=== PATIENT | female | born 1970 | race Caucasian/White ===

== ENCOUNTER 2016-12-26 02:31 | Emergency (ER) | payer BC ==
[2016-12-26] MEDS ORDERED: Ondansetron 4 MG/2 ML SDV IVPUSH ONE (02:41)
[2016-12-26] MEDS ORDERED: Sodium Chloride 0.9% 10 ML Syringe FLUSH PRN (02:42)
[2016-12-26 03:15] LABS: CHLORIDE,CL 106 mmol/L (98-107); SODIUM,NA 141 mmol/L (136-145)
[2016-12-26] MEDS ORDERED: Morphine 10 MG/ML Syringe IVPUSH ONE (03:23)
[2016-12-26] MEDS ORDERED: LORazepam 2 MG/ML MDV IVPUSH ONE (03:23)
--- NOTE | 2016-12-26 03:29 | EDM.PDOC ---
ED HPI GENERAL MEDICAL PROBLEM - General Chief Complaint: Headache Stated Complaint: Headache Time Seen by Provider: 12/26/16 02:56 Source of Information: Reports: Patient History Limitations: Reports: No Limitations - History of Present Illness INITIAL COMMENTS - FREE TEXT/NARRATIVE: Patient here by private vehicle for headache. She has a long history of headaches, including chronic daily headaches. History is complicated by aneurysms and previous subarachnoid bleed. In additional to the above she has anxiety. Tonight she reports that she has had a bilateral occipital headache that started on Monday. It has gotten worse and is now causing her dizziness as well as right arm weakness. She describes numbness/weakness in medial nerve distribution. No visual changes. No other neuro complaints. Was recently evaluated at [place] and was told aneurysm redeveloping at site of old bleed/coil location. Headache Pain Score (Numeric/FACES): 8 - Related Data Allergies Allergy/AdvReac Type Severity Reaction Status Date / Time iodine Allergy Anaphylactic Verified 12/26/16 03:05 Shock Sulfa (Sulfonamide Allergy Rash Verified 12/26/16 03:05 Antibiotics) Home Meds: Home Meds Aspirin 81 mg PO BRK 10/17/15 [History] Thyroid [[place]and Thyroid] 50 mg PO DAILY 10/17/15 [History] atorvaSTATin [Lipitor] 10 mg PO BEDTIME 11/10/15 [History] Baclofen [Baclofen] 10 mg PO TID 05/21/16 [History] Diazepam [Diazepam] 10 mg PO TID PRN 05/21/16 [History] Ibuprofen 200 mg PO Q6H PRN 05/21/16 [History] Amitriptyline Hcl 50 mg PO BEDTIME 12/26/16 [History] Past Medical History HEENT History: Reports: Allergic Rhinitis, Impaired Vision Cardiovascular History: Reports: High Cholesterol Respiratory History: Reports: COPD, Other (See Below), Pulmonary Fibrosis Other Respiratory History: lower lobe benign pulmonary nodules x2 Gastrointestinal History: Reports: Gastritis, Helicobacter Pylori Genitourinary History: Reports: UTI, Recurrent Musculoskeletal History: Reports: None Neurological History: Reports: Migraines Other Neuro History: BRAIN ANUERISM Endocrine/Metabolic History: Reports: Hypothyroidism Hematologic History: Reports: None Immunologic History: Reports: None Oncologic (Cancer) History: Reports: Cervix Dermatologic History: Reports: None - Infectious Disease History Infectious Disease History: Reports: Chicken Pox, Influenza - Past Surgical History Head Surgeries/Procedures: Reports: None HEENT Surgical History: Reports: Oral Surgery Female Surgical History: Reports: Breast Implant, Hysterectomy, Salpingo- Oophorectomy Neurological Surgical History: Reports: Other (See Below) Musculoskeletal Surgical History: Reports: Other (See Below) - Past Imaging History Past Imaging History: Reports: CAT Scan, Ultrasound Social & Family History - Tobacco Use Smoking Status *Q: Former Smoker Years of Tobacco use: 30 Packs/Tins Daily: 1 Used Tobacco, but Quit: Yes Month Tobacco Last Used: 5 Second Hand Smoke Exposure: No - Caffeine Use Caffeine Use: Reports: None - Alcohol Use Days Per Week of Alcohol Use: 0 Number of Drinks Per Day: 2 Total Drinks Per Week: 0 - Recreational Drug Use Recreational Drug Use: No Drug Use in Last 12 Months: No Recreational Drug Type: Reports: Marijuana/Hashish Recreational Drug Last Use: 3 months ago, experimentation - Living Situation & Occupation Living situation: Reports: with Family, Occupation: Retired ED ROS GENERAL - Review of Systems Review Of Systems: See Below Constitutional: Reports: No Symptoms HEENT: Denies: Vision Change Respiratory: Reports: No Symptoms Cardiovascular: Reports: No Symptoms GI/Abdominal: Reports: Nausea. Denies: Abdominal Pain, Constipation, Diarrhea, Vomiting : Reports: No Symptoms Musculoskeletal: Reports: No Symptoms Skin: Reports: No Symptoms Neurological: Reports: Dizziness, Headache, Numbness, Paresthesia (see hpi), Weakness. Denies: Seizure, Syncope, Trouble Speaking, Difficulty Walking, Change in Speech, Gait Disturbance Psychiatric: Reports: Anxiety. Denies: Confusion, Hallucinations - Physical Exam Exam: See Below Exam Limited By: No Limitations General Appearance: Alert, WD/WN, Anxious Eye Exam: Bilateral Eye: EOMI, PERRL Ears: Normal External Exam Nose: Normal Inspection Throat/Mouth: Normal Inspection, Normal Voice, No Airway Compromise Head Exam: Atraumatic, Normocephalic Neck: Supple, Non-Tender Respiratory/Chest: No Respiratory Distress, Lungs Clear, Normal Breath Sounds, No Accessory Muscle Use Cardiovascular: Regular Rate, Rhythm, No Murmur GI/Abdominal: Soft, Non-Tender Neuro Exam (Abbreviated): Alert, Oriented, Normal Cognition, Other (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 ) Back Exam: Normal Inspection Extremities: Non-Tender, Normal Capillary Refill Psychiatric: Anxious Skin Exam: Warm, Dry, Intact, Normal Color Course - Vital Signs Last Recorded V/S: Last Vital Signs Temp 36.9 C 12/26/16 02:51 Pulse 65 12/26/16 02:51 Resp 18 12/26/16 02:51 BP 109/58 L 12/26/16 02:51 Pulse Ox 98 12/26/16 02:51 - Orders/Labs/Meds Orders: Active Orders 24 hr Category Date Time Status Head wo Cont [CT] Stat Exams 12/26/16 02:42 Taken LORazepam [Ativan] Med 12/26/16 03:23 Once 1 mg IVPUSH ONETIME ONE Morphine Med 12/26/16 03:23 Once 5 mg IVPUSH ONETIME ONE Sodium Chloride 0.9% [Saline Flush] Med 12/26/16 02:42 Active 10 ml FLUSH ASDIRECTED PRN Saline Lock Insert [OM.PC] Routine Oth 12/26/16 02:42 Ordered Medication Orders Sodium Chloride (Saline Flush) 10 ml FLUSH ASDIRECTED PRN PRN Reason: Keep Vein Open Labs: Laboratory Tests 12/26/16 12/26/16 Range/Units 02:50 02:50 WBC 8.6 (4.0-10.2) K/uL RBC 4.81 (3.77-5.09) M/uL Hgb 14.7 (11.7-15.5) g/dL Hct 43.4 (34.0-46.0) % MCV 90.2 (84.0-98.0) fL MCH 30.6 (28.2-33.3) pg MCHC 33.9 (31.7-36.0) g/dL RDW 14.3 H (11.2-14.1) % Plt Count 234 (150-350) K/uL Neut % (Auto) 37.2 L (45.0-80.0) % Lymph % (Auto) 51.6 H (10.0-50.0) % Ector % (Auto) 8.1 (2.0-14.0) % Eos % (Auto) 2.6 (0.0-5.0) % Baso % (Auto) 0.5 (0.0-2.0) % Neut # (Auto) 3.20 (1.40-7.00) K/uL Lymph # (Auto) 4.42 H (0.50-3.50) K/uL Ector # (Auto) 0.69 (0.00-1.00) K/uL Eos # (Auto) 0.22 (0.00-0.50) K/uL Baso # (Auto) 0.04 (0.00-0.20) K/uL Sodium 141 (136-145) mmol/L Potassium 4.0 (3.5-5.1) mmol/L Chloride 106 (98-107) mmol/L Carbon Dioxide 26.9 (21.0-32.0) mmol/L BUN 18 (7-18) mg/dL Creatinine 0.61 (0.51-1.17) mg/dL Est Cr Clr Drug Dosing 93.59 mL/min Estimated GFR (MDRD) > 60 mL/min Glucose 106 (74-106) mg/dL Calcium 8.3 L (8.5-10.1) mg/dL Total Bilirubin 0.2 (0.2-1.0) mg/dL AST 16 (15-37) U/L ALT 21 (12-78) U/L Alkaline Phosphatase 61 (46-116) IU/L Total Protein 7.2 (6.4-8.2) g/dL Albumin 3.9 (3.4-5.0) g/dL Meds: Medications Generic Name Dose Route Start Last Admin Trade Name Freq PRN Reason Stop Dose Admin Sodium Chloride 10 ml 12/26/16 02:42 Saline Flush FLUSH ASDIRECTED PRN Keep Vein Open Discontinued Medications Generic Name Dose Route Start Last Admin Trade Name Freq PRN Reason Stop Dose Admin Ondansetron HCl 4 mg 12/26/16 02:41 12/26/16 02:46 Zofran IVPUSH 12/26/16 02:42 4 mg ONETIME ONE Administration - Radiology Interpretation Free Text/Narrative:: CT of head read as having no acute findings. - Re-Assessments/Exams Free Text/Narrative Re-Assessment/Exam: 12/26/16 03:[address] unremarkable as were labs. Given patient's long history of chronic headaches as well as anxiety, this episode may not be related to her aneurysms. However, given the unusual development of symptoms of numbness/weakness of arm as well as dizziness, she would benefit from CTA study that is not available here. Call placed to [place]. ER contacted. Spoke to concerning sending patient for CTA. accepted patient in transfer. Departure - Departure Time of Disposition: 03:39 Disposition: DC/Tfer to Acute Hospital 02 Condition: Good Clinical Impression: Headache Qualifiers: Headache type: unspecified Headache chronicity pattern: unspecified pattern Intractability: intractable Qualified Code(s): R51 - Headache - Discharge Information Forms: ED Department Discharge - My Orders Last 24 Hours: My Active Orders 12/26/16 02:42 Head wo Cont [CT] Stat Sodium Chloride 0.9% [Saline Flush] 10 ml FLUSH ASDIRECTED PRN Saline Lock Insert [OM.PC] Routine 12/26/16 03:23 LORazepam [Ativan] 1 mg IVPUSH ONETIME ONE Morphine 5 mg IVPUSH ONETIME ONE - Assessment/Plan Last 24 Hours: My Active Orders 12/26/16 02:42 Head wo Cont [CT] Stat Sodium Chloride 0.9% [Saline Flush] 10 ml FLUSH ASDIRECTED PRN Saline Lock Insert [OM.PC] Routine 12/26/16 03:23 LORazepam [Ativan] 1 mg IVPUSH ONETIME ONE Morphine 5 mg IVPUSH ONETIME ONE
[2016-12-26 05:06] VITALS: BP 106/62
== END 2016-12-26 04:25 ==
LOC: LL.ED 02:31
DX: R51 Headache (principal); E78.00 Pure hypercholesterolemia, unspecified; J44.9 Chronic obstructive pulmonary disease, unspecified; E03.9 Hypothyroidism, unspecified; Z87.440 Personal history of urinary (tract) infections; Z90.710 Acquired absence of both cervix and uterus; Z88.5 Allergy status to narcotic agent; Z88.2 Allergy status to sulfonamides; Z79.82 Long term (current) use of aspirin; Z79.899 Other long term (current) drug therapy; Z87.891 Personal history of nicotine dependence
CPT/HCPCS: 36415; 70450; 80053; 85025; 96374; 96375; 99285; J2060; J2270; J2405

== ENCOUNTER 2017-08-31 11:20 | Emergency (ER) | payer BC ==
--- NOTE | 2017-08-31 12:01 | EDM.PDOC ---
ED HPI GENERAL MEDICAL PROBLEM - General Chief Complaint: General Stated Complaint: weakness, shaky Time Seen by Provider: 08/31/17 11:52 Source of Information: Reports: Patient History Limitations: Reports: No Limitations - History of Present Illness INITIAL COMMENTS - FREE TEXT/NARRATIVE: Patient presented to ER after being referred from clinic for evaluation of not feeling well. Per Evangelina Sandra, patient came in complaining of feeling lightheaded/dizzy and appeared pale. She has a history of brain aneurysm and was therefore sent to the ER for a more emergent evaluation. Patient did drive herself to the hospital. She ultimately said that she has felt like this since before her May neck surgery (3+ months), but symptoms were worse last night. Complains of left posterior neck discomfort that has been present for awhile. Denies actual headache but describes her head as feeling "full" and thinking is somewhat muddy. Says she was unable to sleep well last night and described her head feeling as being like she was a bit drunk on alcohol. Denies hitting her head/trauma. No recent med changes but recalls being started on Neurontin before her neck surgery. No other reported changes. Since her neck surgery she has regained use/feeling of right arm. Patient has been googling her symptoms and had a web page pulled up on her phone that described how nerve impingement of proximal cervical nerves can cause similar symptoms. - Related Data Allergies Allergy/AdvReac Type Severity Reaction Status Date / Time iodine Allergy Anaphylactic Verified 12/26/16 03:05 Shock Sulfa (Sulfonamide Allergy Rash Verified 12/26/16 03:05 Antibiotics) cont Allergy Difficulty Uncoded 08/31/17 11:26 Breathing Home Meds: Home Meds Aspirin 81 mg PO BRK 10/17/15 [History] Thyroid [[place] Thyroid] 50 mg PO DAILY 10/17/15 [History] atorvaSTATin [Lipitor] 10 mg PO BEDTIME 11/10/15 [History] Baclofen 10 mg PO TID 05/21/16 [History] Celecoxib [CeleBREX] 100 mg PO TID 08/31/17 [History] Gabapentin [Neurontin] 300 mg PO TID 08/31/17 [History] Magnesium Glycinate [Mag Glycinate] 200 mg PO BID #120 tablet 08/31/17 [Rx] Meclizine Hcl [IJD: Meclizine] 25 mg PO .EVERY 6 HOURS PRN #30 tab.chew [Rx] Ubidecarenone [Coq-10] 100 mg PO DAILY #30 capsule 08/31/17 [Rx] Vitamin B Complex [B Complex] 1 each PO DAILY #30 tablet 08/31/17 [Rx] Vitamin D3/Vitamin K2 (Mk4) [K2 Plus D3 Tablet] 2 each PO DAILY #60 tablet 08/31 [Rx] Past Medical History HEENT History: Reports: Allergic Rhinitis, Impaired Vision Cardiovascular History: Reports: High Cholesterol Respiratory History: Reports: COPD, Other (See Below), Pulmonary Fibrosis Other Respiratory History: lower lobe benign pulmonary nodules x2 Gastrointestinal History: Reports: Gastritis, Helicobacter Pylori Genitourinary History: Reports: UTI, Recurrent Musculoskeletal History: Reports: Neck Pain, Chronic Neurological History: Reports: Migraines Other Neuro History: BRAIN ANUERISM Endocrine/Metabolic History: Reports: Hypothyroidism Hematologic History: Reports: None Immunologic History: Reports: None Oncologic (Cancer) History: Reports: Cervix Dermatologic History: Reports: None - Infectious Disease History Infectious Disease History: Reports: Chicken Pox, Influenza - Past Surgical History Head Surgeries/Procedures: Reports: None HEENT Surgical History: Reports: Oral Surgery Female Surgical History: Reports: Breast Implant, Hysterectomy, Salpingo- Oophorectomy Neurological Surgical History: Reports: C-Spine (cervical fusion), Other (See Below) Musculoskeletal Surgical History: Reports: Other (See Below) - Past Imaging History Past Imaging History: Reports: CAT Scan, Ultrasound Social & Family History - Tobacco Use Smoking Status *Q: Former Smoker Years of Tobacco use: 30 Packs/Tins Daily: 1 Used Tobacco, but Quit: Yes Month/Year Tobacco Last Used: 5 Second Hand Smoke Exposure: No - Caffeine Use Caffeine Use: Reports: None - Alcohol Use Days Per Week of Alcohol Use: 0 Number of Drinks Per Day: 2 Total Drinks Per Week: 0 - Recreational Drug Use Recreational Drug Use: No Drug Use in Last 12 Months: No Recreational Drug Type: Reports: Marijuana/Hashish Recreational Drug Last Use: 3 months ago, experimentation - Living Situation & Occupation Living situation: Reports: with Family, Occupation: Retired ED ROS GENERAL - Review of Systems Review Of Systems: See Below Constitutional: Reports: No Symptoms HEENT: Reports: Vision Change (says that vision bilaterally feels a bit blurry) Respiratory: Reports: No Symptoms Cardiovascular: Reports: Lightheadedness. Denies: Chest Pain, Blood Pressure Problem, Dyspnea on Exertion, Palpitations, Syncope GI/Abdominal: Reports: Nausea (mild). Denies: Abdominal Pain, Constipation, Diarrhea, Decreased Appetite : Reports: No Symptoms Musculoskeletal: Reports: Neck Pain (chronic) Skin: Reports: No Symptoms Neurological: Reports: Other (has full sensation in head, complains of brain-fog ). Denies: Headache, Seizure, Syncope, Trouble Speaking, Difficulty Walking, Change in Speech, Gait Disturbance Psychiatric: Reports: No Symptoms Hematologic/Lymphatic: Reports: No Symptoms ED EXAM, GENERAL - Physical Exam Exam: See Below Exam Limited By: No Limitations General Appearance: Alert, WD/WN, No Apparent Distress Eye Exam: Bilateral Eye: EOMI, PERRL, Other (Nystagmus absent with head rotation ) Ears: Normal External Exam, Normal Canal, Hearing Grossly Normal, Normal TMs Nose: Normal Inspection Throat/Mouth: Normal Inspection, Normal Lips, Normal Oropharynx, Normal Voice, No Airway Compromise Head: Atraumatic, Normocephalic Neck: Normal Inspection, Supple, Other (Patient has reduced ROM secondary to cervical fusion. ) Respiratory/Chest: No Respiratory Distress, Lungs Clear, Normal Breath Sounds, No Accessory Muscle Use, Chest Non-Tender Cardiovascular: Normal Peripheral Pulses, Regular Rate, Rhythm, No Edema, No Murmur Peripheral Pulses: 2+: Radial (L), Radial (R) GI/Abdominal: Normal Bowel Sounds, Soft, Non-Tender, No Distention (Female) Exam: Deferred Rectal (Female) Exam: Deferred Back Exam: Normal Inspection. No: CVA Tenderness (L), CVA Tenderness (R) Extremities: Normal Inspection, Normal Range of Motion, Non-Tender, No Pedal Edema, Normal Capillary Refill Neurological: Alert, Oriented, Normal Cognition, Normal Reflexes, No Motor/ Sensory Deficits Psychiatric: Anxious (mild) Skin Exam: Warm, Dry, Intact, Normal Color EKG INTERPRETATION EKG Date: 08/31/17 Time: 13:12 Rhythm: Other (Sinus Bradycardia) Rate (Beats/Min): 53 [place]: Normal P-Wave: Present QRS: Normal ST-T: Normal QT: Normal Comparison: No Change (Previous EKG on file similarly showed Sinus Bradycardia) Course - Vital Signs Last Recorded V/S: Last Vital Signs Temp 36.9 C 08/31/17 11:24 Pulse 72 08/31/17 12:15 Resp 16 08/31/17 12:15 BP 101/62 08/31/17 12:15 Pulse Ox 95 08/31/17 12:15 - Orders/Labs/Meds Orders: Active Orders 24 hr Category Date Time Status EKG Documentation Completion [RC] ASDIRECTED Care 08/31/17 13:03 Ordered Head wo Cont [CT] Stat Exams 08/31/17 11:22 Taken CULTURE URINE [RM] Stat Lab 08/31/17 11:38 Received UA W/MICROSCOPIC [URIN] Stat Lab 08/31/17 11:38 Ordered Sodium Chloride 0.9% [Saline Flush] Med 08/31/17 12:46 Active 10 ml FLUSH ASDIRECTED PRN Saline Lock Insert [OM.PC] Routine Oth 08/31/17 11:38 Ordered EKG 12 Lead [EK] Routine Ther 08/31/17 13:03 Ordered Medication Orders Sodium Chloride (Saline Flush) 10 ml FLUSH ASDIRECTED PRN PRN Reason: Keep Vein Open Labs: Laboratory Tests 08/31/17 08/31/17 08/31/17 Range/Units 11:38 12:01 12:01 WBC 5.8 (4.0-10.2) K/uL RBC 4.55 (3.77-5.09) M/uL Hgb 13.7 (11.7-15.5) g/dL Hct 41.7 (34.0-46.0) % MCV 91.6 (84.0-98.0) fL MCH 30.1 (28.2-33.3) pg MCHC 32.9 (31.7-36.0) g/dL RDW 14.3 H (11.2-14.1) % Plt Count 227 (150-350) K/uL Neut % (Auto) 50.5 (45.0-80.0) % Lymph % (Auto) 39.5 (10.0-50.0) % [place] % (Auto) 7.2 (2.0-14.0) % Eos % (Auto) 2.1 (0.0-5.0) % Baso % (Auto) 0.7 (0.0-2.0) % Neut # (Auto) 2.93 (1.40-7.00) K/uL Lymph # (Auto) 2.29 (0.50-3.50) K/uL [place] # (Auto) 0.42 (0.00-1.00) K/uL Eos # (Auto) 0.12 (0.00-0.50) K/uL Baso # (Auto) 0.04 (0.00-0.20) K/uL D-Dimer, Quantitative < 100 (0-400) ng/mL Sodium (136-145) mmol/L Potassium (3.5-5.1) mmol/L Chloride (98-107) mmol/L Carbon Dioxide (21.0-32.0) mmol/L BUN (7-18) mg/dL Creatinine (0.51-1.17) mg/dL Est Cr Clr Drug Dosing Estimated GFR (MDRD) mL/min Glucose (74-106) mg/dL Lactic Acid (0.4-2.0) mmol/L Calcium (8.5-10.1) mg/dL Total Bilirubin (0.2-1.0) mg/dL AST (15-37) U/L ALT (12-78) U/L Alkaline Phosphatase (46-116) IU/L Troponin I (0.000-0.056) ng/mL Total Protein (6.4-8.2) g/dL Albumin (3.4-5.0) g/dL Specimen Type Urincc Urine Color Yellow Urine Appearance Clear Urine pH 7.0 (5.0-9.0) Ur Specific [place] 1.010 (1.005-1.030) Urine Protein Negative (NEGATIVE) mg/dL Urine Glucose (UA) Negative (NEGATIVE) mg/dL Urine Ketones Negative (NEGATIVE) mg/dL Urine Occult Blood Negative (NEGATIVE) Urine Nitrite Negative (NEGATIVE) Urine Bilirubin Negative (NEGATIVE) Urine Urobilinogen 0.2 (0.2-1.0) E.U./dL Ur Leukocyte Esterase Negative (NEGATIVE) Urine RBC 0-5 /HPF Urine WBC 0-5 /HPF Ur Epithelial Cells Few /LPF Urine Bacteria Few (NONE TO FEW) /HPF 08/31/17 08/31/17 Range/Units 12:01 12:01 WBC (4.0-10.2) K/uL RBC (3.77-5.09) M/uL Hgb (11.7-15.5) g/dL Hct (34.0-46.0) % MCV (84.0-98.0) fL MCH (28.2-33.3) pg MCHC (31.7-36.0) g/dL RDW (11.2-14.1) % Plt Count (150-350) K/uL Neut % (Auto) (45.0-80.0) % Lymph % (Auto) (10.0-50.0) % [place] % (Auto) (2.0-14.0) % Eos % (Auto) (0.0-5.0) % Baso % (Auto) (0.0-2.0) % Neut # (Auto) (1.40-7.00) K/uL Lymph # (Auto) (0.50-3.50) K/uL [place] # (Auto) (0.00-1.00) K/uL Eos # (Auto) (0.00-0.50) K/uL Baso # (Auto) (0.00-0.20) K/uL D-Dimer, Quantitative (0-400) ng/mL Sodium 142 (136-145) mmol/L Potassium 4.1 (3.5-5.1) mmol/L Chloride 106 (98-107) mmol/L Carbon Dioxide 28.8 (21.0-32.0) mmol/L BUN 16 (7-18) mg/dL Creatinine 0.65 (0.51-1.17) mg/dL Est Cr Clr Drug Dosing TNP Estimated GFR (MDRD) > 60 mL/min Glucose 94 (74-106) mg/dL Lactic Acid 0.5 (0.4-2.0) mmol/L Calcium 9.1 (8.5-10.1) mg/dL Total Bilirubin 0.5 (0.2-1.0) mg/dL AST 22 (15-37) U/L ALT 26 (12-78) U/L Alkaline Phosphatase 74 (46-116) IU/L Troponin I 0.000 (0.000-0.056) ng/mL Total Protein 7.5 (6.4-8.2) g/dL Albumin 4.1 (3.4-5.0) g/dL Specimen Type Urine Color Urine Appearance Urine pH (5.0-9.0) Ur Specific [place] (1.005-1.030) Urine Protein (NEGATIVE) mg/dL Urine Glucose (UA) (NEGATIVE) mg/dL Urine Ketones (NEGATIVE) mg/dL Urine Occult Blood (NEGATIVE) Urine Nitrite (NEGATIVE) Urine Bilirubin (NEGATIVE) Urine Urobilinogen (0.2-1.0) E.U./dL Ur Leukocyte Esterase (NEGATIVE) Urine RBC /HPF Urine WBC /HPF Ur Epithelial Cells /LPF Urine Bacteria (NONE TO FEW) /HPF Meds: Medications Generic Name Dose Route Start Last Admin Trade Name Freq PRN Reason Stop Dose Admin Sodium Chloride 10 ml 08/31/17 12:46 Saline Flush FLUSH ASDIRECTED PRN Keep Vein Open Discontinued Medications Generic Name Dose Route Start Last Admin Trade Name Freq PRN Reason Stop Dose Admin Meclizine HCl 25 mg 08/31/17 12:22 08/31/17 12:26 Antivert PO 08/31/17 12:23 25 mg ONETIME ONE Administration - Radiology Interpretation Free Text/Narrative:: No acute changes noted on head CT per Radiology CT Results Date: 08/31/17 CT Results Time: 12:17 - Re-Assessments/Exams Free Text/Narrative Re-Assessment/Exam: Patient's exam overall unremarkable. Single dose Meclizine given. She looked very comfortable, was in a good mood, neurologically intact. Negative CT scan of the brain. CBC/Chem/UA/Trop/DDimer unremarkable. As time went on, it became apparent that patient's complaint was not new. Sensation has been present for 3+ months and worsened since yesterday morning. She is still able to function/drive. She has been web researching her complaint and is focusing on possible C2C3 impingement as cause of symptoms. There does appear to be an anxiety/behavior component involved. She insisted that she looked "terrible" and was "obviously ill" during H&P. She did in fact look quite good at that time and was told that to reassure her, and this surprised the patient. She mentioned that her vision was a bit blurry during the history, but was a bit annoyed when nurse got her up to test vision using vision chart. She then essentially recanted that complaint and said there was no change in vision. It was noted that patient was 20/20 with both eyes at 10 feet. She had told Mary Lou that she was uncertain if she should have driven herself in like she did to be seen at the clinic given her primary complaints. She turned us down when observation admission offered and told staff that she had complete confidence in being able to drive herself home. She refused to have her come and give her a ride. Patient was observed to move around easily on the ER bed. She easily got to her feet and ambulated around the ER while vision testing performed. While standing she was able to stand on one foot at a time without losing her balance, and could touch her nose easily with both hands while standing with eyes closed. Cannot rule out Neurontin side effects as part of patient complaint, as it can cause dizziness and altered mentation as part of listed common side effects. Also cannot rule out early developing viral infection/URI as reason for acute exacerbation of complaint. Plan formulated at time of discharge includes: -Patient to follow up tomorrow with Mary Lou at [facility]. Depending on clinical course, additional workup such as MRI may be needed. -Patient to taper and d/c Neurontin to see if that is playing a part in her above complaints, as timing of complaint lines up with start of Neurontin per patient. -Meclizine PRN to see if that helps with patient's complaints. -Consider B12/Vit D testing at clinic follow up. Recommended to patient to start Vit D/Mg/B vitamin/CoQ10 supplementation to see it that improves her overall sense of wellness. She is to follow up otherwise as needed. Departure - Departure Time of Disposition: 13:21 Disposition: Home, Self-Care 01 Condition: Good Clinical Impression: Lightheadedness, Chronic neck pain, Anxiety about health - Discharge Information Prescriptions: Magnesium Glycinate [Mag Glycinate] 200 mg PO BID #120 tablet Meclizine Hcl [IJD: Meclizine] 25 mg PO .EVERY 6 HOURS PRN #30 tab.chew PRN Reason: Dizziness Ubidecarenone [Coq-10] 100 mg PO DAILY #30 capsule Vitamin B Complex [B Complex] 1 each PO DAILY #30 tablet Vitamin D3/Vitamin K2 (Mk4) [K2 Plus D3 Tablet] 2 each PO DAILY #60 tablet Referrals: Evangelina Sandra PA [Primary Care Provider] - Forms: ED Department Discharge Additional Instructions: Follow up tomorrow with Mary Lou at [facility] Start tapering Neurontin. Take your 300mg tablet twice daily instead of 3 times daily. Discuss further taper plan with Evangelina tomorrow to see if this medication is contributing to your symptoms. Consider B12 and Vit D testing. Recommend starting several baseline supplements including Vit D/K, BVitamins, Magnesium, CoQ10. Follow up acutely otherwise if you have sudden worsening problems. - My Orders Last 24 Hours: My Active Orders 08/31/17 11:22 Head wo Cont [CT] Stat 08/31/17 11:38 CULTURE URINE [RM] Stat UA W/MICROSCOPIC [URIN] Stat Saline Lock Insert [OM.PC] Routine 08/31/17 12:46 Sodium Chloride 0.9% [Saline Flush] 10 ml FLUSH ASDIRECTED PRN 08/31/17 13:03 EKG Documentation Completion [RC] ASDIRECTED EKG 12 Lead [EK] Routine - Assessment/Plan Last 24 Hours: My Active Orders 08/31/17 11:22 Head wo Cont [CT] Stat 08/31/17 11:38 CULTURE URINE [RM] Stat UA W/MICROSCOPIC [URIN] Stat Saline Lock Insert [OM.PC] Routine 08/31/17 12:46 Sodium Chloride 0.9% [Saline Flush] 10 ml FLUSH ASDIRECTED PRN 08/31/17 13:03 EKG Documentation Completion [RC] ASDIRECTED EKG 12 Lead [EK] Routine
[2017-08-31 12:23] LABS: CHLORIDE,CL 106 mmol/L (98-107); SODIUM,NA 142 mmol/L (136-145)
[2017-08-31 12:25] VITALS: BP 101/62
[2017-08-31] MEDS: Meclizine 25 MG Tab PO ONE (12:26)
[2017-08-31] MEDS ORDERED: Sodium Chloride 0.9% 10 ML Syringe FLUSH PRN (12:46)
== END 2017-08-31 13:50 | disposition home or self-care (01) ==
LOC: LL.ED 11:20
DX: R42 Dizziness and giddiness (principal); M54.2 Cervicalgia; G89.29 Other chronic pain; F41.9 Anxiety disorder, unspecified; E03.9 Hypothyroidism, unspecified; J44.9 Chronic obstructive pulmonary disease, unspecified; Z88.8 Allergy status to other drugs, medicaments and biological substances; Z88.2 Allergy status to sulfonamides; Z79.899 Other long term (current) drug therapy; Z87.891 Personal history of nicotine dependence
CPT/HCPCS: 36000; 36415; 70450; 80053; 81001; 83605; 84484; 85025; 85379; 87086; 93005; 99285; A9270-GY

== ENCOUNTER 2017-09-29 08:53 | Emergency (ER) | payer BC ==
[2017-09-29 09:08] VITALS: BP 128/74
--- NOTE | 2017-09-29 09:26 | EDM.PDOC ---
ED HPI GENERAL MEDICAL PROBLEM - General Chief Complaint: General Stated Complaint: Leg Pain/Swelling Time Seen by Provider: 09/29/17 09:00 Source of Information: Reports: Patient History Limitations: Reports: No Limitations - History of Present Illness INITIAL COMMENTS - FREE TEXT/NARRATIVE: Patient concerned about small lump right groin that started to develop yesterday. Two days ago she underwent angiogram performed by at [facility]. Lump pea sized yesterday. Today it is larger. No redness/drainage. No fevers/ chills. Mild tenderness with palpation. No other complaints. Has not noted swelling in lower legs/neuro changes. Called 's nurse to ask about the lump and they referred her to our ER to make certain that it was not due to a blood clot. - Related Data Allergies Allergy/AdvReac Type Severity Reaction Status Date / Time iodine Allergy Anaphylactic Verified 09/29/17 08:55 Shock Sulfa (Sulfonamide Allergy Rash Verified 09/29/17 08:55 Antibiotics) cont Allergy Difficulty Uncoded 09/29/17 08:55 Breathing Home Meds: Home Meds Aspirin 81 mg PO BRK 10/17/15 [History] Thyroid [[place] Thyroid] 50 mg PO DAILY 10/17/15 [History] atorvaSTATin [Lipitor] 10 mg PO BEDTIME 11/10/15 [History] Baclofen 10 mg PO TID 05/21/16 [History] Celecoxib [CeleBREX] 100 mg PO TID 08/31/17 [History] Gabapentin [Neurontin] 300 mg PO TID 08/31/17 [History] Magnesium Glycinate [Mag Glycinate] 200 mg PO BID #120 tablet 08/31/17 [Rx] Meclizine Hcl [IJD: Meclizine] 25 mg PO .EVERY 6 HOURS PRN #30 tab.chew [Rx] Ubidecarenone [Coq-10] 100 mg PO DAILY #30 capsule 08/31/17 [Rx] Vitamin B Complex [B Complex] 1 each PO DAILY #30 tablet 08/31/17 [Rx] Vitamin D3/Vitamin K2 (Mk4) [K2 Plus D3 Tablet] 2 each PO DAILY #60 tablet 08/31 [Rx] Past Medical History HEENT History: Reports: Allergic Rhinitis, Impaired Vision Cardiovascular History: Reports: High Cholesterol Respiratory History: Reports: COPD, Other (See Below), Pulmonary Fibrosis Other Respiratory History: lower lobe benign pulmonary nodules x2 Gastrointestinal History: Reports: Gastritis, Helicobacter Pylori Genitourinary History: Reports: UTI, Recurrent Musculoskeletal History: Reports: Neck Pain, Chronic Neurological History: Reports: Migraines Other Neuro History: BRAIN ANUERISM Endocrine/Metabolic History: Reports: Hypothyroidism Hematologic History: Reports: None Immunologic History: Reports: None Oncologic (Cancer) History: Reports: Cervix Dermatologic History: Reports: None - Infectious Disease History Infectious Disease History: Reports: Chicken Pox, Influenza - Past Surgical History Head Surgeries/Procedures: Reports: None HEENT Surgical History: Reports: Oral Surgery Female Surgical History: Reports: Breast Implant, Hysterectomy, Salpingo- Oophorectomy Neurological Surgical History: Reports: C-Spine, Other (See Below) Musculoskeletal Surgical History: Reports: Other (See Below) - Past Imaging History Past Imaging History: Reports: CAT Scan, Ultrasound Social & Family History - Tobacco Use Smoking Status *Q: Former Smoker Years of Tobacco use: 30 Packs/Tins Daily: 1 Used Tobacco, but Quit: Yes Month/Year Tobacco Last Used: 5 Second Hand Smoke Exposure: No - Caffeine Use Caffeine Use: Reports: None - Alcohol Use Days Per Week of Alcohol Use: 0 Number of Drinks Per Day: 2 Total Drinks Per Week: 0 - Recreational Drug Use Recreational Drug Use: No Drug Use in Last 12 Months: No Recreational Drug Type: Reports: Marijuana/Hashish Recreational Drug Last Use: 3 months ago, experimentation - Living Situation & Occupation Living situation: Reports: with Family, Occupation: Retired ED ROS GENERAL - Review of Systems Review Of Systems: ROS reveals no pertinent complaints other than HPI. ED EXAM, GENERAL - Physical Exam Exam: See Below Exam Limited By: No Limitations General Appearance: Alert, WD/WN, No Apparent Distress Head: Atraumatic, Normocephalic Respiratory/Chest: No Respiratory Distress Cardiovascular: Normal Peripheral Pulses GI/Abdominal: Soft, Non-Tender Extremities: Normal Inspection, Normal Range of Motion, Non-Tender, No Pedal Edema, Normal Capillary Refill, Other (small 1inch bump noted right inguinal area, located just below healing incision from recent angiogram. No redness. Skin normal in appearance. No increased warmth. ) Neurological: Alert, Oriented, Normal Cognition, Normal Gait, No Motor/Sensory Deficits Psychiatric: Normal Affect, Normal Mood Skin Exam: Warm, Dry Course - Vital Signs Last Recorded V/S: Last Vital Signs Temp 36.8 C 09/29/17 08:55 Pulse 88 09/29/17 08:55 Resp 16 09/29/17 08:55 BP 128/74 09/29/17 08:55 Pulse Ox 98 09/29/17 08:55 - Orders/Labs/Meds Orders: Active Orders 24 hr Category Date Time Status Venous Doppler Lwr Ext Rt [US] Stat Exams 09/29/17 09:06 Ordered - Re-Assessments/Exams Free Text/Narrative Re-Assessment/Exam: US of right extremity/inguinal area performed. No noted changes suggestive of blood clot/embolism. Appearance of area in question consistent with enlarged lymph node per Radiology US tech. Suspect that incision irritated the lymph node as procedure traumatized overlying skin. Call placed to Neurosurgery at [facility]. Results discussed with . Patient left ER prior to official discharge as we were waiting for to return our call. At that time she was aware of the likely diagnosis being an enlarged lymph node. Was contacted on cell phone by her nurse and instructed to watch for any additional changes and follow up if needed/signs of infection develop. Departure - Departure Time of Disposition: 10:50 Disposition: Home, Self-Care 01 Condition: Good Clinical Impression: Reactive lymphadenopathy - Discharge Information Referrals: Evangelina Sandra PA [Primary Care Provider] - Forms: ED Department Discharge Additional Instructions: Follow up as needed if problems worsen/signs of infection develop. - My Orders Last 24 Hours: My Active Orders 09/29/17 09:06 Venous Doppler Lwr Ext Rt [US] Stat - Assessment/Plan Last 24 Hours: My Active Orders 09/29/17 09:06 Venous Doppler Lwr Ext Rt [US] Stat
== END 2017-09-29 10:25 | disposition home or self-care (01) ==
LOC: LL.ED 08:53
DX: R59.1 Generalized enlarged lymph nodes (principal); E78.00 Pure hypercholesterolemia, unspecified; E03.9 Hypothyroidism, unspecified; Z88.2 Allergy status to sulfonamides; Z79.82 Long term (current) use of aspirin; Z79.899 Other long term (current) drug therapy; Z87.891 Personal history of nicotine dependence
CPT/HCPCS: 93971; 99284

== ENCOUNTER 2017-11-04 09:55 | Emergency (ER) | payer BC ==
[2017-11-04 10:32] VITALS: BP 103/61
[2017-11-04] MEDS: Promethazine 25 MG/ML SDV IM ONE (10:41)
--- NOTE | 2017-11-04 11:04 | EDM.PDOC ---
ED HPI GENERAL MEDICAL PROBLEM - General Chief Complaint: General Stated Complaint: nausea/dizziness Time Seen by Provider: 11/04/17 10:00 Source of Information: Reports: Patient History Limitations: Reports: No Limitations - History of Present Illness INITIAL COMMENTS - FREE TEXT/NARRATIVE: patient is a 47-year-old who was seen in [place] with nausea vomiting some ear pain and discomfort today seen with increase vomiting anxiety ear discomfort Onset: Gradual Duration: Day(s):, Getting Worse Location: Reports: Head Quality: Reports: Ache, Pressure Severity: Moderate Improves with: Reports: None Context: Reports: Other (illness) Associated Symptoms: Reports: Headaches, Other (ear painnausea) Ear Pain Score (Numeric/FACES): 7 Headache Pain Score (Numeric/FACES): 7 - Related Data Allergies Allergy/AdvReac Type Severity Reaction Status Date / Time iodine Allergy Anaphylactic Verified 11/04/17 10:04 Shock Sulfa (Sulfonamide Allergy Rash Verified 11/04/17 10:04 Antibiotics) cont Allergy Difficulty Uncoded 11/04/17 10:04 Breathing Home Meds: Home Meds Aspirin 81 mg PO BRK 10/17/15 [History] atorvaSTATin [Lipitor] 10 mg PO BEDTIME 11/10/15 [History] Meclizine Hcl [IJD: Meclizine] 25 mg PO .EVERY 6 HOURS PRN #30 tab.chew [Rx] Vitamin B Complex [B Complex] 1 each PO DAILY #30 tablet 08/31/17 [Rx] Vitamin D3/Vitamin K2 (Mk4) [K2 Plus D3 Tablet] 2 each PO DAILY #60 tablet 08/31 [Rx] Cefprozil [Cefzil] 500 mg PO BID 10 Days #20 tablet 11/04/17 [Rx] Levothyroxine [Synthroid] 50 mcg PO ACBREAKFAST 11/04/17 [History] Ondansetron [Zofran Odt] 8 mg PO Q8H PRN 11/04/17 [History] Promethazine [Phenergan] 25 mg PO Q6H PRN 5 Days #20 tab 11/04/17 [Rx] Past Medical History HEENT History: Reports: Allergic Rhinitis, Impaired Vision Cardiovascular History: Reports: High Cholesterol Respiratory History: Reports: COPD, Other (See Below), Pulmonary Fibrosis Other Respiratory History: lower lobe benign pulmonary nodules x2 Gastrointestinal History: Reports: Gastritis, Helicobacter Pylori Genitourinary History: Reports: UTI, Recurrent Musculoskeletal History: Reports: Neck Pain, Chronic Neurological History: Reports: Migraines Other Neuro History: BRAIN ANUERISM Endocrine/Metabolic History: Reports: Hypothyroidism Hematologic History: Reports: None Immunologic History: Reports: None Oncologic (Cancer) History: Reports: Cervix Dermatologic History: Reports: None - Infectious Disease History Infectious Disease History: Reports: Chicken Pox, Influenza - Past Surgical History Head Surgeries/Procedures: Reports: None HEENT Surgical History: Reports: Oral Surgery Female Surgical History: Reports: Breast Implant, Hysterectomy, Salpingo- Oophorectomy Neurological Surgical History: Reports: C-Spine, Other (See Below) Musculoskeletal Surgical History: Reports: Other (See Below) - Past Imaging History Past Imaging History: Reports: CAT Scan, Ultrasound Social & Family History - Tobacco Use Smoking Status *Q: Current Every Day Smoker Years of Tobacco use: 20 Packs/Tins Daily: 0.2 - Caffeine Use Caffeine Use: Reports: None - Living Situation & Occupation Living situation: Reports: with Family, Occupation: Retired ED ROS GENERAL - Review of Systems Review Of Systems: ROS reveals no pertinent complaints other than HPI. ED EXAM, GENERAL - Physical Exam Exam: See Below Exam Limited By: No Limitations General Appearance: Alert, WD/WN, No Apparent Distress Ear Exam: Left Ear: TM Red, TM Bulging Nose: Normal Inspection, Normal Mucosa, No Blood Throat/Mouth: Normal Inspection, Normal Lips, Normal Teeth, Normal Gums, Normal Oropharynx, Normal Voice, No Airway Compromise Head: Atraumatic, Normocephalic Neck: Normal Inspection, Supple, Non-Tender, Full Range of Motion Respiratory/Chest: No Respiratory Distress, Lungs Clear, Normal Breath Sounds, No Accessory Muscle Use, Chest Non-Tender Cardiovascular: Normal Peripheral Pulses, Regular Rate, Rhythm, No Edema, No Gallop, No JVD, No Murmur, No Rub GI/Abdominal: Normal Bowel Sounds, Soft, Non-Tender, No Organomegaly, No Distention, No Abnormal Bruit, No Mass (Female) Exam: Deferred Rectal (Female) Exam: Deferred Back Exam: Normal Inspection, Full Range of Motion, NT Extremities: Normal Inspection, Normal Range of Motion, Non-Tender, Normal Capillary Refill, No Pedal Edema Neurological: Alert, Oriented, CN II-XII Intact, Normal Cognition, Normal Gait, Normal Reflexes, No Motor/Sensory Deficits Psychiatric: Normal Affect, Normal Mood Course - Vital Signs Last Recorded V/S: Last Vital Signs Temp 99.4 F 11/04/17 09:56 Pulse 79 11/04/17 10:32 Resp 16 11/04/17 10:32 BP 103/61 11/04/17 10:32 Pulse Ox 97 11/04/17 10:32 - Orders/Labs/Meds Meds: Medications Discontinued Medications Generic Name Dose Route Start Last Admin Trade Name Freq PRN Reason Stop Dose Admin Promethazine HCl 25 mg 11/04/17 10:20 11/04/17 10:41 Phenergan IM 11/04/17 10:21 25 mg ONETIME ONE Administration Departure - Departure Time of Disposition: 11:06 Disposition: Home, Self-Care 01 Condition: Fair Clinical Impression: Left otitis media Qualifiers: Otitis media type: unspecified nonsuppurative Qualified Code(s): H65.92 - Unspecified nonsuppurative otitis media, left ear - Discharge Information Prescriptions: Cefprozil [Cefzil] 500 mg PO BID 10 Days #20 tablet Promethazine [Phenergan] 25 mg PO Q6H PRN 5 Days #20 tab PRN Reason: nausea and vomiting Referrals: Evangelina Sandra PA [Primary Care Provider] - Care Plan Goals: patient started on Phenergan for nausea 25 mg every 6 hoursplus Cefzil 501 tablet twice a day for 10 days medications sent to the pharmacy
== END 2017-11-04 11:20 | disposition home or self-care (01) ==
LOC: LL.ED 09:55
DX: H65.92 Unspecified nonsuppurative otitis media, left ear (principal); E78.00 Pure hypercholesterolemia, unspecified; J44.9 Chronic obstructive pulmonary disease, unspecified; E03.9 Hypothyroidism, unspecified; F17.210 Nicotine dependence, cigarettes, uncomplicated; Z91.048 Other nonmedicinal substance allergy status; Z88.0 Allergy status to penicillin; Z79.899 Other long term (current) drug therapy; Z87.442 Personal history of urinary calculi; Z79.82 Long term (current) use of aspirin
CPT/HCPCS: 96372; 99284; J2550

== ENCOUNTER 2017-11-13 17:35 | Emergency (ER) | payer BC ==
[2017-11-13 17:42] VITALS: BP 107/66
[2017-11-13] MEDS ORDERED: Haloperidol Lactate 5 MG/ML SDV IVPUSH ONE (17:57)
[2017-11-13] MEDS ORDERED: Sodium Chloride 0.9% 1,000 ML IV ONE (18:01)
[2017-11-13] MEDS ORDERED: Ketorolac 30 MG/ML SDV IVPUSH ONE (18:01)
[2017-11-13] MEDS ORDERED: Sodium Chloride 0.9% 10 ML Syringe FLUSH PRN (18:01)
[2017-11-13] MEDS ORDERED: LORazepam 2 MG/ML SDV IVPUSH ONE (18:01)
[2017-11-13] MEDS ORDERED: Ondansetron 4 MG/2 ML SDV IVPUSH ONE (18:02)
[2017-11-13] MEDS ORDERED: Promethazine 25 MG/ML SDV IM ONE (18:04)
--- NOTE | 2017-11-13 18:09 | EDM.PDOC ---
ED HPI GENERAL MEDICAL PROBLEM - General Chief Complaint: Headache Stated Complaint: had occipital nerve block, may have hematoma Time Seen by Provider: 11/13/17 17:38 Source of Information: Reports: Patient History Limitations: Reports: No Limitations - History of Present Illness INITIAL COMMENTS - FREE TEXT/NARRATIVE: Patient complains of headache lasting the last several weeks which started when she had occipital nerve blocks placed for chronic pain issues. She felt that the injection site on the left felt swollen and irritated. Was told that she may have hematoma causing the swelling. Tender to touch. Continued to have occipital headache as well as bilateral temporal/frontal headache. Tried using ice/OTC methods to improve pain. Today went to see [facility] and was told to come to ER. Mild nausea. No emesis. No neuro changes. No vision changes/auras. No fevers/ chills. Denies drainage from injection sites. No other reported changes. Has usual baseline daily headache pain about a "3". Today she feels her headache is "500". Last time she was in the ER for a headache was last April. She received good relief from the combination of medications that she received at that time. - Related Data Allergies Allergy/AdvReac Type Severity Reaction Status Date / Time iodine Allergy Anaphylactic Verified 11/13/17 17:36 Shock Sulfa (Sulfonamide Allergy Rash Verified 11/13/17 17:36 Antibiotics) cont Allergy Difficulty Uncoded 11/13/17 17:36 Breathing Home Meds: Home Meds Aspirin 81 mg PO BRK 10/17/15 [History] atorvaSTATin [Lipitor] 10 mg PO BEDTIME 11/10/15 [History] Vitamin D3/Vitamin K2 (Mk4) [K2 Plus D3 Tablet] 2 each PO DAILY #60 tablet 08/31 [Rx] Levothyroxine [Synthroid] 50 mcg PO ACBREAKFAST 11/04/17 [History] Diazepam [Valium] 5 mg PO DAILY PRN 11/13/17 [History] Past Medical History HEENT History: Reports: Allergic Rhinitis, Impaired Vision Cardiovascular History: Reports: High Cholesterol Respiratory History: Reports: COPD, Other (See Below), Pulmonary Fibrosis Other Respiratory History: lower lobe benign pulmonary nodules x2 Gastrointestinal History: Reports: Gastritis, Helicobacter Pylori Genitourinary History: Reports: UTI, Recurrent Musculoskeletal History: Reports: Neck Pain, Chronic Neurological History: Reports: Migraines Other Neuro History: BRAIN ANUERISM Endocrine/Metabolic History: Reports: Hypothyroidism Hematologic History: Reports: None Immunologic History: Reports: None Oncologic (Cancer) History: Reports: Cervix Dermatologic History: Reports: None - Infectious Disease History Infectious Disease History: Reports: Chicken Pox, Influenza - Past Surgical History Head Surgeries/Procedures: Reports: None HEENT Surgical History: Reports: Oral Surgery Female Surgical History: Reports: Breast Implant, Hysterectomy, Salpingo- Oophorectomy Neurological Surgical History: Reports: C-Spine, Other (See Below) Musculoskeletal Surgical History: Reports: Other (See Below) - Past Imaging History Past Imaging History: Reports: CAT Scan, Ultrasound Social & Family History - Caffeine Use Caffeine Use: Reports: None - Living Situation & Occupation Living situation: Reports: with Family, Occupation: Retired ED ROS GENERAL - Review of Systems Review Of Systems: See Below Constitutional: Denies: Fever, Chills, Night Sweats, Diaphoresis, Weight Loss, Weight Gain HEENT: Reports: No Symptoms. Denies: Vertigo, Vision Change Respiratory: Reports: No Symptoms Cardiovascular: Reports: No Symptoms GI/Abdominal: Reports: Nausea. Denies: Abdominal Pain, Constipation, Diarrhea, Vomiting : Reports: No Symptoms Musculoskeletal: Reports: Neck Pain (chronic) Skin: Reports: Other (tender area behind left ear from previous occipital injection site) Neurological: Reports: Headache, Other (no acute neuro changes). Denies: Confusion, Dizziness, Trouble Speaking, Change in Speech, Gait Disturbance Psychiatric: Reports: No Symptoms - Physical Exam Exam: See Below Exam Limited By: No Limitations General Appearance: Alert, WD/WN, No Apparent Distress Eye Exam: Bilateral Eye: EOMI, PERRL Ears: Normal External Exam, Normal Canal Nose: Normal Inspection Throat/Mouth: Normal Inspection, Normal Lips, Normal Voice, No Airway Compromise Course - Vital Signs Last Recorded V/S: Last Vital Signs Temp 36.6 C 11/13/17 17:40 Pulse 90 11/13/17 17:40 Resp 14 11/13/17 17:40 BP 107/66 11/13/17 17:40 Pulse Ox 95 11/13/17 17:40 - Orders/Labs/Meds Orders: Active Orders 24 hr Category Date Time Status Sodium Chloride 0.9% [Saline Flush] Med 11/13/17 18:01 Active 10 ml FLUSH ASDIRECTED PRN Saline Lock Insert [OM.PC] Routine Oth 11/13/17 18:01 Ordered Medication Orders Sodium Chloride (Saline Flush) 10 ml FLUSH ASDIRECTED PRN PRN Reason: Keep Vein Open Meds: Medications Generic Name Dose Route Start Last Admin Trade Name Freq PRN Reason Stop Dose Admin Sodium Chloride 10 ml 11/13/17 18:01 Saline Flush FLUSH ASDIRECTED PRN Keep Vein Open Discontinued Medications Generic Name Dose Route Start Last Admin Trade Name Freq PRN Reason Stop Dose Admin Haloperidol Lactate 5 mg 11/13/17 17:57 11/13/17 18:40 Haldol IVPUSH 11/13/17 17:58 5 mg ONETIME ONE Administration Sodium Chloride 1,000 mls @ 999 mls/hr 11/13/17 18:01 11/13/17 18:40 Normal Saline IV 11/13/17 19:01 999 mls/hr .BOLUS ONE Administration Ketorolac Tromethamine 30 mg 11/13/17 18:01 11/13/17 18:40 Toradol IVPUSH 11/13/17 18:02 30 mg ONETIME ONE Administration Lorazepam 1 mg 11/13/17 18:01 11/13/17 18:40 Ativan IVPUSH 11/13/17 18:02 1 mg ONETIME ONE Administration Ondansetron HCl 4 mg 11/13/17 18:02 Zofran IVPUSH 11/13/17 18:03 ONETIME ONE Promethazine HCl 25 mg 11/13/17 18:04 11/13/17 18:43 Phenergan IM 11/13/17 18:05 25 mg ONETIME ONE Administration - Re-Assessments/Exams Free Text/Narrative Re-Assessment/Exam: Patient reported significant improvement in pain after receiving Phenergan IM, IV Toradol/Haldol/Ativan. Pain improved to "4-5" and patient wished to be discharged. It was noted last April that MS did not improve her headache complaint much at all, but Ativan was much more effective. Haldol, Benadryl, and Zofran were also used that time as part of the combination of pharmacologic therapy. She also received one liter of NS. She is to follow up as needed with her primary, and should also follow up with the provider who performed the recent occipital injections. Departure - Departure Time of Disposition: 20:20 Disposition: Home, Self-Care 01 Condition: Good Clinical Impression: Cervical paraspinous muscle spasm, Migraine - Discharge Information Referrals: Evangelina Sandra PA [Primary Care Provider] - Forms: ED Department Discharge Additional Instructions: Follow up with your regular providers in regards to ongoing headaches. Continue to watch the one area of concern. It does not look like a bacterial infection at this point in time, but it does look irritated. If you feel like that lump is worsening in size, or if it starts to become more painful/has drainage, get it rechecked. Rest tonight and stay well-hydrated. - My Orders Last 24 Hours: My Active Orders 11/13/17 18:01 Sodium Chloride 0.9% [Saline Flush] 10 ml FLUSH ASDIRECTED PRN Saline Lock Insert [OM.PC] Routine - Assessment/Plan Last 24 Hours: My Active Orders 11/13/17 18:01 Sodium Chloride 0.9% [Saline Flush] 10 ml FLUSH ASDIRECTED PRN Saline Lock Insert [OM.PC] Routine
== END 2017-11-13 20:37 | disposition home or self-care (01) ==
LOC: LL.ED 17:35
DX: G43.909 Migraine, unspecified, not intractable, without status migrainosus (principal); M62.830 Muscle spasm of back; E78.00 Pure hypercholesterolemia, unspecified; E03.9 Hypothyroidism, unspecified; Z88.2 Allergy status to sulfonamides; Z91.048 Other nonmedicinal substance allergy status; Z79.899 Other long term (current) drug therapy; Z79.82 Long term (current) use of aspirin
CPT/HCPCS: 96361; 96372; 96374; 96375; 99284; J1630; J1885; J2060; J2550; J7030

== ENCOUNTER 2018-01-23 10:45 | Emergency (ER) | payer BC ==
[2018-01-23 11:41] LABS: CHLORIDE,CL 105 mmol/L (98-107); SODIUM,NA 142 mmol/L (136-145)
[2018-01-23] MEDS ORDERED: Ketorolac 30 MG/ML SDV IVPUSH ONE (11:58)
[2018-01-23] MEDS ORDERED: Ketorolac 30 MG/ML SDV ONE (12:00)
[2018-01-23] MEDS ORDERED: SUMAtriptan 6 MG/0.5 ML SDV ONE (12:00)
[2018-01-23] MEDS ORDERED: Ondansetron 4 MG/2 ML SDV ONE (12:00)
[2018-01-23] MEDS ORDERED: Sodium Chloride 0.9% 10 ML Syringe ONE (12:00)
[2018-01-23] MEDS ORDERED: hydrOXYzine HCl 50 MG/ML SDV ONE (12:00)
[2018-01-23] MEDS ORDERED: fentaNYL 100 MCG/2 ML SDV ONE (12:00)
--- NOTE | 2018-01-23 12:12 | EDM.PDOC ---
ED HPI GENERAL MEDICAL PROBLEM - General Chief Complaint: General Stated Complaint: Head tingling Time Seen by Provider: 01/23/18 11:10 Source of Information: Reports: Patient History Limitations: Reports: No Limitations - History of Present Illness INITIAL COMMENTS - FREE TEXT/NARRATIVE: Patient arrives to ER complaining of worse headache than usual. Has history of chronic daily headache and neck pain. States her scalp is always tender with any touch. Today however her entire head/face tingles. This is new. She also complains that her right hand is more numb than usual. She has found that the numbness is positional in nature and can be relieved in intensity by moving her arm. Eyes/vision feels a bit blurry, right more so than left. Patient always feels lightheaded, but today that feels worse also. Patient does have history of aneurysm that had coils placed/did not rupture. History of neck surgery last winter. No recent obvious illnesses/colds/URI/new injuries. She states that her forehead temp was "103" last week when she went to an ENT appointment but she did not feel sick. Her BP was also noted to more elevated at that time. She denies having any other fevers. Has chronic rhinorrhea that she feels is allergic in nature. No one sided weakness or changes in speech. No other reported acute changes. Negative for Resp/CV/GI/ changes. - Related Data Allergies Allergy/AdvReac Type Severity Reaction Status Date / Time iodine Allergy Anaphylactic Verified 01/23/18 10:47 Shock Sulfa (Sulfonamide Allergy Rash Verified 01/23/18 10:47 Antibiotics) cont Allergy Difficulty Uncoded 01/23/18 10:47 Breathing Home Meds: Home Meds atorvaSTATin [Lipitor] 10 mg PO BEDTIME 11/10/15 [History] Vitamin D3/Vitamin K2 (Mk4) [K2 Plus D3 Tablet] 2 each PO DAILY #60 tablet 08/31 [Rx] Levothyroxine [Synthroid] 50 mcg PO ACBREAKFAST 11/04/17 [History] diazePAM [Valium] 5 mg PO DAILY PRN 11/13/17 [History] L.acidoph,Paracasei, B.lactis [Probiotic] 1 each PO DAILY 01/23/18 [History] Loratadine/Pseudoephedrine [Claritin-D 12 Hour] 1 tab PO DAILY 01/23/18 [History ] Past Medical History HEENT History: Reports: Allergic Rhinitis, Impaired Vision Cardiovascular History: Reports: High Cholesterol Respiratory History: Reports: COPD, Other (See Below), Pulmonary Fibrosis Other Respiratory History: lower lobe benign pulmonary nodules x2 Gastrointestinal History: Reports: Gastritis, Helicobacter Pylori Genitourinary History: Reports: UTI, Recurrent Musculoskeletal History: Reports: Neck Pain, Chronic Neurological History: Reports: Migraines Other Neuro History: BRAIN ANUERISM Psychiatric History: Reports: Anxiety Endocrine/Metabolic History: Reports: Hypothyroidism Hematologic History: Reports: None Immunologic History: Reports: None Oncologic (Cancer) History: Reports: Cervix Dermatologic History: Reports: None - Infectious Disease History Infectious Disease History: Reports: Chicken Pox, Influenza - Past Surgical History Head Surgeries/Procedures: Reports: None HEENT Surgical History: Reports: Oral Surgery Female Surgical History: Reports: Breast Implant, Hysterectomy, Salpingo- Oophorectomy Neurological Surgical History: Reports: C-Spine, Other (See Below) (Aneurysm/ coil procedure) Musculoskeletal Surgical History: Reports: Other (See Below) - Past Imaging History Past Imaging History: Reports: CAT Scan, Ultrasound Social & Family History - Tobacco Use Smoking Status *Q: Current Every Day Smoker (Is currently trying to quit/cut down) - Caffeine Use Caffeine Use: Reports: None - Alcohol Use Alcohol Use Frequency: Rarely - Recreational Drug Use Recreational Drug Use: No Drug Use in Last 12 Months: No - Living Situation & Occupation Living situation: Reports: with Family, Occupation: Retired ED ROS GENERAL - Review of Systems Review Of Systems: ROS reveals no pertinent complaints other than HPI. ED EXAM, GENERAL - Physical Exam Exam: See Below Exam Limited By: No Limitations General Appearance: Alert, WD/WN, No Apparent Distress, Anxious Eye Exam: Bilateral Eye: EOMI, PERRL, Other (Patient did not want to perform chart test to assess vision acuity) Ears: Normal External Exam, Normal Canal, Hearing Grossly Normal, Normal TMs Nose: No: Nasal Deformity, Nasal Swelling, Nasal Drainage Throat/Mouth: Normal Inspection, Normal Lips, Normal Voice, No Airway Compromise Head: Atraumatic, Normocephalic Neck: Normal Inspection, Supple, Non-Tender, Full Range of Motion. No: Lymphadenopathy (L), Lymphadenopathy (R) Respiratory/Chest: No Respiratory Distress, Lungs Clear, Normal Breath Sounds, No Accessory Muscle Use Cardiovascular: Normal Peripheral Pulses, Regular Rate, Rhythm, No Edema, No Murmur Peripheral Pulses: 2+: Radial (L), Radial (R), Dorsalis Pedis (L), Dorsalis Pedis (R) GI/Abdominal: Normal Bowel Sounds, Soft, Non-Tender, No Distention (Female) Exam: Deferred Rectal (Female) Exam: Deferred Back Exam: Normal Inspection Extremities: Normal Inspection, Normal Range of Motion, Non-Tender, No Pedal Edema, Normal Capillary Refill Neurological: Alert, Oriented, CN II-XII Intact, Normal Cognition, Normal Gait, Normal Reflexes, No Motor/Sensory Deficits Psychiatric: Anxious Skin Exam: Warm, Dry, Intact, Normal Color Course - Orders/Labs/Meds Orders: Active Orders 24 hr Category Date Time Status Head wo Cont [CT] Stat Exams 01/23/18 10:53 Taken LYME, TOTAL AB TEST/REFLEX [REF] Routine Lab 01/23/18 10:45 Received PROLACTIN [REF] Stat Lab 01/23/18 11:14 Received Labs: Laboratory Tests 01/23/18 01/23/18 01/23/18 Range/Units 11:14 11:14 11:14 WBC 7.5 (4.0-10.2) K/uL RBC 4.81 (3.77-5.09) M/uL Hgb 14.8 (11.7-15.5) g/dL Hct 44.2 (34.0-46.0) % MCV 91.9 (84.0-98.0) fL MCH 30.8 (28.2-33.3) pg MCHC 33.5 (31.7-36.0) g/dL RDW 13.9 (11.2-14.1) % Plt Count 237 (150-350) K/uL Neut % (Auto) 63.0 (45.0-80.0) % Lymph % (Auto) 28.6 (10.0-50.0) % [place] % (Auto) 6.5 (2.0-14.0) % Eos % (Auto) 1.5 (0.0-5.0) % Baso % (Auto) 0.4 (0.0-2.0) % Neut # (Auto) 4.75 (1.40-7.00) K/uL Lymph # (Auto) 2.15 (0.50-3.50) K/uL [place] # (Auto) 0.49 (0.00-1.00) K/uL Eos # (Auto) 0.11 (0.00-0.50) K/uL Baso # (Auto) 0.03 (0.00-0.20) K/uL PT 10.6 (9.8-11.7) SEC INR 1.0 APTT 24.0 (22.1-29.8) SEC D-Dimer, Quantitative 105 (0-400) ng/mL Sodium (136-145) mmol/L Potassium (3.5-5.1) mmol/L Chloride (98-107) mmol/L Carbon Dioxide (21.0-32.0) mmol/L BUN (7-18) mg/dL Creatinine (0.51-1.17) mg/dL Est Cr Clr Drug Dosing mL/min Estimated GFR (MDRD) mL/min Glucose (74-106) mg/dL Calcium (8.5-10.1) mg/dL Magnesium (1.8-2.4) mg/dL Total Bilirubin (0.2-1.0) mg/dL AST (15-37) U/L ALT (12-78) U/L Alkaline Phosphatase (46-116) IU/L Creatine Kinase (26-308) U/L Creatine Kinase Index (0.0-2.5) % CK-MB (CK-2) (0.00-3.60) ng/mL Troponin I (0.000-0.056) ng/mL NT-Pro-B Natriuret Pep (0-125) pg/mL Total Protein (6.4-8.2) g/dL Albumin (3.4-5.0) g/dL Vitamin D 25-Hydroxy (30-100) ng/mL TSH, Ultra Sensitive (0.358-3.740) mIU/mL 01/23/18 01/23/18 01/23/18 Range/Units 11:14 11:14 11:14 WBC (4.0-10.2) K/uL RBC (3.77-5.09) M/uL Hgb (11.7-15.5) g/dL Hct (34.0-46.0) % MCV (84.0-98.0) fL MCH (28.2-33.3) pg MCHC (31.7-36.0) g/dL RDW (11.2-14.1) % Plt Count (150-350) K/uL Neut % (Auto) (45.0-80.0) % Lymph % (Auto) (10.0-50.0) % [place] % (Auto) (2.0-14.0) % Eos % (Auto) (0.0-5.0) % Baso % (Auto) (0.0-2.0) % Neut # (Auto) (1.40-7.00) K/uL Lymph # (Auto) (0.50-3.50) K/uL [place] # (Auto) (0.00-1.00) K/uL Eos # (Auto) (0.00-0.50) K/uL Baso # (Auto) (0.00-0.20) K/uL PT (9.8-11.7) SEC INR APTT (22.1-29.8) SEC D-Dimer, Quantitative (0-400) ng/mL Sodium 142 (136-145) mmol/L Potassium 4.4 (3.5-5.1) mmol/L Chloride 105 (98-107) mmol/L Carbon Dioxide 25.8 (21.0-32.0) mmol/L BUN 11 (7-18) mg/dL Creatinine 0.68 (0.51-1.17) mg/dL Est Cr Clr Drug Dosing 83.32 mL/min Estimated GFR (MDRD) > 60 mL/min Glucose 111 H (74-106) mg/dL Calcium 9.2 (8.5-10.1) mg/dL Magnesium 1.9 (1.8-2.4) mg/dL Total Bilirubin 0.2 (0.2-1.0) mg/dL AST 18 (15-37) U/L ALT 25 (12-78) U/L Alkaline Phosphatase 64 (46-116) IU/L Creatine Kinase 73 (26-308) U/L Creatine Kinase Index 1.2 (0.0-2.5) % CK-MB (CK-2) 0.90 (0.00-3.60) ng/mL Troponin I 0.000 (0.000-0.056) ng/mL NT-Pro-B Natriuret Pep 106 (0-125) pg/mL Total Protein 7.5 (6.4-8.2) g/dL Albumin 4.1 (3.4-5.0) g/dL Vitamin D 25-Hydroxy 38.7 (30-100) ng/mL TSH, Ultra Sensitive 2.689 (0.358-3.740) mIU/mL Meds: Medications Discontinued Medications Generic Name Dose Route Start Last Admin Trade Name Roxana PRN Reason Stop Dose Admin Fentanyl 100 mcg 01/23/18 12:37 Sublimaze IVPUSH 01/23/18 12:38 ONETIME ONE Hydroxyzine HCl 50 mg 01/23/18 12:36 Vistaril IM 01/23/18 12:37 ONETIME ONE Sodium Chloride 500 mls @ 999 mls/hr 01/23/18 12:45 Normal Saline IV .[place] Ketorolac Tromethamine 30 mg 01/23/18 11:58 Toradol IVPUSH 01/23/18 11:59 ONETIME ONE Lorazepam 0.5 mg 01/23/18 13:14 Ativan IVPUSH 01/23/18 13:15 ONETIME ONE Magnesium Sulfate/Dextrose 1 gm 01/23/18 12:36 Magnesium 1 Gm In D5w 100 Ml IV 01/23/18 12:37 NOW ONE Ondansetron HCl 4 mg 01/23/18 13:08 Zofran IVPUSH 01/23/18 13:09 ONETIME ONE Sumatriptan Succinate 6 mg 01/23/18 12:37 Imitrex SUBCUT 01/23/18 12:38 ONETIME ONE - Radiology Interpretation CT Results Date: 01/23/18 (No acute changes noted on scan per Radiology) - Re-Assessments/Exams Free Text/Narrative Re-Assessment/Exam: Head CT read as unremarkable for acute change per [place] [facility]. Stroke code labs were within normal limits. Patient was given Toradol once head CT cleared. She reported no change in pain. She rated pain at a 10. Observed to be conversational, anxious about her health/symptoms, but did not appear uncomfortable. Patient did tell us that she recently visited a holistic practitioner and the possibility of chronic Lyme disease was mentioned as cause of patient's headaches/fatigue/paresthesia that have been bothering her for years. She has not been tested for Lyme. Call placed to on-call Neurologist at [place], , to discuss patient's presenting complaints, exam/labs/CT. He felt that this was not indicative of an acute bleed or other neurologic emergency that would warrant a trip to [place] today for further evaluation. This included not needing an emergent MRI today. He did say that an outpatient MRI for patient reassurance would be appropriate. He added that he feels that chronic Lyme disease does not exist. Conversation was relayed to patient, who appeared to be a bit relieved. Patient was offered option of transfer to [place] ER today in order to obtain acute MRI. She declined and said she wished to go home but requested additional pain medications to help make her headache go away. Expectations as to pain relief were then discussed with her, and she did admit that she has chronic daily pain in both headache and neck form. She is never pain free after receiving interventions for headaches in clinic or in ER. We tried to set a reasonable expectation of improvement of pain but agreed that complete pain relief would be unlikely. Lyme screening was requested from Lab. Patient received combination of Fentanyl, NS bolus, Vistaril, Imitrex, and Mg. Zofran added when she complained of some nausea after the Fentanyl. Headache improved but still present when she was re-evaluated. At this time patient wished to go home and said pain was "tolerable" and she did not wish for any additional medication. Precautions reviewed with patient during stay and at time of discharge. She is to follow up in ER or with primary providers or Neuro if any worsening is noted , or if no change in symptoms noted over the next 24 hours. Patient says she plans on visiting with her own Neurologist at [place] tomorrow if possible. Departure - Departure Time of Disposition: 14:00 Disposition: Home, Self-Care 01 Clinical Impression: Chronic daily headache, Chronic neck pain, Numbness and tingling, Anxiety - Discharge Information Instructions: Recurrent Migraine Headache Referrals: Evangelina Sandra PA [Primary Care Provider] - Forms: ED Department Discharge Additional Instructions: Follow up at [facility] for continuing care. Return to ER either here or at [place] if symptoms return/worsen. Home/rest, drink plenty of fluids today. - My Orders Last 24 Hours: My Active Orders 01/23/18 10:45 LYME, TOTAL AB TEST/REFLEX [REF] Routine 01/23/18 10:53 Head wo Cont [CT] Stat 01/23/18 11:14 PROLACTIN [REF] Stat - Assessment/Plan Last 24 Hours: My Active Orders 01/23/18 10:45 LYME, TOTAL AB TEST/REFLEX [REF] Routine 01/23/18 10:53 Head wo Cont [CT] Stat 01/23/18 11:14 PROLACTIN [REF] Stat
[2018-01-23] MEDS ORDERED: hydrOXYzine HCl 50 MG/ML SDV IM ONE (12:36)
[2018-01-23] MEDS ORDERED: SUMAtriptan 6 MG/0.5 ML SDV SUBCUT ONE (12:37)
[2018-01-23] MEDS ORDERED: fentaNYL 100 MCG/2 ML SDV IVPUSH ONE (12:37)
[2018-01-23] MEDS ORDERED: Sodium Chloride 0.9% 500 ML IV SCH (12:45)
[2018-01-23] MEDS ORDERED: Ondansetron 4 MG/2 ML SDV IVPUSH ONE (13:08)
[2018-01-23] MEDS ORDERED: LORazepam 2 MG/ML SDV IVPUSH ONE (13:14)
== END 2018-01-23 14:15 | disposition home or self-care (01) ==
LOC: LL.ED 10:45
DX: R51 Headache (principal); M54.2 Cervicalgia; R20.0 Anesthesia of skin; R20.2 Paresthesia of skin; F41.9 Anxiety disorder, unspecified; Z88.2 Allergy status to sulfonamides; Z88.8 Allergy status to other drugs, medicaments and biological substances; Z79.899 Other long term (current) drug therapy; F17.200 Nicotine dependence, unspecified, uncomplicated
CPT/HCPCS: 36415; 70450; 80053; 82306; 82550; 82553; 83735; 83880; 84146; 84443; 84484; 85025; 85379; 85610; 85730; 86618; 96365; 96372; 96375; 99285; J1885; J2405; J3010; J3030; J3410; J3475; J7050

== ENCOUNTER 2018-03-04 10:48 | Emergency (ER) | payer BC ==
[2018-03-04] MEDS: Aspirin 81 MG Tab.Chew PO ONE (11:13)
--- NOTE | 2018-03-04 11:17 | EDM.PDOC ---
ED HPI GENERAL MEDICAL PROBLEM - General Chief Complaint: Chest Pain Stated Complaint: chest pain; headache Time Seen by Provider: 03/04/18 11:00 Source of Information: Reports: Patient History Limitations: Reports: No Limitations - History of Present Illness INITIAL COMMENTS - FREE TEXT/NARRATIVE: Patient is a 47-year-old who is seen with chief complaint of chest pain and headaches patient states that she's been ill for 3 or 4 days starting on was seen in the clinic given a steroid was given antibiotics amoxicillin 500 mg twice a day with no improvement last night she started complaining of chest pain worsens with activity came in for evaluation. Patient quit smoking a month ago. Still smokes once in a while. 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 Therapy, Other Medication(s) Frontal Head Pain Score (Numeric/FACES): 6 - Related Data Allergies Allergy/AdvReac Type Severity Reaction Status Date / Time iodine Allergy Anaphylactic Verified 01/23/18 10:47 Shock Sulfa (Sulfonamide Allergy Rash Verified 01/23/18 10:47 Antibiotics) cont Allergy Difficulty Uncoded 01/23/18 10:47 Breathing Home Meds: Home Meds Levothyroxine [Synthroid] 50 mcg PO ACBREAKFAST 11/04/17 [History] diazePAM [Valium] 5 mg PO DAILY PRN 11/13/17 [History] L.acidoph,Paracasei, B.lactis [Probiotic] 1 each PO DAILY 01/23/18 [History] Amoxicillin 500 mg PO BID 03/04/18 [History] Vitamin D3/Vitamin K2 (Mk4) [K2 Plus D3 Tablet] 1 each PO DAILY 03/04/18 [ History] Past Medical History HEENT History: Reports: Allergic Rhinitis, Impaired Vision Cardiovascular History: Reports: High Cholesterol Respiratory History: Reports: COPD, Other (See Below), Pulmonary Fibrosis Other Respiratory History: lower lobe benign pulmonary nodules x2 Gastrointestinal History: Reports: Gastritis, Helicobacter Pylori Genitourinary History: Reports: UTI, Recurrent Musculoskeletal History: Reports: Neck Pain, Chronic Neurological History: Reports: Migraines Other Neuro History: BRAIN ANUERISM Psychiatric History: Reports: Anxiety Endocrine/Metabolic History: Reports: Hypothyroidism Hematologic History: Reports: None Immunologic History: Reports: None Oncologic (Cancer) History: Reports: Cervix Dermatologic History: Reports: None - Infectious Disease History Infectious Disease History: Reports: Chicken Pox, Influenza - Past Surgical History Head Surgeries/Procedures: Reports: None HEENT Surgical History: Reports: Oral Surgery Female Surgical History: Reports: Breast Implant, Hysterectomy, Salpingo- Oophorectomy Neurological Surgical History: Reports: C-Spine, Other (See Below) Musculoskeletal Surgical History: Reports: Other (See Below) - Past Imaging History Past Imaging History: Reports: CAT Scan, Ultrasound Social & Family History - Caffeine Use Caffeine Use: Reports: None - Living Situation & Occupation Living situation: Reports: with Family, Occupation: Retired ED ROS GENERAL - Review of Systems Review Of Systems: See Below Constitutional: Reports: No Symptoms, Fever HEENT: Reports: No Symptoms, Sinus Problem Respiratory: Reports: No Symptoms Cardiovascular: Reports: No Symptoms Endocrine: Reports: No Symptoms GI/Abdominal: Reports: No Symptoms : Reports: No Symptoms Musculoskeletal: Reports: No Symptoms Skin: Reports: No Symptoms Neurological: Reports: Headache Psychiatric: Reports: No Symptoms Hematologic/Lymphatic: Reports: No Symptoms Immunologic: Reports: No Symptoms ED EXAM, GENERAL - Physical Exam Exam: See Below Exam Limited By: No Limitations General Appearance: Alert, WD/WN, No Apparent Distress, Anxious, Mild Distress Eye Exam: Bilateral Eye: EOMI, PERRL Ears: Normal External Exam, Normal Canal, Hearing Grossly Normal, Normal TMs Ear Exam: Bilateral Ear: Auricle Normal, Canal Normal, TM normal Nose: Normal Inspection, Normal Mucosa, No Blood, Nasal Deformity, Nasal Swelling Throat/Mouth: Normal Inspection, Normal Lips, Normal Teeth, Normal Gums, Normal Oropharynx, Normal Voice, No Airway Compromise Head: Atraumatic, Normocephalic Neck: Normal Inspection, Supple, Non-Tender, Full Range of Motion Respiratory/Chest: No Respiratory Distress, Lungs Clear, Normal Breath Sounds, No Accessory Muscle Use, Chest Non-Tender Cardiovascular: Normal Peripheral Pulses, Regular Rate, Rhythm, No Edema, No Gallop, No JVD, No Murmur, No Rub GI/Abdominal: Normal Bowel Sounds, Soft, Non-Tender, No Organomegaly, No Distention, No Abnormal Bruit, No Mass (Female) Exam: Normal External Exam, Normal Speculum Exam, Normal Bimanual Exam Rectal (Female) Exam: Deferred Back Exam: Normal Inspection, Full Range of Motion, NT Extremities: Normal Inspection, Normal Range of Motion, Non-Tender, Normal Capillary Refill, No Pedal Edema Neurological: Alert, Oriented, CN II-XII Intact, Normal Cognition, Normal Gait, Normal Reflexes, No Motor/Sensory Deficits Psychiatric: Anxious Skin Exam: Warm, Dry, Intact, Normal Color, No Rash Lymphatic: No Adenopathy Course - Vital Signs Last Recorded V/S: Last Vital Signs Temp 98.3 F 03/04/18 11:01 Pulse 91 03/04/18 11:01 Resp 16 03/04/18 11:01 BP 117/71 03/04/18 11:01 Pulse Ox 98 03/04/18 11:01 - Orders/Labs/Meds Orders: Active Orders 24 hr Category Date Time Status EKG Documentation Completion [RC] ASDIRECTED Care 03/04/18 11:09 Active Chest 2V [CR] Stat Exams 03/04/18 11:08 Taken Labs: Laboratory Tests 03/04/18 03/04/18 03/04/18 Range/Units 11:08 11:08 11:08 WBC 7.6 (4.0-10.2) K/uL RBC 4.54 (3.77-5.09) M/uL Hgb 13.8 (11.7-15.5) g/dL Hct 41.7 (34.0-46.0) % MCV 91.9 (84.0-98.0) fL MCH 30.4 (28.2-33.3) pg MCHC 33.1 (31.7-36.0) g/dL RDW 13.6 (11.2-14.1) % Plt Count 249 (150-350) K/uL Neut % (Auto) 72.9 (45.0-80.0) % Lymph % (Auto) 20.2 (10.0-50.0) % [place] % (Auto) 6.1 (2.0-14.0) % Eos % (Auto) 0.4 (0.0-5.0) % Baso % (Auto) 0.4 (0.0-2.0) % Neut # (Auto) 5.53 (1.40-7.00) K/uL Lymph # (Auto) 1.53 (0.50-3.50) K/uL [place] # (Auto) 0.46 (0.00-1.00) K/uL Eos # (Auto) 0.03 (0.00-0.50) K/uL Baso # (Auto) 0.03 (0.00-0.20) K/uL D-Dimer, Quantitative < 100 (0-400) ng/mL Sodium 141 (136-145) mmol/L Potassium 3.5 (3.5-5.1) mmol/L Chloride 104 (98-107) mmol/L Carbon Dioxide 24.4 (21.0-32.0) mmol/L BUN 15 (7-18) mg/dL Creatinine 0.66 (0.51-1.17) mg/dL Est Cr Clr Drug Dosing 86.59 mL/min Estimated GFR (MDRD) > 60 mL/min Glucose 121 H (74-106) mg/dL Calcium 8.9 (8.5-10.1) mg/dL Total Bilirubin 0.3 (0.2-1.0) mg/dL AST 15 (15-37) U/L ALT 26 (12-78) U/L Alkaline Phosphatase 59 (46-116) IU/L Troponin I 0.000 (0.000-0.056) ng/mL Total Protein 7.4 (6.4-8.2) g/dL Albumin 3.9 (3.4-5.0) g/dL Meds: Medications Discontinued Medications Generic Name Dose Route Start Last Admin Trade Name Freq PRN Reason Stop Dose Admin Aspirin 324 mg 03/04/18 11:08 03/04/18 11:13 Aspirin PO 03/04/18 11:09 324 mg ONETIME ONE Administration Departure - Departure Time of Disposition: 11:55 Disposition: Home, Self-Care 01 Condition: Good Clinical Impression: Sinusitis, acute - Discharge Information *PRESCRIPTION DRUG MONITORING PROGRAM REVIEWED*: No *COPY OF PRESCRIPTION DRUG MONITORING REPORT IN PATIENT TIEN: No Instructions: Sinusitis, Adult, [id number] Referrals: Bree Smith PA-C [Primary Care Provider] - Forms: ED Department Discharge Care Plan Goals: Patient was placed on Cefzil 500 twice a day for 10 days she was instructed to take Claritin-D 1 tablet daily plus to restart the Flonase at one puff twice a day - My Orders Last 24 Hours: My Active Orders 03/04/18 11:08 Chest 2V [CR] Stat 03/04/18 11:09 EKG Documentation Completion [RC] ASDIRECTED - Assessment/Plan Last 24 Hours: My Active Orders 03/04/18 11:08 Chest 2V [CR] Stat 03/04/18 11:09 EKG Documentation Completion [RC] ASDIRECTED
[2018-03-04 11:37] LABS: CHLORIDE,CL 104 mmol/L (98-107); SODIUM,NA 141 mmol/L (136-145)
[2018-03-04 13:51] VITALS: BP 107/73
== END 2018-03-04 12:10 | disposition home or self-care (01) ==
LOC: LL.ED 10:48
DX: J01.90 Acute sinusitis, unspecified (principal); R07.9 Chest pain, unspecified; E03.9 Hypothyroidism, unspecified; F17.210 Nicotine dependence, cigarettes, uncomplicated; Z88.2 Allergy status to sulfonamides; Z88.8 Allergy status to other drugs, medicaments and biological substances; Z79.899 Other long term (current) drug therapy
CPT/HCPCS: 36415; 71046; 80053; 84484; 85025; 85379; 93005; 99285; A9270-GY

== ENCOUNTER 2018-06-04 10:00 | Emergency (ER) | payer BC ==
[2018-06-04] MEDS ORDERED: LORazepam 2 MG/ML SDV IVPUSH ONE (10:15)
[2018-06-04] MEDS ORDERED: Sodium Chloride 0.9% 10 ML Syringe FLUSH PRN (10:15)
[2018-06-04] MEDS ORDERED: Sodium Chloride 0.9% 1,000 ML IV ONE (11:00)
--- NOTE | 2018-06-04 12:31 | EDM.PDOC ---
ED HPI GENERAL MEDICAL PROBLEM - General Chief Complaint: Cardiovascular Problem Stated Complaint: chest tightness, tachycardia, AVALOS Time Seen by Provider: 06/04/18 10:39 Source of Information: Reports: Patient History Limitations: Reports: No Limitations - History of Present Illness INITIAL COMMENTS - FREE TEXT/NARRATIVE: Patient concerned that her pulse is elevated. Has been checking it every 10 minutes or so since waking. Admits to anxiety. Has some chest tightness and tachypnea. Emesis x1 this morning. Has felt like this all weekend. Worse after she heard that her 21 year old son was simultaneously heading to an ER to get his heart checked. Patient's did say that all 3 of patient's children have similar anxiety issues as patient. She was admitted last week on observation for similar symptoms. Started on Cardizem after consultation with Cardiology after she was noted to have brief episodes of dropped beats reflecting a Type 2 block. Was on telemetry during stay. Serial enzymes performed. Says that she never really felt any better after discharge. feels that a lot of this is anxiety. Patient agrees. Has usual headache today which is it's normal level of 4-5/10. Discharged from Observation admission 3 days ago on 06/01/18 Frontal Headache Pain Score (Numeric/FACES): 7 - Related Data Allergies Allergy/AdvReac Type Severity Reaction Status Date / Time iodine Allergy Anaphylactic Verified 06/04/18 10:46 Shock Sulfa (Sulfonamide Allergy Rash Verified 06/04/18 10:46 Antibiotics) contrast dye Allergy Difficulty Uncoded 06/04/18 10:46 Breathing Home Meds: Home Meds L.acidoph,Paracasei, B.lactis [Probiotic] 1 each PO DAILY 01/23/18 [History] Ca Carb & Gluc/Mag Ox & Gluc [Calcium Magnesium Caplet] 1,200 mg PO BEDTIME # 100 05/19/18 [Rx] Desloratadine/Pseudoephedrine [Clarinex-D 12 Hour] 1 tab PO Q12HR PRN 05/28/18 [ History] FLUoxetine HCl [Prozac] 20 mg PO DAILY 05/28/18 [History] Acetaminophen [Tylenol] 650 mg PO Q4H PRN tablet 06/01/18 [Rx] Diltiazem [Cardizem CD] 120 mg PO DAILY #30 cap.cd 06/01/18 [Rx] LORazepam [Ativan] 0.5 mg PO Q6H #40 tablet 06/01/18 [Rx] Levothyroxine 75 mcg PO ACBREAKFAST #60 tablet 06/01/18 [Rx] Magnesium Oxide 400 mg PO BID #60 tablet 06/01/18 [Rx] Mirtazapine [Remeron] 15 mg PO BEDTIME #30 tablet 06/01/18 [Rx] Nystatin 5 ml PO QID #140 ml 06/04/18 [Rx] Past Medical History HEENT History: Reports: Allergic Rhinitis, Impaired Vision, Sinusitis, Other ( See Below) Other HEENT History: Patient wears reading glasses. Allergic rhinitis/sinusitis with recurrent sinusitis. Cardiovascular History: Reports: Aneurysm, Arrhythmia, High Cholesterol, Other ( See Below) Other Cardiovascular History: Previous hyperlipidemia with no current medical therapy required. Note cerebral aneurysm as below. Bradycardia, repolarization changes versus incomplete right bundle branch block, and multiform PVCs at time of basilar artery leakage on 09/29/15. Respiratory History: Reports: Bronchitis, Recurrent, COPD, Intubation, Previous , Pneumonia, Recurrent, Pulmonary Fibrosis, Other (See Below) Other Respiratory History: Benign lower lobe benign pulmonary nodules x2. Gastrointestinal History: Reports: Gastritis, GERD, Helicobacter Pylori, Other ( See Below) Other Gastrointestinal History: H. pylori treated in about 2016. Nonspecific dysphagia in 2018. Genitourinary History: Reports: UTI, Recurrent FIRER KILN History: Reports: Other FIRER KILN History: Surgical Menopause secondary to cervical cancer at age 29 as below. Full term without complications during pregnancies or deliveries. Musculoskeletal History: Reports: Arthritis, Back Pain, Chronic, Fracture, Neck Pain, Chronic, Osteoarthritis, Osteoporosis, Other (See Below) Other Musculoskeletal History: Nondisplaced left talar fracture on 08/24/16 with no surgery required. Note patient is currently being followed by pain clinic with history of spinal injections. 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 Psychiatric History: Reports: Addiction, Anxiety, Depression, Other (See Below) Other Psychiatric History: Chronic narcotic and anxiolytic use. 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 Hypokalemia. Hypoalbuminemia. Hematologic History: Reports: Other (See Below) Other Hematologic History: Hypomagnesemia. Immunologic History: Reports: None Oncologic (Cancer) History: Reports: Basal Cell Carcinoma, Cervix, Other (See Below) Other Oncologic History: Cervical cancer at age 29 with hysterectomy as below with no chemotherapy, etc. Basal cell carcinoma excised from the back region in about 2012. Dermatologic History: Reports: None - Infectious Disease History Infectious Disease History: Reports: Chicken Pox, Helicobacter Pylori, Influenza - Past Surgical History Head Surgeries/Procedures: Reports: Other (See Below) HEENT Surgical History: Reports: Oral Surgery, Other (See Below) Other HEENT Surgeries/Procedures: Teeth extractions including possible wisdom teeth in the 1980s. Cardiovascular Surgical History: Reports: Aneurysm, Vascular Surgery, Other ( See Below) Other Cardiovascular Surgeries/Procedures: Cerebral aneurysm therapy as above Respiratory Surgical History: Reports: None GI Surgical History: Reports: None Female Surgical History: Reports: Breast Biopsy, Breast Implant, Hysterectomy , Salpingo-Oophorectomy, Other (See Below) Other Female Surgeries/Procedures: Bilateral breast implants at age 32. Complete hysterectomy with bilateral salpingo-oophorectomy secondary to cervical cancer at age 29. Right breast biopsy for benign disease in about 2002. Endocrine Surgical History: Reports: None Neurological Surgical History: Reports: C-Spine, Discectomy, Intracranial, Spinal Fusion, Other (See Below) Other Neurological Surgeries/Procedures: Discectomies and cervical spine fusion from C5 through C7 on 06/07/17. Intracranial surgery as above. Musculoskeletal Surgical History: Reports: Other (See Below) Other Musculoskeletal Surgeries/Procedures:: Right-sided bunionectomy with additional surgery in the first and fifth metatarsals in 2013 Oncologic Surgical History: Reports: Biopsy of Breast, Other (See Below) Other Oncologic Surgeries/Procedures: Breast biopsy for benign disease as above. Excision of basal cell carcinoma from the back region in 2013. Dermatological Surgical History: Reports: Other (See Below) - Past Imaging History Past Imaging History: Reports: Angiography (Cerebral angiography on 09/25/17, 04/04/16, 10/22/15, 10/06/15, and 09/29/15.), Cardiac Echo (06/02/17 with ejection fraction of 60% with otherwise normal findings.), CAT Scan (CT of the cervical region/soft tissue on 05/19/18. CT of the head on 01/23/18, 08/31/17, 05/08/17, , and 10/17/15. CT of the chest on 02/20/13, 03/28/12, and 06/23/10. CT of the abdomen and pelvis on 06/23/10.), DEXA Scan (08/22/17.), Mammogram (Last mammogram on 11/20/17.), MRI (MRI of the lumbar spine on 12/26/16. MRA of the head on 05/03/18, 03/31/18, 09/25/17, and 12/26/16 Probable MRI of the brain at the [facility] in 2017 with no records available. MRI of the C-spine on 02/02/18. MRI of the lumbar spine on 07/20/17 and 02/23/17.), Ultrasound (Thyroid ultrasound on 01/25/18 and 01/26/16. Gallbladder ultrasound on 05/27/18.), Venous Doppler (Right leg on 09/29/17.). Denies: Carotid US Social & Family History - Family History HEENT: Reports: None Cardiac: Reports: Aneurysm, Arrhythmia, Other (See Below) Other Cardiac Family History: Sister with history of tachycardia of unknown type , hypotension, and cerebral aneurysm. Respiratory: Reports: COPD, Other (See Below) Other Respiratory Family Hisory: Mother with history of COPD with history of tobacco use. GI: Reports: Celiac Disease, Cholelithiasis, Inflammatory Bowel Disease, Other ( See Below) Other GI Family History: Sister with history of Crohn's disease. Mother with cholelithiasis and celiac disease : Reports: None OBGYN: Reports: None Musculoskeletal: Reports: Arthritis, Osteoarthritis, Other (See Below) Other Musculoskeletal Family History: Mother with osteoarthritis. Neurological: Reports: Cerebral Aneurysms, CVA, Other (See Below) Other Neurological Family History: Maternal grandfather with embolic CVA in his 80s. Sister with cerebral aneurysm as above Endocrine/Metabolic: Reports: Hypothyroidism, Other (See Below) Other Endocrine/Metabolic Family History: Hypothyroidism in mother and sisters 2 Hematologic: Reports: Anemia, Other (See Below) Other Hematologic Family History: Sister with iron deficiency anemia. Immunologic: Reports: None Dermatologic: Reports: None Oncologic: Reports: Metastatic, Other (See Below) Other Oncologic Family History: Paternal grandfather with fatal metastatic esophageal cancer in his 80s - Tobacco Use Smoking Status *Q: Former Smoker Used Tobacco, but Quit: Yes Month/Year Tobacco Last Used: May 2018 - Caffeine Use Caffeine Use: Reports: Coffee (2 cups per day), Soda (1 soda per day), Tea (1 cup per week). Denies: Energy Drinks - Sexual History Sexual History: Reports: Single Partner. Denies: Abuse - Living Situation & Occupation Living situation: Reports: (Second and 2007.), (First 2002 with 2 children from that relationship. 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 Patient has been unable to work since she had cervical radiculopathy.) ED ROS GENERAL - Review of Systems Review Of Systems: See Below Constitutional: Reports: Weight Loss (has lost weight gradually since last fall) . Denies: Fever, Chills, Night Sweats, Diaphoresis HEENT: Reports: No Symptoms Respiratory: Reports: No Symptoms Cardiovascular: Reports: Other (pulse feels elevated but no palpitations). Denies: Chest Pain, Dyspnea on Exertion, Edema, Syncope GI/Abdominal: Reports: Nausea, Vomiting (resolved). Denies: Abdominal Pain, Black Stool, Bloody Stool : Reports: No Symptoms Musculoskeletal: Reports: No Symptoms (no acute changes) Skin: Reports: No Symptoms Neurological: Reports: Headache. Denies: Confusion, Syncope, Trouble Speaking, Difficulty Walking Psychiatric: Reports: Agitation, Anxiety. Denies: Confusion, Cravings, Depression, Hallucinations, Homicidal Ideation, Mood Lability, Suicidal Ideation ED EXAM, GENERAL - Physical Exam Exam: See Below Exam Limited By: No Limitations General Appearance: Alert, WD/WN, No Apparent Distress, Other (patient appears to be like usual self) Eye Exam: Bilateral Eye: EOMI, PERRL Ears: Normal External Exam, Normal Canal Nose: Normal Inspection Throat/Mouth: Normal Inspection, Normal Voice, No Airway Compromise Head: Atraumatic, Normocephalic Neck: Normal Inspection, Supple, Non-Tender, Full Range of Motion Respiratory/Chest: No Respiratory Distress, Lungs Clear, Normal Breath Sounds, No Accessory Muscle Use, Chest Non-Tender Cardiovascular: Normal Peripheral Pulses, Regular Rate, Rhythm, No Edema, No Murmur Peripheral Pulses: 2+: Radial (L), Radial (R) GI/Abdominal: Soft, Non-Tender (Female) Exam: Deferred Rectal (Female) Exam: Deferred Back Exam: Normal Inspection Extremities: Normal Inspection, Normal Capillary Refill Neurological: Alert, Oriented, Normal Cognition, Normal Gait, No Motor/Sensory Deficits Psychiatric: Anxious Skin Exam: Warm, Dry, Intact, Normal Color EKG INTERPRETATION EKG Date: 06/04/18 Time: 10:08 Rhythm: NSR Rate (Beats/Min): 86 [place]: Normal P-Wave: Present QRS: Normal ST-T: Normal QT: Normal (enlarged p-wave suggests right atrial enlargement) Comparison: NA - No Prior EKG (last EKG from 06/01/18) Course - Vital Signs Last Recorded V/S: Last Vital Signs Temp 36.4 C 06/04/18 10:05 Pulse 70 06/04/18 11:02 Resp 12 06/04/18 11:02 BP 101/62 06/04/18 11:02 Pulse Ox 98 06/04/18 11:02 - Orders/Labs/Meds Orders: Active Orders 24 hr Category Date Time Status EKG Documentation Completion [RC] ASDIRECTED Care 06/04/18 10:07 Active Sodium Chloride 0.9% [Saline Flush] Med 06/04/18 10:15 Active 10 ml FLUSH ASDIRECTED PRN Saline Lock Insert [OM.PC] Routine Oth 06/04/18 10:15 Ordered Medication Orders Sodium Chloride (Saline Flush) 10 ml FLUSH ASDIRECTED PRN PRN Reason: Keep Vein Open Last Admin: 06/04/18 10:34 Dose: 10 ml Meds: Medications Generic Name Dose Route Start Last Admin Trade Name Freq PRN Reason Stop Dose Admin Sodium Chloride 10 ml 06/04/18 10:15 06/04/18 10:34 Saline Flush FLUSH 10 ml ASDIRECTED PRN Administration Keep Vein Open Discontinued Medications Generic Name Dose Route Start Last Admin Trade Name Freq PRN Reason Stop Dose Admin Sodium Chloride 1,000 mls @ 999 mls/hr 06/04/18 11:00 06/04/18 11:01 Normal Saline IV 06/04/18 12:00 999 mls/hr ONETIME ONE Administration Lorazepam 1 mg 06/04/18 10:15 06/04/18 10:31 Ativan IVPUSH 06/04/18 10:16 1 mg ONETIME ONE Administration - Re-Assessments/Exams Free Text/Narrative Re-Assessment/Exam: 06/04/18 15:00 Strong suspicion of anxiety based on patient's history, past visits to ER, and physical exam. It was agreed to try IV Ativan plus 1liter bolus of NS and patient observed. Significant improvement of patient complaints noted. She felt much improved. Significant time spent discussing coping mechanisms for stress and anxiety, including yoga, mediation, and neurofeedback. She is considering Ketamine therapy at [facility]. Is also following up regarding her ongoing thyroid issues/concerns. To follow up as needed otherwise. Discharged in much improved condition. Departure - Departure Time of Disposition: 12:25 Disposition: Home, Self-Care Condition: Good Clinical Impression: Anxiety, Thrush, oral Prescriptions: Nystatin 5 ml PO QID #140 ml Instructions: Oral Thrush, Adult, [id number] Referrals: Bree Smith PA-C [Primary Care Provider] - Forms: ED Department Discharge Additional Instructions: Follow up with Primary provider as scheduled Monday. Recommend yoga and relaxation methods discussed in ER. Explore Ketamine therapy option at [facility]. Follow up otherwise as needed. - My Orders Last 24 Hours: My Active Orders 06/04/18 10:07 EKG Documentation Completion [RC] ASDIRECTED 06/04/18 10:15 Sodium Chloride 0.9% [Saline Flush] 10 ml FLUSH ASDIRECTED PRN Saline Lock Insert [OM.PC] Routine - Assessment/Plan Last 24 Hours: My Active Orders 06/04/18 10:07 EKG Documentation Completion [RC] ASDIRECTED 06/04/18 10:15 Sodium Chloride 0.9% [Saline Flush] 10 ml FLUSH ASDIRECTED PRN Saline Lock Insert [OM.PC] Routine
[2018-06-04 17:54] VITALS: BP 100/59
== END 2018-06-04 12:55 | disposition home or self-care (01) ==
LOC: LL.ED 10:00
DX: F41.9 Anxiety disorder, unspecified (principal); B37.0 Candidal stomatitis; J44.9 Chronic obstructive pulmonary disease, unspecified; F32.9 Major depressive disorder, single episode, unspecified; E03.9 Hypothyroidism, unspecified; Z79.899 Other long term (current) drug therapy; Z87.440 Personal history of urinary (tract) infections; Z87.891 Personal history of nicotine dependence; Z88.2 Allergy status to sulfonamides; Z90.710 Acquired absence of both cervix and uterus; Z90.722 Acquired absence of ovaries, bilateral; Z91.041 Radiographic dye allergy status
CPT/HCPCS: 93005; 96361; 96374; 99285; J2060; J7030

== ENCOUNTER 2018-06-13 10:57 | Emergency (ER) | payer BC ==
[2018-06-13 11:01] VITALS: BP 117/59
--- NOTE | 2018-06-13 11:46 | EDM.PDOC ---
ED HPI GENERAL MEDICAL PROBLEM - General Chief Complaint: General Stated Complaint: oral yeast infection Time Seen by Provider: 06/13/18 11:05 Source of Information: Reports: Patient History Limitations: Reports: No Limitations - History of Present Illness INITIAL COMMENTS - FREE TEXT/NARRATIVE: Patient is a 47-year-old female who is seen with history of multiple Cierra infections of the throat most recent was last Monday what mount was positive at this time it was noticed that she's had 3 infections in a row we went ahead and decided to do a blood culture to see if there is systemic inject a infection we do know that she's had esophageal D6 infection Onset: Gradual Duration: Week(s):, Getting Worse (Patient feels tired) Location: Reports: Generalized Quality: Reports: Ache Severity: Mild Improves with: Reports: None Worsens with: Reports: None Context: Reports: Other (Systemic disease infection) Associated Symptoms: Reports: Fever/Chills, Weakness - Related Data Allergies Allergy/AdvReac Type Severity Reaction Status Date / Time iodine Allergy Anaphylactic Verified 06/13/18 11:03 Shock Sulfa (Sulfonamide Allergy Rash Verified 06/13/18 11:03 Antibiotics) contrast dye Allergy Difficulty Uncoded 06/13/18 11:03 Breathing Home Meds: Home Meds L.acidoph,Paracasei, B.lactis [Probiotic] 1 each PO DAILY 01/23/18 [History] Ca Carb & Gluc/Mag Ox & Gluc [Calcium Magnesium Caplet] 1,200 mg PO BEDTIME # 100 05/19/18 [Rx] Desloratadine/Pseudoephedrine [Clarinex-D 12 Hour] 1 tab PO Q12HR PRN 05/28/18 [ History] FLUoxetine HCl [Prozac] 20 mg PO DAILY 05/28/18 [History] Acetaminophen [Tylenol] 650 mg PO Q4H PRN tablet 06/01/18 [Rx] Diltiazem [Cardizem CD] 120 mg PO DAILY #30 cap.cd 06/01/18 [Rx] LORazepam [Ativan] 0.5 mg PO Q6H #40 tablet 06/01/18 [Rx] Magnesium Oxide 400 mg PO BID #60 tablet 06/01/18 [Rx] Mirtazapine [Remeron] 15 mg PO BEDTIME #30 tablet 06/01/18 [Rx] Fluconazole [Diflucan] 200 mg PO DAILY #28 tab 06/13/18 [Rx] Fluconazole [Diflucan] 200 mg PO ONETIME #4 tab 06/13/18 [Rx] Ibuprofen [Advil] 400 mg PO ONETIME PRN 06/13/18 [History] Thyroid [[place]odan Thyroid] 30 mcg PO DAILY 06/13/18 [History] Past Medical History HEENT History: Reports: Allergic Rhinitis, Impaired Vision, Sinusitis, Other ( See Below) Other HEENT History: Patient wears reading glasses. Allergic rhinitis/sinusitis with recurrent sinusitis. Cardiovascular History: Reports: Aneurysm, Arrhythmia, High Cholesterol, Other ( See Below) Other Cardiovascular History: Previous hyperlipidemia with no current medical therapy required. Note cerebral aneurysm as below. Bradycardia, repolarization changes versus incomplete right bundle branch block, and multiform PVCs at time of basilar artery leakage on 09/29/15. Respiratory History: Reports: Bronchitis, Recurrent, COPD, Intubation, Previous , Pneumonia, Recurrent, Pulmonary Fibrosis, Other (See Below) Other Respiratory History: Benign lower lobe benign pulmonary nodules x2. Gastrointestinal History: Reports: Gastritis, GERD, Helicobacter Pylori, Other ( See Below) Other Gastrointestinal History: H. pylori treated in about 2016. Nonspecific dysphagia in 2018. Genitourinary History: Reports: UTI, Recurrent EMR ANALYST History: Reports: Other EMR ANALYST History: Surgical Menopause secondary to cervical cancer at age 29 as below. Full term without complications during pregnancies or deliveries. Musculoskeletal History: Reports: Arthritis, Back Pain, Chronic, Fracture, Neck Pain, Chronic, Osteoarthritis, Osteoporosis, Other (See Below) Other Musculoskeletal History: Nondisplaced left talar fracture on 08/24/16 with no surgery required. Note patient is currently being followed by pain clinic with history of spinal injections. 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 Psychiatric History: Reports: Addiction, Anxiety, Depression, Other (See Below) Other Psychiatric History: Chronic narcotic and anxiolytic use. 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 Hypokalemia. Hypoalbuminemia. Hematologic History: Reports: Other (See Below) Other Hematologic History: Hypomagnesemia. Immunologic History: Reports: None Oncologic (Cancer) History: Reports: Basal Cell Carcinoma, Cervix, Other (See Below) Other Oncologic History: Cervical cancer at age 29 with hysterectomy as below with no chemotherapy, etc. Basal cell carcinoma excised from the back region in about 2012. Dermatologic History: Reports: None - Infectious Disease History Infectious Disease History: Reports: Chicken Pox, Helicobacter Pylori, Influenza - Past Surgical History Head Surgeries/Procedures: Reports: Other (See Below) HEENT Surgical History: Reports: Oral Surgery, Other (See Below) Other HEENT Surgeries/Procedures: Teeth extractions including possible wisdom teeth in the 1980s. Cardiovascular Surgical History: Reports: Aneurysm, Vascular Surgery, Other ( See Below) Other Cardiovascular Surgeries/Procedures: Cerebral aneurysm therapy as above Respiratory Surgical History: Reports: None GI Surgical History: Reports: None Female Surgical History: Reports: Breast Biopsy, Breast Implant, Hysterectomy , Salpingo-Oophorectomy, Other (See Below) Other Female Surgeries/Procedures: Bilateral breast implants at age 32. Complete hysterectomy with bilateral salpingo-oophorectomy secondary to cervical cancer at age 29. Right breast biopsy for benign disease in about 2002. Endocrine Surgical History: Reports: None Neurological Surgical History: Reports: C-Spine, Discectomy, Intracranial, Spinal Fusion, Other (See Below) Other Neurological Surgeries/Procedures: Discectomies and cervical spine fusion from C5 through C7 on 06/07/17. Intracranial surgery as above. Musculoskeletal Surgical History: Reports: Other (See Below) Other Musculoskeletal Surgeries/Procedures:: Right-sided bunionectomy with additional surgery in the first and fifth metatarsals in 2012 Oncologic Surgical History: Reports: Biopsy of Breast, Other (See Below) Other Oncologic Surgeries/Procedures: Breast biopsy for benign disease as above. Excision of basal cell carcinoma from the back region in 2012. Dermatological Surgical History: Reports: Other (See Below) - Past Imaging History Past Imaging History: Reports: Angiography (Cerebral angiography on 09/25/17, 04/04/16, 10/22/15, 10/06/15, and 09/29/15.), Cardiac Echo (06/02/17 with ejection fraction of 60% with otherwise normal findings.), CAT Scan (CT of the cervical region/soft tissue on 05/19/18. CT of the head on 01/23/18, 08/31/17, 05/08/17, , and 10/17/15. CT of the chest on 02/20/13, 03/28/12, and 06/23/10. CT of the abdomen and pelvis on 06/23/10.), DEXA Scan (08/22/17.), Mammogram (Last mammogram on 11/20/17.), MRI (MRI of the lumbar spine on 12/26/16. MRA of the head on 05/03/18, 03/31/18, 09/25/17, and 12/26/16 Probable MRI of the brain at the [facility] in 2017 with no records available. MRI of the C-spine on 02/02/18. MRI of the lumbar spine on 07/20/17 and 02/23/17.), Ultrasound (Thyroid ultrasound on 01/25/18 and 01/26/16. Gallbladder ultrasound on 05/27/18.), Venous Doppler (Right leg on 09/29/17.). Denies: Carotid US Social & Family History - Family History HEENT: Reports: None Cardiac: Reports: Aneurysm, Arrhythmia, Other (See Below) Other Cardiac Family History: Sister with history of tachycardia of unknown type , hypotension, and cerebral aneurysm. Respiratory: Reports: COPD, Other (See Below) Other Respiratory Family Hisory: Mother with history of COPD with history of tobacco use. GI: Reports: Celiac Disease, Cholelithiasis, Inflammatory Bowel Disease, Other ( See Below) Other GI Family History: Sister with history of Crohn's disease. Mother with cholelithiasis and celiac disease : Reports: None OBGYN: Reports: None Musculoskeletal: Reports: Arthritis, Osteoarthritis, Other (See Below) Other Musculoskeletal Family History: Mother with osteoarthritis. Neurological: Reports: Cerebral Aneurysms, CVA, Other (See Below) Other Neurological Family History: Maternal grandfather with embolic CVA in his 80s. Sister with cerebral aneurysm as above Endocrine/Metabolic: Reports: Hypothyroidism, Other (See Below) Other Endocrine/Metabolic Family History: Hypothyroidism in mother and sisters 2 Hematologic: Reports: Anemia, Other (See Below) Other Hematologic Family History: Sister with iron deficiency anemia. Immunologic: Reports: None Dermatologic: Reports: None Oncologic: Reports: Metastatic, Other (See Below) Other Oncologic Family History: Paternal grandfather with fatal metastatic esophageal cancer in his 80s - Tobacco Use Smoking Status *Q: Former Smoker Used Tobacco, but Quit: Yes Month/Year Tobacco Last Used: june 16 - Caffeine Use Caffeine Use: Reports: Coffee (2 cups per day), Soda (1 soda per day), Tea (1 cup per week). Denies: Energy Drinks - Sexual History Sexual History: Reports: Single Partner. Denies: Abuse - Living Situation & Occupation Living situation: Reports: (Second and 2007.), (First 2002 with 2 children from that relationship. 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 Patient has been unable to work since she had cervical radiculopathy.) ED ROS GENERAL - Review of Systems Review Of Systems: See Below Constitutional: Reports: Weakness HEENT: Reports: No Symptoms Respiratory: Reports: No Symptoms Cardiovascular: Reports: No Symptoms Endocrine: Reports: No Symptoms GI/Abdominal: Reports: No Symptoms : Reports: No Symptoms Musculoskeletal: Reports: No Symptoms Skin: Reports: No Symptoms Neurological: Reports: No Symptoms Psychiatric: Reports: No Symptoms Hematologic/Lymphatic: Reports: No Symptoms Immunologic: Reports: No Symptoms ED EXAM, GENERAL - Physical Exam Exam: See Below Exam Limited By: No Limitations General Appearance: Alert, WD/WN, No Apparent Distress Ears: Normal External Exam, Normal Canal, Hearing Grossly Normal, Normal TMs Nose: Normal Inspection, Normal Mucosa, No Blood Throat/Mouth: Normal Inspection, Normal Lips, Normal Teeth, Normal Gums, Normal Oropharynx, Normal Voice, No Airway Compromise Head: Atraumatic, Normocephalic Neck: Normal Inspection, Supple, Non-Tender, Full Range of Motion Respiratory/Chest: No Respiratory Distress, Lungs Clear, Normal Breath Sounds, No Accessory Muscle Use, Chest Non-Tender Cardiovascular: Normal Peripheral Pulses, Regular Rate, Rhythm, No Edema, No Gallop, No JVD, No Murmur, No Rub GI/Abdominal: Normal Bowel Sounds, Soft, Non-Tender, No Organomegaly, No Distention, No Abnormal Bruit, No Mass Back Exam: Normal Inspection, Full Range of Motion, NT Extremities: Normal Inspection, Normal Range of Motion, Non-Tender, Normal Capillary Refill, No Pedal Edema Neurological: Alert, Oriented, CN II-XII Intact, Normal Cognition, Normal Gait, Normal Reflexes, No Motor/Sensory Deficits Psychiatric: Normal Affect, Normal Mood Skin Exam: Warm, Dry, Intact, Normal Color, No Rash Course - Vital Signs Last Recorded V/S: Last Vital Signs Temp 97.5 F 06/13/18 11:00 Pulse 89 06/13/18 11:00 Resp BP 117/59 L 06/13/18 11:00 Pulse Ox 96 06/13/18 11:00 - Orders/Labs/Meds Orders: Active Orders 24 hr Category Date Time Status CBC WITH AUTO DIFF [HEME] AM Lab 06/13/18 11:30 Ordered CULTURE BLOOD [BC] Stat Lab 06/13/18 11:23 Ordered CULTURE BLOOD [BC] Stat Lab 06/13/18 11:23 Ordered Blood Culture x2 Reflex Set [OM.PC] Stat Oth 06/13/18 11:23 Ordered Departure - Departure Time of Disposition: 11:47 Disposition: Home, Self-Care 01 Condition: Fair (Candidiasis systemic) Clinical Impression: Systemic candidiasis - Discharge Information *PRESCRIPTION DRUG MONITORING PROGRAM REVIEWED*: No *COPY OF PRESCRIPTION DRUG MONITORING REPORT IN PATIENT TIEN: No Prescriptions: Fluconazole [Diflucan] 200 mg PO ONETIME #4 tab Fluconazole [Diflucan] 200 mg PO DAILY #28 tab Referrals: Bree Smith PA-C [Primary Care Provider] - Care Plan Goals: Patient will be treated with Diflucan for systemic candidiasis at this time there is no signs of SUPERVISOR GRAPHITE infection - My Orders Last 24 Hours: My Active Orders 06/13/18 11:23 CULTURE BLOOD [BC] Stat CULTURE BLOOD [BC] Stat Blood Culture x2 Reflex Set [OM.PC] Stat 06/13/18 11:30 CBC WITH AUTO DIFF [HEME] AM - Assessment/Plan Last 24 Hours: My Active Orders 06/13/18 11:23 CULTURE BLOOD [BC] Stat CULTURE BLOOD [BC] Stat Blood Culture x2 Reflex Set [OM.PC] Stat 06/13/18 11:30 CBC WITH AUTO DIFF [HEME] AM
== END 2018-06-13 12:00 | disposition home or self-care (01) ==
LOC: LL.ED 10:57
DX: B37.7 Candidal sepsis (principal); B37.0 Candidal stomatitis; J44.9 Chronic obstructive pulmonary disease, unspecified; Z88.8 Allergy status to other drugs, medicaments and biological substances; Z88.2 Allergy status to sulfonamides; Z91.041 Radiographic dye allergy status; Z79.899 Other long term (current) drug therapy; Z87.891 Personal history of nicotine dependence
CPT/HCPCS: 36415; 85025; 87040; 99283

== ENCOUNTER 2018-08-22 10:26 | Emergency (ER) | payer BC ==
[2018-08-22 10:45] VITALS: BP 115/72
--- NOTE | 2018-08-22 10:53 | EDM.PDOC ---
ED HPI GENERAL MEDICAL PROBLEM - General Chief Complaint: General Stated Complaint: AVALOS, dizziness, Neck ache, rib pain Time Seen by Provider: 08/22/18 10:45 Source of Information: Reports: Patient, Family (), Old Records ([facility] chart/EMR), Other ([facility] EMR) History Limitations: Reports: No Limitations - History of Present Illness INITIAL COMMENTS - FREE TEXT/NARRATIVE: The patient was brought to the emergency room via private automobile by her for evaluation of refractory and persistent left anterior chest wall pain, which she rates at 9/10 with additional 9/10 diffuse throbbing headache and posterior neck discomfort similar to her previous episodes. Note the patient also has had problems with chronic dizziness and did take 2 tablets of meclizine and 600 mg of ibuprofen at 8 AM this morning. Symptoms seem to have been aggravated by massage treatment 5 days ago with no other known acute injury. Patient did try to get into her regular provider, Bree Simon PA-C, at [facility] in [place], and get an appointment with her pain clinic in [place], however openings were not available. The patient denies any chest pain/pressure, heart flutter, orthostasis, orthopnea, diaphoresis, paresthesias, recent decreased exercise tolerance, or any other anginal-type symptoms. No recent history of abdominal pain, heartburn, nausea, diarrhea, melena, gross hematochezia, or any food intolerance, including fatty foods, etc.. The patient also denies any recent fever, cough, wheezing, dyspnea, etc.. Onset: Gradual Onset Date: 08/17/18 Onset Time: 17:00 Location: Reports: Head, Neck, Chest. Denies: Face, Abdomen, Back, Pelvis, Upper Extremity, Left, Upper Extremity, Right, Radiates to Quality: Reports: Ache, Same as Previous Episode, Sharp Severity: Severe Improves with: Reports: None Worsens with: Reports: None Context: Reports: Other (As above). Denies: Sick Contact, Trauma Associated Symptoms: Reports: Chest Pain (Chest wall pain), Headaches. Denies: Confusion, Cough, Diaphoresis, Fever/Chills, Loss of Appetite, Nausea/Vomiting, Rash, Seizure, Shortness of Breath, Weakness Treatments RELOCATION COMMISSIONER: Reports: NSAIDS, Other Medication(s) (As above) AVALOS, neck, bilat rib Pain Score (Numeric/FACES): 9 - Related Data Allergies Allergy/AdvReac Type Severity Reaction Status Date / Time iodine Allergy Anaphylactic Verified 08/22/18 10:28 Shock Sulfa (Sulfonamide Allergy Rash Verified 08/22/18 10:28 Antibiotics) contrast dye Allergy Difficulty Uncoded 08/22/18 10:28 Breathing Home Meds: Home Meds L.acidoph,Paracasei, B.lactis [Probiotic] 1 each PO DAILY 01/23/18 [History] Ca Carb & Gluc/Mag Ox & Gluc [Calcium Magnesium Caplet] 1,200 mg PO BEDTIME # 100 05/19/18 [Rx] Acetaminophen [Tylenol] 650 mg PO Q4H PRN tablet 06/01/18 [Rx] Magnesium Oxide 400 mg PO BID #60 tablet 06/01/18 [Rx] Ibuprofen [Advil] 400 - 600 mg PO Q6H PRN 06/13/18 [History] Levothyroxine 75 mcg PO VALLADARES@08 08/22/18 [History] Levothyroxine [Synthroid] 50 mcg PO ACBREAKFAST 08/22/18 [History] Meclizine [Antivert] 25 mg PO Q6H PRN 08/22/18 [History] Montelukast [Singulair] 10 mg PO BEDTIME 08/22/18 [History] Ranitidine [Zantac] 150 mg PO DAILY 08/22/18 [History] Past Medical History HEENT History: Reports: Allergic Rhinitis, Impaired Vision, Sinusitis, Other ( See Below). Denies: Cataract, Glaucoma, Hard of Hearing, Macular Degeneration, Otitis Media, Retinal Detachment Other HEENT History: Patient wears reading glasses. Allergic rhinitis/sinusitis with recurrent sinusitis. Cardiovascular History: Reports: Aneurysm, Arrhythmia, High Cholesterol, Hypertension, Other (See Below). Denies: Blood Clots/VTE/DVT, CAD, Heart Failure, Heart Murmur, MO, PVD, Syncope Other Cardiovascular History: Previous hyperlipidemia with no current medical therapy required. Note cerebral aneurysm as below. Bradycardia, repolarization changes versus incomplete right bundle branch block, and multiform PVCs at time of basilar artery leakage on 09/29/15. Symptomatic bradycardia with hypotension and Mobitz type I second-degree A-V block with low-dose beta elissa therapy in April 2018. Intermittent PSVT with previous diltiazem therapy. Respiratory History: Reports: Bronchitis, Recurrent, COPD, Intubation, Previous , Pneumonia, Recurrent, Pulmonary Fibrosis, Other (See Below). Denies: Intubation, Difficult, PE, Pneumothorax, Sleep Apnea, TB Other Respiratory History: Benign right lower lobe pulmonary nodules x2 by serial CT scans as below. Gastrointestinal History: Reports: Chronic Diarrhea, Gastritis, GERD, Helicobacter Pylori, Other (See Below). Denies: Celiac Disease, Cholelithiasis , Chronic Constipation, Colon Polyp, GI Bleed, Hepatitis, Hiatal Hernia, Irritable Bowel Syndrome, Jaundice, Pancreatitis, PUD Other Gastrointestinal History: H. pylori treated in about 2016. Nonspecific dysphagia in 2018. Genitourinary History: Reports: UTI, Recurrent. Denies: Acute Renal Failure, Chronic Renal Insuffiency, Renal Calculus, Retention, Urinary, STD, Urinary Incontinence TEXTILE TECHNICAL OFFICER History: Reports: . Denies: Dysfunctional Uterine Bleeding, Endometriosis, Fibroids, Spontaneous , Therapeutic : 3 Para: 3 LMP (Approximate): Other (See Below) Other TEXTILE TECHNICAL OFFICER History: Surgical Menopause secondary to cervical cancer at age 29 as below. Full term without complications during pregnancies or deliveries. Musculoskeletal History: Reports: Arthritis, Back Pain, Chronic, Fracture, Neck Pain, Chronic, Osteoarthritis, Osteoporosis, Other (See Below). Denies: Fibromyalgia, Gout, RA, SLE Other Musculoskeletal History: Nondisplaced left talar fracture on 08/24/16 with no surgery required. Note patient is currently being followed by pain clinic for chronic pain syndrome with history of spinal injections, etc. Neurological History: Reports: Cerebral Aneurysms, Headaches, Chronic, Migraines , Vertigo. 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 Psychiatric History: Reports: Addiction, Anxiety, Depression, Other (See Below) . Denies: Abuse, Victim of, ADD, ADHD, Psych Hospitalization(s), Psychosis, PTSD, Suicide Attempt, Suicidal Ideation Other Psychiatric History: Chronic narcotic and anxiolytic use in the past secondary to chronic pain syndrome, etc. Endocrine/Metabolic History: Reports: Hypothyroidism, Other (See Below). 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 Hypokalemia. Hypoalbuminemia. Hematologic History: Reports: Other (See Below). Denies: Anemia, Blood Transfusion(s), Iron Deficiency Other Hematologic History: Hypomagnesemia. Immunologic History: Reports: None. Denies: AIDS, HIV, SLE Oncologic (Cancer) History: Reports: Basal Cell Carcinoma, Cervix, Other (See Below). Denies: Breast, Colon, Hodgkin's Lymphoma, Leukemia, Lymphoma, Malignant Melanoma, Non-Hodgkin's Lymphoma, Ovarian, Squamous Cell Carcinoma, Uterine Other Oncologic History: Cervical cancer at age 29 with hysterectomy as below with no chemotherapy, etc. Basal cell carcinoma excised from the back region in about 2012. Dermatologic History: Reports: None. Denies: Eczema, Psoriasis - Infectious Disease History Infectious Disease History: Reports: Chicken Pox, Helicobacter Pylori, Influenza. Denies: C-Difficile, Measles, Meningitis, MRSA, Mumps, Pertussis ( Whooping Cough), Rheumatic Fever, RSV, Rubella, Scarlet Fever, Shingles, TB, VRE - Past Surgical History Head Surgeries/Procedures: Reports: Other (See Below) Other Head Surgeries/Procedures: Basilar artery coil placement secondary to leaking easel artery aneurysm on 10/26/15. HEENT Surgical History: Reports: Oral Surgery, Other (See Below). Denies: Adenoidectomy, Cataract Surgery, Eye Surgery, Laser Surgery, Myringotomy w Tube( s), Naso-Sinus Surgery, Tonsillectomy Other HEENT Surgeries/Procedures: Teeth extractions including possible wisdom teeth in the . Cardiovascular Surgical History: Reports: Aneurysm, Vascular Surgery, Other ( See Below). Denies: AAA Repair, Pacer, Varicose Other Cardiovascular Surgeries/Procedures: Cerebral aneurysm therapy as above Respiratory Surgical History: Reports: None. Denies: Thoracentesis GI Surgical History: Reports: EGD, Other (See Below). Denies: Appendectomy, Colonoscopy, Hernia, Abdominal, Hernia, Inguinal, Hernia Repair/Other, Polypectomy Other GI Surgeries/Procedures: EGD with biopsies on 08/13/18. Female Surgical History: Reports: Breast Biopsy, Breast Implant, Hysterectomy , Salpingo-Oophorectomy, Other (See Below). Denies: Section, Cervical Cryotherapy, D&C, Tubal Ligation Other Female Surgeries/Procedures: Bilateral breast implants at age 32. Complete hysterectomy with bilateral salpingo-oophorectomy secondary to cervical cancer at age 29. Right breast biopsy for benign disease in about 2002. Endocrine Surgical History: Reports: None. Denies: Thyroid Biopsy Neurological Surgical History: Reports: C-Spine, Discectomy, Intracranial, Spinal Fusion, Other (See Below). Denies: Laminectomy, Lumbar Spine, Sacral Spine, Thoracic Spine, Vertebroplasty Other Neurological Surgeries/Procedures: Discectomies and cervical spine fusion from C5 through C7 on 06/07/17. Intracranial surgery as above. Musculoskeletal Surgical History: Reports: Other (See Below). Denies: Arthroscopic Procedure, Carpal Tunnel, Ganglion Cyst, Joint Replacement, ORIF, Shoulder Surgery Other Musculoskeletal Surgeries/Procedures:: Right-sided bunionectomy with additional surgery in the first and fifth metatarsals in 2012 Oncologic Surgical History: Reports: Biopsy of Breast, Other (See Below) Other Oncologic Surgeries/Procedures: Breast biopsy for benign disease as above. Excision of basal cell carcinoma from the back region in 2012. Dermatological Surgical History: Reports: Other (See Below) Other Dermatological Surgeries/Procedures: Excision of basal cell carcinomas above with multiple previous skin excisions for benign disease. - Past Imaging History Past Imaging History: Reports: Angiography (Negative heart catheterization on . Cerebral angiography on 09/25/17, 04/04/16, 10/22/15, 10/06/15, and 09/29/15.) , Cardiac Echo (06/02/17 with ejection fraction of 60% with otherwise normal findings.), CAT Scan (CT of the chest on 08/08/18. CT of the head on 06/25/18 and 05/31/18. CT of the cervical region/soft tissue on 05/19/18. CT of the head on , 08/31/17, 05/08/17, 12/26/16, and 10/17/15. CT of the chest on 02/20/13, 03/28, and 06/23/10. CT of the abdomen and pelvis on 06/23/10.), DEXA Scan (08/22/17. ), Holter Monitor (May 2018 at [facility], however records not available?), Mammogram (Last mammogram on 11/20/17.), MRA (MRA of the head on , 03/31/18, 09/25/17, and 12/26/16.), MRI (MRI of the lumbar spine on . Probable MRI of the brain at the [facility] in 2017 with no records available. MRI of the C-spine on 02/02/18. MRI of the lumbar spine on 07/20/17 and 02/23/17.), Stress Testing (Positive Lexiscan Cardiolite stress test on 06/15/18 for mid to distal anterior wall cardiac ischemia with ejection fraction of 72% however negative heart catheterization in May 2018 as above.), Ultrasound ( Thyroid ultrasound on 01/25/18 and 01/26/16. Gallbladder ultrasound on 05/27/18.) , Venous Doppler (Right leg on 09/29/17.). Denies: Carotid US Social & Family History - Family History HEENT: Reports: None Cardiac: Reports: Aneurysm, Arrhythmia, Other (See Below) Other Cardiac Family History: Sister with history of tachycardia of unknown type , hypotension, and cerebral aneurysm. Respiratory: Reports: COPD, Other (See Below) Other Respiratory Family Hisory: Mother with history of COPD with history of tobacco use. GI: Reports: Celiac Disease, Cholelithiasis, Inflammatory Bowel Disease, Other ( See Below) Other GI Family History: Sister with history of Crohn's disease. Mother with cholelithiasis and celiac disease : Reports: None OBGYN: Reports: None Musculoskeletal: Reports: Arthritis, Osteoarthritis, Other (See Below) Other Musculoskeletal Family History: Mother with osteoarthritis. Neurological: Reports: Cerebral Aneurysms, CVA, Other (See Below) Other Neurological Family History: Maternal grandfather with embolic CVA in his 80s. Sister with cerebral aneurysm as above Endocrine/Metabolic: Reports: Hypothyroidism, Other (See Below) Other Endocrine/Metabolic Family History: Hypothyroidism in mother and sisters 2 Hematologic: Reports: Anemia, Other (See Below) Other Hematologic Family History: Sister with iron deficiency anemia. Immunologic: Reports: None Dermatologic: Reports: None Oncologic: Reports: Metastatic, Other (See Below) Other Oncologic Family History: Paternal grandfather with fatal metastatic esophageal cancer in his 80s - Tobacco Use Smoking Status *Q: Former Smoker Tobacco Use Within Last Twelve Months: Cigarettes Years of Tobacco use: 30 Packs/Tins Daily: 0.5 Packs/Tins Daily Comment: Started smoking at age 17 with maximum use of one pack per day with patient discontinuing tobacco use in general 2018. Used Tobacco, but Quit: Yes Month/Year Tobacco Last Used: 05/2018 Smoking Cessation Information Provided To Patient: No Second Hand Smoke Exposure: No Second Hand Smoke Education Provided: No - Caffeine Use Caffeine Use: Reports: None, Other (Stopped all CAFFEINE use in May 2018.). Denies: Coffee, Soda, Tea - Alcohol Use Alcohol Use History: Yes Days Per Week of Alcohol Use: 0 Number of Drinks Per Day: 1 Number of Drinks Per Day Comment: Usually beer for holidays etc. No previous DWIs, problems with alcohol abuse, etc. Total Drinks Per Week: 0 - Recreational Drug Use Recreational Drug Use: Yes Recreational Drug Type: Reports: Marijuana/Hashish (Experimental at age 45.). Denies: Amphetamines (Speed), Cocaine, Inhalants (Glues, Solvents, Aerosols), LSD (Acid), Methamphetamine, Methaqualone, Morphine, Oxycodone - Sexual History Sexual History: Reports: Single Partner. Denies: Abuse - Living Situation & Occupation Living situation: Reports: (Second in 2007.), (First 2002 with 2 children from that relationship. 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 Patient has been unable to work since she had cervical radiculopathy.) ED ROS GENERAL - Review of Systems Review Of Systems: ROS reveals no pertinent complaints other than HPI. ED EXAM, GENERAL - Physical Exam Exam: See Below Exam Limited By: No Limitations General Appearance: Alert, WD/WN, No Apparent Distress, Anxious (Mild) Eye Exam: Bilateral Eye: Normal Fundi, Normal Inspection (No nystagmus), PERRL Ears: Normal External Exam, Normal Canal, Hearing Grossly Normal, Normal TMs, Other (Tattoo in her inner left auricle) Nose: Normal Inspection, Normal Mucosa, No Blood Throat/Mouth: Normal Inspection, Normal Lips, Normal Teeth, Normal Gums, Normal Oropharynx, Normal Voice, No Airway Compromise. No: Dysphagia, Perioral Cyanosis Head: Atraumatic, Normocephalic, Other (No spasms. Negative meningeal signs.). No: Facial Swelling, Facial Tenderness, Sinus Tenderness Neck: Normal Inspection, Supple, Non-Tender, Full Range of Motion. No: Carotid Bruit, Lymphadenopathy (L), Lymphadenopathy (R), Thyromegaly Respiratory/Chest: No Respiratory Distress, Lungs Clear, Normal Breath Sounds, No Accessory Muscle Use. No: Chest Non-Tender (Left upper moderate anterior chest wall palpation pain at the MCP with no crepitation, ecchymosis, swelling, etc.), Pleural Rub, Retractions Cardiovascular: Normal Peripheral Pulses, Regular Rate, Rhythm, No Edema, No Gallop, No JVD, No Murmur, No Rub. No: Gallop/S3, Gallop/S4, Friction Rub Peripheral Pulses: 2+: Radial (L), Radial (R), Dorsalis Pedis (L), Dorsalis Pedis (R) GI/Abdominal: Normal Bowel Sounds, Soft, Non-Tender, No Organomegaly, No Distention, No Abnormal Bruit, No Mass. No: Guarding (Female) Exam: Deferred Rectal (Female) Exam: Deferred Back Exam: Normal Inspection, Full Range of Motion. No: CVA Tenderness (L), CVA Tenderness (R), Muscle Spasm Extremities: Normal Inspection, Normal Range of Motion, Non-Tender, No Pedal Edema, Normal Capillary Refill. No: Bay's Sign Neurological: Alert, Oriented, CN II-XII Intact, Normal Cognition, Normal Gait, Normal Reflexes (Negative Babinski's), No Motor/Sensory Deficits Psychiatric: Anxious (Mild), Depressed Mood (Mild with adequate eye contact). No: Flat Affect, Tearful Skin Exam: Warm, Dry, Intact, Normal Color, No Rash, Tattoo(s). No: Wound/ Incision Lymphatic: No Adenopathy Course - Vital Signs Last Recorded V/S: Last Vital Signs Temp 36.2 C 08/22/18 10:28 Pulse 79 08/22/18 10:28 Resp 16 08/22/18 10:28 BP 115/72 08/22/18 10:28 Pulse Ox 97 08/22/18 10:28 Vital Signs - 24 hr 08/22/18 10:28 Temperature [ 36.2 C Temporal] Pulse, 79 Peripheral [ Brachial] Respiratory 16 Rate Blood Pressure 115/72 [Right Upper Arm] O2 Sat by Pulse 97 Oximetry - Orders/Labs/Meds Orders: Active Orders 24 hr Category Date Time Status Peripheral IV Care [RC] . DIRECTED Care 08/22/18 10:54 Active Sodium Chloride 0.9% [Saline Flush] Med 08/22/18 10:54 Active 10 ml FLUSH ASDIRECTED PRN Obtain Past Medical Record [OM.PC] Routine Oth 08/22/18 10:53 Active Peripheral IV Insertion Adult [OM.PC] Routine Oth 08/22/18 10:53 Ordered Medication Orders Sodium Chloride (Saline Flush) 10 ml FLUSH ASDIRECTED PRN PRN Reason: Keep Vein Open Last Admin: 08/22/18 11:16 Dose: 10 ml Admin: 08/22/18 11:10 Dose: 10 ml Labs: None Meds: Medications Generic Name Dose Route Start Last Admin Trade Name Freq PRN Reason Stop Dose Admin Sodium Chloride 10 ml 08/22/18 10:54 08/22/18 11:16 Saline Flush FLUSH 10 ml ASDIRECTED PRN Administration Keep Vein Open Discontinued Medications Generic Name Dose Route Start Last Admin Trade Name Freq PRN Reason Stop Dose Admin Diphenhydramine HCl 50 mg 08/22/18 10:54 08/22/18 11:11 Benadryl IVPUSH 08/22/18 10:55 50 mg ONETIME ONE Administration Lorazepam 2 mg 08/22/18 10:54 08/22/18 11:11 Ativan IVPUSH 08/22/18 10:55 2 mg ONETIME ONE Administration Methylprednisolone Acetate 80 mg 08/22/18 10:55 08/22/18 11:04 Depo-Medrol IM 08/22/18 10:56 80 mg ONETIME ONE Administration Metoclopramide HCl 10 mg 08/22/18 10:54 08/22/18 11:09 Reglan IVPUSH 08/22/18 10:55 10 mg ONETIME ONE Administration - Radiology Interpretation Free Text/Narrative:: None Departure - Departure Time of Disposition: 12:10 Disposition: Home, Self-Care 01 Condition: Good Clinical Impression: Mixed anxiety depressive disorder, Migraine, Peptic reflux disease, Vertigo Osteoarthritis Qualifiers: Osteoarthritis location: multiple joints Osteoarthritis type: primary Qualified Code(s): M15.0 - Primary generalized (osteo)arthritis Hypertension Qualifiers: Hypertension type: essential hypertension Qualified Code(s): I10 - Essential ( primary) hypertension COPD (chronic obstructive pulmonary disease) Qualifiers: COPD type: emphysema Emphysema type: panlobular Qualified Code(s): J43.1 - Panlobular emphysema - Discharge Information *PRESCRIPTION DRUG MONITORING PROGRAM REVIEWED*: Not Applicable *COPY OF PRESCRIPTION DRUG MONITORING REPORT IN PATIENT TIEN: Not Applicable Instructions: Vertigo, [id number], Migraine Headache, [id number] Referrals: Bree Smith PA-C [Primary Care Provider] - Forms: ED Department Discharge Additional Instructions: 1. Follow up with your regular provider in 10-14 days as needed, if symptoms persist. Bring these discharge instructions with you to that visit.. 2. Otherwise follow-up with your pain clinic as scheduled later this week and notify them of today's ER visit. 3. Sedation precautions with no driving, etc. for 18 hours because of emergency room medications. 4. Ice packs to head and neck, dark and quiet room, etc. as directed until headache resolves. 5. Immediately after this visit verify that your cellular telephone's voicemail has been activated and is empty. Also verify that your home telephone 's answering machine is operating properly and has space to receive messages. Note that it is sometimes necessary for us to be able to contact you at a later date to discuss your medical care. 6. Please remember that we are ALWAYS here for you and want to answer any questions you may have. Feel free to call the hospital any time and we call you back ASHLEY. 7. NEVER EXCEED THE RECOMMENDED DOSE OF MEDICINES, INCLUDING OTC MEDICINES, ETC. - Problem List & Annotations (1) Vertigo SNOMED Code(s): 133863690 Code(s): R42 - DIZZINESS AND GIDDINESS Status: Acute Current Visit: Yes Onset Date: ~08/17/18 Annotation/Comment:: Chronic vertigo likely secondary to her previous leaking basilar artery aneurysm and subsequent coil treatment. No evidence of recurrence by recent exams as above. Patient is closely being followed by E[facility] at [facility]. Sedation precautions as above. (2) Osteoarthritis SNOMED Code(s): 493748505 Code(s): M19.90 - UNSPECIFIED OSTEOARTHRITIS, UNSPECIFIED SITE Status: Chronic Priority: Medium Current Visit: Yes Annotation/Comment:: Recent chest wall pain after massage treatment with no known acute injury with previous history of recurrence of this, neck pain, chronic pain syndrome in the past. Continue massage therapy, patient care technician, and pain clinic treatments as before. She is trying to get an appointment for the pain clinic on 08/24. Qualifiers: Osteoarthritis location: multiple joints Osteoarthritis type: primary Qualified Code(s): M15.0 - Primary generalized (osteo)arthritis (3) Migraine SNOMED Code(s): 27722134 Status: Chronic Priority: High Current Visit: Yes Onset Date: ~ Annotation/Comment:: Last treatment in this emergency room on 07/13/18. Overall good results with treatment today as above. Continue to observe closely by her regular provider. Likely tension headache component. Sedation precautions given. She was congratulated about discontinuing all CAFFEINE in May 2018. (4) Peptic reflux disease SNOMED Code(s): 692651059 Code(s): K21.9 - GASTRO-ESOPHAGEAL REFLUX DISEASE WITHOUT ESOPHAGITIS Status: Acute Priority: High Current Visit: Yes Onset Date: 03/05/18 Annotation/Comment:: Stable by history with current medical therapy and recent EGD as above. (5) COPD (chronic obstructive pulmonary disease) SNOMED Code(s): 12678469 Status: Chronic Priority: Medium Current Visit: Yes Annotation/Comment: : Stable by history with no recent bronchitic-type symptoms. The patient was congratulated about stopping smoking in May 2018. PFTs on an outpatient basis may still be of some benefit, however, no current medical therapy. Note previous history of cardiac arrhythmia as above with no evidence of recurrence despite discontinuation of her medical therapy, including diltiazem, etc.. Qualifiers: COPD type: emphysema Emphysema type: panlobular Qualified Code(s): J43.1 - Panlobular emphysema (6) Hypertension SNOMED Code(s): 63006226 Status: Chronic Priority: Medium Current Visit: Yes Annotation/Comment: : Blood pressure stable in the emergency room with previous history of hypotension. Qualifiers: Hypertension type: essential hypertension Qualified Code(s): I10 - Essential (primary) hypertension (7) Mixed anxiety depressive disorder SNOMED Code(s): 577303898 Code(s): F41.8 - OTHER SPECIFIED ANXIETY DISORDERS Status: Chronic Priority: High Current Visit: Yes Annotation/Comment:: Stable by history. Continue to observe closely by regular provider. - Problem List Review Problem List Initiated/Reviewed/Updated: Yes - My Orders Last 24 Hours: My Active Orders 08/22/18 10:53 Obtain Past Medical Record [OM.PC] Routine Peripheral IV Insertion Adult [OM.PC] Routine 08/22/18 10:54 Peripheral IV Care [RC] . DIRECTED Sodium Chloride 0.9% [Saline Flush] 10 ml FLUSH ASDIRECTED PRN - Assessment/Plan Last 24 Hours: My Active Orders 08/22/18 10:53 Obtain Past Medical Record [OM.PC] Routine Peripheral IV Insertion Adult [OM.PC] Routine 08/22/18 10:54 Peripheral IV Care [RC] . DIRECTED Sodium Chloride 0.9% [Saline Flush] 10 ml FLUSH ASDIRECTED PRN Assessment:: As above Plan: As above. Extensive precautions were given to the patient and her , who are in agreement with the treatment plan. See Patient Instructions for further treatment and plan.
[2018-08-22] MEDS ORDERED: LORazepam 2 MG/ML SDV IVPUSH ONE (10:54)
[2018-08-22] MEDS ORDERED: Metoclopramide 10 MG/2 ML SDV IVPUSH ONE (10:54)
[2018-08-22] MEDS ORDERED: diphenhydrAMINE 50 MG/ML SDV IVPUSH ONE (10:54)
[2018-08-22] MEDS ORDERED: methylPREDNISolone Acetate 80 MG/ML SDV IM ONE (10:55)
[2018-08-22] MEDS: Sodium Chloride 0.9% 10 ML Syringe FLUSH PRN ×2 (11:10→11:16)
== END 2018-08-22 12:10 | disposition home or self-care (01) ==
LOC: LL.ED 10:26
DX: R42 Dizziness and giddiness (principal); G43.909 Migraine, unspecified, not intractable, without status migrainosus; J43.1 Panlobular emphysema; K21.9 Gastro-esophageal reflux disease without esophagitis; M15.0 Primary generalized (osteo)arthritis; F41.8 Other specified anxiety disorders; E78.00 Pure hypercholesterolemia, unspecified; I10 Essential (primary) hypertension; E03.9 Hypothyroidism, unspecified; Z88.2 Allergy status to sulfonamides; Z91.048 Other nonmedicinal substance allergy status; Z79.899 Other long term (current) drug therapy; Z87.891 Personal history of nicotine dependence
CPT/HCPCS: 96372; 96374; 96375; 99283-25; J1040; J1200; J2060; J2765

== ENCOUNTER 2018-08-28 11:18 | Emergency (ER) | payer BC ==
[2018-08-28 11:22] VITALS: BP 109/73
--- NOTE | 2018-08-28 11:58 | EDM.PDOC ---
ED HPI GENERAL MEDICAL PROBLEM - General Chief Complaint: General Stated Complaint: rib pain Time Seen by Provider: 08/28/18 11:30 Source of Information: Reports: Patient History Limitations: Reports: No Limitations - History of Present Illness INITIAL COMMENTS - FREE TEXT/NARRATIVE: Patient seen with chief complaint of generalized chest pain since May today the pain is about 10 out of 10 and this is not associated with a fall or injury patient admits to pain on palpation both AP and laterally does not change with deep breath. 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, NSAIDS Bilateral Lower Posterior Thoracic Pain Score (Numeric/FACES): 10 - Related Data Allergies Allergy/AdvReac Type Severity Reaction Status Date / Time iodine Allergy Anaphylactic Verified 08/22/18 10:28 Shock Sulfa (Sulfonamide Allergy Rash Verified 08/22/18 10:28 Antibiotics) contrast dye Allergy Difficulty Uncoded 08/22/18 10:28 Breathing Home Meds: Home Meds L.acidoph,Paracasei, B.lactis [Probiotic] 1 each PO DAILY 01/23/18 [History] Ca Carb & Gluc/Mag Ox & Gluc [Calcium Magnesium Caplet] 1,200 mg PO BEDTIME # 100 05/19/18 [Rx] Acetaminophen [Tylenol] 650 mg PO Q4H PRN tablet 06/01/18 [Rx] Magnesium Oxide 400 mg PO BID #60 tablet 06/01/18 [Rx] Ibuprofen [Advil] 400 - 600 mg PO Q6H PRN 06/13/18 [History] Levothyroxine 75 mcg PO VALLADARES@08 08/22/18 [History] Levothyroxine [Synthroid] 50 mcg PO ACBREAKFAST 08/22/18 [History] Meclizine [Antivert] 25 mg PO Q6H PRN 08/22/18 [History] Montelukast [Singulair] 10 mg PO BEDTIME 08/22/18 [History] Ranitidine [Zantac] 150 mg PO DAILY 08/22/18 [History] Gabapentin [Neurontin] 2 tab PO DAILY 08/28/18 [History] LORazepam 0.5 mg PO DAILY PRN 08/28/18 [History] Past Medical History HEENT History: Reports: Allergic Rhinitis, Impaired Vision, Sinusitis, Other ( See Below) Other HEENT History: Patient wears reading glasses. Allergic rhinitis/sinusitis with recurrent sinusitis. Cardiovascular History: Reports: Aneurysm, Arrhythmia, High Cholesterol, Hypertension, Other (See Below) Other Cardiovascular History: Previous hyperlipidemia with no current medical therapy required. Note cerebral aneurysm as below. Bradycardia, repolarization changes versus incomplete right bundle branch block, and multiform PVCs at time of basilar artery leakage on 09/29/15. Symptomatic bradycardia with hypotension and Mobitz type I second-degree A-V block with low-dose beta elissa therapy in April 2018. Intermittent PSVT with previous diltiazem therapy. Respiratory History: Reports: Bronchitis, Recurrent, COPD, Intubation, Previous , Pneumonia, Recurrent, Pulmonary Fibrosis, Other (See Below) Other Respiratory History: Benign right lower lobe pulmonary nodules x2 by serial CT scans as below. Gastrointestinal History: Reports: Chronic Diarrhea, Gastritis, GERD, Helicobacter Pylori, Other (See Below) Other Gastrointestinal History: H. pylori treated in about 2015. Nonspecific dysphagia in 2018. 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 Full term without complications during pregnancies or deliveries. Musculoskeletal History: Reports: Arthritis, Back Pain, Chronic, Fracture, Neck Pain, Chronic, Osteoarthritis, Osteoporosis, Other (See Below) Other Musculoskeletal History: Nondisplaced left talar fracture on 08/24/16 with no surgery required. Note patient is currently being followed by pain clinic for chronic pain syndrome with history of spinal injections, etc. 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 Psychiatric History: Reports: Addiction, Anxiety, Depression, Other (See Below) Other Psychiatric History: Chronic narcotic and anxiolytic use in the past secondary to chronic pain syndrome, etc. 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 Hypokalemia. Hypoalbuminemia. Hematologic History: Reports: Other (See Below) Other Hematologic History: Hypomagnesemia. Immunologic History: Reports: None Oncologic (Cancer) History: Reports: Basal Cell Carcinoma, Cervix, Other (See Below) Other Oncologic History: Cervical cancer at age 29 with hysterectomy as below with no chemotherapy, etc. Basal cell carcinoma excised from the back region in about 2012. Dermatologic History: Reports: None - Infectious Disease History Infectious Disease History: Reports: Chicken Pox, Helicobacter Pylori, Influenza - Past Surgical History HEENT Surgical History: Reports: Oral Surgery, Other (See Below) Other HEENT Surgeries/Procedures: Teeth extractions including possible wisdom teeth in the 1980s. Cardiovascular Surgical History: Reports: Aneurysm, Vascular Surgery, Other ( See Below) Other Cardiovascular Surgeries/Procedures: Cerebral aneurysm therapy as above Respiratory Surgical History: Reports: None GI Surgical History: Reports: EGD, Other (See Below) Female Surgical History: Reports: Breast Biopsy, Breast Implant, Hysterectomy , Salpingo-Oophorectomy, Other (See Below) Other Female Surgeries/Procedures: Bilateral breast implants at age 32. Complete hysterectomy with bilateral salpingo-oophorectomy secondary to cervical cancer at age 29. Right breast biopsy for benign disease in about 2002. Endocrine Surgical History: Reports: None Neurological Surgical History: Reports: C-Spine, Discectomy, Intracranial, Spinal Fusion, Other (See Below) Other Neurological Surgeries/Procedures: Discectomies and cervical spine fusion from C5 through C7 on 06/07/17. Intracranial surgery as above. Musculoskeletal Surgical History: Reports: Other (See Below) Other Musculoskeletal Surgeries/Procedures:: Right-sided bunionectomy with additional surgery in the first and fifth metatarsals in 2013 Oncologic Surgical History: Reports: Biopsy of Breast, Other (See Below) Other Oncologic Surgeries/Procedures: Breast biopsy for benign disease as above. Excision of basal cell carcinoma from the back region in 2012. Dermatological Surgical History: Reports: Other (See Below) - Past Imaging History Past Imaging History: Reports: Angiography (Negative heart catheterization on . Cerebral angiography on 09/25/17, 04/04/16, 10/22/15, 10/06/15, and 09/29/15.) , Cardiac Echo (06/02/17 with ejection fraction of 60% with otherwise normal findings.), CAT Scan (CT of the chest on 08/08/18. CT of the head on 06/25/18 and 05/31/18. CT of the cervical region/soft tissue on 05/19/18. CT of the head on , 08/31/17, 05/08/17, 12/26/16, and 10/17/15. CT of the chest on 02/20/13, 03/28, and 06/23/10. CT of the abdomen and pelvis on 06/23/10.), DEXA Scan (08/22/17. ), Holter Monitor (May 2018 at [facility], however records not available?), Mammogram (Last mammogram on 11/20/17.), MRA (MRA of the head on , 03/31/18, 09/25/17, and 12/26/16.), MRI (MRI of the lumbar spine on . Probable MRI of the brain at the [facility] in 2017 with no records available. MRI of the C-spine on 02/02/18. MRI of the lumbar spine on 07/20/17 and 02/23/17.), Stress Testing (Positive Lexiscan Cardiolite stress test on 06/15/18 for mid to distal anterior wall cardiac ischemia with ejection fraction of 72% however negative heart catheterization in May 2018 as above.), Ultrasound ( Thyroid ultrasound on 01/25/18 and 01/26/16. Gallbladder ultrasound on 05/27/18.) , Venous Doppler (Right leg on 09/29/17.). Denies: Carotid US Social & Family History - Family History HEENT: Reports: None Cardiac: Reports: Aneurysm, Arrhythmia, Other (See Below) Other Cardiac Family History: Sister with history of tachycardia of unknown type , hypotension, and cerebral aneurysm. Respiratory: Reports: COPD, Other (See Below) Other Respiratory Family Hisory: Mother with history of COPD with history of tobacco use. GI: Reports: Celiac Disease, Cholelithiasis, Inflammatory Bowel Disease, Other ( See Below) Other GI Family History: Sister with history of Crohn's disease. Mother with cholelithiasis and celiac disease : Reports: None OBGYN: Reports: None Musculoskeletal: Reports: Arthritis, Osteoarthritis, Other (See Below) Other Musculoskeletal Family History: Mother with osteoarthritis. Neurological: Reports: Cerebral Aneurysms, CVA, Other (See Below) Other Neurological Family History: Maternal grandfather with embolic CVA in his 80s. Sister with cerebral aneurysm as above Endocrine/Metabolic: Reports: Hypothyroidism, Other (See Below) Other Endocrine/Metabolic Family History: Hypothyroidism in mother and sisters 2 Hematologic: Reports: Anemia, Other (See Below) Other Hematologic Family History: Sister with iron deficiency anemia. Immunologic: Reports: None Dermatologic: Reports: None Oncologic: Reports: Metastatic, Other (See Below) Other Oncologic Family History: Paternal grandfather with fatal metastatic esophageal cancer in his 80s - Tobacco Use Smoking Status *Q: Former Smoker Used Tobacco, but Quit: Yes Month/Year Tobacco Last Used: 05/2018 - Caffeine Use Caffeine Use: Reports: None, Other - Recreational Drug Use Recreational Drug Use: No - Sexual History Sexual History: Reports: Single Partner. Denies: Abuse - Living Situation & Occupation Living situation: Reports: (Second in 2007.), (First 2002 with 2 children from that relationship. 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 Patient has been unable to work since she had cervical radiculopathy.) ED ROS GENERAL - Review of Systems Review Of Systems: See Below Constitutional: Reports: Other (Chest pain) HEENT: Reports: No Symptoms Respiratory: Reports: Pleuritic Chest Pain (Patient with breathing and palpation ) Cardiovascular: Reports: No Symptoms Endocrine: Reports: No Symptoms GI/Abdominal: Reports: No Symptoms : Reports: No Symptoms Musculoskeletal: Reports: No Symptoms Skin: Reports: No Symptoms Neurological: Reports: No Symptoms Psychiatric: Reports: Anxiety Hematologic/Lymphatic: Reports: No Symptoms Immunologic: Reports: No Symptoms ED EXAM, GENERAL - Physical Exam Exam: See Below Exam Limited By: No Limitations General Appearance: Lethargic Ears: Normal External Exam, Normal Canal, Hearing Grossly Normal, Normal TMs Ear Exam: Bilateral Ear: Auricle Normal, Canal Normal, TM normal Nose: Normal Inspection, Normal Mucosa, No Blood Throat/Mouth: Normal Inspection, Normal Lips, Normal Teeth, Normal Gums, Normal Oropharynx, Normal Voice, No Airway Compromise Head: Atraumatic, Normocephalic Neck: Normal Inspection, Supple, Non-Tender, Full Range of Motion Respiratory/Chest: Normal Breath Sounds, Other (Pain on AP and lateral palpation ) Cardiovascular: Normal Peripheral Pulses, Regular Rate, Rhythm, No Edema, No Gallop, No JVD, No Murmur, No Rub GI/Abdominal: Normal Bowel Sounds, Soft, Non-Tender, No Organomegaly, No Distention, No Abnormal Bruit, No Mass (Female) Exam: Deferred Rectal (Female) Exam: Deferred Course - Vital Signs Last Recorded V/S: Last Vital Signs Temp 97.9 F 08/28/18 11:21 Pulse 90 08/28/18 11:21 Resp 16 08/28/18 11:21 BP 109/73 08/28/18 11:21 Pulse Ox 99 08/28/18 11:21 - Orders/Labs/Meds Orders: Active Orders 24 hr Category Date Time Status Chest 2V [CR] Stat Exams 08/28/18 11:47 Taken ESR [SEDIMENTATION RATE AUTO] [HEME] Stat Lab 08/28/18 12:01 Ordered Labs: Laboratory Tests 08/28/18 08/28/18 Range/Units 12:10 12:10 WBC 5.6 (4.0-10.2) K/uL RBC 4.66 (3.77-5.09) M/uL Hgb 14.1 (11.7-15.5) g/dL Hct 42.4 (34.0-46.0) % MCV 91.0 (84.0-98.0) fL MCH 30.3 (28.2-33.3) pg MCHC 33.3 (31.7-36.0) g/dL RDW 13.5 (11.2-14.1) % Plt Count 259 (150-350) K/uL MPV 8.90 (7.00-11.50) fL C-Reactive Protein < 0.1 (<=0.9) mg/dL Departure - Departure Time of Disposition: 12:37 Disposition: Home, Self-Care 01 Condition: Fair Clinical Impression: Osteoporosis, Pleuritic pain - Discharge Information *PRESCRIPTION DRUG MONITORING PROGRAM REVIEWED*: No *COPY OF PRESCRIPTION DRUG MONITORING REPORT IN PATIENT TIEN: No Instructions: Osteoporosis, Bone Health, Chest Wall Pain, [id number] Referrals: Bree Smith PA-C [Primary Care Provider] - Forms: ED Department Discharge Care Plan Goals: At this time I reviewed patient's chart including old CTs and DEXA scans patient has significant osteoporosis for a 48-year-old at this time I discussed with patient that she should be seen her 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 - My Orders Last 24 Hours: My Active Orders 08/28/18 11:47 Chest 2V [CR] Stat 08/28/18 12:01 ESR [SEDIMENTATION RATE AUTO] [HEME] Stat - Assessment/Plan Last 24 Hours: My Active Orders 08/28/18 11:47 Chest 2V [CR] Stat 08/28/18 12:01 ESR [SEDIMENTATION RATE AUTO] [HEME] Stat
== END 2018-08-28 12:55 | disposition home or self-care (01) ==
LOC: LL.ED 11:18
DX: R07.81 Pleurodynia (principal); M81.8 Other osteoporosis without current pathological fracture; E78.00 Pure hypercholesterolemia, unspecified; I10 Essential (primary) hypertension; J44.9 Chronic obstructive pulmonary disease, unspecified; E78.5 Hyperlipidemia, unspecified; Z88.2 Allergy status to sulfonamides; Z91.048 Other nonmedicinal substance allergy status; Z79.899 Other long term (current) drug therapy; Z87.891 Personal history of nicotine dependence
CPT/HCPCS: 36415; 71046; 85027; 85652; 86140; 99283-25

== ENCOUNTER 2018-09-06 09:40 | Emergency (ER) | payer BC ==
[2018-09-06 09:44] VITALS: BP 147/98
[2018-09-06] MEDS ORDERED: LORazepam 2 MG/ML SDV IVPUSH ONE (09:50)
[2018-09-06] MEDS ORDERED: HYDROmorphone 1 MG/ML Syringe ONE (09:55)
[2018-09-06] MEDS ORDERED: LORazepam 2 MG/ML SDV ONE (09:55)
[2018-09-06] MEDS ORDERED: Ondansetron 4 MG/2 ML SDV ONE (09:55)
[2018-09-06 10:28] LABS: CHLORIDE,CL 103 mmol/L (98-107); SODIUM,NA 139 mmol/L (136-145)
[2018-09-06] MEDS ORDERED: Ondansetron 4 MG/2 ML SDV IVPUSH ONE (10:46)
[2018-09-06] MEDS ORDERED: HYDROmorphone 1 MG/ML Syringe IVPUSH ONE (11:27)
--- NOTE | 2018-09-06 11:33 | EDM.PDOC ---
ED HPI GENERAL MEDICAL PROBLEM - General Chief Complaint: Neuro Symptoms/Deficits Stated Complaint: headache, c/o body numbness Time Seen by Provider: 09/06/18 10:06 Source of Information: Reports: Patient, Family History Limitations: Reports: No Limitations - History of Present Illness INITIAL COMMENTS - FREE TEXT/NARRATIVE: Pt states has been having diffuse body pain and numbness in legs and entire body for a long period of time but much worse since last PM at 2200 hrs Has been seen this week by neurology and seen previously by neurosurgery as well and is scheduled for MRI under anesthesia this coming week. Has been seen by headache specialist as well Does not complain of any focal neuro defects at this time Has hx/o anxiety and is quite anxious upon arrival in ER No recent trauma No recent medications Has had previous CVA in distant past Was seen recently in ER for rib pain States rib pain is also getting worse Onset: Gradual Duration: Chronic, Getting Worse Location: Reports: Generalized Quality: Reports: Ache Severity: Severe Worsens with: Reports: Movement Associated Symptoms: Reports: Headaches (Numbness, tingling, chronic pain) - Related Data Allergies Allergy/AdvReac Type Severity Reaction Status Date / Time iodine Allergy Anaphylactic Verified 09/06/18 09:49 Shock Sulfa (Sulfonamide Allergy Rash Verified 09/06/18 09:49 Antibiotics) contrast dye Allergy Difficulty Uncoded 09/06/18 09:49 Breathing Home Meds: Home Meds L.acidoph,Paracasei, B.lactis [Probiotic] 1 each PO DAILY 01/23/18 [History] Ca Carb & Gluc/Mag Ox & Gluc [Calcium Magnesium Caplet] 1,200 mg PO BEDTIME # 100 05/19/18 [Rx] Acetaminophen [Tylenol] 650 mg PO Q4H PRN tablet 06/01/18 [Rx] Magnesium Oxide 400 mg PO BID #60 tablet 06/01/18 [Rx] Ibuprofen [Advil] 400 - 600 mg PO Q6H PRN 06/13/18 [History] Levothyroxine 75 mcg PO VALLADARES@08 08/22/18 [History] Levothyroxine [Synthroid] 50 mcg PO ACBREAKFAST 08/22/18 [History] Meclizine [Antivert] 25 mg PO Q6H PRN 08/22/18 [History] Montelukast [Singulair] 10 mg PO BEDTIME 08/22/18 [History] Ranitidine [Zantac] 150 mg PO DAILY 08/22/18 [History] Gabapentin [Neurontin] 2 tab PO DAILY 08/28/18 [History] LORazepam 0.5 mg PO DAILY PRN 08/28/18 [History] predniSONE [Prednisone] 20 mg PO DAILY 5 Days #10 tablet 08/28/18 [Rx] Past Medical History HEENT History: Reports: Allergic Rhinitis, Impaired Vision, Sinusitis, Other ( See Below) Other HEENT History: Patient wears reading glasses. Allergic rhinitis/sinusitis with recurrent sinusitis. Cardiovascular History: Reports: Aneurysm, Arrhythmia, High Cholesterol, Hypertension, Other (See Below) Other Cardiovascular History: Previous hyperlipidemia with no current medical therapy required. Note cerebral aneurysm as below. Bradycardia, repolarization changes versus incomplete right bundle branch block, and multiform PVCs at time of basilar artery leakage on 09/29/15. Symptomatic bradycardia with hypotension and Mobitz type I second-degree A-V block with low-dose beta elissa therapy in April 2018. Intermittent PSVT with previous diltiazem therapy. Respiratory History: Reports: Bronchitis, Recurrent, COPD, Intubation, Previous , Pneumonia, Recurrent, Pulmonary Fibrosis, Other (See Below) Other Respiratory History: Benign right lower lobe pulmonary nodules x2 by serial CT scans as below. Gastrointestinal History: Reports: Chronic Diarrhea, Gastritis, GERD, Helicobacter Pylori, Other (See Below) Other Gastrointestinal History: H. pylori treated in about 2015. Nonspecific dysphagia in 2018. Genitourinary History: Reports: UTI, Recurrent HYDRO STATION SUPERVISOR History: Reports: Other HYDRO STATION SUPERVISOR History: Surgical Menopause secondary to cervical cancer at age 29 as below. Full term without complications during pregnancies or deliveries. Musculoskeletal History: Reports: Arthritis, Back Pain, Chronic, Fracture, Neck Pain, Chronic, Osteoarthritis, Osteoporosis, Other (See Below) Other Musculoskeletal History: Nondisplaced left talar fracture on 08/24/16 with no surgery required. Note patient is currently being followed by pain clinic for chronic pain syndrome with history of spinal injections, etc. 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 Psychiatric History: Reports: Addiction, Anxiety, Depression, Other (See Below) Other Psychiatric History: Chronic narcotic and anxiolytic use in the past secondary to chronic pain syndrome, etc. 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 Hypokalemia. Hypoalbuminemia. Hematologic History: Reports: Other (See Below) Other Hematologic History: Hypomagnesemia. Immunologic History: Reports: None Oncologic (Cancer) History: Reports: Basal Cell Carcinoma, Cervix, Other (See Below) Other Oncologic History: Cervical cancer at age 29 with hysterectomy as below with no chemotherapy, etc. Basal cell carcinoma excised from the back region in about 2012. Dermatologic History: Reports: None - Infectious Disease History Infectious Disease History: Reports: Chicken Pox, Helicobacter Pylori, Influenza - Past Surgical History HEENT Surgical History: Reports: Oral Surgery, Other (See Below) Other HEENT Surgeries/Procedures: Teeth extractions including possible wisdom teeth in the . Cardiovascular Surgical History: Reports: Aneurysm, Vascular Surgery, Other ( See Below) Other Cardiovascular Surgeries/Procedures: Cerebral aneurysm therapy as above Respiratory Surgical History: Reports: None GI Surgical History: Reports: EGD, Other (See Below) Female Surgical History: Reports: Breast Biopsy, Breast Implant, Hysterectomy , Salpingo-Oophorectomy, Other (See Below) Other Female Surgeries/Procedures: Bilateral breast implants at age 32. Complete hysterectomy with bilateral salpingo-oophorectomy secondary to cervical cancer at age 29. Right breast biopsy for benign disease in about 2002. Endocrine Surgical History: Reports: None Neurological Surgical History: Reports: C-Spine, Discectomy, Intracranial, Spinal Fusion, Other (See Below) Other Neurological Surgeries/Procedures: Discectomies and cervical spine fusion from C5 through C7 on 06/07/17. Intracranial surgery as above. Musculoskeletal Surgical History: Reports: Other (See Below) Other Musculoskeletal Surgeries/Procedures:: Right-sided bunionectomy with additional surgery in the first and fifth metatarsals in 2013 Oncologic Surgical History: Reports: Biopsy of Breast, Other (See Below) Other Oncologic Surgeries/Procedures: Breast biopsy for benign disease as above. Excision of basal cell carcinoma from the back region in 2012. Dermatological Surgical History: Reports: Other (See Below) - Past Imaging History Past Imaging History: Reports: Angiography (Negative heart catheterization on . Cerebral angiography on 09/25/17, 04/04/16, 10/22/15, 10/06/15, and 09/29/15.) , Cardiac Echo (06/02/17 with ejection fraction of 60% with otherwise normal findings.), CAT Scan (CT of the chest on 08/08/18. CT of the head on 06/25/18 and 05/31/18. CT of the cervical region/soft tissue on 05/19/18. CT of the head on , 08/31/17, 05/08/17, 12/26/16, and 10/17/15. CT of the chest on 02/20/13, 03/28, and 06/23/10. CT of the abdomen and pelvis on 06/23/10.), DEXA Scan (08/22/17. ), Holter Monitor (May [address] [facility], however records not available?), Mammogram (Last mammogram on 11/20/17.), MRA (MRA of the head on , 03/31/18, 09/25/17, and 12/26/16.), MRI (MRI of the lumbar spine on . Probable MRI of the brain at the [facility] in 2017 with no records available. MRI of the C-spine on 02/02/18. MRI of the lumbar spine on 07/20/17 and 02/23/17.), Stress Testing (Positive Lexiscan Cardiolite stress test on 06/15/18 for mid to distal anterior wall cardiac ischemia with ejection fraction of 72% however negative heart catheterization in May 2018 as above.), Ultrasound ( Thyroid ultrasound on 01/25/18 and 01/26/16. Gallbladder ultrasound on 05/27/18.) , Venous Doppler (Right leg on 09/29/17.). Denies: Carotid US Social & Family History - Family History HEENT: Reports: None Cardiac: Reports: Aneurysm, Arrhythmia, Other (See Below) Other Cardiac Family History: Sister with history of tachycardia of unknown type , hypotension, and cerebral aneurysm. Respiratory: Reports: COPD, Other (See Below) Other Respiratory Family Hisory: Mother with history of COPD with history of tobacco use. GI: Reports: Celiac Disease, Cholelithiasis, Inflammatory Bowel Disease, Other ( See Below) Other GI Family History: Sister with history of Crohn's disease. Mother with cholelithiasis and celiac disease : Reports: None OBGYN: Reports: None Musculoskeletal: Reports: Arthritis, Osteoarthritis, Other (See Below) Other Musculoskeletal Family History: Mother with osteoarthritis. Neurological: Reports: Cerebral Aneurysms, CVA, Other (See Below) Other Neurological Family History: Maternal grandfather with embolic CVA in his 80s. Sister with cerebral aneurysm as above Endocrine/Metabolic: Reports: Hypothyroidism, Other (See Below) Other Endocrine/Metabolic Family History: Hypothyroidism in mother and sisters 2 Hematologic: Reports: Anemia, Other (See Below) Other Hematologic Family History: Sister with iron deficiency anemia. Immunologic: Reports: None Dermatologic: Reports: None Oncologic: Reports: Metastatic, Other (See Below) Other Oncologic Family History: Paternal grandfather with fatal metastatic esophageal cancer in his 80s - Caffeine Use Caffeine Use: Reports: None, Other - Sexual History Sexual History: Reports: Single Partner. Denies: Abuse - Living Situation & Occupation Living situation: Reports: (Second in 2007.), (First 2002 with 2 children from that relationship. 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 Patient has been unable to work since she had cervical radiculopathy.) ED ROS GENERAL - Review of Systems Review Of Systems: See Below Respiratory: Reports: No Symptoms Cardiovascular: Reports: Other (Rib pain) GI/Abdominal: Reports: Nausea Musculoskeletal: Reports: Neck Pain, Back Pain, Leg Pain, Joint Pain, Muscle Pain Neurological: Reports: Headache, Numbness, Paresthesia, Tingling Psychiatric: Reports: Anxiety ED EXAM, NEURO - Physical Exam Exam: See Below Exam Limited By: No Limitations General Appearance: Alert, Moderate Distress Eye Exam: Bilateral Eye: EOMI, PERRL Throat/Mouth: Normal Oropharynx Head Exam: Atraumatic Neck: Limited Range of Motion, Tender Lateral, Tender Midline Respiratory/Chest: Lungs Clear Cardiovascular: Regular Rate, Rhythm GI/Abdominal: Soft, Non-Tender Neurological: Normal Mood/Affect, No Motor/Sensory Deficits, Other (See stroke scale Neuro exam is somewhat variable) Extremities: No Pedal Edema Psychiatric: Anxious Skin Exam: Warm, Dry, No Rash Course - Vital Signs Last Recorded V/S: Last Vital Signs Temp 36.3 C 09/06/18 09:41 Pulse 96 09/06/18 09:41 Resp 20 09/06/18 09:41 BP 147/98 H 09/06/18 09:41 Pulse Ox 100 09/06/18 09:41 - Orders/Labs/Meds Orders: Active Orders 24 hr Category Date Time Status EKG Documentation Completion [RC] ASDIRECTED Care 09/06/18 10:17 Active Head wo Cont [CT] Stat Exams 09/06/18 10:02 Taken PROLACTIN [REF] Stat Lab 09/06/18 10:00 Received HYDROmorphone [Dilaudid] Med 09/06/18 11:27 Once 1 mg IVPUSH ONETIME ONE EKG 12 Lead [EK] Routine Ther 09/06/18 10:17 Ordered Medication Orders Hydromorphone HCl (Dilaudid) 1 mg IVPUSH ONETIME ONE Stop: 09/06/18 11:28 Labs: Laboratory Tests 09/06/18 09/06/18 09/06/18 Range/Units 10:00 10:00 10:00 WBC 6.5 (4.0-10.2) K/uL RBC 4.74 (3.77-5.09) M/uL Hgb 14.3 (11.7-15.5) g/dL Hct 42.3 (34.0-46.0) % MCV 89.2 (84.0-98.0) fL MCH 30.2 (28.2-33.3) pg MCHC 33.8 (31.7-36.0) g/dL RDW 13.9 (11.2-14.1) % Plt Count 291 (150-350) K/uL Neut % (Auto) 50.4 (45.0-80.0) % Lymph % (Auto) 39.4 (10.0-50.0) % Schleicher % (Auto) 8.3 (2.0-14.0) % Eos % (Auto) 1.1 (0.0-5.0) % Baso % (Auto) 0.8 (0.0-2.0) % Neut # (Auto) 3.28 (1.40-7.00) K/uL Lymph # (Auto) 2.56 (0.50-3.50) K/uL Schleicher # (Auto) 0.54 (0.00-1.00) K/uL Eos # (Auto) 0.07 (0.00-0.50) K/uL Baso # (Auto) 0.05 (0.00-0.20) K/uL PT 10.6 (9.5-12.0) SEC INR 1.0 APTT 24.2 (21.0-31.3) SEC D-Dimer, Quantitative < 100 (0-400) ng/mL Sodium (136-145) mmol/L Potassium (3.5-5.1) mmol/L Chloride (98-107) mmol/L Carbon Dioxide (21.0-32.0) mmol/L BUN (7-18) mg/dL Creatinine (0.51-1.17) mg/dL Est Cr Clr Drug Dosing Estimated GFR (MDRD) mL/min Glucose (74-106) mg/dL Calcium (8.5-10.1) mg/dL Magnesium (1.8-2.4) mg/dL Total Bilirubin (0.2-1.0) mg/dL AST (15-37) U/L ALT (12-78) U/L Alkaline Phosphatase (46-116) IU/L Creatine Kinase (26-308) U/L Creatine Kinase Index (0.0-2.5) % CK-MB (CK-2) (0.00-3.60) ng/mL Troponin I (0.000-0.056) ng/mL NT-Pro-B Natriuret Pep (0-125) pg/mL Total Protein (6.4-8.2) g/dL Albumin (3.4-5.0) g/dL 09/06/18 Range/Units 10:00 WBC (4.0-10.2) K/uL RBC (3.77-5.09) M/uL Hgb (11.7-15.5) g/dL Hct (34.0-46.0) % MCV (84.0-98.0) fL MCH (28.2-33.3) pg MCHC (31.7-36.0) g/dL RDW (11.2-14.1) % Plt Count (150-350) K/uL Neut % (Auto) (45.0-80.0) % Lymph % (Auto) (10.0-50.0) % Schleicher % (Auto) (2.0-14.0) % Eos % (Auto) (0.0-5.0) % Baso % (Auto) (0.0-2.0) % Neut # (Auto) (1.40-7.00) K/uL Lymph # (Auto) (0.50-3.50) K/uL Schleicher # (Auto) (0.00-1.00) K/uL Eos # (Auto) (0.00-0.50) K/uL Baso # (Auto) (0.00-0.20) K/uL PT (9.5-12.0) SEC INR APTT (21.0-31.3) SEC D-Dimer, Quantitative (0-400) ng/mL Sodium 139 (136-145) mmol/L Potassium 3.9 (3.5-5.1) mmol/L Chloride 103 (98-107) mmol/L Carbon Dioxide 22.0 (21.0-32.0) mmol/L BUN 14 (7-18) mg/dL Creatinine 0.72 (0.51-1.17) mg/dL Est Cr Clr Drug Dosing TNP Estimated GFR (MDRD) > 60 mL/min Glucose 113 H (74-106) mg/dL Calcium 9.4 (8.5-10.1) mg/dL Magnesium 1.6 L (1.8-2.4) mg/dL Total Bilirubin 0.3 (0.2-1.0) mg/dL AST 17 (15-37) U/L ALT 23 (12-78) U/L Alkaline Phosphatase 71 (46-116) IU/L Creatine Kinase 73 (26-308) U/L Creatine Kinase Index 1.4 (0.0-2.5) % CK-MB (CK-2) 1.00 (0.00-3.60) ng/mL Troponin I 0.000 (0.000-0.056) ng/mL NT-Pro-B Natriuret Pep 135 H (0-125) pg/mL Total Protein 7.7 (6.4-8.2) g/dL Albumin 4.4 (3.4-5.0) g/dL Meds: Medications Generic Name Dose Route Start Last Admin Trade Name Freq PRN Reason Stop Dose Admin Hydromorphone HCl 1 mg 09/06/18 11:27 Dilaudid IVPUSH 09/06/18 11:28 ONETIME ONE Discontinued Medications Generic Name Dose Route Start Last Admin Trade Name Roxana PRN Reason Stop Dose Admin Lorazepam 1 mg 09/06/18 09:50 Ativan IVPUSH 09/06/18 09:51 ONETIME ONE Ondansetron HCl 4 mg 09/06/18 10:46 Zofran IVPUSH 09/06/18 10:47 ONETIME ONE - Radiology Interpretation Free Text/Narrative:: CT: Per radiologist No acute findings - Re-Assessments/Exams Free Text/Narrative Re-Assessment/Exam: 09/06/18 11:36 D/W Dr Dumont On-call neurology [facility] Pt initial stroke score of 4 but was almost immediately able to move lower extremity and exam continues to be variable in findings of lower extremities No persistent lower extremity defects Neurology did not have any further recommendations Pt able to stand and transfer to use the bathroom Pt scheduled to have MRI under anesthesia this week Departure - Departure Time of Disposition: 12:30 Disposition: Home, Self-Care 01 Clinical Impression: Numbness and tingling - Discharge Information *PRESCRIPTION DRUG MONITORING PROGRAM REVIEWED*: Not Applicable *COPY OF PRESCRIPTION DRUG MONITORING REPORT IN PATIENT TIEN: Not Applicable Referrals: Bree Smith PA-C [Primary Care Provider] - - My Orders Last 24 Hours: My Active Orders 09/06/18 10:00 PROLACTIN [REF] Stat 09/06/18 10:02 Head wo Cont [CT] Stat 09/06/18 10:17 EKG Documentation Completion [RC] ASDIRECTED EKG 12 Lead [EK] Routine 09/06/18 11:27 HYDROmorphone [Dilaudid] 1 mg IVPUSH ONETIME ONE - Assessment/Plan Last 24 Hours: My Active Orders 09/06/18 10:00 PROLACTIN [REF] Stat 09/06/18 10:02 Head wo Cont [CT] Stat 09/06/18 10:17 EKG Documentation Completion [RC] ASDIRECTED EKG 12 Lead [EK] Routine 09/06/18 11:27 HYDROmorphone [Dilaudid] 1 mg IVPUSH ONETIME ONE
== END 2018-09-06 12:20 | disposition home or self-care (01) ==
LOC: LL.ED 09:40
DX: R20.2 Paresthesia of skin (principal); R20.0 Anesthesia of skin; E03.9 Hypothyroidism, unspecified; I10 Essential (primary) hypertension; E78.00 Pure hypercholesterolemia, unspecified; Z79.899 Other long term (current) drug therapy; Z88.2 Allergy status to sulfonamides; Z91.041 Radiographic dye allergy status; Z91.09 Other allergy status, other than to drugs and biological substances
CPT/HCPCS: 36415; 70450; 80053; 82550; 82553; 83735; 83880; 84146; 84484; 85025; 85379; 85610; 85730; 93005; 96374; 96375; 99285-25; J1170; J2060; J2405

== ENCOUNTER 2018-09-27 09:42 | Emergency (ER) | payer BC ==
[2018-09-27 09:46] VITALS: BP 120/76
[2018-09-27] MEDS ORDERED: Sodium Chloride 0.9% 10 ML Syringe FLUSH PRN (09:47)
[2018-09-27] MEDS ORDERED: Ketorolac 30 MG/ML SDV IVPUSH ONE (09:47)
--- NOTE | 2018-09-27 09:47 | EDM.PDOC ---
ED HPI GENERAL MEDICAL PROBLEM - General Chief Complaint: Headache Stated Complaint: headache Time Seen by Provider: 09/27/18 09:45 Source of Information: Reports: Patient, Old Records ([facility] chart/EMR), Other ([place] [facility]) History Limitations: Reports: No Limitations - History of Present Illness INITIAL COMMENTS - FREE TEXT/NARRATIVE: Patient drove herself to the emergency room via private automobile for evaluation of a bilateral diffuse 10/10 headache especially in the occipital regions during the last couple of weeks with her headache currently typical of her previous episodes. Note that the patient is currently being followed by a pain clinic with Neurontin and Xanax taken at 7 AM this morning, however no other NSAIDs, etc. to this point. Patient has had several nerve blocks and Ketamine infusions conducted through her pain clinic during the last month, including 6 episodes in August with last treatment on 09/21/18. She is having some mild nausea with the current headache with 3 episodes of emesis yesterday. Her seasonal allergies have also been under somewhat moderate control recently with the patient completing amoxicillin therapy for sinusitis 2 weeks ago with apparent previous IM Depo-Medrol therapy and current Flonase therapy. No history of recent visual changes, diplopia, change in mental status, or other change in neurological status. The patient also denies any recent cough, wheezing, dyspnea, etc. with fever of 99.5 yesterday. No recent history of abdominal pain, heartburn, nausea, diarrhea, melena, gross hematochezia, or any food intolerance, including fatty foods, etc.. No recent history of UTI symptoms , hematuria, colic, etc. Her headache symptoms have progressed since 5 AM this morning. Onset: Gradual Duration: Week(s):, Getting Worse, Other (As above) Location: Reports: Head. Denies: Face, Neck, Chest, Abdomen, Back, Pelvis, Upper Extremity, Left, Upper Extremity, Right, Radiates to Quality: Reports: Pressure, Same as Previous Episode, Throbbing Severity: Severe Improves with: Reports: None Worsens with: Reports: None Context: Reports: Other (As above). Denies: Sick Contact, Trauma Associated Symptoms: Reports: Fever/Chills, Headaches, Nausea/Vomiting. 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) (As above) Bilateral Headache Pain Score (Numeric/FACES): 10 - Related Data Allergies Allergy/AdvReac Type Severity Reaction Status Date / Time iodine Allergy Anaphylactic Verified 09/27/18 09:47 Shock Sulfa (Sulfonamide Allergy Rash Verified 09/27/18 09:47 Antibiotics) contrast dye Allergy Difficulty Uncoded 09/27/18 09:47 Breathing Home Meds: Home Meds L.acidoph,Paracasei, B.lactis [Probiotic] 1 each PO DAILY 01/23/18 [History] Ca Carb & Gluc/Mag Ox & Gluc [Calcium Magnesium Caplet] 1,200 mg PO BEDTIME # 100 05/19/18 [Rx] Acetaminophen [Tylenol] 650 mg PO Q4H PRN tablet 06/01/18 [Rx] Magnesium Oxide 400 mg PO BID #60 tablet 06/01/18 [Rx] Ibuprofen [Advil] 400 - 600 mg PO Q6H PRN 06/13/18 [History] Levothyroxine 75 mcg PO VALLADARES@08 08/22/18 [History] Levothyroxine [Synthroid] 50 mcg PO ACBREAKFAST 08/22/18 [History] Meclizine [Antivert] 25 mg PO Q6H PRN 08/22/18 [History] Montelukast [Singulair] 10 mg PO BEDTIME 08/22/18 [History] Ranitidine [Zantac] 150 mg PO DAILY 08/22/18 [History] Gabapentin [Neurontin] 2 tab PO DAILY 08/28/18 [History] LORazepam 0.5 mg PO DAILY PRN 08/28/18 [History] Fluticasone Propionate [Flonase] 1 squirt NASBOTH DAILY 09/27/18 [History] Past Medical History HEENT History: Reports: Allergic Rhinitis, Impaired Vision, Sinusitis, Other ( See Below). Denies: Cataract, Glaucoma, Hard of Hearing, Macular Degeneration, Retinal Detachment Other HEENT History: Patient wears reading glasses. Allergic rhinitis/sinusitis with recurrent sinusitis and eustachian tube dysfunction. Nasal septum deviation. Chronic laryngitis. Cardiovascular History: Reports: Aneurysm, Arrhythmia, High Cholesterol, Hypertension, Other (See Below). Denies: Blood Clots/VTE/DVT, Bypass, Cardiomyopathy, Heart Failure, Heart Murmur, OH, PVD, Syncope Other Cardiovascular History: Previous hyperlipidemia with no current medical therapy required. Note cerebral aneurysm as below. Bradycardia, repolarization changes versus incomplete right bundle branch block, and multiform PVCs at time of basilar artery leakage on 09/29/15. Symptomatic bradycardia with hypotension and Mobitz type I second-degree A-V block with low-dose beta elissa therapy in April 2018. Intermittent PSVT with previous diltiazem therapy. Respiratory History: Reports: Bronchitis, Recurrent, COPD, Intubation, Previous , Pneumonia, Recurrent, Pulmonary Fibrosis, Other (See Below). Denies: Asthma, Intubation, Difficult, PE, Pneumothorax, Sleep Apnea, TB Other Respiratory History: Benign right lower lobe pulmonary nodules x2 by serial CT scans as below. Gastrointestinal History: Reports: Chronic Diarrhea, Gastritis, GERD, Helicobacter Pylori, Irritable Bowel Syndrome, Other (See Below). Denies: Celiac Disease, Cholelithiasis, Chronic Constipation, Colon Polyp, Fecal Incontinence, GI Bleed, Hepatitis, Hiatal Hernia, Inflammatory Bowel Disease, Jaundice, Pancreatitis, PUD Other Gastrointestinal History: H. pylori treated in about 2015. Nonspecific dysphagia in 2018. Genitourinary History: Reports: UTI, Recurrent. 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 Denies: Dysfunctional Uterine Bleeding, Endometriosis, Spontaneous : 3 Para: 3 LMP (Approximate): Other (See Below) Other DOWEL SANDER OPERATOR History: Surgical Menopause secondary to cervical cancer at age 29 as below. Full term without complications during pregnancies or deliveries. Musculoskeletal History: Reports: Arthritis, Back Pain, Chronic, Fracture, Neck Pain, Chronic, Osteoarthritis, Osteoporosis, Other (See Below). Denies: Gout, RA, SLE Other Musculoskeletal History: Nondisplaced left talar fracture on 08/24/16 with no surgery required. Note patient is currently being followed by pain clinic for chronic pain syndrome and headaches with history of spinal injections, etc. Neurological History: Reports: Cerebral Aneurysms, Headaches, Chronic, Migraines , Neuropathy, Peripheral, Vertigo. 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 Chronic vertigo and headaches. Psychiatric History: Reports: Addiction, Anxiety, Depression, Other (See Below) . Denies: Abuse, Victim of, ADD, ADHD, Psych Hospitalization(s), PTSD, Suicide Attempt, Suicidal Ideation Other Psychiatric History: Chronic narcotic and anxiolytic use in the past secondary to chronic pain syndrome, etc. Endocrine/Metabolic History: Reports: Hypothyroidism, Other (See Below). Denies : Diabetes, Gestational, Diabetes, Type I, Diabetes, Type II, Diabetes Mellitus , Type 3c, IDDM Other Endocrine/Metabolic History: Possible Wihtney's disease. Hypokalemia. Hypoalbuminemia. Hematologic History: Reports: Other (See Below). Denies: Anemia, Blood Transfusion(s), Iron Deficiency Other Hematologic History: Hypomagnesemia. Immunologic History: Reports: None. Denies: AIDS, HIV, SLE Oncologic (Cancer) History: Reports: Basal Cell Carcinoma, Cervix, Other (See Below). Denies: Breast, Lung, Lymphoma, Malignant Melanoma, Metastatic, Non- Hodgkin's Lymphoma, Squamous Cell Carcinoma Other Oncologic History: Cervical cancer at age 29 with hysterectomy as below with no chemotherapy, etc. Basal cell carcinoma excised from the back region in about 2012. Dermatologic History: Reports: None. Denies: Eczema, Psoriasis - Infectious Disease History Infectious Disease History: Reports: Chicken Pox, Helicobacter Pylori, Influenza. Denies: C-Difficile, Measles, Meningitis, Mononucleosis, MRSA, Mumps , Pertussis (Whooping Cough), Rheumatic Fever, Rubella, Scarlet Fever, TB, VRE - Past Surgical History Head Surgeries/Procedures: Reports: Other (See Below) Other Head Surgeries/Procedures: Basilar artery coil placement with balloon embolization secondary to leaking basilar artery aneurysm on 10/26/15. HEENT Surgical History: Reports: Oral Surgery, Other (See Below). Denies: Adenoidectomy, Cataract Surgery, Eye Surgery, Laser Surgery, LASIK, Myringotomy w Tube(s), Naso-Sinus Surgery, Tonsillectomy Other HEENT Surgeries/Procedures: Teeth extractions including possible wisdom teeth in the 1980s. Cardiovascular Surgical History: Reports: Aneurysm, Vascular Surgery, Other ( See Below). Denies: AAA Repair, Varicose Other Cardiovascular Surgeries/Procedures: Cerebral aneurysm therapy as above Respiratory Surgical History: Reports: None. Denies: Thoracentesis GI Surgical History: Reports: EGD, Other (See Below). Denies: Appendectomy, Cholecystectomy, Colonoscopy, Hernia, Abdominal, Hernia, Inguinal, Hernia Repair /Other Other GI Surgeries/Procedures: EGD with biopsies on 08/03/18. Female Surgical History: Reports: Breast Biopsy, Breast Implant, Hysterectomy , Salpingo-Oophorectomy, Other (See Below). Denies: Cystoscopy, D&C, Tubal Ligation Other Female Surgeries/Procedures: Bilateral breast implants at age 32. Complete hysterectomy with bilateral salpingo-oophorectomy secondary to cervical cancer at age 29. Right breast biopsy for benign disease in about 2002. Endocrine Surgical History: Reports: None. Denies: Thyroid Biopsy Neurological Surgical History: Reports: C-Spine, Discectomy, Intracranial, Spinal Fusion, Other (See Below). Denies: Lumbar Spine, Sacral Spine, Thoracic Spine, Vertebroplasty Other Neurological Surgeries/Procedures: Discectomies and cervical spine fusion from C5 through C7 on 06/07/17. Intracranial surgery as above. Cervical steroid injection on 02/23/17. Musculoskeletal Surgical History: Reports: Other (See Below). Denies: Arthroscopic Procedure, Carpal Tunnel, Ganglion Cyst, Hip Replacement, Joint Replacement, ORIF, Shoulder Surgery Other Musculoskeletal Surgeries/Procedures:: Right-sided bunionectomy with additional surgery in the first and fifth metatarsals on 02/28/13 Oncologic Surgical History: Reports: Biopsy of Breast, Other (See Below) Other Oncologic Surgeries/Procedures: Breast biopsy for benign disease as above. Excision of basal cell carcinoma from the back region in 2012. Dermatological Surgical History: Reports: Other (See Below) Other Dermatological Surgeries/Procedures: As above - Past Imaging History Past Imaging History: Reports: Angiography (Negative heart catheterization on . Cerebral angiography on 09/25/17, 04/04/16, 10/22/15, 10/06/15, and 09/29/15.) , Cardiac Echo (06/02/17 with ejection fraction of 60% with otherwise normal findings.), CAT Scan (CT of the chest on 08/08/18. CT of the head on 06/25/18 and 05/31/18. CT of the cervical region/soft tissue on 05/19/18. CT of the head on 04/1601/23/18, 08/31/17, 05/08/17, 12/26/16, and 10/17/15. CT of the chest on , 03/28/12, and 06/23/10. CT of the abdomen and pelvis on 06/23/10.), DEXA Scan (08/22/17.), Holter Monitor (May 2018 at [facility], however records not available?), Mammogram (Last mammogram on 11/20/17.), MRA (MRA of the head on 05/12/19, 03/31/18, 09/25/17, and 12/26/16.), MRI (MRI of the lumbar spine on . Probable MRI of the brain at the [facility] in 2017 with no records available. MRI of the C-spine on 09/10/18 and 02/02/18. MRI of the lumbar spine on 07/20/17 and 02/23/17.), Stress Testing (Positive Lexiscan Cardiolite stress test on 06/15/18 for mid to distal anterior wall cardiac ischemia with ejection fraction of 72% however negative heart catheterization in May 2018 as above. ), Ultrasound (Thyroid ultrasound on 01/25/18 and 01/26/16. Gallbladder ultrasound on 05/27/18.), Venous Doppler (Right leg on 09/29/17.). Denies: Carotid US Social & Family History - Family History HEENT: Reports: None. Denies: Glaucoma, Macular Degeneration, Retinal Detachment Cardiac: Reports: Aneurysm, Arrhythmia, Other (See Below). Denies: Afib, AICD, Blood Clots/VTE/DVT, Bypass, CAD, Heart Failure, Heart Murmur, High Cholesterol , Hypertension, OH, Pacemaker, PVD/COD, Stent Other Cardiac Family History: Sister with history of tachycardia of unknown type , hypotension, and cerebral aneurysm. Respiratory: Reports: COPD, Other (See Below). Denies: Asthma, BPD, PE, Sleep Apnea Other Respiratory Family Hisory: Mother with history of COPD with history of tobacco use. GI: Reports: Celiac Disease, Cholelithiasis, Inflammatory Bowel Disease, Other ( See Below). Denies: Colon Polyps, GERD, GI bleed, Hepatitis, Irritable Bowel Syndrome, Pancreatitis Other GI Family History: Sister with history of Crohn's disease. Mother with cholelithiasis and celiac disease : Reports: None. Denies: Renal Calculus, Renal Disease/Insufficiency OBGYN: Reports: None. Denies: Dysfunctional uterine bleeding, Endometriosis, Recurrent Spontaneous Musculoskeletal: Reports: Arthritis, Osteoarthritis, Other (See Below). Denies : Gout, RA, SLE Other Musculoskeletal Family History: Mother with osteoarthritis. Neurological: Reports: Cerebral Aneurysms, CVA, Other (See Below). Denies: Alzheimers Disease, Dementia, Migraines, MS, Neuropathy, Diabetic, Neuropathy, Peripheral, Parkinson's, Seizure, TIA Other Neurological Family History: Maternal grandfather with embolic CVA in his 80s. Sister with cerebral aneurysm as above Psychiatric: Reports: None. Denies: Abuse, Victim of, ADD, ADHD, Anxiety, Depression, Psych Hospitalization(s), Psychosis, PTSD, Suicide Attempt Endocrine/Metabolic: Reports: Hypothyroidism, Other (See Below). Denies: Diabetes, Gestational, Diabetes, Type I, Diabetes, type II, Diabetes Mellitus, Type 3c, IDDM Other Endocrine/Metabolic Family History: Hypothyroidism in mother and sisters 2 Hematologic: Reports: Anemia, Other (See Below). Denies: SLE Other Hematologic Family History: Sister with iron deficiency anemia. Immunologic: Reports: None. Denies: AIDS, HIV Dermatologic: Reports: None. Denies: Eczema, Psoriasis Oncologic: Reports: Metastatic, Other (See Below). Denies: Breast, Cervix, Colon, Hodgkin's Lymphoma, Leukemia, Lymphoma, Non-Hodgkin's Lymphoma, Ovarian, Skin, Uterine Other Oncologic Family History: Paternal grandfather with fatal metastatic esophageal cancer in his 80s - Tobacco Use Smoking Status *Q: Former Smoker Tobacco Use Within Last Twelve Months: Cigarettes Years of Tobacco use: 30 Packs/Tins Daily: 0.5 Packs/Tins Daily Comment: Started smoking at age 17 with maximum use of one pack per day and patient stopping smoking in May 2018. Used Tobacco, but Quit: Yes Smoking Cessation Information Provided To Patient: No Second Hand Smoke Exposure: No Second Hand Smoke Education Provided: No - Caffeine Use Caffeine Use: Reports: None, Other Other Caffeine Use: Stopped all caffeine use in May 2018 - Alcohol Use Alcohol Use History: Yes Days Per Week of Alcohol Use: 0 Number of Drinks Per Day: 1 Number of Drinks Per Day Comment: Usually beer for holidays, etc. No previous DWIs, problems with alcohol abuse, etc. Total Drinks Per Week: 0 Alcohol Use in Last Twelve Months: Yes Alcohol Use Frequency: Rarely - Recreational Drug Use Recreational Drug Use: Yes Drug Use in Last 12 Months: No Recreational Drug Type: Reports: Marijuana/Hashish (Experimental at age 45.). Denies: Amphetamines (Speed), Cocaine, Heroin, Inhalants (Glues, Solvents, Aerosols), LSD (Acid), Methamphetamine, Morphine, Oxycodone - Sexual History Sexual History: Reports: Single Partner. Denies: Abuse - Living Situation & Occupation Living situation: Reports: (Second in 2007.), (First 2002 with 2 children from that relationship. 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 Patient has been unable to work since she had cervical radiculopathy.) ED ROS GENERAL - Review of Systems Review Of Systems: ROS reveals no pertinent complaints other than HPI. - Physical Exam Exam: See Below Exam Limited By: No Limitations General Appearance: Alert, WD/WN, No Apparent Distress, Anxious (Mild to moderate) Eye Exam: Bilateral Eye: EOMI, Normal Fundi, Normal Inspection (No nystagmus), PERRL Ears: Normal External Exam, Normal Canal, Hearing Grossly Normal, Normal TMs Nose: No Blood, Clear Rhinorrhea, Other (Mild bogginess of turbinates bilaterally and nasal septal deviation.) Throat/Mouth: Normal Inspection, Normal Lips, Normal Teeth, Normal Gums, Normal Oropharynx, Normal Voice, No Airway Compromise. No: Dysphagia, Evidence of Tongue Biting, Perioral Cyanosis Head Exam: Atraumatic, Normocephalic. No: Facial Swelling, Facial Tenderness, Sinus Tenderness Neck: Normal Inspection, Supple, Non-Tender, Full Range of Motion. No: Lymphadenopathy (L), Lymphadenopathy (R), Thyromegaly Respiratory/Chest: No Respiratory Distress, Lungs Clear, Normal Breath Sounds, No Accessory Muscle Use, Chest Non-Tender. No: Pleural Rub, Retractions Cardiovascular: Normal Peripheral Pulses, Regular Rate, Rhythm, No Edema, No Gallop, No JVD, No Murmur, No Rub. No: Gallop/S3, Gallop/S4, Friction Rub GI/Abdominal: Normal Bowel Sounds, Soft, Non-Tender, No Organomegaly, No Distention, No Abnormal Bruit, No Mass. No: Guarding (Female) Exam: Deferred Rectal (Female) Exam: Deferred Neuro Exam (Abbreviated): Alert, Oriented, CN II-XII Intact, Normal Cognition, Normal Gait, Normal Reflexes (Negative Babinski's), No Motor/Sensory Deficits Back Exam: Normal Inspection, Full Range of Motion. No: CVA Tenderness (L), CVA Tenderness (R), Muscle Spasm Extremities: Normal Inspection, Normal Range of Motion, Non-Tender, No Pedal Edema, Normal Capillary Refill. No: Bay's Sign Psychiatric: Anxious (Mild to moderate), Depressed Mood (Mild with adequate eye contact) Skin Exam: Warm, Dry, Intact, Normal Color, No Rash. No: Diaphoretic, Ecchymosis, Wound/Incision Course - Vital Signs Last Recorded V/S: Last Vital Signs Temp 36.5 C 09/27/18 09:44 Pulse 78 09/27/18 09:44 Resp 16 09/27/18 09:44 BP 120/76 09/27/18 09:44 Pulse Ox 96 09/27/18 09:44 Vital Signs - 24 hr 09/27/18 09:44 Temperature [ 36.5 C Temporal] Pulse, 78 Peripheral [ Pulse Oximetry] Respiratory 16 Rate Blood Pressure 120/76 [Left Arm] O2 Sat by Pulse 96 Oximetry - Orders/Labs/Meds Orders: Active Orders 24 hr Category Date Time Status Peripheral IV Care [RC] . DIRECTED Care 09/27/18 09:47 Active Sodium Chloride 0.9% [Saline Flush] Med 09/27/18 09:47 Active 10 ml FLUSH ASDIRECTED PRN Obtain Past Medical Record [OM.PC] Routine Oth 09/27/18 09:47 Active Peripheral IV Insertion Adult [OM.PC] Routine Oth 09/27/18 09:47 Ordered Medication Orders Sodium Chloride (Saline Flush) 10 ml FLUSH ASDIRECTED PRN PRN Reason: Keep Vein Open Last Admin: 09/27/18 10:17 Dose: 10 ml Labs: None Meds: Medications Generic Name Dose Route Start Last Admin Trade Name Freq PRN Reason Stop Dose Admin Sodium Chloride 10 ml 09/27/18 09:47 09/27/18 10:17 Saline Flush FLUSH 10 ml ASDIRECTED PRN Administration Keep Vein Open Discontinued Medications Generic Name Dose Route Start Last Admin Trade Name Roxana PRN Reason Stop Dose Admin Diphenhydramine HCl 50 mg 09/27/18 09:48 09/27/18 10:13 Benadryl IVPUSH 09/27/18 09:49 50 mg ONETIME ONE Administration Ketorolac Tromethamine 30 mg 09/27/18 09:47 09/27/18 10:10 Toradol IVPUSH 09/27/18 09:48 30 mg ONETIME ONE Administration Lorazepam 1 mg 09/27/18 09:48 09/27/18 10:08 Ativan IVPUSH 09/27/18 09:49 1 mg ONETIME ONE Administration Methylprednisolone Sodium Succinate 125 mg 09/27/18 10:35 09/27/18 10:38 Solu-Medrol IVPUSH 09/27/18 10:36 125 mg ONETIME ONE Administration Metoclopramide HCl 10 mg 09/27/18 09:48 09/27/18 10:07 Reglan IVPUSH 09/27/18 09:49 10 mg ONETIME ONE Administration - Radiology Interpretation Free Text/Narrative:: None Departure - Departure Time of Disposition: 11:20 Disposition: Home, Self-Care 01 Condition: Good Clinical Impression: Mixed anxiety depressive disorder, Peptic reflux disease, Migraine Hypertension Qualifiers: Hypertension type: essential hypertension Qualified Code(s): I10 - Essential ( primary) hypertension COPD (chronic obstructive pulmonary disease) Qualifiers: COPD type: emphysema Emphysema type: panlobular Qualified Code(s): J43.1 - Panlobular emphysema Allergic rhinitis Qualifiers: Allergic rhinitis trigger: unspecified Allergic rhinitis seasonality: unspecified Qualified Code(s): J30.9 - Allergic rhinitis, unspecified - Discharge Information *PRESCRIPTION DRUG MONITORING PROGRAM REVIEWED*: Not Applicable *COPY OF PRESCRIPTION DRUG MONITORING REPORT IN PATIENT TIEN: Not Applicable Instructions: Recurrent Migraine Headache, [id number] Referrals: Bree Smith PA-C [Primary Care Provider] - Forms: ED Department Discharge Additional Instructions: 1. Follow up with your regular provider in 10-14 days as needed, if symptoms persist. Bring these discharge instructions with you to that visit.. 2. Tylenol 650 mg by mouth every 4 hours and/or OTC ibuprofen 2-3 tabs by mouth every 6 hours with food as directed./needed. You may stagger these medications for 48-72 hours only, which essentially means that you are receiving a pain medication about every 2 hours. Next dose of ibuprofen in 6 hours as needed secondary to medications given in the emergency room. 3. Ice packs to head and neck, dark and quiet room, etc. as directed until headache resolves. 4. Sedation precautions with no driving, etc. for 18 hours because of emergency room medications. 5. Congratulations about stopping smoking. 6. Immediately after this visit verify that your cellular telephone's voicemail has been activated and is empty. Also verify that your home telephone 's answering machine is operating properly and has space to receive messages. Note that it is sometimes necessary for us to be able to contact you at a later date to discuss your medical care. 7. Please remember that we are ALWAYS here for you and want to answer any questions you may have. Feel free to call the hospital any time and we call you back ASHLEY. - Problem List & Annotations (1) Migraine SNOMED Code(s): 32878858 Status: Chronic Priority: Medium Current Visit: Yes Onset Date: ~ Annotation/Comment:: Overall good results with treatment as above. Continue close follow-up by her pain clinic, etc. Note recent MRI of the cervical region with patient having a follow-up appointment scheduled with her neurologist at [facility] on 10/16/18. Sedation precautions given. (2) Allergic rhinitis SNOMED Code(s): 24910299 Code(s): J30.9 - ALLERGIC RHINITIS, UNSPECIFIED Status: Chronic Priority : Medium Current Visit: Yes Annotation/Comment:: Note recently under somewhat poor control with low-grade fever yesterday, however no evidence of infection today. Note previous amoxicillin therapy and IM Depo-Medrol therapy with evaluation by regular provider as above. Various therapeutic options were discussed with additional IV Solu-Medrol given today. Continue Flonase, etc. therapy as before. Qualifiers: Allergic rhinitis trigger: unspecified Allergic rhinitis seasonality: unspecified Qualified Code(s): J30.9 - Allergic rhinitis, unspecified (3) Peptic reflux disease SNOMED Code(s): 988991424 Code(s): K21.9 - GASTRO-ESOPHAGEAL REFLUX DISEASE WITHOUT ESOPHAGITIS Status: Acute Priority: High Current Visit: Yes Onset Date: 03/05/18 Annotation/Comment:: Stable by history with current medical therapy. IV Reglan given for migraine treatment. Patient currently on Pepcid. (4) COPD (chronic obstructive pulmonary disease) SNOMED Code(s): 74572870 Status: Chronic Priority: Medium Current Visit: Yes Annotation/Comment: : Stable by history with no recent bronchitic-type symptoms. The patient was congratulated about stopping smoking in May 2018. PFTs on an outpatient basis may still be of some benefit, however, no current medical therapy. Note previous history of cardiac arrhythmia as above with no evidence of recurrence despite discontinuation of her medical therapy, including diltiazem, etc.. Qualifiers: COPD type: emphysema Emphysema type: panlobular Qualified Code(s): J43.1 - Panlobular emphysema (5) Hypertension SNOMED Code(s): 89101914 Status: Chronic Priority: Medium Current Visit: Yes Annotation/Comment: : Blood pressure stable in the emergency room with previous history of hypotension. Qualifiers: Hypertension type: essential hypertension Qualified Code(s): I10 - Essential (primary) hypertension (6) Mixed anxiety depressive disorder SNOMED Code(s): 061223353 Code(s): F41.8 - OTHER SPECIFIED ANXIETY DISORDERS Status: Chronic Priority: High Current Visit: Yes Annotation/Comment:: Stable by history. Continue to observe closely by regular provider. - Problem List Review Problem List Initiated/Reviewed/Updated: Yes - My Orders Last 24 Hours: My Active Orders 09/27/18 09:47 Peripheral IV Care [RC] . DIRECTED Sodium Chloride 0.9% [Saline Flush] 10 ml FLUSH ASDIRECTED PRN Obtain Past Medical Record [OM.PC] Routine Peripheral IV Insertion Adult [OM.PC] Routine - Assessment/Plan Last 24 Hours: My Active Orders 09/27/18 09:47 Peripheral IV Care [RC] . DIRECTED Sodium Chloride 0.9% [Saline Flush] 10 ml FLUSH ASDIRECTED PRN Obtain Past Medical Record [OM.PC] Routine Peripheral IV Insertion Adult [OM.PC] Routine Assessment:: As above Plan: As above. Extensive precautions were given to the patient and her , who are in agreement with the treatment plan. See Patient Instructions for further treatment and plan. Her will drive her home.
[2018-09-27] MEDS ORDERED: diphenhydrAMINE 50 MG/ML SDV IVPUSH ONE (09:48)
[2018-09-27] MEDS ORDERED: Metoclopramide 10 MG/2 ML SDV IVPUSH ONE (09:48)
[2018-09-27] MEDS ORDERED: LORazepam 2 MG/ML SDV IVPUSH ONE (09:48)
[2018-09-27] MEDS ORDERED: methylPREDNISolone Sodium Succinate 125 MG/2 ML SDV IVPUSH ONE (10:35)
== END 2018-09-27 11:20 | disposition home or self-care (01) ==
LOC: LL.ED 09:42
DX: G43.909 Migraine, unspecified, not intractable, without status migrainosus (principal); J30.9 Allergic rhinitis, unspecified; I10 Essential (primary) hypertension; J43.1 Panlobular emphysema; K21.9 Gastro-esophageal reflux disease without esophagitis; F41.8 Other specified anxiety disorders; Z87.891 Personal history of nicotine dependence; Z85.41 Personal history of malignant neoplasm of cervix uteri; Z85.828 Personal history of other malignant neoplasm of skin; E03.9 Hypothyroidism, unspecified; E78.00 Pure hypercholesterolemia, unspecified; Z79.899 Other long term (current) drug therapy; Z88.2 Allergy status to sulfonamides; Z91.041 Radiographic dye allergy status; Z91.09 Other allergy status, other than to drugs and biological substances
CPT/HCPCS: 96374; 96375; 99283-25; J1200; J1885; J2060; J2765; J2930

== ENCOUNTER 2018-10-21 14:00 | Emergency (ER) | payer BC ==
[2018-10-21 14:06] VITALS: BP 127/69
[2018-10-21] MEDS ORDERED: Ketorolac 30 MG/ML SDV IVPUSH ONE (14:40)
[2018-10-21] MEDS ORDERED: SUMAtriptan 6 MG/0.5 ML SDV SUBCUT ONE (14:40)
[2018-10-21] MEDS ORDERED: diphenhydrAMINE 50 MG/ML SDV IVPUSH ONE (14:40)
[2018-10-21] MEDS ORDERED: LORazepam 2 MG/ML SDV IVPUSH ONE (14:40)
[2018-10-21] MEDS: Sodium Chloride 0.9% 10 ML Syringe FLUSH PRN ×2 (14:54→16:27)
[2018-10-21] MEDS ORDERED: methylPREDNISolone Sodium Succinate 125 MG/2 ML SDV IVPUSH ONE (15:50)
[2018-10-21] MEDS ORDERED: Metoclopramide 10 MG/2 ML SDV IVPUSH ONE (15:50)
[2018-10-21] MEDS ORDERED: traMADol 50 MG Tab PO ONE (15:51)
--- NOTE | 2018-10-21 16:26 | EDM.PDOC ---
ED HPI GENERAL MEDICAL PROBLEM - General Chief Complaint: Headache Stated Complaint: chronic migraine Time Seen by Provider: 10/21/18 14:32 Source of Information: Reports: Patient History Limitations: Reports: No Limitations - History of Present Illness INITIAL COMMENTS - FREE TEXT/NARRATIVE: Patient here in ER with usual migraine. 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 Usual daily headache is around 5/5. Current headache 10/ 10. Not worst headache in life. Bilateral, frontal and occipital, extends down into neck muscles. Worse with any pressure over the muscles. Has seen multiple specialists for this and undergone multiple scans. Started to receive cranio-facial therapy about one week ago and feels that may have triggered headache. Currently this headache exacerbation has lasted 4 days. Has tried Ibuprofen, Gabapentin, and Flexeril without any improvement. No emesis/bowel changes. No visual changes/focal weakness or other acute neuro changes. No fevers. No change in pattern of pain. No respiratory or complaints. No other reported changes. Occipital Headache Pain Score (Numeric/FACES): 10 - Related Data Allergies Allergy/AdvReac Type Severity Reaction Status Date / Time iodine Allergy Severe Anaphylactic Verified 10/21/18 14:33 Shock Sulfa (Sulfonamide Allergy Rash Verified 10/21/18 14:33 Antibiotics) sumatriptan [From Imitrex] Allergy Other Verified 10/21/18 14:45 metoclopramide [From Reglan] AdvReac Hyperactivi Verified 10/21/18 16:23 ty contrast dye Allergy Difficulty Uncoded 10/21/18 14:33 Breathing Home Meds: Home Meds L.acidoph,Paracasei, B.lactis [Probiotic] 1 each PO DAILY 01/23/18 [History] Ca Carb & Gluc/Mag Ox & Gluc [Calcium Magnesium Caplet] 1,200 mg PO BEDTIME # 100 05/19/18 [Rx] Acetaminophen [Tylenol] 650 mg PO Q4H PRN tablet 06/01/18 [Rx] Magnesium Oxide 400 mg PO BID #60 tablet 06/01/18 [Rx] Ibuprofen [Advil] 400 - 600 mg PO Q6H PRN 06/13/18 [History] Levothyroxine 75 mcg PO VALLADARES@08 08/22/18 [History] Levothyroxine [Synthroid] 50 mcg PO MOTUWETHFRSA@0800 08/22/18 [History] Meclizine [Antivert] 25 mg PO Q6H PRN 08/22/18 [History] Montelukast [Singulair] 10 mg PO BEDTIME 08/22/18 [History] Ranitidine [Zantac] 150 mg PO BEDTIME 08/22/18 [History] Gabapentin [Neurontin] 2 tab PO BEDTIME 08/28/18 [History] LORazepam 0.5 mg PO DAILY PRN 08/28/18 [History] Fluticasone Propionate [Flonase] 1 squirt NASBOTH DAILY 09/27/18 [History] Cyclobenzaprine [Flexeril] 5 mg PO TID PRN 30 Days #90 tab 10/01/18 [Rx] Gabapentin [Neurontin] 100 mg PO ASDIRECTED PRN 10/21/18 [History] Past Medical History HEENT History: Reports: Allergic Rhinitis, Impaired Vision, Sinusitis, Other ( See Below) Other HEENT History: Patient wears reading glasses. Allergic rhinitis/sinusitis with recurrent sinusitis and eustachian tube dysfunction. Nasal septum deviation. Chronic laryngitis. Cardiovascular History: Reports: Aneurysm, Arrhythmia, High Cholesterol, Hypertension, Other (See Below) Other Cardiovascular History: Previous hyperlipidemia with no current medical therapy required. Note cerebral aneurysm as below. Bradycardia, repolarization changes versus incomplete right bundle branch block, and multiform PVCs at time of basilar artery leakage on 09/29/15. Symptomatic bradycardia with hypotension and Mobitz type I second-degree A-V block with low-dose beta elissa therapy in April 2018. Intermittent PSVT with previous diltiazem therapy. Respiratory History: Reports: Bronchitis, Recurrent, COPD, Intubation, Previous , Pneumonia, Recurrent, Pulmonary Fibrosis, Other (See Below) Other Respiratory History: Benign right lower lobe pulmonary nodules x2 by serial CT scans as below. Gastrointestinal History: Reports: Chronic Diarrhea, Gastritis, GERD, Helicobacter Pylori, Irritable Bowel Syndrome, Other (See Below) Other Gastrointestinal History: H. pylori treated in about 2016. Nonspecific dysphagia in 2018. Genitourinary History: Reports: UTI, Recurrent ONION TIER History: Reports: Other ONION TIER History: Surgical Menopause secondary to cervical cancer at age 29 as below. Full term without complications during pregnancies or deliveries. Musculoskeletal History: Reports: Arthritis, Back Pain, Chronic, Fracture, Neck Pain, Chronic, Osteoarthritis, Osteoporosis, Other (See Below) Other Musculoskeletal History: Nondisplaced left talar fracture on 08/24/16 with no surgery required. Note patient is currently being followed by pain clinic for chronic pain syndrome and headaches with history of spinal injections, etc. 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 Chronic vertigo and headaches. Psychiatric History: Reports: Addiction, Anxiety, Depression, Other (See Below) Other Psychiatric History: Chronic narcotic and anxiolytic use in the past secondary to chronic pain syndrome, etc. 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 Hypokalemia. Hypoalbuminemia. Hematologic History: Reports: Other (See Below) Other Hematologic History: Hypomagnesemia. Immunologic History: Reports: None Oncologic (Cancer) History: Reports: Basal Cell Carcinoma, Cervix, Other (See Below) Other Oncologic History: Cervical cancer at age 29 with hysterectomy as below with no chemotherapy, etc. Basal cell carcinoma excised from the back region in about 2012. Dermatologic History: Reports: None - Infectious Disease History Infectious Disease History: Reports: Chicken Pox, Helicobacter Pylori, Influenza - Past Surgical History Head Surgeries/Procedures: Reports: Other (See Below) HEENT Surgical History: Reports: Oral Surgery, Other (See Below) Other HEENT Surgeries/Procedures: Teeth extractions including possible wisdom teeth in the . Cardiovascular Surgical History: Reports: Aneurysm, Vascular Surgery, Other ( See Below) Other Cardiovascular Surgeries/Procedures: Cerebral aneurysm therapy as above Respiratory Surgical History: Reports: None GI Surgical History: Reports: EGD, Other (See Below) Other GI Surgeries/Procedures: EGD with biopsies on 08/03/18. Female Surgical History: Reports: Breast Biopsy, Breast Implant, Hysterectomy , Salpingo-Oophorectomy, Other (See Below) Other Female Surgeries/Procedures: Bilateral breast implants at age 32. Complete hysterectomy with bilateral salpingo-oophorectomy secondary to cervical cancer at age 29. Right breast biopsy for benign disease in about 2002. Endocrine Surgical History: Reports: None Neurological Surgical History: Reports: C-Spine, Discectomy, Intracranial, Spinal Fusion, Other (See Below) Other Neurological Surgeries/Procedures: Discectomies and cervical spine fusion from C5 through C7 on 06/07/17. Intracranial surgery as above. Cervical steroid injection on 02/23/17. Musculoskeletal Surgical History: Reports: Other (See Below) Other Musculoskeletal Surgeries/Procedures:: Right-sided bunionectomy with additional surgery in the first and fifth metatarsals on 02/28/13 Oncologic Surgical History: Reports: Biopsy of Breast, Other (See Below) Other Oncologic Surgeries/Procedures: Breast biopsy for benign disease as above. Excision of basal cell carcinoma from the back region in 2012. Dermatological Surgical History: Reports: Other (See Below) - Past Imaging History Past Imaging History: Reports: Angiography (Negative heart catheterization on . Cerebral angiography on 09/25/17, 04/04/16, 10/22/15, 10/06/15, and 09/29/15.) , Cardiac Echo (06/02/17 with ejection fraction of 60% with otherwise normal findings.), CAT Scan (CT of the chest on 08/08/18. CT of the head on 06/25/18 and 05/31/18. CT of the cervical region/soft tissue on 05/19/18. CT of the head on 04/1601/23/18, 08/31/17, 05/08/17, 12/26/16, and 10/17/15. CT of the chest on , 03/28/12, and 06/23/10. CT of the abdomen and pelvis on 06/23/10.), DEXA Scan (08/22/17.), Holter Monitor (May 2018 at [facility], however records not available?), Mammogram (Last mammogram on 11/20/17.), MRA (MRA of the head on 05/12/19, 03/31/18, 09/25/17, and 12/26/16.), MRI (MRI of the lumbar spine on . Probable MRI of the brain at the [facility] in 2016 with no records available. MRI of the C-spine on 09/10/18 and 02/02/18. MRI of the lumbar spine on 07/20/17 and 02/23/17.), Stress Testing (Positive Lexiscan Cardiolite stress test on 06/15/18 for mid to distal anterior wall cardiac ischemia with ejection fraction of 72% however negative heart catheterization in May 2018 as above. ), Ultrasound (Thyroid ultrasound on 01/25/18 and 01/26/16. Gallbladder ultrasound on 05/27/18.), Venous Doppler (Right leg on 09/29/17.). Denies: Carotid US Social & Family History - Family History HEENT: Reports: None Cardiac: Reports: Aneurysm, Arrhythmia, Other (See Below) Other Cardiac Family History: Sister with history of tachycardia of unknown type , hypotension, and cerebral aneurysm. Respiratory: Reports: COPD, Other (See Below) Other Respiratory Family Hisory: Mother with history of COPD with history of tobacco use. GI: Reports: Celiac Disease, Cholelithiasis, Inflammatory Bowel Disease, Other ( See Below) Other GI Family History: Sister with history of Crohn's disease. Mother with cholelithiasis and celiac disease : Reports: None OBGYN: Reports: None Musculoskeletal: Reports: Arthritis, Osteoarthritis, Other (See Below) Other Musculoskeletal Family History: Mother with osteoarthritis. Neurological: Reports: Cerebral Aneurysms, CVA, Other (See Below) Other Neurological Family History: Maternal grandfather with embolic CVA in his 80s. Sister with cerebral aneurysm as above Psychiatric: Reports: None Endocrine/Metabolic: Reports: Hypothyroidism, Other (See Below) Other Endocrine/Metabolic Family History: Hypothyroidism in mother and sisters 2 Hematologic: Reports: Anemia, Other (See Below) Other Hematologic Family History: Sister with iron deficiency anemia. Immunologic: Reports: None Dermatologic: Reports: None Oncologic: Reports: Metastatic, Other (See Below) Other Oncologic Family History: Paternal grandfather with fatal metastatic esophageal cancer in his 80s - Tobacco Use Smoking Status *Q: Current Every Day Smoker Years of Tobacco use: 30 Packs/Tins Daily: 0.5 - Caffeine Use Caffeine Use: Reports: Coffee Other Caffeine Use: Stopped all caffeine use in May 2018 - Recreational Drug Use Recreational Drug Use: No - Sexual History Sexual History: Reports: Single Partner. Denies: Abuse - Living Situation & Occupation Living situation: Reports: (Second in 2007.), (First 2002 with 2 children from that relationship. 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 Patient has been unable to work since she had cervical radiculopathy.) ED ROS GENERAL - Review of Systems Review Of Systems: ROS reveals no pertinent complaints other than HPI. - Physical Exam Exam: See Below Exam Limited By: No Limitations General Appearance: Alert, WD/WN, No Apparent Distress (no acute distress but appears fatigued. ) Eye Exam: Bilateral Eye: EOMI, PERRL Throat/Mouth: Normal Lips, Normal Voice, No Airway Compromise Head Exam: Atraumatic, Normocephalic Neck: Supple, Full Range of Motion, Tender Lateral (all muscles) Respiratory/Chest: No Respiratory Distress Cardiovascular: Regular Rate, Rhythm GI/Abdominal: Soft (Female) Exam: Deferred Rectal (Female) Exam: Deferred Neuro Exam (Abbreviated): Alert, Oriented, CN II-XII Intact, Normal Cognition, Normal Gait, No Motor/Sensory Deficits Extremities: Normal Inspection, Normal Capillary Refill Psychiatric: Normal Affect, Normal Mood Skin Exam: Warm, Intact, Normal Color Course - Vital Signs Last Recorded V/S: Last Vital Signs Temp 36.8 C 10/21/18 14:04 Pulse 80 10/21/18 14:04 Resp 16 10/21/18 14:04 BP 127/69 10/21/18 14:04 Pulse Ox 96 10/21/18 14:04 - Orders/Labs/Meds Orders: Active Orders 24 hr Category Date Time Status Sodium Chloride 0.9% [Saline Flush] Med 10/21/18 14:53 Active 10 ml FLUSH ASDIRECTED PRN Medication Orders Sodium Chloride (Saline Flush) 10 ml FLUSH ASDIRECTED PRN PRN Reason: Keep Antionette Open Last Admin: 10/21/18 16:27 Dose: 10 ml Admin: 10/21/18 14:54 Dose: 10 ml Meds: Medications Generic Name Dose Route Start Last Admin Trade Name Freq PRN Reason Stop Dose Admin Sodium Chloride 10 ml 10/21/18 14:53 10/21/18 16:27 Saline Flush FLUSH 10 ml ASDIRECTED PRN Administration Keep Antionette Open Discontinued Medications Generic Name Dose Route Start Last Admin Trade Name Freq PRN Reason Stop Dose Admin Diphenhydramine HCl 50 mg 10/21/18 14:40 10/21/18 14:52 Benadryl IVPUSH 10/21/18 14:41 50 mg ONETIME ONE Administration Magnesium Sulfate/Dextrose 100 mls @ 100 mls/hr 10/21/18 14:39 10/21/18 14:52 Magnesium Sulfate In D5w 100 Premix IV 10/21/18 15:38 100 mls/hr ONETIME ONE Administration Ketorolac Tromethamine 30 mg 10/21/18 14:40 10/21/18 14:52 Toradol IVPUSH 10/21/18 14:41 30 mg ONETIME ONE Administration Lorazepam 1 mg 10/21/18 14:40 10/21/18 14:52 Ativan IVPUSH 10/21/18 14:41 1 mg ONETIME ONE Administration Methylprednisolone Sodium Succinate 125 mg 10/21/18 15:50 10/21/18 16:26 Solu-Medrol IVPUSH 10/21/18 15:51 125 mg ONETIME ONE Administration Metoclopramide HCl 5 mg 10/21/18 15:50 10/21/18 16:27 Reglan IVPUSH 10/21/18 15:51 5 mg ONETIME ONE Administration Sumatriptan Succinate 6 mg 10/21/18 14:40 10/21/18 14:53 Imitrex SUBCUT 10/21/18 14:41 Not Given ONETIME ONE Tramadol HCl 50 mg 10/21/18 15:51 10/21/18 16:26 Ultram PO 10/21/18 15:52 50 mg ONETIME ONE Administration - Re-Assessments/Exams Free Text/Narrative Re-Assessment/Exam: Multiple combinations of therapy have been tried over the years to help patient' s chronic headaches. Narcotics are avoided. Patient has been drinking water well and declined IV fluids. Given combo of Toradol, Benadryl, Ativan, and Magnesium initially. Patient's Mag level low last month despite twice daily supplementation. Has not increased her Magnesium dosage however. Patient also given Solu-medrol as she feels it has helped in the past. She requested Reglan, even though she admits to getting 'jumpy' on it in the past. Her reasoning is that she was told that if she was premedicated with Benadryl that the Reglan may not similarly bother her. A smaller dose of Reglan was cautiously added given her request. Observed. Plan is to send patient home after medications are given so that she can rest. She is to resume her regular medication regimen. Precautions reviewed. To follow up as needed if worsening symptoms/acute changes are noted. Free Text/Narrative Re-Assessment/Exam: 10/21/18 17:14 Pain improved to 4/10 at time of discharge. Patient feeling much improved. Departure - Departure Time of Disposition: 16:30 Disposition: Home, Self-Care 01 Condition: Good Clinical Impression: Chronic daily headache, Chronic neck pain, Migraine - Discharge Information *PRESCRIPTION DRUG MONITORING PROGRAM REVIEWED*: No *COPY OF PRESCRIPTION DRUG MONITORING REPORT IN PATIENT TIEN: No Referrals: PCP,Unknown [Primary Care Provider] - Forms: ED Department Discharge Additional Instructions: Home, rest, stay hydrated. Continue regular medications. Follow up as needed for worsening symptoms. - My Orders Last 24 Hours: My Active Orders 10/21/18 14:53 Sodium Chloride 0.9% [Saline Flush] 10 ml FLUSH ASDIRECTED PRN - Assessment/Plan Last 24 Hours: My Active Orders 10/21/18 14:53 Sodium Chloride 0.9% [Saline Flush] 10 ml FLUSH ASDIRECTED PRN
== END 2018-10-21 17:00 | disposition home or self-care (01) ==
LOC: LL.ED 14:00
DX: G43.909 Migraine, unspecified, not intractable, without status migrainosus (principal); M54.2 Cervicalgia; G89.29 Other chronic pain; I10 Essential (primary) hypertension; F41.9 Anxiety disorder, unspecified; F17.210 Nicotine dependence, cigarettes, uncomplicated; Z98.890 Other specified postprocedural states; Z88.2 Allergy status to sulfonamides; Z91.041 Radiographic dye allergy status; Z88.8 Allergy status to other drugs, medicaments and biological substances; Z79.899 Other long term (current) drug therapy
CPT/HCPCS: 96365; 96374; 99283; A9270; J1200; J1885; J2060; J2765; J2930; J3475

== ENCOUNTER 2018-10-23 09:15 | Emergency (ER) | payer BC ==
--- NOTE | 2018-10-23 09:18 | EDM.PDOC ---
ED HPI GENERAL MEDICAL PROBLEM - General Chief Complaint: General Stated Complaint: headache Time Seen by Provider: 10/23/18 09:17 Source of Information: Reports: Patient, Family (), Old Records ([facility] chart/EMR) History Limitations: Reports: No Limitations - History of Present Illness INITIAL COMMENTS - FREE TEXT/NARRATIVE: Patient was brought to the emergency room via private automobile by her for evaluation of sudden onset loud "pop" in her left ear while she was talking to her sister on the telephone at about 07:45 hours. She had sudden onset dizziness, left-sided thigh weakness, and some nausea at that time with no specific otalgia, however persistent but stable 4/10 left sided occipital headache. Note patient was evaluated in the emergency room for a six-day history of refractory headaches on 10/21. Her headache has actually improved since that time with patient currently managed by the pain clinic. Also note that I did evaluate the patient in this emergency room for her headaches on 09/27. Per history from her she did have a similar episode a few months ago. No history of recent visual changes, diplopia, change in mental status, or other change in neurological status. The patient also denies any recent fever, cough, wheezing, dyspnea, etc.. The patient denies any chest pain/pressure, heart flutter, orthostasis, orthopnea, diaphoresis, paresthesias, recent decreased exercise tolerance, or any other anginal-type symptoms. No recent history of abdominal pain, heartburn, emesis, diarrhea, melena, gross hematochezia, or any food intolerance, including fatty foods, etc.. She has not taken any medications for her above symptoms to this point. Onset: Today, Sudden Onset Date: 10/23/18 Onset Time: 07:45 Duration: Constant Location: Reports: Head. Denies: Face, Neck, Chest, Abdomen, Back, Upper Extremity, Left, Upper Extremity, Right, Radiates to Quality: Reports: Same as Previous Episode, Stabbing Severity: Mild Improves with: Reports: None Worsens with: Reports: None Context: Reports: Other (As above). Denies: Sick Contact, Trauma Associated Symptoms: Reports: Nausea/Vomiting (No emesis), Weakness (As above). 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: Reports: Other (see below) (None) Left Posterior Headache Pain Score (Numeric/FACES): 4 - Related Data Allergies Allergy/AdvReac Type Severity Reaction Status Date / Time iodine Allergy Severe Anaphylactic Verified 10/23/18 09:56 Shock Sulfa (Sulfonamide Allergy Rash Verified 10/23/18 09:56 Antibiotics) sumatriptan [From Imitrex] Allergy Other Verified 10/23/18 09:56 contrast dye Allergy Difficulty Uncoded 10/23/18 09:56 Breathing Home Meds: Home Meds L.acidoph,Paracasei, B.lactis [Probiotic] 1 each PO DAILY 01/23/18 [History] Ca Carb & Gluc/Mag Ox & Gluc [Calcium Magnesium Caplet] 1,200 mg PO BEDTIME # 100 05/19/18 [Rx] Acetaminophen [Tylenol] 650 mg PO Q4H PRN tablet 06/01/18 [Rx] Magnesium Oxide 400 mg PO BID #60 tablet 06/01/18 [Rx] Ibuprofen [Advil] 400 - 600 mg PO Q6H PRN 06/13/18 [History] Levothyroxine 75 mcg PO VALLADARES@08 08/22/18 [History] Levothyroxine [Synthroid] 50 mcg PO MOTUWETHFRSA@0800 08/22/18 [History] Meclizine [Antivert] 25 mg PO Q6H PRN 08/22/18 [History] Montelukast [Singulair] 10 mg PO BEDTIME 08/22/18 [History] Ranitidine [Zantac] 150 mg PO BEDTIME 08/22/18 [History] Gabapentin [Neurontin] 2 tab PO BEDTIME 08/28/18 [History] LORazepam 0.5 mg PO DAILY PRN 08/28/18 [History] Fluticasone Propionate [Flonase] 1 squirt NASBOTH DAILY 09/27/18 [History] Cyclobenzaprine [Flexeril] 5 mg PO TID PRN 30 Days #90 tab 10/01/18 [Rx] Gabapentin [Neurontin] 100 mg PO ASDIRECTED PRN 10/21/18 [History] Past Medical History HEENT History: Reports: Allergic Rhinitis, Impaired Vision, Sinusitis, Other ( See Below). Denies: Cataract, Glaucoma, Hard of Hearing, Macular Degeneration, Retinal Detachment Other HEENT History: Patient wears reading glasses. Allergic rhinitis/sinusitis with recurrent sinusitis and eustachian tube dysfunction. Nasal septum deviation. Chronic laryngitis. Cardiovascular History: Reports: Aneurysm, Arrhythmia, High Cholesterol, Hypertension, Other (See Below). Denies: Afib, Blood Clots/VTE/DVT, CAD, Cardiomyopathy, Heart Failure, Heart Murmur, NC, PVD, Syncope Other Cardiovascular History: Previous hyperlipidemia with no current medical therapy required. Note cerebral aneurysm as below. Bradycardia, repolarization changes versus incomplete right bundle branch block, and multiform PVCs at time of basilar artery leakage on 09/29/15. Symptomatic bradycardia with hypotension and Mobitz type I second-degree A-V block with low-dose beta elissa therapy in April 2018. Intermittent PSVT with previous diltiazem therapy. Respiratory History: Reports: Bronchitis, Recurrent, COPD, Intubation, Previous , Pneumonia, Recurrent, Pulmonary Fibrosis, Other (See Below). Denies: Asthma, Intubation, Difficult, PE, Pneumothorax, Sleep Apnea, TB Other Respiratory History: Benign right lower lobe pulmonary nodules x2 by serial CT scans as below. Gastrointestinal History: Reports: Chronic Diarrhea, Gastritis, GERD, Helicobacter Pylori, Irritable Bowel Syndrome, Other (See Below). Denies: Celiac Disease, Cholelithiasis, Chronic Constipation, Colon Polyp, Fecal Incontinence, GI Bleed, Hiatal Hernia, Inflammatory Bowel Disease, PUD Other Gastrointestinal History: H. pylori treated in about 2016. Nonspecific dysphagia in 2018. Genitourinary History: Reports: UTI, Recurrent. Denies: Acute Renal Failure, Chronic Renal Insuffiency, Renal Calculus, Retention, Urinary, STD, Urinary Incontinence PROGRAM PRODUCTION SPECIALIST History: Reports: . Denies: Dysfunctional Uterine Bleeding, Endometriosis, Fibroids, Spontaneous : 3 Para: 3 LMP (Approximate): Other (See Below) Other PROGRAM PRODUCTION SPECIALIST History: Surgical Menopause secondary to cervical cancer at age 29 as below. Full term without complications during pregnancies or deliveries. Musculoskeletal History: Reports: Arthritis, Back Pain, Chronic, Fracture, Neck Pain, Chronic, Osteoarthritis, Osteoporosis, Other (See Below). Denies: Gout, RA, SLE Other Musculoskeletal History: Nondisplaced left talar fracture on 08/24/16 with no surgery required. Note patient is currently being followed by pain clinic for chronic pain syndrome and headaches with history of spinal injections, etc. Neurological History: Reports: Cerebral Aneurysms, Headaches, Chronic, Migraines , Neuropathy, Peripheral, Vertigo. 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 Chronic vertigo and headaches. Psychiatric History: Reports: Addiction, Anxiety, Depression, Other (See Below) . Denies: Abuse, Victim of, ADD, ADHD, Alzheimers Disease, Dementia, Psych Hospitalization(s), PTSD, Suicide Attempt, Suicidal Ideation Other Psychiatric History: Chronic narcotic and anxiolytic use in the past secondary to chronic pain syndrome, etc. Endocrine/Metabolic History: Reports: Hypothyroidism, Other (See Below). 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 Hypokalemia. Hypoalbuminemia. Hematologic History: Reports: Other (See Below). Denies: Anemia, Blood Transfusion(s), Iron Deficiency Other Hematologic History: Hypomagnesemia. Immunologic History: Reports: None. Denies: AIDS, HIV, SLE Oncologic (Cancer) History: Reports: Basal Cell Carcinoma, Cervix, Other (See Below). Denies: Breast, Colon, Hodgkin's Lymphoma, Leukemia, Malignant Melanoma , Metastatic, Non-Hodgkin's Lymphoma, Ovarian, Squamous Cell Carcinoma, Uterine Other Oncologic History: Cervical cancer at age 29 with hysterectomy as below with no chemotherapy, etc. Basal cell carcinoma excised from the back region in about 2012. Dermatologic History: Reports: None. Denies: Eczema, Psoriasis - Infectious Disease History Infectious Disease History: Reports: Chicken Pox, Helicobacter Pylori, Influenza. Denies: C-Difficile, Measles, Meningitis, Mononucleosis, MRSA, Mumps , Pertussis (Whooping Cough), Rubella, Scarlet Fever, Shingles, TB, VRE - Past Surgical History Head Surgeries/Procedures: Reports: Other (See Below) Other Head Surgeries/Procedures: Basilar artery coil placement with balloon embolization secondary to leaking basilar artery aneurysm on 10/26/15. HEENT Surgical History: Reports: Oral Surgery, Other (See Below). Denies: Adenoidectomy, Cataract Surgery, Eye Surgery, Laser Surgery, LASIK, Myringotomy w Tube(s), Naso-Sinus Surgery, Tonsillectomy Other HEENT Surgeries/Procedures: Teeth extractions including possible wisdom teeth in the 1980s. Cardiovascular Surgical History: Reports: Aneurysm, Vascular Surgery, Other ( See Below). Denies: Varicose Other Cardiovascular Surgeries/Procedures: Cerebral aneurysm therapy as above Respiratory Surgical History: Reports: None. Denies: Thoracentesis GI Surgical History: Reports: EGD, Other (See Below). Denies: Appendectomy, Cholecystectomy, Colon, Colonoscopy, Hernia, Abdominal, Hernia, Inguinal, Hernia Repair/Other Other GI Surgeries/Procedures: EGD with biopsies on 08/03/18. Female Surgical History: Reports: Breast Biopsy, Breast Implant, Hysterectomy , Salpingo-Oophorectomy, Other (See Below). Denies: Cystoscopy, D&C, Tubal Ligation Other Female Surgeries/Procedures: Bilateral breast implants at age 32. Complete hysterectomy with bilateral salpingo-oophorectomy secondary to cervical cancer at age 29. Right breast biopsy for benign disease in about 2002. Endocrine Surgical History: Reports: None. Denies: Thyroid Biopsy Neurological Surgical History: Reports: C-Spine, Discectomy, Intracranial, Spinal Fusion, Other (See Below). Denies: Lumbar Spine, Sacral Spine, Thoracic Spine, Vertebroplasty Other Neurological Surgeries/Procedures: Discectomies and cervical spine fusion from C5 through C7 on 06/07/17. Intracranial surgery as above. Cervical steroid injection on 02/23/17. Musculoskeletal Surgical History: Reports: Other (See Below). Denies: Arthroscopic Procedure, Carpal Tunnel, Ganglion Cyst, Joint Replacement, ORIF, Shoulder Surgery Other Musculoskeletal Surgeries/Procedures:: Right-sided bunionectomy with additional surgery in the first and fifth metatarsals on 02/28/13 Oncologic Surgical History: Reports: Biopsy of Breast, Other (See Below) Other Oncologic Surgeries/Procedures: Breast biopsy for benign disease as above. Excision of basal cell carcinoma from the back region in 2012. Dermatological Surgical History: Reports: Other (See Below) Other Dermatological Surgeries/Procedures: As above - Past Imaging History Past Imaging History: Reports: Angiography (Negative heart catheterization on . Cerebral angiography on 09/25/17, 04/04/16, 10/22/15, 10/06/15, and 09/29/15.) , Cardiac Echo (06/02/17 with ejection fraction of 60% with otherwise normal findings.), CAT Scan (CT of the chest on 08/08/18. CT of the head on 06/25/18 and 05/31/18. CT of the cervical region/soft tissue on 05/19/18. CT of the head on 04/16, 01/23/18, 08/31/17, 05/08/17, 12/26/16, and 10/17/15. CT of the chest on , 03/28/12, and 06/23/10. CT of the abdomen and pelvis on 06/23/10.), DEXA Scan (08/22/17.), Holter Monitor (May 2018 at [facility], however records not available?), Mammogram (Last mammogram on 11/20/17.), MRA (MRA of the head on 05/12/19, 03/31/18, 09/25/17, and 12/26/16.), MRI (MRI of the lumbar spine on . Probable MRI of the brain at the [facility] in 2017 with no records available. MRI of the C-spine on 09/10/18 and 02/02/18. MRI of the lumbar spine on 07/20/17 and 02/23/17.), Stress Testing (Positive Lexiscan Cardiolite stress test on 06/15/18 for mid to distal anterior wall cardiac ischemia with ejection fraction of 72% however negative heart catheterization in May 2018 as above. ), Ultrasound (Thyroid ultrasound on 01/25/18 and 01/26/16. Gallbladder ultrasound on 05/27/18.), Venous Doppler (Right leg on 09/29/17.). Denies: Carotid US Social & Family History - Family History HEENT: Reports: None. Denies: Glaucoma, Macular Degeneration, Retinal Detachment Cardiac: Reports: Aneurysm, Arrhythmia, Other (See Below). Denies: Afib, AICD, Blood Clots/VTE/DVT, CAD, Cardiomyopathy, Heart Failure, Heart Murmur, High Cholesterol, Hypertension, NC, PVD/COD, Syncope Other Cardiac Family History: Sister with history of tachycardia of unknown type , hypotension, and cerebral aneurysm. Respiratory: Reports: COPD, Other (See Below). Denies: Asthma, PE, Pneumothorax , Sleep Apnea Other Respiratory Family Hisory: Mother with history of COPD with history of tobacco use. GI: Reports: Celiac Disease, Cholelithiasis, Inflammatory Bowel Disease, Other ( See Below). Denies: Colon Polyps, GERD, GI bleed, Hepatitis, Irritable Bowel Syndrome, Pancreatitis Other GI Family History: Sister with history of Crohn's disease. Mother with cholelithiasis and celiac disease : Reports: None. Denies: Renal Disease/Insufficiency OBGYN: Reports: None. Denies: Endometriosis, Recurrent Spontaneous Musculoskeletal: Reports: Arthritis, Osteoarthritis, Other (See Below). Denies : Gout, RA, SLE Other Musculoskeletal Family History: Mother with osteoarthritis. Neurological: Reports: Cerebral Aneurysms, CVA, Other (See Below). Denies: Alzheimers Disease, Dementia, Migraines, MS, Parkinson's, Seizure, TIA Other Neurological Family History: Maternal grandfather with embolic CVA in his 80s. Sister with cerebral aneurysm as above Psychiatric: Reports: None. Denies: Abuse, Victim of, ADD, ADHD, Anxiety, Depression, Psych Hospitalization(s), PTSD, Suicide Attempt Endocrine/Metabolic: Reports: Hypothyroidism, Other (See Below). Denies: Diabetes, Gestational, Diabetes, Type I, Diabetes, type II, Diabetes Mellitus, Type 3c, IDDM Other Endocrine/Metabolic Family History: Hypothyroidism in mother and sisters 2 Hematologic: Reports: Anemia, Other (See Below). Denies: SLE Other Hematologic Family History: Sister with iron deficiency anemia. Immunologic: Reports: None. Denies: AIDS, HIV, SLE Dermatologic: Reports: None. Denies: Eczema, Psoriasis Oncologic: Reports: Metastatic, Other (See Below). Denies: Brain, Breast, Cervix, Colon, Hodgkin's Lymphoma, Leukemia, Lymphoma, Non-Hodgkin's Lymphoma, Ovarian Other Oncologic Family History: Paternal grandfather with fatal metastatic esophageal cancer in his 80s - Tobacco Use Smoking Status *Q: Current Every Day Smoker Tobacco Use Within Last Twelve Months: Cigarettes Years of Tobacco use: 31 Packs/Tins Daily: 0.5 Packs/Tins Daily Comment: Started smoking at age 17 with maximum use of one pack per day. Used Tobacco, but Quit: No Smoking Cessation Information Provided To Patient: Yes Second Hand Smoke Exposure: No Second Hand Smoke Education Provided: No - Caffeine Use Caffeine Use: Reports: Coffee (1 cup per day), Soda (1 soda per day). Denies: Energy Drinks, Tea Other Caffeine Use: Patient has restarted caffeine use as above. - Alcohol Use Alcohol Use History: Yes Days Per Week of Alcohol Use: 0 Number of Drinks Per Day: 1 Number of Drinks Per Day Comment: Usually one beer for holidays, etc. No previous DWIs, problems with alcohol abuse, etc. Total Drinks Per Week: 0 Alcohol Use in Last Twelve Months: Yes Alcohol Use Frequency: Rarely - Recreational Drug Use Recreational Drug Use: Yes Drug Use in Last 12 Months: No Recreational Drug Type: Reports: Marijuana/Hashish (Experimental at age 45.). Denies: Amphetamines (Speed), Benzodiazepines, Cocaine, Heroin, Inhalants (Glues , Solvents, Aerosols), LSD (Acid), Methamphetamine, Morphine, Oxycodone - Sexual History Sexual History: Reports: Single Partner. Denies: Abuse - Living Situation & Occupation Living situation: Reports: (Second in 2007.), (First 2002 with 2 children from that relationship. 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 Patient has been unable to work since she had cervical radiculopathy.) ED ROS GENERAL - Review of Systems Review Of Systems: ROS reveals no pertinent complaints other than HPI. - Physical Exam Exam: See Below Exam Limited By: No Limitations General Appearance: Alert, WD/WN, No Apparent Distress, Anxious (Moderate to severe) Eye Exam: Bilateral Eye: EOMI, Normal Fundi, Normal Inspection (No nystagmus), PERRL Ears: Normal External Exam, Normal Canal, Hearing Grossly Normal, Normal TMs Nose: Normal Inspection, Normal Mucosa, No Blood Throat/Mouth: Normal Inspection, Normal Lips, Normal Teeth, Normal Gums, Normal Oropharynx, Normal Voice, No Airway Compromise. No: Dysphagia, Evidence of Tongue Biting, Inflammation Head Exam: Atraumatic, Normocephalic. No: Facial Swelling, Facial Tenderness, Sinus Tenderness Neck: Normal Inspection, Supple, Non-Tender, Full Range of Motion. No: Carotid Bruit, Lymphadenopathy (L), Lymphadenopathy (R), Thyromegaly Respiratory/Chest: No Respiratory Distress, Lungs Clear, Normal Breath Sounds, No Accessory Muscle Use, Chest Non-Tender. No: Pleural Rub, Retractions Cardiovascular: Normal Peripheral Pulses, Regular Rate, Rhythm, No Edema, No Gallop, No JVD, No Murmur, No Rub. No: Gallop/S3, Gallop/S4, Friction Rub GI/Abdominal: Normal Bowel Sounds, Soft, Non-Tender, No Organomegaly, No Distention, No Abnormal Bruit, No Mass. No: Guarding (Female) Exam: Deferred Rectal (Female) Exam: Deferred Neuro Exam (Abbreviated): Alert, Oriented, CN II-XII Intact, Normal Cognition, Normal Gait, Normal Reflexes, No Motor/Sensory Deficits, Other (Negative Babinski's, finger to nose, and pronator rotation tests. No evidence of facial paresis, tongue deviation, orthostasis, etc.. Excellent reverse thought processes.) Back Exam: Normal Inspection, Full Range of Motion. No: CVA Tenderness (L), CVA Tenderness (R), Muscle Spasm Extremities: Normal Inspection, Normal Range of Motion, Non-Tender, No Pedal Edema, Normal Capillary Refill. No: Bay's Sign Psychiatric: Anxious (Moderate to severe), Depressed Mood (Moderate with adequate eye contact), Other (No suicidal, etc. ideation). No: Flat Affect, Tearful Skin Exam: Warm, Dry, Intact, Normal Color, No Rash. No: Diaphoretic, Wound/ Incision Course - Vital Signs Last Recorded V/S: Last Vital Signs Temp 36.0 C 10/23/18 09:25 Pulse 61 10/23/18 10:04 Resp 17 10/23/18 10:04 BP 100/52 L 10/23/18 10:04 Pulse Ox 100 10/23/18 10:04 Vital Signs - 24 hr 10/23/18 10/23/18 10/23/18 09:25 09:35 10:04 Temperature [ 36.0 C Oral] Pulse, 67 67 61 Peripheral [ Pulse Oximetry] Respiratory 16 18 17 Rate Blood Pressure 115/71 122/82 100/52 L [Left Arm] O2 Sat by Pulse 100 100 100 Oximetry - Orders/Labs/Meds Orders: Active Orders 24 hr Category Date Time Status Cardiac Monitoring [RC] . DIRECTED Care 10/23/18 09:19 Active Peripheral IV Care [RC] . DIRECTED Care 10/23/18 09:18 Active Head wo Cont [CT] Stat Exams 10/23/18 09:18 Taken Sodium Chloride 0.9% [Saline Flush] Med 10/23/18 09:18 Active 10 ml FLUSH ASDIRECTED PRN Obtain Past Medical Record [OM.PC] Routine Oth 10/23/18 09:18 Active Peripheral IV Insertion Adult [OM.PC] Stat Oth 10/23/18 09:18 Ordered Medication Orders Sodium Chloride (Saline Flush) 10 ml FLUSH ASDIRECTED PRN PRN Reason: Keep Vein Open Last Admin: 10/23/18 09:48 Dose: 10 ml Labs: None Meds: Medications Generic Name Dose Route Start Last Admin Trade Name Freq PRN Reason Stop Dose Admin Sodium Chloride 10 ml 10/23/18 09:18 10/23/18 09:48 Saline Flush FLUSH 10 ml ASDIRECTED PRN Administration Keep Vein Open Discontinued Medications Generic Name Dose Route Start Last Admin Trade Name Freq PRN Reason Stop Dose Admin Diphenhydramine HCl 50 mg 10/23/18 09:29 10/23/18 09:38 Benadryl IVPUSH 10/23/18 09:30 50 mg ONETIME ONE Administration Lorazepam 1 mg 10/23/18 09:28 10/23/18 09:39 Ativan IVPUSH 10/23/18 09:29 1 mg ONETIME ONE Administration Ondansetron HCl 4 mg 10/23/18 09:19 10/23/18 09:38 Zofran IVPUSH 10/23/18 09:20 4 mg ONETIME ONE Administration - Radiology Interpretation Free Text/Narrative:: CT of the head without contrast report negative for acute changes with stable previous aneurysm coiling with no change since last CT scan on 09/06/18. Note that a preliminary verbal report is not received from the radiology department at [facility] despite her previous request. Departure - Departure Time of Disposition: 11:55 Disposition: Home, Self-Care 01 Condition: Fair Clinical Impression: Peptic reflux disease, Mixed anxiety depressive disorder, Tobacco abuse counseling, History of subarachnoid hemorrhage, Tension-type headache Osteoarthritis Qualifiers: Osteoarthritis location: multiple joints Osteoarthritis type: primary Qualified Code(s): M15.0 - Primary generalized (osteo)arthritis Allergic rhinitis Qualifiers: Allergic rhinitis trigger: unspecified Allergic rhinitis seasonality: unspecified Qualified Code(s): J30.9 - Allergic rhinitis, unspecified COPD (chronic obstructive pulmonary disease) Qualifiers: COPD type: emphysema Emphysema type: panlobular Qualified Code(s): J43.1 - Panlobular emphysema - Discharge Information *PRESCRIPTION DRUG MONITORING PROGRAM REVIEWED*: Not Applicable *COPY OF PRESCRIPTION DRUG MONITORING REPORT IN PATIENT TIEN: Not Applicable Instructions: Health Risks of Smoking, Tension Headache, Adult, [id number] Referrals: Bree Smith PA-C [Primary Care Provider] - Forms: ED Department Discharge Additional Instructions: 1. Followup with your regular provider in 5-7 days as directed. Bring these discharge instructions with you to that visit. 2. Discuss recommended initiation of antidepressant therapy, referral to a psychiatrist, etc. as discussed with her regular provider at that time. 3. Contact your pain clinic to reschedule missed appointment for today. 4. Ice packs to head and neck, dark and quiet room, etc. as directed until headache resolves. 5. Sedation precautions with no driving, etc. for 18 hours because of emergency room medications. 6. Stop all tobacco use ASHLEY as directed/per provided information and consider contacting Quit LIne, etc.. 7. Immediately after this visit verify that your cellular telephone's voicemail has been activated and is empty. Also verify that your home telephone 's answering machine is operating properly and has space to receive messages. Note that it is sometimes necessary for us to be able to contact you at a later date to discuss your medical care. 8. Please remember that we are ALWAYS here for you and want to answer any questions you may have. Feel free to call the hospital any time and we call you back ASHLEY. 9. Reglan/metoclopramide has been removed from your allergy list as discussed with initial low dose of this medication in the future, if needed. Please notify your regular providers concerning this change. - Problem List & Annotations (1) Tension-type headache SNOMED Code(s): 013979983 Status: Acute Current Visit: Yes Annotation/Comment:: Note CT scan of the head results as above. Stroke code was not called secondary to patient history, neurological findings, etc. with no evidence of acute CVA, etc.. Continue to observe closely through her regular provider, pain clinic, etc. with adjustment of medications recommended as below. (2) History of subarachnoid hemorrhage SNOMED Code(s): 535793597 Status: Chronic Priority: High Current Visit: Yes Onset Date: 09/29/15 Annotation/Comment:: Note recent multiple neurological evaluations, including CT scans, MRI scans, etc.. Headaches do appear typical to her previous attacks and is nonspecific with strong anxiety component to her symptoms. (3) Mixed anxiety depressive disorder SNOMED Code(s): 264303407 Code(s): F41.8 - OTHER SPECIFIED ANXIETY DISORDERS Status: Chronic Priority: High Current Visit: Yes Annotation/Comment:: Poor control based on today's evaluation. The patient and her do agree to discuss possible psychiatric referral, counseling, etc. with her regular provider, pain clinic, etc. The patient may benefit from initiation of Celexa therapy. Emotional support provided. (4) Peptic reflux disease SNOMED Code(s): 640833050 Code(s): K21.9 - GASTRO-ESOPHAGEAL REFLUX DISEASE WITHOUT ESOPHAGITIS Status: Acute Priority: High Current Visit: Yes Onset Date: 03/05/18 Annotation/Comment:: Stable by history with current medical therapy. IV Reglan given for migraine treatment on 08/21/18 in this facility. This will be taken off of her allergy/intolerance list, although initial low-dose therapy recommended in the future if needed. (5) Osteoarthritis SNOMED Code(s): 163549693 Code(s): M19.90 - UNSPECIFIED OSTEOARTHRITIS, UNSPECIFIED SITE Status: Chronic Priority: Medium Current Visit: Yes Annotation/Comment:: Recent nonspecific chest wall pain stable by history. Otherwise no significant arthritic complaints, etc. 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 She did miss an appointment with the pain clinic today. Qualifiers: Osteoarthritis location: multiple joints Osteoarthritis type: primary Qualified Code(s): M15.0 - Primary generalized (osteo)arthritis (6) Allergic rhinitis SNOMED Code(s): 91532040 Code(s): J30.9 - ALLERGIC RHINITIS, UNSPECIFIED Status: Chronic Priority : Medium Current Visit: Yes Annotation/Comment:: Probable eustachian tube dysfunction explaining part of her symptoms today. including ear popping, etc. as above. Continue current medical therapy for now Qualifiers: Allergic rhinitis trigger: unspecified Allergic rhinitis seasonality: unspecified Qualified Code(s): J30.9 - Allergic rhinitis, unspecified (7) Tobacco abuse counseling SNOMED Code(s): 288872043, 113159618, 371367583 Code(s): Z71.6 - TOBACCO ABUSE COUNSELING Status: Chronic Priority: Medium Current Visit: Yes Annotation/Comment:: Secondary to current stressors the patient has restarted smoking despite trying to quit in May 2018. Smoking cessation once again encouraged once her emotional status has stabilized. (8) COPD (chronic obstructive pulmonary disease) SNOMED Code(s): 60743068 Status: Chronic Priority: Medium Current Visit: Yes Annotation/Comment: : Stable by history with no recent bronchitic-type symptoms. PFTs on an outpatient basis may still be of some benefit, however no current medical therapy. Note previous history of cardiac arrhythmia as above with no evidence of recurrence despite discontinuation of her medical therapy, including diltiazem, etc.. Qualifiers: COPD type: emphysema Emphysema type: panlobular Qualified Code(s): J43.1 - Panlobular emphysema (9) Hypertension SNOMED Code(s): 48450732 Status: Chronic Priority: Medium Current Visit: No Annotation/Comment: : Blood pressures stable in the emergency room with previous history of hypotension. Qualifiers: Hypertension type: essential hypertension Qualified Code(s): I10 - Essential (primary) hypertension - Problem List Review Problem List Initiated/Reviewed/Updated: Yes - My Orders Last 24 Hours: My Active Orders 10/23/18 09:18 Peripheral IV Care [RC] . DIRECTED Head wo Cont [CT] Stat Sodium Chloride 0.9% [Saline Flush] 10 ml FLUSH ASDIRECTED PRN Obtain Past Medical Record [OM.PC] Routine Peripheral IV Insertion Adult [OM.PC] Stat 10/23/18 09:19 Cardiac Monitoring [RC] . DIRECTED - Assessment/Plan Last 24 Hours: My Active Orders 10/23/18 09:18 Peripheral IV Care [RC] . DIRECTED Head wo Cont [CT] Stat Sodium Chloride 0.9% [Saline Flush] 10 ml FLUSH ASDIRECTED PRN Obtain Past Medical Record [OM.PC] Routine Peripheral IV Insertion Adult [OM.PC] Stat 10/23/18 09:19 Cardiac Monitoring [RC] . DIRECTED Assessment:: As above Plan: As above. Extensive precautions were given to the patient and her , who are in agreement with the treatment plan. See Patient Instructions for further treatment and plan.
[2018-10-23] MEDS: Ondansetron 4 MG/2 ML SDV IVPUSH ONE (09:38)
[2018-10-23] MEDS: diphenhydrAMINE 50 MG/ML SDV IVPUSH ONE (09:38)
[2018-10-23] MEDS: LORazepam 2 MG/ML SDV IVPUSH ONE (09:39)
[2018-10-23] MEDS: Sodium Chloride 0.9% 10 ML Syringe FLUSH PRN (09:48)
[2018-10-23 10:05] VITALS: BP 100/52
== END 2018-10-23 11:45 | disposition home or self-care (01) ==
LOC: LL.ED 09:15
DX: G44.209 Tension-type headache, unspecified, not intractable (principal); M15.0 Primary generalized (osteo)arthritis; J30.9 Allergic rhinitis, unspecified; J43.1 Panlobular emphysema; K21.9 Gastro-esophageal reflux disease without esophagitis; F41.8 Other specified anxiety disorders; Z71.6 Tobacco abuse counseling; F17.210 Nicotine dependence, cigarettes, uncomplicated; E03.9 Hypothyroidism, unspecified; I10 Essential (primary) hypertension; Z79.899 Other long term (current) drug therapy; Z91.09 Other allergy status, other than to drugs and biological substances; Z91.041 Radiographic dye allergy status; Z88.2 Allergy status to sulfonamides; Z88.8 Allergy status to other drugs, medicaments and biological substances
CPT/HCPCS: 70450; 96374; 96375; 99284; J1200; J2060; J2405

== ENCOUNTER 2018-11-12 10:36 | Emergency (ER) | payer BC ==
[2018-11-12 10:43] VITALS: BP 121/83
--- NOTE | 2018-11-12 10:49 | EDM.PDOC ---
ED HPI GENERAL MEDICAL PROBLEM - General Chief Complaint: Headache Stated Complaint: headahce Time Seen by Provider: 11/12/18 10:40 Source of Information: Reports: Patient, Old Records ([facility] chart/EMR), Other ([facility]. Friend, Saul) History Limitations: Reports: No Limitations - History of Present Illness INITIAL COMMENTS - FREE TEXT/NARRATIVE: The patient was brought to the emergency room via private automobile by her friend for evaluation of a 9/10 diffuse headache typical of her previous chronic headaches. Note that patient apparently is still having daily headaches with severe headache starting at about 7 PM on 11/10/18. She has had some mild nausea with this headache but no emesis, etc.. The patient was unable to see her regular provider, Bree Simon PA-C, at [facility] in [place] , [facility] [facility] [employer] for pain control. She has not taken any medications for her headache to this point. No history of recent visual changes, diplopia, change in mental status, or other change in neurological status. No recent history of abdominal pain, heartburn, diarrhea, melena, gross hematochezia, or any food intolerance, including fatty foods, etc.. The patient also denies any recent fever, cough, wheezing, dyspnea, etc.. Onset: Gradual Onset Date: 11/10/18 Onset Time: 19:00 Duration: Constant, Getting Worse Location: Reports: Head. Denies: Face, Neck, Chest, Abdomen, Back, Upper Extremity, Left, Upper Extremity, Right, Radiates to Quality: Reports: Pressure, Same as Previous Episode, Stabbing Severity: Severe Improves with: Reports: None Worsens with: Reports: None Context: Reports: Other (As above). Denies: Sick Contact, Trauma Associated Symptoms: Reports: Headaches, Nausea/Vomiting (As above). 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 SU[employer]: Reports: Other (see below) (None) Head Pain Score (Numeric/FACES): 9 - Related Data Allergies Allergy/AdvReac Type Severity Reaction Status Date / Time iodine Allergy Severe Anaphylactic Verified 11/12/18 10:45 Shock Sulfa (Sulfonamide Allergy Rash Verified 11/12/18 10:45 Antibiotics) sumatriptan [From Imitrex] Allergy Other Verified 11/12/18 10:45 contrast dye Allergy Difficulty Uncoded 11/12/18 10:45 Breathing Home Meds: Home Meds L.acidoph,Paracasei, B.lactis [Probiotic] 1 each PO DAILY 01/23/18 [History] Ca Carb & Gluc/Mag Ox & Gluc [Calcium Magnesium Caplet] 1,200 mg PO BEDTIME # 100 05/19/18 [Rx] Acetaminophen [Tylenol] 650 mg PO Q4H PRN tablet 06/01/18 [Rx] Magnesium Oxide 400 mg PO BID #60 tablet 06/01/18 [Rx] Ibuprofen [Advil] 400 - 600 mg PO Q6H PRN 06/13/18 [History] Levothyroxine 75 mcg PO VALLADARES@08 08/22/18 [History] Levothyroxine [Synthroid] 50 mcg PO MOTUWETHFRSA@0800 08/22/18 [History] Meclizine [Antivert] 25 mg PO Q6H PRN 08/22/18 [History] Montelukast [Singulair] 10 mg PO BEDTIME PRN 08/22/18 [History] Ranitidine [Zantac] 150 mg PO BEDTIME 08/22/18 [History] Gabapentin [Neurontin] 2 tab PO BEDTIME 08/28/18 [History] LORazepam 0.5 mg PO DAILY PRN 08/28/18 [History] Fluticasone Propionate [Flonase] 1 squirt NASBOTH DAILY 09/27/18 [History] Cyclobenzaprine [Flexeril] 5 mg PO TID PRN 30 Days #90 tab 10/01/18 [Rx] Gabapentin [Neurontin] 100 mg PO ASDIRECTED PRN 10/21/18 [History] Cbd Liquid 50 ml PO BID 11/12/18 [History] Past Medical History HEENT History: Reports: Allergic Rhinitis, Impaired Vision, Sinusitis, Other ( See Below). Denies: Cataract, Glaucoma, Hard of Hearing, Macular Degeneration, Retinal Detachment Other HEENT History: Patient wears reading glasses. Allergic rhinitis/sinusitis with recurrent sinusitis and eustachian tube dysfunction. Nasal septum deviation. Chronic laryngitis. Cardiovascular History: Reports: Aneurysm, Arrhythmia, High Cholesterol, Hypertension, Other (See Below). Denies: Afib, Blood Clots/VTE/DVT, CAD, Cardiomyopathy, Heart Failure, Heart Murmur, WI, PVD, Syncope Other Cardiovascular History: Previous hyperlipidemia with no current medical therapy required. Note cerebral aneurysm as below. Bradycardia, repolarization changes versus incomplete right bundle branch block, and multiform PVCs at time of basilar artery leakage on 09/29/15. Symptomatic bradycardia with hypotension and Mobitz type I second-degree A-V block with low-dose beta elissa therapy in April 2018. Intermittent PSVT with previous diltiazem therapy. Respiratory History: Reports: Bronchitis, Recurrent, COPD, Intubation, Previous , Pneumonia, Recurrent, Pulmonary Fibrosis, Other (See Below). Denies: Asthma, Intubation, Difficult, PE, Pneumothorax, Sleep Apnea, TB Other Respiratory History: Benign right lower lobe pulmonary nodules x2 by serial CT scans as below. Gastrointestinal History: Reports: Chronic Diarrhea, Gastritis, GERD, Helicobacter Pylori, Irritable Bowel Syndrome, Other (See Below). Denies: Celiac Disease, Cholelithiasis, Chronic Constipation, Colon Polyp, Fecal Incontinence, GI Bleed, Hiatal Hernia, Inflammatory Bowel Disease, PUD Other Gastrointestinal History: H. pylori treated in about 2016. Nonspecific dysphagia in 2018. Genitourinary History: Reports: UTI, Recurrent. Denies: Acute Renal Failure, Chronic Renal Insuffiency, Renal Calculus, Retention, Urinary, STD, Urinary Incontinence HOMICIDE SQUAD SERGEANT History: Reports: . Denies: Dysfunctional Uterine Bleeding, Endometriosis, Fibroids, Spontaneous : 3 Para: 3 Other HOMICIDE SQUAD SERGEANT History: Surgical Menopause secondary to cervical cancer at age 29 as below. Full term without complications during pregnancies or deliveries. Musculoskeletal History: Reports: Arthritis, Back Pain, Chronic, Fracture, Neck Pain, Chronic, Osteoarthritis, Osteoporosis, Other (See Below). Denies: Gout, RA, SLE Other Musculoskeletal History: Nondisplaced left talar fracture on 08/24/16 with no surgery required. Note patient is currently being followed by pain clinic for chronic pain syndrome and headaches with history of spinal injections, etc. Neurological History: Reports: Cerebral Aneurysms, Headaches, Chronic, Migraines , Neuropathy, Peripheral, Vertigo. 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 Chronic vertigo and headaches. Psychiatric History: Reports: Addiction, Anxiety, Depression, Other (See Below) . Denies: Abuse, Victim of, ADD, ADHD, Alzheimers Disease, Dementia, Psych Hospitalization(s), PTSD, Suicide Attempt, Suicidal Ideation Other Psychiatric History: Chronic narcotic and anxiolytic use in the past secondary to chronic pain syndrome, etc. Endocrine/Metabolic History: Reports: Hypothyroidism, Other (See Below). 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 Hypokalemia. Hypoalbuminemia. Hematologic History: Reports: Other (See Below). Denies: Anemia, Blood Transfusion(s), Iron Deficiency Other Hematologic History: Hypomagnesemia. Immunologic History: Reports: None. Denies: AIDS, HIV, SLE Oncologic (Cancer) History: Reports: Basal Cell Carcinoma, Cervix, Other (See Below). Denies: Breast, Colon, Hodgkin's Lymphoma, Leukemia, Malignant Melanoma , Metastatic, Non-Hodgkin's Lymphoma, Ovarian, Squamous Cell Carcinoma, Uterine Other Oncologic History: Cervical cancer at age 29 with hysterectomy as below with no chemotherapy, etc. Basal cell carcinoma excised from the back region in about 2012. Dermatologic History: Reports: None. Denies: Eczema, Psoriasis - Infectious Disease History Infectious Disease History: Reports: Chicken Pox, Helicobacter Pylori, Influenza. Denies: C-Difficile, Measles, Meningitis, Mononucleosis, MRSA, Mumps , Pertussis (Whooping Cough), Rubella, Scarlet Fever, Shingles, TB, VRE - Past Surgical History Head Surgeries/Procedures: Reports: Other (See Below) Other Head Surgeries/Procedures: Basilar artery coil placement with balloon embolization secondary to leaking basilar artery aneurysm on 10/26/15. HEENT Surgical History: Reports: Oral Surgery, Other (See Below). Denies: Adenoidectomy, Cataract Surgery, Eye Surgery, Laser Surgery, LASIK, Myringotomy w Tube(s), Naso-Sinus Surgery, Tonsillectomy Other HEENT Surgeries/Procedures: Teeth extractions including possible wisdom teeth in the 1980s. Cardiovascular Surgical History: Reports: Aneurysm, Vascular Surgery, Other ( See Below). Denies: Varicose Other Cardiovascular Surgeries/Procedures: Cerebral aneurysm therapy as above Respiratory Surgical History: Reports: None. Denies: Thoracentesis GI Surgical History: Reports: EGD, Other (See Below). Denies: Appendectomy, Cholecystectomy, Colon, Colonoscopy, Hernia, Abdominal, Hernia, Inguinal, Hernia Repair/Other Other GI Surgeries/Procedures: EGD with biopsies on 08/03/18. Female Surgical History: Reports: Breast Biopsy, Breast Implant, Hysterectomy , Salpingo-Oophorectomy, Other (See Below). Denies: Cystoscopy, D&C, Tubal Ligation Other Female Surgeries/Procedures: Bilateral breast implants at age 32. Complete hysterectomy with bilateral salpingo-oophorectomy secondary to cervical cancer at age 29. Right breast biopsy for benign disease in about 2002. Endocrine Surgical History: Reports: None. Denies: Thyroid Biopsy Neurological Surgical History: Reports: C-Spine, Discectomy, Intracranial, Spinal Fusion, Other (See Below). Denies: Lumbar Spine, Sacral Spine, Thoracic Spine, Vertebroplasty Other Neurological Surgeries/Procedures: Discectomies and cervical spine fusion from C5 through C7 on 06/07/17. Intracranial surgery as above. Cervical steroid injection on 02/23/17. Musculoskeletal Surgical History: Reports: Other (See Below). Denies: Arthroscopic Procedure, Carpal Tunnel, Ganglion Cyst, Joint Replacement, ORIF, Shoulder Surgery Other Musculoskeletal Surgeries/Procedures:: Right-sided bunionectomy with additional surgery in the first and fifth metatarsals on 02/28/13 Oncologic Surgical History: Reports: Biopsy of Breast, Other (See Below) Other Oncologic Surgeries/Procedures: Breast biopsy for benign disease as above. Excision of basal cell carcinoma from the back region in 2012. Dermatological Surgical History: Reports: Other (See Below) Other Dermatological Surgeries/Procedures: As above - Past Imaging History Past Imaging History: Reports: Angiography (Negative heart catheterization on . Cerebral angiography on 09/25/17, 04/04/16, 10/22/15, 10/06/15, and 09/29/15.) , Cardiac Echo (06/02/17 with ejection fraction of 60% with otherwise normal findings.), CAT Scan (CT of the chest on 08/08/18. CT of the head on 10/23/18, and 05/31/18. CT of the cervical region/soft tissue on 05/19/18. CT of the head on 09/06/18, 01/23/18, 08/31/17, 05/08/17, 12/26/16, and 10/17/15. CT of the chest on 02/20/13, 03/28/12, and 06/23/10. CT of the abdomen and pelvis on .), DEXA Scan (08/22/17.), Holter Monitor (May 2018 at [facility], however records not available?), Mammogram (Last mammogram on 11/20/17.), MRA ( MRA of the head on 05/12/19, 03/31/18, 09/25/17, and 12/26/16.), MRI (MRI of the lumbar spine on 12/26/16. Probable MRI of the brain at the [facility] in 2017 with no records available. MRI of the C-spine on 09/10/18 and 02/02/18. MRI of the lumbar spine on 07/20/17 and 02/23/17.), Stress Testing (Positive Lexiscan Cardiolite stress test on 06/15/18 for mid to distal anterior wall cardiac ischemia with ejection fraction of 72% however negative heart catheterization in May 2018 as above.), Ultrasound (Thyroid ultrasound on 01/25/18 and . Gallbladder ultrasound on 05/27/18.), Venous Doppler (Right leg on 09/29/17.) . Denies: Carotid US Social & Family History - Family History HEENT: Reports: None. Denies: Glaucoma, Macular Degeneration, Retinal Detachment Cardiac: Reports: Aneurysm, Arrhythmia, Other (See Below). Denies: Afib, AICD, Blood Clots/VTE/DVT, CAD, Cardiomyopathy, Heart Failure, Heart Murmur, High Cholesterol, Hypertension, WI, PVD/COD, Syncope Other Cardiac Family History: Sister with history of tachycardia of unknown type , hypotension, and cerebral aneurysm. Respiratory: Reports: COPD, Other (See Below). Denies: Asthma, PE, Pneumothorax , Sleep Apnea Other Respiratory Family Hisory: Mother with history of COPD with history of tobacco use. GI: Reports: Celiac Disease, Cholelithiasis, Inflammatory Bowel Disease, Other ( See Below). Denies: Colon Polyps, GERD, GI bleed, Hepatitis, Irritable Bowel Syndrome, Pancreatitis Other GI Family History: Sister with history of Crohn's disease. Mother with cholelithiasis and celiac disease : Reports: None. Denies: Renal Disease/Insufficiency OBGYN: Reports: None. Denies: Endometriosis, Recurrent Spontaneous Musculoskeletal: Reports: Arthritis, Osteoarthritis, Other (See Below). Denies : Gout, RA, SLE Other Musculoskeletal Family History: Mother with osteoarthritis. Neurological: Reports: Cerebral Aneurysms, CVA, Other (See Below). Denies: Alzheimers Disease, Dementia, Migraines, MS, Parkinson's, Seizure, TIA Other Neurological Family History: Maternal grandfather with embolic CVA in his 80s. Sister with cerebral aneurysm as above Psychiatric: Reports: None. Denies: Abuse, Victim of, ADD, ADHD, Anxiety, Depression, Psych Hospitalization(s), PTSD, Suicide Attempt Endocrine/Metabolic: Reports: Hypothyroidism, Other (See Below). Denies: Diabetes, Gestational, Diabetes, Type I, Diabetes, type II, Diabetes Mellitus, Type 3c, IDDM Other Endocrine/Metabolic Family History: Hypothyroidism in mother and sisters 2 Hematologic: Reports: Anemia, Other (See Below). Denies: SLE Other Hematologic Family History: Sister with iron deficiency anemia. Immunologic: Reports: None. Denies: AIDS, HIV, SLE Dermatologic: Reports: None. Denies: Eczema, Psoriasis Oncologic: Reports: Metastatic, Other (See Below). Denies: Brain, Breast, Cervix, Colon, Hodgkin's Lymphoma, Leukemia, Lymphoma, Non-Hodgkin's Lymphoma, Ovarian Other Oncologic Family History: Paternal grandfather with fatal metastatic esophageal cancer in his 80s - Tobacco Use Smoking Status *Q: Current Every Day Smoker Tobacco Use Within Last Twelve Months: Cigarettes Years of Tobacco use: 31 Packs/Tins Daily: 0.3 Packs/Tins Daily Comment: Started smoking at age 17 with maximum use of one pack per day. She is trying to quit. Used Tobacco, but Quit: No Smoking Cessation Information Provided To Patient: Yes Second Hand Smoke Exposure: No Second Hand Smoke Education Provided: No - Caffeine Use Caffeine Use: Reports: Coffee (One cup per day), Soda (1 Soda per day). Denies : Energy Drinks, Tea Other Caffeine Use: Patient has restarted caffeine use as above. - Alcohol Use Alcohol Use History: Yes Days Per Week of Alcohol Use: 0 Number of Drinks Per Day: 1 Number of Drinks Per Day Comment: Usually one beer for holidays. No previous DWIs, problems with alcohol abuse, etc. Total Drinks Per Week: 0 Date of Last Drink: 11/10/18 Alcohol Use in Last Twelve Months: Yes Alcohol Use Frequency: Rarely - Recreational Drug Use Recreational Drug Use: Yes Drug Use in Last 12 Months: No Recreational Drug Type: Reports: Marijuana/Hashish (Experimental at age 45.). Denies: Amphetamines (Speed), Cocaine, Heroin, Inhalants (Glues, Solvents, Aerosols), LSD (Acid), Methamphetamine, Morphine, Oxycodone - Sexual History Sexual History: Reports: Single Partner. Denies: Abuse - Living Situation & Occupation Living situation: Reports: (Second in 2007.), (First 2002 with 2 children from that relationship. 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 Patient has been unable to work since she had cervical radiculopathy.) ED ROS GENERAL - Review of Systems Review Of Systems: ROS reveals no pertinent complaints other than HPI. - Physical Exam Exam: See Below Exam Limited By: Altered Mental Status General Appearance: Alert, WD/WN, No Apparent Distress, Anxious (Mild) Eye Exam: Bilateral Eye: EOMI, Normal Fundi, Normal Inspection (No nystagmus, patient not wearing her glasses.), PERRL Ears: Normal External Exam, Normal Canal, Hearing Grossly Normal, Normal TMs Nose: Normal Inspection, Normal Mucosa, No Blood Throat/Mouth: Normal Inspection, Normal Lips, Normal Teeth, Normal Gums, Normal Oropharynx, Normal Voice, No Airway Compromise. No: Dysphagia, Perioral Cyanosis Head Exam: Atraumatic, Normocephalic. No: Facial Swelling, Facial Tenderness, Sinus Tenderness Neck: Normal Inspection, Supple, Non-Tender, Full Range of Motion. No: Lymphadenopathy (L), Lymphadenopathy (R), Thyromegaly Respiratory/Chest: No Respiratory Distress, Lungs Clear, Normal Breath Sounds, No Accessory Muscle Use, Chest Non-Tender. No: Pleural Rub, Retractions Cardiovascular: Normal Peripheral Pulses, Regular Rate, Rhythm, No Edema, No Gallop, No JVD, No Murmur, No Rub. No: Gallop/S4, Friction Rub GI/Abdominal: Normal Bowel Sounds, Soft, Non-Tender, No Organomegaly, No Distention, No Abnormal Bruit, No Mass. No: Guarding (Female) Exam: Deferred Rectal (Female) Exam: Deferred Neuro Exam (Abbreviated): Alert, Oriented, CN II-XII Intact, Normal Cognition, Normal Gait, Normal Reflexes (Negative Babinski's), No Motor/Sensory Deficits Back Exam: Normal Inspection, Full Range of Motion. No: CVA Tenderness (L), CVA Tenderness (R), Muscle Spasm Extremities: Normal Inspection, Normal Range of Motion, Non-Tender, No Pedal Edema, Normal Capillary Refill. No: Bay's Sign Psychiatric: Anxious (Mild), Depressed Mood (Mild) Skin Exam: Warm, Dry, Intact, Normal Color, No Rash. No: Diaphoretic, Wound/ Incision Course - Vital Signs Last Recorded V/S: Last Vital Signs Temp 36.9 C 11/12/18 10:42 Pulse 83 11/12/18 10:42 Resp 18 11/12/18 10:42 BP 121/83 11/12/18 10:42 Pulse Ox 100 11/12/18 10:42 Vital Signs - 24 hr 11/12/18 10:42 Temperature [ 36.9 C Oral] Pulse, 83 Peripheral [ Right Pulse Oximetry] Respiratory 18 Rate Blood Pressure 121/83 [Left Upper Arm ] O2 Sat by Pulse 100 Oximetry - Orders/Labs/Meds Orders: Active Orders 24 hr Category Date Time Status Peripheral IV Care [RC] . DIRECTED Care 11/12/18 10:50 Active Sodium Chloride 0.9% [Saline Flush] Med 11/12/18 10:50 Active 10 ml FLUSH ASDIRECTED PRN Obtain Past Medical Record [OM.PC] Routine Oth 11/12/18 10:50 Active Peripheral IV Insertion Adult [OM.PC] Routine Oth 11/12/18 10:49 Ordered Medication Orders Sodium Chloride (Saline Flush) 10 ml FLUSH ASDIRECTED PRN PRN Reason: Keep Vein Open Last Admin: 11/12/18 11:23 Dose: 10 ml Labs: None Meds: Medications Generic Name Dose Route Start Last Admin Trade Name Freq PRN Reason Stop Dose Admin Sodium Chloride 10 ml 11/12/18 10:50 11/12/18 11:23 Saline Flush FLUSH 10 ml ASDIRECTED PRN Administration Keep Vein Open Discontinued Medications Generic Name Dose Route Start Last Admin Trade Name Roxana PRN Reason Stop Dose Admin Diphenhydramine HCl 50 mg 11/12/18 10:50 11/12/18 11:11 Benadryl IVPUSH 11/12/18 10:51 50 mg ONETIME ONE Administration Ketorolac Tromethamine 30 mg 11/12/18 10:51 11/12/18 11:15 Toradol IVPUSH 11/12/18 10:52 30 mg ONETIME ONE Administration Lorazepam 1 mg 11/12/18 10:50 11/12/18 11:19 Ativan IVPUSH 11/12/18 10:51 1 mg ONETIME ONE Administration Metoclopramide HCl 10 mg 11/12/18 10:51 11/12/18 11:08 Reglan IVPUSH 11/12/18 10:52 10 mg ONETIME ONE Administration - Radiology Interpretation Free Text/Narrative:: None Departure - Departure Time of Disposition: 12:15 Disposition: Home, Self-Care 01 Condition: Good Clinical Impression: Mixed anxiety depressive disorder, Tobacco abuse counseling, History of subarachnoid hemorrhage, Chronic daily headache Hypertension Qualifiers: Hypertension type: essential hypertension Qualified Code(s): I10 - Essential ( primary) hypertension COPD (chronic obstructive pulmonary disease) Qualifiers: COPD type: emphysema Emphysema type: panlobular Qualified Code(s): J43.1 - Panlobular emphysema Allergic rhinitis Qualifiers: Allergic rhinitis trigger: unspecified Allergic rhinitis seasonality: unspecified Qualified Code(s): J30.9 - Allergic rhinitis, unspecified - Discharge Information *PRESCRIPTION DRUG MONITORING PROGRAM REVIEWED*: No *COPY OF PRESCRIPTION DRUG MONITORING REPORT IN PATIENT TIEN: No Instructions: Health Risks of Smoking, Tension Headache, Adult, [id number] Referrals: Bree Smith PA-C [Primary Care Provider] - Forms: ED Department Discharge Additional Instructions: 1. Follow up with your regular provider in 10-14 days as needed, if symptoms persist. Bring these discharge instructions with you to that visit.. 2. Tylenol 650 mg by mouth every 4 hours and/or OTC ibuprofen 2-3 tabs by mouth every 6 hours with food as directed./needed. You may stagger these medications for 48-72 hours only, which essentially means that you are receiving a pain medication about every 2 hours. Next dose of ibuprofen in 6 hours as needed secondary to medications given in the emergency room. 3. Ice packs to head and neck, dark and quiet room, etc. as directed until headache resolves. 4. Sedation precautions with no driving, etc. for 18 hours because of emergency room medications. 5. Continue to maintain a strict headache diary/calendar and food diary as discussed with these records to be brought to every visit with your regular provider, neurologist, and pain clinic provider. 6. Discuss with your providers establishment of a green, yellow, and red headache treatment plan as discussed in order to avoid recurrent emergency room visits, etc. 7. Follow-up with your neurosurgeon at [facility] as already scheduled on 11/22. 8. Strict preparation of all foods, including washing, etc. as discussed with additional avoidance of all alcohol products secondary to possible exacerbation of her headaches with alcohol exposure, etc. 9. Stop all tobacco use ASHLEY as directed/per provided information and consider contacting Quit LIne, etc.. 10. Immediately after this visit verify that your cellular telephone's voicemail has been activated and is empty. Also verify that your home telephone 's answering machine is operating properly and has space to receive messages. Note that it is sometimes necessary for us to be able to contact you at a later date to discuss your medical care. 11. Please remember that we are ALWAYS here for you and want to answer any questions you may have. Feel free to call the hospital any time and we call you back ASHLEY. - Problem List & Annotations (1) Chronic daily headache SNOMED Code(s): 597992430972 Code(s): R51 - HEADACHE Status: Chronic Priority: High Current Visit: No Annotation/Comment:: Despite current pain clinic, etc. patient's headaches are under poor control at this time. Last emergency room evaluation in this facility for her headaches on 10/23/[address] scan of the head at that time. Note previous history of basilar artery coil placement as above. The patient is currently being seen by a nurse internal revenue service agent at the pain clinic, however the patient is considering possibly changing her pain clinic providers. She does have a follow-up appointment scheduled with her neurologist at [facility] on 11/22 by her history. The patient was extensively counseled on maintaining a proper comprehensive daily headache, symptom, and food diary, which she is already doing to some degree. Note that patient did start an unknown type of CBD oil while a couple of weeks ago with no significant change of her symptoms to this point. She is apparently purchasing this through her regular provider, Bree Simon PA-C, at [facility] in [place]. The patient is also considering contacting her neurosurgeon at the [facility] in [facility] for further evaluation of her chronic headaches. Aggressive treatment of her headaches today as above. Sedation precautions given. Patient was also counseled on initiating a green, yellow, and red treatment plan for her chronic headaches to help her better manage her chronic headaches and treatment. She is not currently on any prophylactic headache medications at this time. Her allergic rhinitis has apparently been stable with no use of these medications, Flexeril, or Ativan recently. The patient did have a beer with exacerbation of her chronic headache as above with food, alcohol, etc. planning extensively discussed with the patient. (2) History of subarachnoid hemorrhage SNOMED Code(s): 326524950 Status: Chronic Priority: High Current Visit: No Onset Date: 09/29/15 Annotation/Comment:: As above. Note recent multiple neurological evaluations, including CT scans, MRI scans, etc.. Headaches do appear typical to her previous attacks and is nonspecific with strong anxiety component to her symptoms. (3) COPD (chronic obstructive pulmonary disease) SNOMED Code(s): 12696545 Status: Chronic Priority: Medium Current Visit: No Annotation/Comment: : No recent fever or bronchitic type symptoms. PFTs on an outpatient basis may still be of some benefit, however no current medical therapy. Qualifiers: COPD type: emphysema Emphysema type: panlobular Qualified Code(s): J43.1 - Panlobular emphysema (4) Hypertension SNOMED Code(s): 35207794 Status: Chronic Priority: Medium Current Visit: No Annotation/Comment: : Blood pressures stable in the emergency room with previous history of hypotension. Qualifiers: Hypertension type: essential hypertension Qualified Code(s): I10 - Essential (primary) hypertension (5) Mixed anxiety depressive disorder SNOMED Code(s): 455764917 Code(s): F41.8 - OTHER SPECIFIED ANXIETY DISORDERS Status: Chronic Priority: High Current Visit: No Annotation/Comment:: The patient is still awaiting psychiatric referral with no appointment at this time. During the last ER evaluation with me on 10/23/18 the patient and her did agree to discuss possible psychiatric referral, counseling etc. with her regular provider , pain clinic, etc. The patient may benefit from initiation of Celexa therapy. Emotional support provided. (6) Osteoarthritis SNOMED Code(s): 799616567 Code(s): M19.90 - UNSPECIFIED OSTEOARTHRITIS, UNSPECIFIED SITE Status: Chronic Priority: Medium Current Visit: No Annotation/Comment:: Stable by history Qualifiers: Osteoarthritis location: multiple joints Osteoarthritis type: primary Qualified Code(s): M15.0 - Primary generalized (osteo)arthritis (7) Allergic rhinitis SNOMED Code(s): 04613551 Code(s): J30.9 - ALLERGIC RHINITIS, UNSPECIFIED Status: Chronic Priority : Medium Current Visit: No Annotation/Comment:: As above. Qualifiers: Allergic rhinitis trigger: unspecified Allergic rhinitis seasonality: unspecified Qualified Code(s): J30.9 - Allergic rhinitis, unspecified (8) Tobacco abuse counseling SNOMED Code(s): 170015093, 845471472, [id number] Code(s): Z71.6 - TOBACCO ABUSE COUNSELING Status: Chronic Priority: Medium Current Visit: No Annotation/Comment:: Smoking cessation once again encouraged with information provided at discharge. - Problem List Review Problem List Initiated/Reviewed/Updated: Yes - My Orders Last 24 Hours: My Active Orders 11/12/18 10:49 Peripheral IV Insertion Adult [OM.PC] Routine 11/12/18 10:50 Peripheral IV Care [RC] . DIRECTED Sodium Chloride 0.9% [Saline Flush] 10 ml FLUSH ASDIRECTED PRN Obtain Past Medical Record [OM.] Routine - Assessment/Plan Last 24 Hours: My Active Orders 11/12/18 10:49 Peripheral IV Insertion Adult [OM.PC] Routine 11/12/18 10:50 Peripheral IV Care [RC] . DIRECTED Sodium Chloride 0.9% [Saline Flush] 10 ml FLUSH ASDIRECTED PRN Obtain Past Medical Record [OM.] Routine Assessment:: As above Plan: As above. Extensive precautions were given to the patient and her friend, who are in agreement with the treatment plan. See Patient Instructions for further treatment and plan.
[2018-11-12] MEDS ORDERED: LORazepam 2 MG/ML SDV IVPUSH ONE (10:50)
[2018-11-12] MEDS ORDERED: diphenhydrAMINE 50 MG/ML SDV IVPUSH ONE (10:50)
[2018-11-12] MEDS ORDERED: Sodium Chloride 0.9% 10 ML Syringe FLUSH PRN (10:50)
[2018-11-12] MEDS ORDERED: Ketorolac 30 MG/ML SDV IVPUSH ONE (10:51)
[2018-11-12] MEDS ORDERED: Metoclopramide 10 MG/2 ML SDV IVPUSH ONE (10:51)
== END 2018-11-12 12:15 | disposition home or self-care (01) ==
LOC: LL.ED 10:36
DX: J30.9 Allergic rhinitis, unspecified (principal); J43.1 Panlobular emphysema; F17.210 Nicotine dependence, cigarettes, uncomplicated; F41.8 Other specified anxiety disorders; I10 Essential (primary) hypertension; R51 Headache; Z71.6 Tobacco abuse counseling; Z88.2 Allergy status to sulfonamides; Z79.899 Other long term (current) drug therapy
CPT/HCPCS: 96374; 96375; 99283-25; J1200; J1885; J2060; J2765

== ENCOUNTER 2018-12-28 11:57 | Emergency (ER) | payer BC ==
[2018-12-28 12:08] VITALS: BP 91/54; PULSE 88
--- NOTE | 2018-12-28 12:26 | EDM.PDOC ---
ED HPI GENERAL MEDICAL PROBLEM - General Chief Complaint: Headache Stated Complaint: migraine for two days with emesis Time Seen by Provider: 12/28/18 12:20 Source of Information: Reports: Patient, Old Records ([facility] chart/EMR), Other (Note [facility] EMR reviewed on 11/12/18.) History Limitations: Reports: No Limitations - History of Present Illness INITIAL COMMENTS - FREE TEXT/NARRATIVE: The patient drove herself to the emergency room via private automobile for evaluation of return of throbbing 8/10 diffuse bilateral headache similar to her previous episodes with last ER evaluation this facility on 11/12/18. Her headache is similar to her previous episodes with known history of recurrent refractory bilateral migraine headaches, although these have improved somewhat since last emergency room evaluation with about 5-7 episodes per month at this time. She did see a neurologist/headache specialist in [place] last week and was referred to that facility by her neurosurgeon in [place]. No change in medical therapy at that time with patient receiving an unknown dose of IV magnesium sulfate during that evaluation, however no significant improvement. She continues to remain on her oral high-dose magnesium oxide at this time, which she has been tolerating well. She denies any aura, etc.. No recent history of abdominal pain, heartburn, diarrhea, melena, gross hematochezia, or any food intolerance, including fatty foods, etc. although she does have some nausea consistent with her previous headaches with 6 episodes of emesis since earlier this morning. The patient did take 400 mg of ibuprofen at 7 AM this morning with one dose of 0.25 mg of Xanax also at 8 AM this morning with no improvement of her headache.. The patient also denies any recent fever, cough, wheezing, dyspnea, etc.. No history of recent visual changes, diplopia, change in mental status, or other change in neurological status. Onset: Gradual Onset Date: 12/27/18 Duration: Constant, Getting Worse Location: Reports: Head. Denies: Face, Neck, Chest, Abdomen, Back, Upper Extremity, Left, Upper Extremity, Right, Radiates to Quality: Reports: Same as Previous Episode, Throbbing Severity: Severe Improves with: Reports: None Worsens with: Reports: None Context: Reports: Other (As above). Denies: Sick Contact, Trauma Associated Symptoms: Reports: Headaches, Nausea/Vomiting. Denies: Confusion, Chest Pain, Cough, Diaphoresis, Fever/Chills, Loss of Appetite, Malaise, Seizure , Shortness of Breath, Syncope, Weakness Treatments WEAVER HAND LOOM: Reports: NSAIDS, Other Medication(s) (As above) Headache Pain Score (Numeric/FACES): 8 - Related Data Allergies Allergy/AdvReac Type Severity Reaction Status Date / Time iodine Allergy Severe Anaphylactic Verified 12/28/18 12:27 Shock Sulfa (Sulfonamide Allergy Rash Verified 12/28/18 12:27 Antibiotics) sumatriptan [From Imitrex] Allergy Other Verified 12/28/18 12:27 contrast dye Allergy Difficulty Uncoded 12/28/18 12:27 Breathing Home Meds: Home Meds L.acidoph,Paracasei, B.lactis [Probiotic] 1 each PO DAILY 01/23/18 [History] Ca Carb & Gluc/Mag Ox & Gluc [Calcium Magnesium Caplet] 1,200 mg PO BEDTIME # 100 05/19/18 [Rx] Acetaminophen [Tylenol] 650 mg PO Q4H PRN tablet 06/01/18 [Rx] Magnesium Oxide 400 mg PO BID #60 tablet 06/01/18 [Rx] Ibuprofen [Advil] 400 - 600 mg PO Q6H PRN 06/13/18 [History] Levothyroxine 75 mcg PO VALLADARES@08 08/22/18 [History] Levothyroxine [Synthroid] 50 mcg PO MOTUWETHFRSA@0800 08/22/18 [History] Meclizine [Antivert] 25 mg PO Q6H PRN 08/22/18 [History] Montelukast [Singulair] 10 mg PO BEDTIME PRN 08/22/18 [History] Ranitidine [Zantac] 150 mg PO BEDTIME 08/22/18 [History] Gabapentin [Neurontin] 2 tab PO BEDTIME 08/28/18 [History] Fluticasone Propionate [Flonase] 1 squirt NASBOTH DAILY PRN 09/27/18 [History] Cyclobenzaprine [Flexeril] 5 mg PO TID PRN 30 Days #90 tab 10/01/18 [Rx] Gabapentin [Neurontin] 100 mg PO ASDIRECTED PRN 10/21/18 [History] Cbd Liquid 50 ml PO BID 11/12/18 [History] ALPRAZolam [Alprazolam] 0.25 mg PO Q12H PRN 12/28/18 [History] Past Medical History HEENT History: Reports: Allergic Rhinitis, Impaired Vision, Sinusitis, Other ( See Below). Denies: Cataract, Glaucoma, Hard of Hearing, Macular Degeneration, Otitis Media, Retinal Detachment Other HEENT History: Patient wears reading glasses. Allergic rhinitis/sinusitis with recurrent sinusitis and eustachian tube dysfunction. Nasal septum deviation. Chronic laryngitis. Cardiovascular History: Reports: Aneurysm, Arrhythmia, High Cholesterol, Hypertension, Other (See Below). Denies: Afib, Blood Clots/VTE/DVT, CAD, Heart Failure, Heart Murmur, NV, PVD, Syncope Other Cardiovascular History: Previous hyperlipidemia with no current medical therapy required. Note cerebral aneurysm as below. Bradycardia, repolarization changes versus incomplete right bundle branch block, and multiform PVCs at time of basilar artery leakage on 09/29/15. Symptomatic bradycardia with hypotension and Mobitz type I second-degree A-V block with low-dose beta elissa therapy in April 2018. Intermittent PSVT with previous diltiazem therapy. Respiratory History: Reports: Bronchitis, Recurrent, COPD, Intubation, Previous , Pneumonia, Recurrent, Pulmonary Fibrosis, Other (See Below). Denies: Asthma, Intubation, Difficult, PE, Pneumothorax, Sleep Apnea, TB Other Respiratory History: Benign right lower lobe pulmonary nodules x2 by serial CT scans as below. Gastrointestinal History: Reports: Chronic Diarrhea, Gastritis, GERD, Helicobacter Pylori, Irritable Bowel Syndrome, Other (See Below). Denies: Bowel Obstruction, Celiac Disease, Cholelithiasis, Chronic Constipation, Colon Polyp, Fecal Incontinence, GI Bleed, Hepatitis, Jaundice, Pancreatitis, PUD Other Gastrointestinal History: H. pylori treated in about 2016. Nonspecific dysphagia in 2018. Genitourinary History: Reports: UTI, Recurrent. Denies: Acute Renal Failure, Chronic Renal Insuffiency, Renal Calculus, STD, Urinary Incontinence PRESCHOOL DISABILITY TEACHER History: Reports: . Denies: Dysfunctional Uterine Bleeding, Endometriosis, Fibroids, Spontaneous : 3 Para: 3 LMP (Approximate): Other (See Below) Other PRESCHOOL DISABILITY TEACHER History: Surgical Menopause secondary to cervical cancer at age 29 as below. Full term without complications during pregnancies or deliveries. Musculoskeletal History: Reports: Arthritis, Back Pain, Chronic, Fracture, Neck Pain, Chronic, Osteoarthritis, Osteoporosis, Other (See Below). Denies: Amputation, Gout, RA, SLE Other Musculoskeletal History: Nondisplaced left talar fracture on 08/24/16 with no surgery required. Note patient is currently being followed by pain clinic for chronic pain syndrome and headaches with history of spinal injections, etc. Neurological History: Reports: Cerebral Aneurysms, Headaches, Chronic, Migraines , Neuropathy, Peripheral, Vertigo. 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 Chronic vertigo and headaches. Psychiatric History: Reports: Addiction, Anxiety, Depression, Other (See Below) . Denies: Abuse, Victim of, ADD, ADHD, Hallucinations, Psych Hospitalization(s) , PTSD, Suicide Attempt, Suicidal Ideation Other Psychiatric History: Chronic narcotic and anxiolytic use in the past secondary to chronic pain syndrome, etc. Endocrine/Metabolic History: Reports: Hypothyroidism, Other (See Below). 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 Hypokalemia. Hypoalbuminemia. Hematologic History: Reports: Other (See Below). Denies: Anemia, Blood Transfusion(s), Iron Deficiency Other Hematologic History: Hypomagnesemia. Immunologic History: Reports: None. Denies: AIDS, HIV, SLE Oncologic (Cancer) History: Reports: Basal Cell Carcinoma, Cervix, Other (See Below). Denies: Bladder, Brain, Breast, Colon, Hodgkin's Lymphoma, Leukemia, Lymphoma, Malignant Melanoma, Non-Hodgkin's Lymphoma, Ovarian, Squamous Cell Carcinoma, Thyroid, Uterine Other Oncologic History: Cervical cancer at age 29 with hysterectomy as below with no chemotherapy, etc. Basal cell carcinoma excised from the back region in about 2012. Dermatologic History: Reports: None. Denies: Eczema, Psoriasis - Infectious Disease History Infectious Disease History: Reports: Chicken Pox, Helicobacter Pylori, Influenza. Denies: C-Difficile, Measles, Meningitis, Mononucleosis, MRSA, Mumps , Pertussis (Whooping Cough), Rubella, Scarlet Fever, Shingles, TB, VRE - Past Surgical History Head Surgeries/Procedures: Reports: Other (See Below) Other Head Surgeries/Procedures: Basilar artery coil placement with balloon embolization secondary to leaking basilar artery aneurysm on 10/26/15. HEENT Surgical History: Reports: Oral Surgery, Other (See Below). Denies: Adenoidectomy, Cataract Surgery, Eye Surgery, Laser Surgery, LASIK, Myringotomy w Tube(s), Naso-Sinus Surgery, Tonsillectomy Other HEENT Surgeries/Procedures: Teeth extractions including possible wisdom teeth in the 1980s. Cardiovascular Surgical History: Reports: Aneurysm, Vascular Surgery, Other ( See Below). Denies: Varicose Other Cardiovascular Surgeries/Procedures: Cerebral aneurysm therapy as above Respiratory Surgical History: Reports: None. Denies: Thoracentesis GI Surgical History: Reports: EGD, Other (See Below). Denies: Appendectomy, Cholecystectomy, Colonoscopy, Hernia, Abdominal, Hernia, Inguinal, Hernia Repair /Other, Polypectomy Other GI Surgeries/Procedures: EGD with biopsies on 08/03/18. Female Surgical History: Reports: Breast Biopsy, Breast Implant, Hysterectomy , Salpingo-Oophorectomy, Other (See Below). Denies: D&C Other Female Surgeries/Procedures: Bilateral breast implants at age 32. Complete hysterectomy with bilateral salpingo-oophorectomy secondary to cervical cancer at age 29. Right breast biopsy for benign disease in about 2002. Endocrine Surgical History: Reports: None. Denies: Thyroid Biopsy Neurological Surgical History: Reports: C-Spine, Discectomy, Intracranial, Spinal Fusion, Other (See Below). Denies: Laminectomy, Lumbar Spine, Sacral Spine, Thoracic Spine, Vertebroplasty Other Neurological Surgeries/Procedures: Discectomies and cervical spine fusion from C5 through C7 on 06/07/17. Intracranial surgery as above. Cervical steroid injection on 02/23/17. Musculoskeletal Surgical History: Reports: Other (See Below). Denies: Arthroscopic Knee, Arthroscopic Procedure, Carpal Tunnel, Joint Replacement, ORIF Other Musculoskeletal Surgeries/Procedures:: Right-sided bunionectomy with additional surgery in the first and fifth metatarsals on 02/28/13 Oncologic Surgical History: Reports: Biopsy of Breast, Other (See Below) Other Oncologic Surgeries/Procedures: Breast biopsy for benign disease as above. Excision of basal cell carcinoma from the back region in 2012. Dermatological Surgical History: Reports: Other (See Below) Other Dermatological Surgeries/Procedures: As above - Past Imaging History Past Imaging History: Reports: Angiography (Negative heart catheterization on . Cerebral angiography on 09/25/17, 04/04/16, 10/22/15, 10/06/15, and 09/29/15.) , Cardiac Echo (06/02/17 with ejection fraction of 60% with otherwise normal findings.), CAT Scan (CT of the chest on 08/08/18. CT of the head on 10/23/18, and 05/31/18. CT of the cervical region/soft tissue on 05/19/18. CT of the head on 09/06/18, 01/23/18, 08/31/17, 05/08/17, 12/26/16, and 10/17/15. CT of the chest on 02/20/13, 03/28/12, and 06/23/10. CT of the abdomen and pelvis on .), DEXA Scan (08/22/17.), Holter Monitor (May 2018 at [facility], however records not available?), Mammogram (Last mammogram on 11/20/17.), MRA ( MRA of the head on 05/12/19, 03/31/18, 09/25/17, and 12/26/16.), MRI (MRI of the lumbar spine on 12/26/16. Probable MRI of the brain at the [facility] in 2017 with no records available. MRI of the C-spine on 09/10/18 and 02/02/18. MRI of the lumbar spine on 07/20/17 and 02/23/17.), Stress Testing (Positive Lexiscan Cardiolite stress test on 06/15/18 for mid to distal anterior wall cardiac ischemia with ejection fraction of 72% however negative heart catheterization in May 2018 as above.), Ultrasound (Thyroid ultrasound on 01/25/18 and . Gallbladder ultrasound on 05/27/18.), Venous Doppler (Right leg on 09/29/17.) . Denies: Carotid US Social & Family History - Family History HEENT: Reports: None. Denies: Glaucoma, Macular Degeneration, Retinal Detachment Cardiac: Reports: Aneurysm, Arrhythmia, Other (See Below). Denies: Afib, Blood Clots/VTE/DVT, Cardiomyopathy, Heart Failure, High Cholesterol, Hypertension, NV , PVD/COD, Syncope Other Cardiac Family History: Sister with history of tachycardia of unknown type , hypotension, and cerebral aneurysm. Respiratory: Reports: COPD, Other (See Below). Denies: Asthma, PE, Pneumothorax , Sleep Apnea Other Respiratory Family Hisory: Mother with history of COPD with history of tobacco use. GI: Reports: Celiac Disease, Cholelithiasis, Inflammatory Bowel Disease, Other ( See Below). Denies: Colon Polyps, GERD, GI bleed, Hepatitis, Irritable Bowel Syndrome, Pancreatitis, PUD Other GI Family History: Sister with history of Crohn's disease. Mother with cholelithiasis and celiac disease : Reports: None, UTI, Recurrent. Denies: Renal Calculus, Renal Disease/ Insufficiency OBGYN: Reports: None. Denies: Endometriosis, Recurrent Spontaneous Musculoskeletal: Reports: Arthritis, Osteoarthritis, Other (See Below). Denies : Gout, RA, SLE Other Musculoskeletal Family History: Mother with osteoarthritis. Neurological: Reports: Cerebral Aneurysms, CVA, Other (See Below). Denies: Alzheimers Disease, Dementia, Migraines, MS, Neuropathy, Peripheral, Parkinson's , Seizure, TIA, Vertigo Other Neurological Family History: Maternal grandfather with embolic CVA in his 80s. Sister with cerebral aneurysm as above Psychiatric: Reports: None. Denies: Abuse, Victim of, ADD, ADHD, Anxiety, Depression, Psych Hospitalization(s), PTSD, Suicide Attempt Endocrine/Metabolic: Reports: Hypothyroidism, Other (See Below). Denies: Diabetes, Gestational, Diabetes, Type I, Diabetes, type II, Diabetes Mellitus, Type 3c, IDDM Other Endocrine/Metabolic Family History: Hypothyroidism in mother and sisters 2 Hematologic: Reports: Anemia, Other (See Below). Denies: SLE Other Hematologic Family History: Sister with iron deficiency anemia. Immunologic: Reports: None. Denies: AIDS, HIV, SLE Dermatologic: Reports: None. Denies: Eczema, Psoriasis Oncologic: Reports: Metastatic, Other (See Below). Denies: Brain, Breast, Cervix, Colon, Hodgkin's Lymphoma, Leukemia, Lymphoma, Non-Hodgkin's Lymphoma, Ovarian, Skin, Uterine Other Oncologic Family History: Paternal grandfather with fatal metastatic esophageal cancer in his 80s - Tobacco Use Smoking Status *Q: Current Every Day Smoker Years of Tobacco use: 31 Packs/Tins Daily: 0.5 Packs/Tins Daily Comment: Started smoking at age 17 with maximum use of one pack per day. Used Tobacco, but Quit: No Smoking Cessation Information Provided To Patient: No (Patient already has information at home) Second Hand Smoke Exposure: No Second Hand Smoke Education Provided: No - Caffeine Use Caffeine Use: Reports: Coffee (One cup per day), Soda (1 soda per day). Denies : Energy Drinks, Tea Other Caffeine Use: Patient has restarted caffeine use as above. - Alcohol Use Alcohol Use History: No Days Per Week of Alcohol Use: 0 Number of Drinks Per Day: 0 Number of Drinks Per Day Comment: No previous DWIs, problems with alcohol abuse , etc. Total Drinks Per Week: 0 Alcohol Use in Last Twelve Months: No - Recreational Drug Use Recreational Drug Use: Yes Drug Use in Last 12 Months: No Recreational Drug Type: Reports: Marijuana/Hashish (Experimental at age 45). Denies: Amphetamines (Speed), Cocaine, Heroin, Inhalants (Glues, Solvents, Aerosols), LSD (Acid), Methamphetamine, Morphine, Oxycodone - Sexual History Sexual History: Reports: Single Partner. Denies: Abuse - Living Situation & Occupation Living situation: Reports: (Second in 2007.), (First 2002 with 2 children from that relationship. 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 Patient has been unable to work since she had cervical radiculopathy.) ED ROS GENERAL - Review of Systems Review Of Systems: ROS reveals no pertinent complaints other than HPI. - Physical Exam Exam: See Below Exam Limited By: No Limitations General Appearance: Alert, WD/WN, No Apparent Distress, Anxious (Mild to moderate) Eye Exam: Bilateral Eye: EOMI, Normal Fundi (No nystagmus), Normal Inspection, PERRL Ears: Normal External Exam, Normal Canal, Hearing Grossly Normal, Normal TMs, Other (Stable vascularity of the left superior auricle) Nose: Normal Inspection, Normal Mucosa, No Blood Throat/Mouth: Normal Lips, Normal Teeth, Normal Gums, Normal Voice, No Airway Compromise. No: Normal Oropharynx (Borderline dry oral mucosa), Dysphagia, Perioral Cyanosis Head Exam: Atraumatic, Normocephalic. No: Facial Tenderness, Sinus Tenderness Neck: Normal Inspection, Supple, Non-Tender, Full Range of Motion. No: Lymphadenopathy (L), Lymphadenopathy (R), Thyromegaly Respiratory/Chest: No Respiratory Distress, Lungs Clear, Normal Breath Sounds, No Accessory Muscle Use, Chest Non-Tender. No: Pleural Rub, Retractions Cardiovascular: Normal Peripheral Pulses, Regular Rate, Rhythm, No Edema, No Gallop, No JVD, No Murmur, No Rub. No: Gallop/S3, Gallop/S4 GI/Abdominal: Normal Bowel Sounds, Soft, Non-Tender, No Organomegaly, No Distention, No Abnormal Bruit, No Mass. No: Guarding (Female) Exam: Deferred Rectal (Female) Exam: Deferred Neuro Exam (Abbreviated): Alert, Oriented, CN II-XII Intact, Normal Cognition, Normal Gait, Normal Reflexes (Negative Babinski's), No Motor/Sensory Deficits Back Exam: Normal Inspection, Full Range of Motion. No: CVA Tenderness (L), CVA Tenderness (R), Muscle Spasm Extremities: Normal Inspection, Normal Range of Motion, Non-Tender, No Pedal Edema, Normal Capillary Refill. No: Bay's Sign Psychiatric: Anxious (Mild to moderate), Depressed Mood (Mild to moderate). No : Flat Affect, Tearful Skin Exam: Warm, Dry, Intact, Normal Color, No Rash, Other (Turgor good). No: Diaphoretic, Wound/Incision Course - Vital Signs Last Recorded V/S: Last Vital Signs Temp 36.4 C 12/28/18 11:58 Pulse 88 12/28/18 11:58 Resp 18 12/28/18 11:58 BP 91/54 L 12/28/18 11:58 Pulse Ox 97 12/28/18 11:58 Vital Signs - 24 hr 12/28/18 11:58 Temperature [ 36.4 C Oral] Pulse, 88 Peripheral [ Apical] Respiratory 18 Rate Blood Pressure 91/54 L [Right Upper Arm] O2 Sat by Pulse 97 Oximetry - Orders/Labs/Meds Orders: Active Orders 24 hr Category Date Time Status Peripheral IV Care [RC] . DIRECTED Care 12/28/18 12:29 Active Sodium Chloride 0.9% [Saline Flush] Med 12/28/18 12:28 Active 10 ml FLUSH ASDIRECTED PRN Obtain Past Medical Record [OM.PC] Routine Oth 12/28/18 12:28 Active Peripheral IV Insertion Adult [OM.PC] Routine Oth 12/28/18 12:28 Ordered Medication Orders Sodium Chloride (Saline Flush) 10 ml FLUSH ASDIRECTED PRN PRN Reason: Keep Vein Open Last Admin: 12/28/18 12:41 Dose: 10 ml Labs: None Meds: Medications Generic Name Dose Route Start Last Admin Trade Name Freq PRN Reason Stop Dose Admin Sodium Chloride 10 ml 12/28/18 12:28 12/28/18 12:41 Saline Flush FLUSH 10 ml ASDIRECTED PRN Administration Keep Vein Open Discontinued Medications Generic Name Dose Route Start Last Admin Trade Name Freq PRN Reason Stop Dose Admin Diphenhydramine HCl 50 mg 12/28/18 12:29 12/28/18 12:41 Benadryl IVPUSH 12/28/18 12:30 50 mg ONETIME ONE Administration Lactated Ringer's 1,000 mls @ 999 mls/hr 12/28/18 12:42 12/28/18 12:48 Ringers, Lactated IV 12/28/18 13:42 999 mls/hr .BOLUS ONE Administration Ketorolac Tromethamine 30 mg 12/28/18 12:28 12/28/18 12:40 Toradol IVPUSH 12/28/18 12:29 30 mg ONETIME ONE Administration Lorazepam 1 mg 12/28/18 12:30 12/28/18 12:41 Ativan IVPUSH 12/28/18 12:31 1 mg ONETIME ONE Administration Metoclopramide HCl 10 mg 12/28/18 12:30 12/28/18 12:40 Reglan IVPUSH 12/28/18 12:31 10 mg ONETIME ONE Administration - Radiology Interpretation Free Text/Narrative:: None Departure - Departure Time of Disposition: 14:30 Disposition: Home, Self-Care 01 Condition: Good Clinical Impression: Mixed anxiety depressive disorder, Tobacco abuse counseling, Peptic reflux disease, Migraine, Dehydration COPD (chronic obstructive pulmonary disease) Qualifiers: COPD type: emphysema Emphysema type: panlobular Qualified Code(s): J43.1 - Panlobular emphysema Hypertension Qualifiers: Hypertension type: essential hypertension Qualified Code(s): I10 - Essential ( primary) hypertension Osteoarthritis Qualifiers: Osteoarthritis location: multiple joints Osteoarthritis type: primary Qualified Code(s): M15.0 - Primary generalized (osteo)arthritis - Discharge Information *PRESCRIPTION DRUG MONITORING PROGRAM REVIEWED*: Not Applicable *COPY OF PRESCRIPTION DRUG MONITORING REPORT IN PATIENT TIEN: Not Applicable Instructions: Diphenhydramine injection, Metoclopramide injection, Ketorolac injection, Lorazepam injection Referrals: PCP,Unknown [Ordering Only Provider] - Forms: ED Department Discharge Additional Instructions: 1. Followup with your regular provider in 7-10 days as directed. Bring these discharge instructions with you to that visit. 2. Tylenol 650 mg by mouth every 4 hours and/or OTC ibuprofen 2-3 tabs by mouth every 6 hours with food as directed./needed. You may stagger these medications for 48-72 hours only, which essentially means that you are receiving a pain medication about every 2 hours. Next dose of ibuprofen in 6 hours as needed secondary to medications given in the emergency room 3. Sedation precautions with no driving, etc. for 18 hours because of emergency room medications. 4. Discuss recent neurology consultation and recommendations from your neurologist in [place] with your primary provider at the above follow-up visit 5. In addition, discuss possibility of additional antidepressant/antianxiety medications as treatment for your chronic headaches and current stressors with your regular provider at the above follow-up as discussed today and during previous emergency room evaluations. 6. Immediately after this visit verify that your cellular telephone's voicemail has been activated and is empty. Also verify that your home telephone 's answering machine is operating properly and has space to receive messages. Note that it is sometimes necessary for us to be able to contact you at a later date to discuss your medical care. 7. Please remember that we are ALWAYS here for you and want to answer any questions you may have. Feel free to call the hospital any time and we call you back [facility]. - Problem List & Annotations (1) Migraine SNOMED Code(s): 72415700 Status: Chronic Priority: Medium Current Visit: Yes Onset Date: ~ Annotation/Comment:: Overall good results with aggressive treatment as above. Continue close follow-up by her pain clinic, neurologist/neurosurgeon in [place], neurologist in [place], primary provider, etc. Note previous history of leaking basal cerebral aneurysm with coil placement as above with no neurological deficits noted today. Additional multi-factorial etiology of patient's chronic headaches, including previous aneurysm, anxiety depression disorder, chronic neck pain with previous cervical fusion, etc. The patient also has a history of bilateral silicone breast implants. Consideration of removing the silicone implants were discussed with the patient today, although likely low probability of helping her chronic headaches at this time. Sedation precautions given. (2) Dehydration SNOMED Code(s): 60201669 Code(s): E86.0 - DEHYDRATION Status: Acute Priority: High Current Visit : Yes Onset Date: 12/28/18 Annotation/Comment:: Borderline dehydration today secondary to recurrent nausea and emesis. IV fluids given as above. (3) Peptic reflux disease SNOMED Code(s): 264403038 Code(s): K21.9 - GASTRO-ESOPHAGEAL REFLUX DISEASE WITHOUT ESOPHAGITIS Status: Chronic Priority: Medium Current Visit: Yes Onset Date: 03/05/18 Annotation/Comment:: Stable by history with current medical therapy. IV Reglan given for migraine treatment and her nausea/emesis with good results. (4) COPD (chronic obstructive pulmonary disease) SNOMED Code(s): 39701291 Status: Chronic Priority: Medium Current Visit: Yes Annotation/Comment: : No recent fever or bronchitic type symptoms. PFTs on an outpatient basis may still be of some benefit, however no current medical therapy. Tobacco cessation once again strongly encouraged. Qualifiers: COPD type: emphysema Emphysema type: panlobular Qualified Code(s): J43.1 - Panlobular emphysema (5) Hypertension SNOMED Code(s): 87003811 Status: Chronic Priority: Medium Current Visit: Yes Annotation/Comment: : Blood pressures stable in the emergency room with previous history of hypotension and stable somewhat low blood pressures today. Note IV fluids given as above. Qualifiers: Hypertension type: essential hypertension Qualified Code(s): I10 - Essential (primary) hypertension (6) Mixed anxiety depressive disorder SNOMED Code(s): 301258018 Code(s): F41.8 - OTHER SPECIFIED ANXIETY DISORDERS Status: Chronic Priority: High Current Visit: Yes Annotation/Comment:: The patient is still awaiting psychiatric referral with no appointment at this time. During the last ER evaluations with sd on 11/12/18 and 10/23/18 the patient and her did agree to discuss possible psychiatric referral, counseling etc. with her regular provider, pain clinic, etc. The patient may benefit from initiation of Celexa therapy. Emotional support provided. (7) Osteoarthritis SNOMED Code(s): 982830984 Code(s): M19.90 - UNSPECIFIED OSTEOARTHRITIS, UNSPECIFIED SITE Status: Chronic Priority: Medium Current Visit: Yes Annotation/Comment:: Stable by history Qualifiers: Osteoarthritis location: multiple joints Osteoarthritis type: primary Qualified Code(s): M15.0 - Primary generalized (osteo)arthritis (8) Tobacco abuse counseling SNOMED Code(s): 279430552, 222509701, 941440050 Code(s): Z71.6 - TOBACCO ABUSE COUNSELING Status: Chronic Priority: Medium Current Visit: Yes Annotation/Comment:: Smoking cessation once again encouraged with the patient already having information at home. (9) Hypothyroidism SNOMED Code(s): 10219742 Status: Chronic Priority: High Current Visit: No Annotation/Comment:: She was previously evaluated for possible Whitney's disease by her early childhood aide classroom at [facility] in [place], however no definite conclusion. Continue close follow-up by her regular provider with current thyroid supplementation. - Problem List Review Problem List Initiated/Reviewed/Updated: Yes - My Orders Last 24 Hours: My Active Orders 12/28/18 12:28 Sodium Chloride 0.9% [Saline Flush] 10 ml FLUSH ASDIRECTED PRN Obtain Past Medical Record [OM.PC] Routine Peripheral IV Insertion Adult [OM.PC] Routine 12/28/18 12:29 Peripheral IV Care [RC] . DIRECTED - Assessment/Plan Last 24 Hours: My Active Orders 12/28/18 12:28 Sodium Chloride 0.9% [Saline Flush] 10 ml FLUSH ASDIRECTED PRN Obtain Past Medical Record [OM.PC] Routine Peripheral IV Insertion Adult [OM.PC] Routine 12/28/18 12:29 Peripheral IV Care [RC] . DIRECTED Assessment:: As above Plan: As above. Extensive precautions were given to the patient, who is in agreement with the treatment plan. See Patient Instructions for further treatment and plan. A family friend or her plan to drive the patient home after completion of today's visit.
[2018-12-28] MEDS ORDERED: Sodium Chloride 0.9% 10 ML Syringe FLUSH PRN (12:28)
[2018-12-28] MEDS ORDERED: Ketorolac 30 MG/ML SDV IVPUSH ONE (12:28)
[2018-12-28] MEDS ORDERED: diphenhydrAMINE 50 MG/ML SDV IVPUSH ONE (12:29)
[2018-12-28] MEDS ORDERED: LORazepam 2 MG/ML SDV IVPUSH ONE (12:30)
[2018-12-28] MEDS ORDERED: Metoclopramide 10 MG/2 ML SDV IVPUSH ONE (12:30)
[2018-12-28] MEDS ORDERED: Lactated Ringers 1,000 ML IV ONE (12:42)
== END 2018-12-28 14:30 | disposition home or self-care (01) ==
LOC: LL.ED 11:57
DX: G43.909 Migraine, unspecified, not intractable, without status migrainosus (principal); F41.8 Other specified anxiety disorders; J43.1 Panlobular emphysema; I10 Essential (primary) hypertension; M15.0 Primary generalized (osteo)arthritis; K21.9 Gastro-esophageal reflux disease without esophagitis; E86.0 Dehydration; Z71.6 Tobacco abuse counseling; F17.210 Nicotine dependence, cigarettes, uncomplicated; E03.9 Hypothyroidism, unspecified; Z91.09 Other allergy status, other than to drugs and biological substances; Z88.2 Allergy status to sulfonamides; Z91.041 Radiographic dye allergy status; Z88.8 Allergy status to other drugs, medicaments and biological substances; Z79.899 Other long term (current) drug therapy
CPT/HCPCS: 96360; 96374; 99283; J1200; J1885; J2060; J2765; J7120

== ENCOUNTER 2019-01-17 16:16 | Emergency (ER) | payer BC ==
[2019-01-17 16:26] VITALS: BP 119/77
--- NOTE | 2019-01-17 16:52 | EDM.PDOC ---
ED HPI GENERAL MEDICAL PROBLEM - General Chief Complaint: General Stated Complaint: Rib Pain Time Seen by Provider: 01/17/19 16:30 Source of Information: Reports: Patient History Limitations: Reports: No Limitations - History of Present Illness INITIAL COMMENTS - FREE TEXT/NARRATIVE: She is seen in the emergency department for evaluation of pain in left rib cage. She saw the chiropractor yesterday and he used an 'activator' over the rib cage, and she felt a sudden sharp pain in the left lateral upper rib cage. [place] like the rib snapped. Increased pain with deep inspiration and especially with valsalva. No shortness of breath. Currently on Levoquin for a kidney infection, and that is feeling better. No fever or chills. No cough. Left Rib Pain Score (Numeric/FACES): 10 - Related Data Allergies Allergy/AdvReac Type Severity Reaction Status Date / Time iodine Allergy Severe Anaphylactic Verified 12/28/18 12:27 Shock Sulfa (Sulfonamide Allergy Rash Verified 12/28/18 12:27 Antibiotics) sumatriptan [From Imitrex] Allergy Other Verified 12/28/18 12:27 contrast dye Allergy Difficulty Uncoded 12/28/18 12:27 Breathing Home Meds: Home Meds L.acidoph,Paracasei, B.lactis [Probiotic] 1 each PO DAILY 01/23/18 [History] Ca Carb & Gluc/Mag Ox & Gluc [Calcium Magnesium Caplet] 1,200 mg PO BEDTIME # 100 05/19/18 [Rx] Acetaminophen [Tylenol] 650 mg PO Q4H PRN tablet 06/01/18 [Rx] Magnesium Oxide 400 mg PO BID #60 tablet 06/01/18 [Rx] Ibuprofen [Advil] 400 - 600 mg PO Q6H PRN 06/13/18 [History] Levothyroxine 75 mcg PO VALLADARES@08 08/22/18 [History] Levothyroxine [Synthroid] 50 mcg PO MOTUWETHFRSA@0800 08/22/18 [History] Meclizine [Antivert] 25 mg PO Q6H PRN 08/22/18 [History] Montelukast [Singulair] 10 mg PO BEDTIME PRN 08/22/18 [History] Ranitidine [Zantac] 150 mg PO BEDTIME 08/22/18 [History] Gabapentin [Neurontin] 2 tab PO BEDTIME 08/28/18 [History] Fluticasone Propionate [Flonase] 1 squirt NASBOTH DAILY PRN 09/27/18 [History] Cyclobenzaprine [Flexeril] 5 mg PO TID PRN 30 Days #90 tab 10/01/18 [Rx] Gabapentin [Neurontin] 100 mg PO ASDIRECTED PRN 10/21/18 [History] Cbd Liquid 50 ml PO BID 11/12/18 [History] ALPRAZolam [Alprazolam] 0.25 mg PO Q12H PRN 12/28/18 [History] Past Medical History HEENT History: Reports: Allergic Rhinitis, Impaired Vision, Sinusitis, Other ( See Below) Other HEENT History: Patient wears reading glasses. Allergic rhinitis/sinusitis with recurrent sinusitis and eustachian tube dysfunction. Nasal septum deviation. Chronic laryngitis. Cardiovascular History: Reports: Aneurysm, Arrhythmia, High Cholesterol, Hypertension, Other (See Below) Other Cardiovascular History: Previous hyperlipidemia with no current medical therapy required. Note cerebral aneurysm as below. Bradycardia, repolarization changes versus incomplete right bundle branch block, and multiform PVCs at time of basilar artery leakage on 09/29/15. Symptomatic bradycardia with hypotension and Mobitz type I second-degree A-V block with low-dose beta elissa therapy in April 2018. Intermittent PSVT with previous diltiazem therapy. Respiratory History: Reports: Bronchitis, Recurrent, COPD, Intubation, Previous , Pneumonia, Recurrent, Pulmonary Fibrosis, Other (See Below) Other Respiratory History: Benign right lower lobe pulmonary nodules x2 by serial CT scans as below. Gastrointestinal History: Reports: Chronic Diarrhea, Gastritis, GERD, Helicobacter Pylori, Irritable Bowel Syndrome, Other (See Below) Other Gastrointestinal History: H. pylori treated in about 2015. Nonspecific dysphagia in 2018. 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 Full term without complications during pregnancies or deliveries. Musculoskeletal History: Reports: Arthritis, Back Pain, Chronic, Fracture, Neck Pain, Chronic, Osteoarthritis, Osteoporosis, Other (See Below) Other Musculoskeletal History: Nondisplaced left talar fracture on 08/24/16 with no surgery required. Note patient is currently being followed by pain clinic for chronic pain syndrome and headaches with history of spinal injections, etc. 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 Chronic vertigo and headaches. Psychiatric History: Reports: Anxiety, Depression Other Psychiatric History: Chronic narcotic and anxiolytic use in the past secondary to chronic pain syndrome, etc. 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 Hypokalemia. Hypoalbuminemia. Hematologic History: Reports: Other (See Below) Other Hematologic History: Hypomagnesemia. Immunologic History: Reports: None Oncologic (Cancer) History: Reports: Basal Cell Carcinoma, Cervix, Other (See Below) Other Oncologic History: Cervical cancer at age 29 with hysterectomy as below with no chemotherapy, etc. Basal cell carcinoma excised from the back region in about 2012. Dermatologic History: Reports: None - Infectious Disease History Infectious Disease History: Reports: Chicken Pox, Helicobacter Pylori, Influenza - Past Surgical History Head Surgeries/Procedures: Reports: Other (See Below) HEENT Surgical History: Reports: Oral Surgery, Other (See Below) Other HEENT Surgeries/Procedures: Teeth extractions including possible wisdom teeth in the . Cardiovascular Surgical History: Reports: Aneurysm, Vascular Surgery, Other ( See Below) Other Cardiovascular Surgeries/Procedures: Cerebral aneurysm therapy as above Respiratory Surgical History: Reports: None GI Surgical History: Reports: EGD, Other (See Below) Other GI Surgeries/Procedures: EGD with biopsies on 08/03/18. Female Surgical History: Reports: Breast Biopsy, Breast Implant, Hysterectomy , Salpingo-Oophorectomy, Other (See Below) Other Female Surgeries/Procedures: Bilateral breast implants at age 32. Complete hysterectomy with bilateral salpingo-oophorectomy secondary to cervical cancer at age 29. Right breast biopsy for benign disease in about 2002. Endocrine Surgical History: Reports: None Neurological Surgical History: Reports: C-Spine, Discectomy, Intracranial, Spinal Fusion, Other (See Below) Other Neurological Surgeries/Procedures: Discectomies and cervical spine fusion from C5 through C7 on 06/07/17. Intracranial surgery as above. Cervical steroid injection on 02/23/17. Musculoskeletal Surgical History: Reports: Other (See Below) Other Musculoskeletal Surgeries/Procedures:: Right-sided bunionectomy with additional surgery in the first and fifth metatarsals on 02/28/13 Oncologic Surgical History: Reports: Biopsy of Breast, Other (See Below) Other Oncologic Surgeries/Procedures: Breast biopsy for benign disease as above. Excision of basal cell carcinoma from the back region in 2013. Dermatological Surgical History: Reports: Other (See Below) - Past Imaging History Past Imaging History: Reports: Angiography (Negative heart catheterization on . Cerebral angiography on 09/25/17, 04/04/16, 10/22/15, 10/06/15, and 09/29/15.) , Cardiac Echo (06/02/17 with ejection fraction of 60% with otherwise normal findings.), CAT Scan (CT of the chest on 08/08/18. CT of the head on 10/23/18, and 05/31/18. CT of the cervical region/soft tissue on 05/19/18. CT of the head on 09/06/18, 01/23/18, 08/31/17, 05/08/17, 12/26/16, and 10/17/15. CT of the chest on 02/20/13, 03/28/12, and 06/23/10. CT of the abdomen and pelvis on .), DEXA Scan (08/22/17.), Holter Monitor (May 2018 at [facility], however records not available?), Mammogram (Last mammogram on 11/20/17.), MRA ( MRA of the head on 05/12/19, 03/31/18, 09/25/17, and 12/26/16.), MRI (MRI of the lumbar spine on 12/26/16. Probable MRI of the brain at the [facility] in 2017 with no records available. MRI of the C-spine on 09/10/18 and 02/02/18. MRI of the lumbar spine on 07/20/17 and 02/23/17.), Stress Testing (Positive Lexiscan Cardiolite stress test on 06/15/18 for mid to distal anterior wall cardiac ischemia with ejection fraction of 72% however negative heart catheterization in May 2018 as above.), Ultrasound (Thyroid ultrasound on 01/25/18 and . Gallbladder ultrasound on 05/27/18.), Venous Doppler (Right leg on 09/29/17.) . Denies: Carotid US Social & Family History - Family History HEENT: Reports: None Cardiac: Reports: Aneurysm, Arrhythmia, Other (See Below) Other Cardiac Family History: Sister with history of tachycardia of unknown type , hypotension, and cerebral aneurysm. Respiratory: Reports: COPD, Other (See Below) Other Respiratory Family Hisory: Mother with history of COPD with history of tobacco use. GI: Reports: Celiac Disease, Cholelithiasis, Inflammatory Bowel Disease, Other ( See Below) Other GI Family History: Sister with history of Crohn's disease. Mother with cholelithiasis and celiac disease : Reports: None, UTI, Recurrent OBGYN: Reports: None Musculoskeletal: Reports: Arthritis, Osteoarthritis, Other (See Below) Other Musculoskeletal Family History: Mother with osteoarthritis. Neurological: Reports: Cerebral Aneurysms, CVA, Other (See Below) Other Neurological Family History: Maternal grandfather with embolic CVA in his 80s. Sister with cerebral aneurysm as above Psychiatric: Reports: None Endocrine/Metabolic: Reports: Hypothyroidism, Other (See Below) Other Endocrine/Metabolic Family History: Hypothyroidism in mother and sisters 2 Hematologic: Reports: Anemia, Other (See Below) Other Hematologic Family History: Sister with iron deficiency anemia. Immunologic: Reports: None Dermatologic: Reports: None Oncologic: Reports: Metastatic, Other (See Below) Other Oncologic Family History: Paternal grandfather with fatal metastatic esophageal cancer in his 80s - Caffeine Use Caffeine Use: Reports: Coffee, Soda Other Caffeine Use: Patient has restarted caffeine use as above. - Sexual History Sexual History: Reports: Single Partner. Denies: Abuse - Living Situation & Occupation Living situation: Reports: (Second in 2007.), (First 2002 with 2 children from that relationship. 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 Patient has been unable to work since she had cervical radiculopathy.) ED ROS GENERAL - Review of Systems Review Of Systems: See Below Constitutional: Reports: No Symptoms HEENT: Reports: No Symptoms Respiratory: Reports: Pleuritic Chest Pain. Denies: Shortness of Breath, Cough , Sputum Cardiovascular: Reports: Chest Pain (Left lateral rib cage). Denies: Palpitations Endocrine: Reports: No Symptoms GI/Abdominal: Denies: Abdominal Pain, Diarrhea, Vomiting : Reports: No Symptoms Musculoskeletal: Reports: No Symptoms Skin: Reports: No Symptoms Neurological: Reports: No Symptoms Psychiatric: Reports: No Symptoms Hematologic/Lymphatic: Reports: No Symptoms Immunologic: Reports: No Symptoms ED EXAM, GENERAL - Physical Exam Exam: See Below Exam Limited By: No Limitations General Appearance: Alert, WD/WN, No Apparent Distress Respiratory/Chest: No Respiratory Distress, Lungs Clear, Normal Breath Sounds, No Accessory Muscle Use, Other (Sharp localized tenderness in the left lateral rib cage at the inferior border of the axilla. Mild surrounding tenderness. No palpable defect. No palpable crepitus.) Cardiovascular: Regular Rate, Rhythm, No Edema, No Murmur Course - Vital Signs Last Recorded V/S: Last Vital Signs Temp 36.7 C 01/17/19 16:20 Pulse 91 01/17/19 16:20 Resp 16 01/17/19 16:20 BP 119/77 01/17/19 16:20 Pulse Ox 99 01/17/19 16:20 Departure - Departure Time of Disposition: 16:45 Disposition: Home, Self-Care 01 Condition: Good Clinical Impression: Rib pain on left side - Discharge Information Instructions: Incentive Spirometer, Rib Fracture, Rib Contusion Referrals: Chloe Zavala SUPERVISOR [employer]ARNISH [Primary Care Provider] - Forms: ED Department Discharge Care Plan Goals: Ice the ribs for 15 minutes 3-4 times daily. Ibuprofen 800 mg three times daily with food for 5-7 days. Follow up with any worsening shortness of breath. - Problem List & Annotations (1) Rib pain on left side SNOMED Code(s): 100424860 Code(s): R07.81 - PLEURODYNIA Status: Acute - Assessment/Plan Plan: Discussed findings and treatment options. Ice the ribs for 15 minutes 3-4 times daily. Ibuprofen 800 mg three times daily with food for 5-7 days. Follow up with any worsening shortness of breath.
== END 2019-01-17 16:55 | disposition home or self-care (01) ==
LOC: LL.ED 16:16
DX: R07.81 Pleurodynia (principal); E03.9 Hypothyroidism, unspecified; I10 Essential (primary) hypertension; J44.9 Chronic obstructive pulmonary disease, unspecified; K21.9 Gastro-esophageal reflux disease without esophagitis; F41.9 Anxiety disorder, unspecified; F32.9 Major depressive disorder, single episode, unspecified; Z85.41 Personal history of malignant neoplasm of cervix uteri; Z91.048 Other nonmedicinal substance allergy status; Z88.2 Allergy status to sulfonamides; Z91.041 Radiographic dye allergy status; Z88.8 Allergy status to other drugs, medicaments and biological substances; Z79.899 Other long term (current) drug therapy
CPT/HCPCS: 99283

== ENCOUNTER 2019-03-19 12:18 | Emergency (ER) | payer BC ==
[2019-03-19 12:32] VITALS: BP 142/92; PULSE 91
[2019-03-19] MEDS ORDERED: Pantoprazole 40 MG Vial IVPUSH ONE (13:06)
[2019-03-19] MEDS ORDERED: Famotidine 20 MG/2 ML SDV IVPUSH ONE (13:06)
[2019-03-19] MEDS ORDERED: LORazepam 2 MG/ML SDV IVPUSH ONE (13:09)
--- NOTE | 2019-03-19 13:11 | EDM.PDOC ---
ED HPI GENERAL MEDICAL PROBLEM - General Chief Complaint: Gastrointestinal Problem Stated Complaint: black tarry stools Time Seen by Provider: 03/19/19 12:38 Source of Information: Reports: Patient History Limitations: Reports: No Limitations - History of Present Illness INITIAL COMMENTS - FREE TEXT/NARRATIVE: Patient reports right sided abdominal discomfort for approx 5 days. Gradually worsening. Much more sharp today. No fevers/chills. Hx of Celiac. Today darker stool/stringy consistency. Several episodes emesis yesterday, non- bloody. Has nausea today but no emesis. Pain has been more in the RUQ area. Still has GB and appendix. Has not had colonoscopy in past. Right Upper Abdomen Pain Score (Numeric/FACES): 8 - Related Data Allergies Allergy/AdvReac Type Severity Reaction Status Date / Time iodine Allergy Severe Anaphylactic Verified 03/19/19 13:02 Shock Sulfa (Sulfonamide Allergy Rash Verified 03/19/19 13:02 Antibiotics) sumatriptan [From Imitrex] Allergy Other Verified 03/19/19 13:02 contrast dye Allergy Difficulty Uncoded 03/19/19 13:02 Breathing Home Meds: Home Meds L.acidoph,Paracasei, B.lactis [Probiotic] 1 each PO DAILY 01/23/18 [History] Ca Carb & Gluc/Mag Ox & Gluc [Calcium Magnesium Caplet] 1,200 mg PO BEDTIME # 100 05/19/18 [Rx] Acetaminophen [Tylenol] 650 mg PO Q4H PRN tablet 06/01/18 [Rx] Magnesium Oxide 400 mg PO BID #60 tablet 06/01/18 [Rx] Ibuprofen [Advil] 400 - 600 mg PO Q6H PRN 06/13/18 [History] Levothyroxine 75 mcg PO VALLADARES@08 08/22/18 [History] Levothyroxine [Synthroid] 50 mcg PO MOTUWETHFRSA@0800 08/22/18 [History] Meclizine [Antivert] 25 mg PO Q6H PRN 08/22/18 [History] Montelukast [Singulair] 10 mg PO BEDTIME PRN 08/22/18 [History] Ranitidine [Zantac] 150 mg PO BEDTIME 08/22/18 [History] Fluticasone Propionate [Flonase] 1 squirt NASBOTH DAILY PRN 09/27/18 [History] Cyclobenzaprine [Flexeril] 5 mg PO TID PRN 30 Days #90 tab 10/01/18 [Rx] Cbd Liquid 50 ml PO BID 11/12/18 [History] ALPRAZolam [Alprazolam] 0.25 mg PO Q12H PRN 12/28/18 [History] Past Medical History HEENT History: Reports: Allergic Rhinitis, Impaired Vision, Sinusitis, Other ( See Below) Other HEENT History: Patient wears reading glasses. Allergic rhinitis/sinusitis with recurrent sinusitis and eustachian tube dysfunction. Nasal septum deviation. Chronic laryngitis. Cardiovascular History: Reports: Aneurysm, Arrhythmia, High Cholesterol, Hypertension, Other (See Below) Other Cardiovascular History: Previous hyperlipidemia with no current medical therapy required. Note cerebral aneurysm as below. Bradycardia, repolarization changes versus incomplete right bundle branch block, and multiform PVCs at time of basilar artery leakage on 09/29/15. Symptomatic bradycardia with hypotension and Mobitz type I second-degree A-V block with low-dose beta elissa therapy in April 2018. Intermittent PSVT with previous diltiazem therapy. Respiratory History: Reports: Bronchitis, Recurrent, COPD, Intubation, Previous , Pneumonia, Recurrent, Pulmonary Fibrosis, Other (See Below) Other Respiratory History: Benign right lower lobe pulmonary nodules x2 by serial CT scans as below. Gastrointestinal History: Reports: Celiac Disease, Chronic Diarrhea, Gastritis, GERD, Helicobacter Pylori, Irritable Bowel Syndrome, Other (See Below) Other Gastrointestinal History: H. pylori treated in about 2016. Nonspecific dysphagia in 2018. Genitourinary History: Reports: UTI, Recurrent GLYCERIN SUPERVISOR History: Reports: Other GLYCERIN SUPERVISOR History: Surgical Menopause secondary to cervical cancer at age 29 as below. Full term without complications during pregnancies or deliveries. Musculoskeletal History: Reports: Arthritis, Back Pain, Chronic, Fracture, Neck Pain, Chronic, Osteoarthritis, Osteoporosis, Other (See Below) Other Musculoskeletal History: Nondisplaced left talar fracture on 08/24/16 with no surgery required. Note patient is currently being followed by pain clinic for chronic pain syndrome and headaches with history of spinal injections, etc. 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 Chronic vertigo and headaches. Psychiatric History: Reports: Anxiety, Depression Other Psychiatric History: Chronic narcotic and anxiolytic use in the past secondary to chronic pain syndrome, etc. 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 Hypokalemia. Hypoalbuminemia. Hematologic History: Reports: Other (See Below) Other Hematologic History: Hypomagnesemia. Immunologic History: Reports: None Oncologic (Cancer) History: Reports: Basal Cell Carcinoma, Cervix, Other (See Below) Other Oncologic History: Cervical cancer at age 29 with hysterectomy as below with no chemotherapy, etc. Basal cell carcinoma excised from the back region in about 2012. Dermatologic History: Reports: None - Infectious Disease History Infectious Disease History: Reports: Chicken Pox, Helicobacter Pylori, Influenza - Past Surgical History Head Surgeries/Procedures: Reports: Other (See Below) HEENT Surgical History: Reports: Oral Surgery, Other (See Below) Other HEENT Surgeries/Procedures: Teeth extractions including possible wisdom teeth in the . Cardiovascular Surgical History: Reports: Aneurysm, Vascular Surgery, Other ( See Below) Other Cardiovascular Surgeries/Procedures: Cerebral aneurysm therapy as above Respiratory Surgical History: Reports: None GI Surgical History: Reports: EGD, Other (See Below) Other GI Surgeries/Procedures: EGD with biopsies on 08/03/18. Dx with Celiac disease on 03/18/19. Female Surgical History: Reports: Breast Biopsy, Breast Implant, Hysterectomy , Salpingo-Oophorectomy, Other (See Below) Other Female Surgeries/Procedures: Bilateral breast implants at age 32. Complete hysterectomy with bilateral salpingo-oophorectomy secondary to cervical cancer at age 29. Right breast biopsy for benign disease in about 2002. Endocrine Surgical History: Reports: None Neurological Surgical History: Reports: C-Spine, Discectomy, Intracranial, Spinal Fusion, Other (See Below) Other Neurological Surgeries/Procedures: Discectomies and cervical spine fusion from C5 through C7 on 06/07/17. Intracranial surgery as above. Cervical steroid injection on 02/23/17. Musculoskeletal Surgical History: Reports: Other (See Below) Other Musculoskeletal Surgeries/Procedures:: Right-sided bunionectomy with additional surgery in the first and fifth metatarsals on 02/28/13 Oncologic Surgical History: Reports: Biopsy of Breast, Other (See Below) Other Oncologic Surgeries/Procedures: Breast biopsy for benign disease as above. Excision of basal cell carcinoma from the back region in 2013. Dermatological Surgical History: Reports: Other (See Below) - Past Imaging History Past Imaging History: Reports: Angiography (Negative heart catheterization on . Cerebral angiography on 09/25/17, 04/04/16, 10/22/15, 10/06/15, and 09/29/15.) , Cardiac Echo (06/02/17 with ejection fraction of 60% with otherwise normal findings.), CAT Scan (CT of the chest on 08/08/18. CT of the head on 10/23/18, and 05/31/18. CT of the cervical region/soft tissue on 05/19/18. CT of the head on 09/06/18, 01/23/18, 08/31/17, 05/08/17, 12/26/16, and 10/17/15. CT of the chest on 02/20/13, 03/28/12, and 06/23/10. CT of the abdomen and pelvis on .), DEXA Scan (08/22/17.), Holter Monitor (May 2018 at [facility], however records not available?), Mammogram (Last mammogram on 11/20/17.), MRA ( MRA of the head on 05/12/19, 03/31/18, 09/25/17, and 12/26/16.), MRI (MRI of the lumbar spine on 12/26/16. Probable MRI of the brain at the [facility] in 2017 with no records available. MRI of the C-spine on 09/10/18 and 02/02/18. MRI of the lumbar spine on 07/20/17 and 02/23/17.), Stress Testing (Positive Lexiscan Cardiolite stress test on 06/15/18 for mid to distal anterior wall cardiac ischemia with ejection fraction of 72% however negative heart catheterization in May 2018 as above.), Ultrasound (Thyroid ultrasound on 01/25/18 and . Gallbladder ultrasound on 05/27/18.), Venous Doppler (Right leg on 09/29/17.) . Denies: Carotid US Social & Family History - Family History HEENT: Reports: None Cardiac: Reports: Aneurysm, Arrhythmia, Other (See Below) Other Cardiac Family History: Sister with history of tachycardia of unknown type , hypotension, and cerebral aneurysm. Respiratory: Reports: COPD, Other (See Below) Other Respiratory Family Hisory: Mother with history of COPD with history of tobacco use. GI: Reports: Celiac Disease, Cholelithiasis, Inflammatory Bowel Disease, Other ( See Below) Other GI Family History: Sister with history of Crohn's disease. Mother with cholelithiasis and celiac disease : Reports: None, UTI, Recurrent OBGYN: Reports: None Musculoskeletal: Reports: Arthritis, Osteoarthritis, Other (See Below) Other Musculoskeletal Family History: Mother with osteoarthritis. Neurological: Reports: Cerebral Aneurysms, CVA, Other (See Below) Other Neurological Family History: Maternal grandfather with embolic CVA in his 80s. Sister with cerebral aneurysm as above Psychiatric: Reports: None Endocrine/Metabolic: Reports: Hypothyroidism, Other (See Below) Other Endocrine/Metabolic Family History: Hypothyroidism in mother and sisters 2 Hematologic: Reports: Anemia, Other (See Below) Other Hematologic Family History: Sister with iron deficiency anemia. Immunologic: Reports: None Dermatologic: Reports: None Oncologic: Reports: Metastatic, Other (See Below) Other Oncologic Family History: Paternal grandfather with fatal metastatic esophageal cancer in his 80s - Tobacco Use Smoking Status *Q: Current Every Day Smoker Smoking Cessation Information Provided To Patient: Patient Refused - Caffeine Use Caffeine Use: Reports: Coffee, Soda Other Caffeine Use: Patient has restarted caffeine use as above. - Alcohol Use Alcohol Use History: Yes Alcohol Use Frequency: Rarely - Recreational Drug Use Recreational Drug Use: No Drug Use in Last 12 Months: No - Sexual History Sexual History: Reports: Single Partner. Denies: Abuse - Living Situation & Occupation Living situation: Reports: (Second in 2007.), (First 2002 with 2 children from that relationship. 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 Patient has been unable to work since she had cervical radiculopathy.) ED ROS GENERAL - Review of Systems Review Of Systems: See Below Constitutional: Reports: No Symptoms. Denies: Fever, Chills, Malaise, Weakness , Fatigue, Night Sweats, Decreased Appetite, Weight Loss HEENT: Reports: No Symptoms Respiratory: Reports: No Symptoms Cardiovascular: Reports: No Symptoms GI/Abdominal: Reports: Abdominal Pain, Mucous in Stool, Nausea, Vomiting, Other (darker stools today). Denies: Constipation, Diarrhea, Hematemesis, Hematochezia : Reports: No Symptoms Musculoskeletal: Reports: No Symptoms Skin: Reports: No Symptoms Neurological: Reports: No Symptoms Psychiatric: Reports: No Symptoms ED EXAM, GENERAL - Physical Exam Exam: See Below Exam Limited By: No Limitations General Appearance: Alert, WD/WN, No Apparent Distress Eye Exam: Bilateral Eye: EOMI, PERRL Ears: Normal External Exam Nose: No: Nasal Deformity, Nasal Swelling, Nasal Drainage Throat/Mouth: Normal Inspection, Normal Lips, Normal Oropharynx, Normal Voice, No Airway Compromise Head: Atraumatic, Normocephalic Neck: Normal Inspection, Supple, Non-Tender, Full Range of Motion Respiratory/Chest: No Respiratory Distress, Lungs Clear, Normal Breath Sounds, No Accessory Muscle Use, Chest Non-Tender Cardiovascular: Normal Peripheral Pulses, Regular Rate, Rhythm, No Edema, No Murmur GI/Abdominal: Normal Bowel Sounds, Soft, Rebound (mild rebound RLQ), Tender ( RUQ and RLQ). No: Guarding, Rigid (Female) Exam: Deferred Rectal (Female) Exam: Normal Rectal Tone, Heme - Stool. No: Black Stool, Bloody Stool, Mass Back Exam: Normal Inspection Extremities: Normal Inspection, Non-Tender, Normal Capillary Refill Neurological: Alert, Oriented, Normal Cognition, Normal Gait, No Motor/Sensory Deficits Psychiatric: Normal Affect, Normal Mood Skin Exam: Warm, Dry, Intact, Normal Color Course - Vital Signs Last Recorded V/S: Last Vital Signs Temp 36.7 C 03/19/19 12:20 Pulse 91 03/19/19 12:20 Resp 16 03/19/19 12:20 BP 142/92 H 03/19/19 12:20 Pulse Ox 97 03/19/19 12:20 - Orders/Labs/Meds Orders: Active Orders 24 hr Category Date Time Status NPO [Nothing Per Oral Diet] [DIET] Diet 03/19/19 Dinner Ordered Abdomen Pelvis wo Cont [CT] Stat Exams 03/19/19 13:29 Ordered OCCULT BLOOD DIAGNOSTIC [OP] Stat Lab 03/19/19 13:06 Ordered Sodium Chloride 0.9% [Saline Flush] Med 03/19/19 13:05 Ordered 10 ml FLUSH ASDIRECTED PRN Saline Lock Insert [OM.PC] Routine Oth 03/19/19 13:05 Ordered Medication Orders Sodium Chloride (Saline Flush) 10 ml FLUSH ASDIRECTED PRN PRN Reason: Keep Vein Open Last Admin: 03/19/19 13:48 Dose: 10 ml Admin: 03/19/19 13:30 Dose: 10 ml Labs: Laboratory Tests 03/19/19 03/19/19 03/19/19 Range/Units 13:25 13:25 13:25 WBC 7.0 (4.0-10.2) K/uL RBC 4.58 (3.77-5.09) M/uL Hgb 13.5 (11.7-15.5) g/dL Hct 41.2 (34.0-46.0) % MCV 90.0 (84.0-98.0) fL MCH 29.5 (28.2-33.3) pg MCHC 32.8 (31.7-36.0) g/dL RDW 14.1 (11.2-14.1) % Plt Count 272 (150-350) K/uL Neut % (Auto) 54.2 (45.0-80.0) % Lymph % (Auto) 36.2 (10.0-50.0) % [place] % (Auto) 6.9 (2.0-14.0) % Eos % (Auto) 2.0 (0.0-5.0) % Baso % (Auto) 0.7 (0.0-2.0) % Neut # (Auto) 3.78 (1.40-7.00) K/uL Lymph # (Auto) 2.52 (0.50-3.50) K/uL [place] # (Auto) 0.48 (0.00-1.00) K/uL Eos # (Auto) 0.14 (0.00-0.50) K/uL Baso # (Auto) 0.05 (0.00-0.20) K/uL Sodium 143 (136-145) mmol/L Potassium 4.0 (3.5-5.1) mmol/L Chloride 107 (98-107) mmol/L Carbon Dioxide 26.1 (21.0-32.0) mmol/L BUN 10 (7-18) mg/dL Creatinine 0.67 (0.51-1.17) mg/dL Est Cr Clr Drug Dosing 90.91 mL/min Estimated GFR (MDRD) > 60 mL/min Glucose 92 (74-106) mg/dL Lactic Acid 0.6 (0.4-2.0) mmol/L Calcium 9.2 (8.5-10.1) mg/dL Magnesium 1.8 (1.8-2.4) mg/dL Total Bilirubin 0.3 (0.2-1.0) mg/dL AST 18 (15-37) U/L ALT 24 (12-78) U/L Alkaline Phosphatase 92 (46-116) IU/L Total Protein 7.2 (6.4-8.2) g/dL Albumin 3.8 (3.4-5.0) g/dL Meds: Medications Generic Name Dose Route Start Last Admin Trade Name Freq PRN Reason Stop Dose Admin Sodium Chloride 10 ml 03/19/19 13:05 03/19/19 13:48 Saline Flush FLUSH 10 ml ASDIRECTED PRN Administration Keep Vein Open Discontinued Medications Generic Name Dose Route Start Last Admin Trade Name Freq PRN Reason Stop Dose Admin Famotidine 20 mg 03/19/19 13:06 03/19/19 13:28 Pepcid IVPUSH 03/19/19 13:07 20 mg ONETIME ONE Administration Lorazepam 0.5 mg 03/19/19 13:09 03/19/19 13:29 Ativan IVPUSH 03/19/19 13:10 0.5 mg ONETIME ONE Administration Ondansetron HCl 4 mg 03/19/19 14:02 03/19/19 14:11 Zofran IVPUSH 03/19/19 14:03 4 mg ONETIME ONE Administration Pantoprazole Sodium 80 mg 03/19/19 13:06 03/19/19 13:28 Protonix Iv IVPUSH 03/19/19 13:07 80 mg .BOLUS ONE Administration - Radiology Interpretation CT Results Date: 03/19/19 CT Results Time: 14:30 (Unremarkable) - Re-Assessments/Exams Free Text/Narrative Re-Assessment/Exam: Given reported history of abdominal pain and stool color change, basic labs requested and patient given Pepcid and Protonix IV. Mild rebound pain noted on abdominal exam. Pain with palpation if right upper and lower quadrant. In past patient has had issues with Iodine. Has tolerated contrast CTs with premedication, however given the above, a plain CT of abdomen and pelvis was ordered. This was negative for any acute abdominal process. Incidental renal calculi noted. Stool negative for occult blood. Labs unremarkable. Normal WBC. Normal vital signs. Today's pain complaint may be due to patient's Celiac disease. Cannot rule out viral infection or other cause however. Patient wishes to go home and does not wish to be admitted to observation. Precautions reviewed. Patient is to follow up this week if pain does not improve. She is to return to the ER if any sudden worsening is noted. Departure - Departure Time of Disposition: 15:18 Disposition: Home, Self-Care 01 Condition: Good Clinical Impression: Abdominal pain Qualifiers: Abdominal location: unspecified location Qualified Code(s): R10.9 - Unspecified abdominal pain - Discharge Information *PRESCRIPTION DRUG MONITORING PROGRAM REVIEWED*: Not Applicable *COPY OF PRESCRIPTION DRUG MONITORING REPORT IN PATIENT TIEN: Not Applicable Instructions: Abdominal Pain, Adult, [id number] Referrals: PCP,Unknown [Primary Care Provider] - Forms: ED Department Discharge Additional Instructions: Continue to observe for changes/new symptoms. Follow up this week if pain is not resolved within the next few days. Follow up in ER if you have sudden worsening problems. - My Orders Last 24 Hours: My Active Orders 03/19/19 13:05 Sodium Chloride 0.9% [Saline Flush] 10 ml FLUSH ASDIRECTED PRN Saline Lock Insert [OM.PC] Routine 03/19/19 13:06 OCCULT BLOOD DIAGNOSTIC [OP] Stat 03/19/19 13:29 Abdomen Pelvis wo Cont [CT] Stat 03/19/19 Dinner NPO [Nothing Per Oral Diet] [DIET] - Assessment/Plan Last 24 Hours: My Active Orders 03/19/19 13:05 Sodium Chloride 0.9% [Saline Flush] 10 ml FLUSH ASDIRECTED PRN Saline Lock Insert [OM.PC] Routine 03/19/19 13:06 OCCULT BLOOD DIAGNOSTIC [OP] Stat 03/19/19 13:29 Abdomen Pelvis wo Cont [CT] Stat 03/19/19 Dinner NPO [Nothing Per Oral Diet] [DIET]
[2019-03-19] MEDS: Sodium Chloride 0.9% 10 ML Syringe FLUSH PRN ×2 (13:30→13:48)
[2019-03-19 13:45] LABS: CHLORIDE,CL 107 mmol/L (98-107); SODIUM,NA 143 mmol/L (136-145)
[2019-03-19] MEDS ORDERED: Ondansetron 4 MG/2 ML SDV IVPUSH ONE (14:02)
== END 2019-03-19 15:25 | disposition home or self-care (01) ==
LOC: LL.ED 12:18 → SUPCPDRO 12:18 → LL.ED 15:25
DX: R10.11 Right upper quadrant pain (principal); I10 Essential (primary) hypertension; J44.9 Chronic obstructive pulmonary disease, unspecified; K21.9 Gastro-esophageal reflux disease without esophagitis; E03.9 Hypothyroidism, unspecified; F41.9 Anxiety disorder, unspecified; F17.200 Nicotine dependence, unspecified, uncomplicated; Z88.2 Allergy status to sulfonamides; Z91.041 Radiographic dye allergy status; Z88.8 Allergy status to other drugs, medicaments and biological substances; Z91.09 Other allergy status, other than to drugs and biological substances; Z85.41 Personal history of malignant neoplasm of cervix uteri; Z79.899 Other long term (current) drug therapy; Z79.890 Hormone replacement therapy; Z90.710 Acquired absence of both cervix and uterus; Z90.722 Acquired absence of ovaries, bilateral
CPT/HCPCS: 36415; 74176; 80053; 82272; 83605; 83735; 85025; 96374; 96375; 99284-25; C9113; J2060; J2405; J3490

== ENCOUNTER 2019-05-12 10:50 | Emergency (ER) | payer BC ==
[2019-05-12] MEDS ORDERED: LORazepam 1 MG Tab PO ONE (11:01)
[2019-05-12 11:06] VITALS: BP 125/72; PULSE 94
[2019-05-12] MEDS ORDERED: Iopamidol 755 Mg/ML 100 ML Bottle IVPUSH ONE (11:10)
--- NOTE | 2019-05-12 11:44 | EDM.PDOC ---
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 Initially felt fine after waking up. Only complaint has been aching nose bridge for 5 days. Describes current headache as bilateral/throbbing. Has nausea, vertigo. Very anxious given her history of aneurysm in past. No focal neuro changes. Patient denies recent illness/fevers/other changes No migraine headaches recently. No vision changes/ear pain/sore throat/congestion/runny eyes. No respiratory changes/cough/SOB No CV changes/chest pain/palpitations GI+ for nausea. No emesis/bowel changes/abdominal pain negative for UTI/hematuria/other changes Neuro negative for focal weakness/numbness/speech change/gait change. back of head Pain Score (Numeric/FACES): 10 - Related Data Allergies Allergy/AdvReac Type Severity Reaction Status Date / Time iodine Allergy Severe Anaphylactic Verified 05/12/19 11:01 Shock Sulfa (Sulfonamide Allergy Rash Verified 05/12/19 11:01 Antibiotics) sumatriptan [From Imitrex] Allergy Other Verified 05/12/19 11:01 contrast dye Allergy Difficulty Uncoded 05/12/19 11:01 Breathing Home Meds: Home Meds L.acidoph,Paracasei, B.lactis [Probiotic] 1 each PO DAILY 01/23/18 [History] Ca Carb & Gluc/Mag Ox & Gluc [Calcium Magnesium Caplet] 1,200 mg PO BEDTIME # 100 05/19/18 [Rx] Acetaminophen [Tylenol] 650 mg PO Q4H PRN tablet 06/01/18 [Rx] Ibuprofen [Advil] 400 - 600 mg PO Q6H PRN 06/13/18 [History] Meclizine [Antivert] 25 mg PO Q6H PRN 08/22/18 [History] Montelukast [Singulair] 10 mg PO BEDTIME PRN 08/22/18 [History] Ranitidine [Zantac] 150 mg PO BEDTIME PRN 08/22/18 [History] Cbd Liquid 50 ml PO BID 11/12/18 [History] ALPRAZolam [Alprazolam] 0.25 mg PO TID PRN 12/28/18 [History] Levothyroxine Sodium [Synthroid] 100 mcg PO ACBREAKFAST 05/12/19 [History] Magnesium Oxide 400 mg PO BEDTIME 05/12/19 [History] Past Medical History HEENT History: Reports: Allergic Rhinitis, Impaired Vision, Sinusitis, Other ( See Below) Other HEENT History: Patient wears reading glasses. Allergic rhinitis/sinusitis with recurrent sinusitis and eustachian tube dysfunction. Nasal septum deviation. Chronic laryngitis. Cardiovascular History: Reports: Aneurysm, Arrhythmia, High Cholesterol, Hypertension, Other (See Below) Other Cardiovascular History: Previous hyperlipidemia with no current medical therapy required. Note cerebral aneurysm as below. Bradycardia, repolarization changes versus incomplete right bundle branch block, and multiform PVCs at time of basilar artery leakage on 09/29/15. Symptomatic bradycardia with hypotension and Mobitz type I second-degree A-V block with low-dose beta elissa therapy in April 2018. Intermittent PSVT with previous diltiazem therapy. Respiratory History: Reports: Bronchitis, Recurrent, COPD, Intubation, Previous , Pneumonia, Recurrent, Pulmonary Fibrosis, Other (See Below) Other Respiratory History: Benign right lower lobe pulmonary nodules x2 by serial CT scans as below. Gastrointestinal History: Reports: Celiac Disease, Chronic Diarrhea, Gastritis, GERD, Helicobacter Pylori, Irritable Bowel Syndrome, Other (See Below) Other Gastrointestinal History: H. pylori treated in about 2015. Nonspecific dysphagia in 2018. Genitourinary History: Reports: UTI, Recurrent SOCCER REFEREE History: Reports: Other SOCCER REFEREE History: Surgical Menopause secondary to cervical cancer at age 29 as below. Full term without complications during pregnancies or deliveries. Musculoskeletal History: Reports: Arthritis, Back Pain, Chronic, Fracture, Neck Pain, Chronic, Osteoarthritis, Osteoporosis, Other (See Below) Other Musculoskeletal History: Nondisplaced left talar fracture on 08/24/16 with no surgery required. Note patient is currently being followed by pain clinic for chronic pain syndrome and headaches with history of spinal injections, etc. 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 Chronic vertigo and headaches. Psychiatric History: Reports: Anxiety, Depression Other Psychiatric History: Chronic narcotic and anxiolytic use in the past secondary to chronic pain syndrome, etc. 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 Hypokalemia. Hypoalbuminemia. Hematologic History: Reports: Other (See Below) Other Hematologic History: Hypomagnesemia. Immunologic History: Reports: None Oncologic (Cancer) History: Reports: Basal Cell Carcinoma, Cervix, Other (See Below) Other Oncologic History: Cervical cancer at age 29 with hysterectomy as below with no chemotherapy, etc. Basal cell carcinoma excised from the back region in about 2012. Dermatologic History: Reports: None - Infectious Disease History Infectious Disease History: Reports: Chicken Pox, Helicobacter Pylori, Influenza - Past Surgical History Head Surgeries/Procedures: Reports: Other (See Below) HEENT Surgical History: Reports: Oral Surgery, Other (See Below) Other HEENT Surgeries/Procedures: Teeth extractions including possible wisdom teeth in the 1980s. Cardiovascular Surgical History: Reports: Aneurysm, Vascular Surgery, Other ( See Below) Other Cardiovascular Surgeries/Procedures: Cerebral aneurysm therapy as above Respiratory Surgical History: Reports: None GI Surgical History: Reports: EGD, Other (See Below) Other GI Surgeries/Procedures: EGD with biopsies on 08/03/18. Dx with Celiac disease on 03/18/19. Female Surgical History: Reports: Breast Biopsy, Breast Implant, Hysterectomy , Salpingo-Oophorectomy, Other (See Below) Other Female Surgeries/Procedures: Bilateral breast implants at age 32. Complete hysterectomy with bilateral salpingo-oophorectomy secondary to cervical cancer at age 29. Right breast biopsy for benign disease in about 2002. Endocrine Surgical History: Reports: None Neurological Surgical History: Reports: C-Spine, Discectomy, Intracranial, Spinal Fusion, Other (See Below) Other Neurological Surgeries/Procedures: Discectomies and cervical spine fusion from C5 through C7 on 06/07/17. Intracranial surgery as above. Cervical steroid injection on 02/23/17. Musculoskeletal Surgical History: Reports: Other (See Below) Other Musculoskeletal Surgeries/Procedures:: Right-sided bunionectomy with additional surgery in the first and fifth metatarsals on 02/28/13 Oncologic Surgical History: Reports: Biopsy of Breast, Other (See Below) Other Oncologic Surgeries/Procedures: Breast biopsy for benign disease as above. Excision of basal cell carcinoma from the back region in 2012. Dermatological Surgical History: Reports: Other (See Below) - Past Imaging History Past Imaging History: Reports: Angiography (Negative heart catheterization on . Cerebral angiography on 09/25/17, 04/04/16, 10/22/15, 10/06/15, and 09/29/15.) , Cardiac Echo (06/02/17 with ejection fraction of 60% with otherwise normal findings.), CAT Scan (CT of the chest on 08/08/18. CT of the head on 10/23/18, and 05/31/18. CT of the cervical region/soft tissue on 05/19/18. CT of the head on 09/06/18, 01/23/18, 08/31/17, 05/08/17, 12/26/16, and 10/17/15. CT of the chest on 02/20/13, 03/28/12, and 06/23/10. CT of the abdomen and pelvis on .), DEXA Scan (08/22/17.), Holter Monitor (May 2018 at [facility], however records not available?), Mammogram (Last mammogram on 11/20/17.), MRA ( MRA of the head on 05/12/19, 03/31/18, 09/25/17, and 12/26/16.), MRI (MRI of the lumbar spine on 12/26/16. Probable MRI of the brain at the [facility] in 2017 with no records available. MRI of the C-spine on 09/10/18 and 02/02/18. MRI of the lumbar spine on 07/20/17 and 02/23/17.), Stress Testing (Positive Lexiscan Cardiolite stress test on 06/15/18 for mid to distal anterior wall cardiac ischemia with ejection fraction of 72% however negative heart catheterization in May 2018 as above.), Ultrasound (Thyroid ultrasound on 01/25/18 and . Gallbladder ultrasound on 05/27/18.), Venous Doppler (Right leg on 09/29/17.) . Denies: Carotid US Social & Family History - Family History HEENT: Reports: None Cardiac: Reports: Aneurysm, Arrhythmia, Other (See Below) Other Cardiac Family History: Sister with history of tachycardia of unknown type , hypotension, and cerebral aneurysm. Respiratory: Reports: COPD, Other (See Below) Other Respiratory Family Hisory: Mother with history of COPD with history of tobacco use. GI: Reports: Celiac Disease, Cholelithiasis, Inflammatory Bowel Disease, Other ( See Below) Other GI Family History: Sister with history of Crohn's disease. Mother with cholelithiasis and celiac disease : Reports: None, UTI, Recurrent OBGYN: Reports: None Musculoskeletal: Reports: Arthritis, Osteoarthritis, Other (See Below) Other Musculoskeletal Family History: Mother with osteoarthritis. Neurological: Reports: Cerebral Aneurysms, CVA, Other (See Below) Other Neurological Family History: Maternal grandfather with embolic CVA in his 80s. Sister with cerebral aneurysm as above Psychiatric: Reports: None Endocrine/Metabolic: Reports: Hypothyroidism, Other (See Below) Other Endocrine/Metabolic Family History: Hypothyroidism in mother and sisters 2 Hematologic: Reports: Anemia, Other (See Below) Other Hematologic Family History: Sister with iron deficiency anemia. Immunologic: Reports: None Dermatologic: Reports: None Oncologic: Reports: Metastatic, Other (See Below) Other Oncologic Family History: Paternal grandfather with fatal metastatic esophageal cancer in his 80s - Tobacco Use Smoking Status *Q: Current Every Day Smoker Years of Tobacco use: 30 Packs/Tins Daily: 0.2 Used Tobacco, but Quit: No - Caffeine Use Caffeine Use: Reports: Coffee Other Caffeine Use: 1 cup this am - Recreational Drug Use Recreational Drug Use: No - Sexual History Sexual History: Reports: Single Partner. Denies: Abuse - Living Situation & Occupation Living situation: Reports: (Second in 2007.), (First 2002 with 2 children from that relationship. 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 Patient has been unable to work since she had cervical radiculopathy.) ED ROS GENERAL - Review of Systems Review Of Systems: Comprehensive ROS is negative, except as noted in HPI. ED EXAM, GENERAL - Physical Exam Exam: See Below Exam Limited By: No Limitations General Appearance: Alert, Anxious, Other (no acute distress) Eye Exam: Bilateral Eye: EOMI, PERRL Ears: Normal External Exam, Normal Canal, Hearing Grossly Normal, Normal TMs Ear Exam: Bilateral Ear: Auricle Normal, Canal Normal, TM normal Nose: No: Nasal Deformity, Nasal Swelling, Nasal Drainage Throat/Mouth: Normal Inspection, Normal Lips, Normal Voice Head: Atraumatic, Normocephalic Neck: Normal Inspection, Supple, Non-Tender, Full Range of Motion. No: Lymphadenopathy (L), Lymphadenopathy (R) Respiratory/Chest: No Respiratory Distress, Lungs Clear, Normal Breath Sounds, No Accessory Muscle Use, Chest Non-Tender Cardiovascular: Regular Rate, Rhythm, No Murmur GI/Abdominal: Normal Bowel Sounds, Soft, Non-Tender (Female) Exam: Deferred Rectal (Female) Exam: Deferred Back Exam: No: Muscle Spasm Extremities: Normal Inspection, Normal Range of Motion, Normal Capillary Refill Neurological: Alert, Oriented, CN II-XII Intact, Normal Cognition, No Motor/ Sensory Deficits Psychiatric: Anxious Skin Exam: Warm, Dry, Intact, Normal Color Course - Vital Signs Last Recorded V/S: Last Vital Signs Temp 36.4 C 05/12/19 11:03 Pulse 94 05/12/19 11:03 Resp 16 05/12/19 11:03 BP 125/72 05/12/19 11:03 Pulse Ox 97 05/12/19 11:03 - Orders/Labs/Meds Orders: Active Orders 24 hr Category Date Time Status CTA Head W & W/O Contrast [Ang Head] [CT] Stat Exams 05/12/19 11:00 Stop Req Head wo Cont [CT] Stat Exams 05/12/19 11:20 Ordered Sodium Chloride 0.9% [Saline Flush] Med 05/12/19 11:49 Ordered 10 ml FLUSH ASDIRECTED PRN Saline Lock Insert [OM.PC] Routine Oth 05/12/19 11:49 Ordered Medication Orders Sodium Chloride (Saline Flush) 10 ml FLUSH ASDIRECTED PRN PRN Reason: Keep Vein Open Labs: Laboratory Tests 05/12/19 05/12/19 05/12/19 Range/Units 12:12 12:12 12:31 WBC 6.9 (4.0-10.2) K/uL RBC 5.03 (3.77-5.09) M/uL Hgb 14.8 (11.7-15.5) g/dL Hct 45.1 (34.0-46.0) % MCV 89.7 (84.0-98.0) fL MCH 29.4 (28.2-33.3) pg MCHC 32.8 (31.7-36.0) g/dL RDW 14.7 H (11.2-14.1) % Plt Count 289 (150-350) K/uL Neut % (Auto) 58.5 (45.0-80.0) % Lymph % (Auto) 31.8 (10.0-50.0) % [place] % (Auto) 7.8 (2.0-14.0) % Eos % (Auto) 1.3 (0.0-5.0) % Baso % (Auto) 0.6 (0.0-2.0) % Neut # (Auto) 4.04 (1.40-7.00) K/uL Lymph # (Auto) 2.20 (0.50-3.50) K/uL [place] # (Auto) 0.54 (0.00-1.00) K/uL Eos # (Auto) 0.09 (0.00-0.50) K/uL Baso # (Auto) 0.04 (0.00-0.20) K/uL Sodium 141 (136-145) mmol/L Potassium 4.1 (3.5-5.1) mmol/L Chloride 102 (98-107) mmol/L Carbon Dioxide 26.1 (21.0-32.0) mmol/L BUN 15 (7-18) mg/dL Creatinine 0.63 (0.51-1.17) mg/dL Est Cr Clr Drug Dosing 96.69 mL/min Estimated GFR (MDRD) > 60 mL/min Glucose 92 (74-106) mg/dL Calcium 9.8 (8.5-10.1) mg/dL Magnesium 1.8 (1.8-2.4) mg/dL Total Bilirubin 0.3 (0.2-1.0) mg/dL AST 16 (15-37) U/L ALT 20 (12-78) U/L Alkaline Phosphatase 87 (46-116) IU/L Total Protein 8.3 H (6.4-8.2) g/dL Albumin 4.3 (3.4-5.0) g/dL Specimen Type Urinblad Urine Color Light yellow Urine Appearance Clear Urine pH 7.0 (5.0-9.0) Ur Specific [place] 1.010 (1.005-1.030) Urine Protein Negative (NEGATIVE) mg/dL Urine Glucose (UA) Negative (NEGATIVE) mg/dL Urine Ketones Negative (NEGATIVE) mg/dL Urine Occult Blood Negative (NEGATIVE) Urine Nitrite Negative (NEGATIVE) Urine Bilirubin Negative (NEGATIVE) Urine Urobilinogen 0.2 (0.2-1.0) E.U./dL Ur Leukocyte Esterase Negative (NEGATIVE) Urine RBC Not seen /HPF Urine WBC Not seen /HPF Ur Epithelial Cells Rare /LPF Urine Bacteria Not seen (NONE TO FEW) /HPF Meds: Medications Generic Name Dose Route Start Last Admin Trade Name Freq PRN Reason Stop Dose Admin Sodium Chloride 10 ml 05/12/19 11:49 Saline Flush FLUSH ASDIRECTED PRN Keep Vein Open Discontinued Medications Generic Name Dose Route Start Last Admin Trade Name Freq PRN Reason Stop Dose Admin Diphenhydramine HCl 50 mg 05/12/19 11:53 05/12/19 12:16 Benadryl IVPUSH 05/12/19 11:54 50 mg ONETIME ONE Administration Sodium Chloride 1,000 mls @ 999 mls/hr 05/12/19 11:50 05/12/19 12:16 Normal Saline IV 05/12/19 12:50 999 mls/hr .BOLUS ONE Administration Iopamidol 100 ml 05/12/19 11:10 05/12/19 11:35 [id number] (76%) IVPUSH 05/12/19 11:11 Not Given ONETIME ONE Ketorolac Tromethamine 30 mg 05/12/19 12:33 Toradol IVPUSH 05/12/19 12:34 ONETIME ONE Ketorolac Tromethamine 30 mg 05/12/19 13:14 Toradol IVPUSH 05/12/19 13:15 ONETIME ONE Lorazepam 1 mg 05/12/19 11:01 05/12/19 11:10 Ativan PO 05/12/19 11:02 1 mg ONETIME ONE Administration Meclizine HCl 25 mg 05/12/19 12:33 05/12/19 12:43 Antivert PO 05/12/19 12:34 25 mg ONETIME ONE Administration Metoclopramide HCl 10 mg 05/12/19 11:53 05/12/19 12:16 Reglan IVPUSH 05/12/19 11:54 10 mg ONETIME ONE Administration - Radiology Interpretation CT Results Date: 05/12/19 CT Results Time: 13:00 (No acute changes/findings on CT) - Re-Assessments/Exams Free Text/Narrative Re-Assessment/Exam: Will get CT to rule out acute intracranial change given headache out of character for normal migraine. Patient has had a significant number of CT scans over the years. She was made aware of potential negative effects of radiation exposure due to her large number of previous scans. No focal neuro findings on exam. Basic labs/IV fluids ordered. Will give usual meds for patient's migraine HAs. Patient too nervous to undergo CT scan at this time. Given Ativan. Waiting for patient to signal that she is ready to undergo scan. Free Text/Narrative Re-Assessment/Exam: 05/12/19 13:32 CT scan unremarkable other than some changes consistent with chronic sinusitis. CBC/Chem/UA normal overall. Patient allowed to rest. Feeling significantly improved. Declined Toradol. Is getting ride home. Results discussed with patient. She would like to go home. She plans on picking up Flonase tomorrow and will use it as directed for the next 30 days. Departure - Departure Time of Disposition: 13:45 Disposition: Home, Self-Care 01 Condition: Good Clinical Impression: Migraine - Discharge Information *PRESCRIPTION DRUG MONITORING PROGRAM REVIEWED*: Not Applicable *COPY OF PRESCRIPTION DRUG MONITORING REPORT IN PATIENT TIEN: Not Applicable Referrals: Chloe Zavala, LINEN ROOM SUPERVISOR [Primary Care Provider] - Forms: ED Department Discharge Additional Instructions: Home/rest/stay hydrated! Follow up as needed if you have any further problems! Sepsis Event Note - Evaluation Sepsis Screening Result: No Definite Risk - Focused Exam Vital Signs: Vital Signs Temp Pulse Resp BP Pulse Ox 05/12/19 11:03 36.4 C 94 16 125/72 97 Date Exam was Performed: 05/12/19 Time Exam was Performed: 13:31 - My Orders Last 24 Hours: My Active Orders 05/12/19 11:00 CTA Head W & W/O Contrast [Ang Head] [CT] Stat 05/12/19 11:20 Head wo Cont [CT] Stat 05/12/19 11:49 Sodium Chloride 0.9% [Saline Flush] 10 ml FLUSH ASDIRECTED PRN Saline Lock Insert [OM.PC] Routine - Assessment/Plan Last 24 Hours: My Active Orders 05/12/19 11:00 CTA Head W & W/O Contrast [Ang Head] [CT] Stat 05/12/19 11:20 Head wo Cont [CT] Stat 05/12/19 11:49 Sodium Chloride 0.9% [Saline Flush] 10 ml FLUSH ASDIRECTED PRN Saline Lock Insert [OM.PC] Routine
[2019-05-12] MEDS ORDERED: Sodium Chloride 0.9% 10 ML Syringe FLUSH PRN (11:49)
[2019-05-12] MEDS ORDERED: Sodium Chloride 0.9% 1,000 ML IV ONE (11:50)
[2019-05-12] MEDS ORDERED: Metoclopramide 10 MG/2 ML SDV IVPUSH ONE (11:53)
[2019-05-12] MEDS ORDERED: diphenhydrAMINE 50 MG/ML SDV IVPUSH ONE (11:53)
[2019-05-12] MEDS ORDERED: Meclizine 25 MG Tab PO ONE (12:33)
[2019-05-12] MEDS ORDERED: Ketorolac 30 MG/ML SDV IVPUSH ONE ×2 (12:33→13:14)
[2019-05-12 12:38] LABS: CHLORIDE,CL 102 mmol/L (98-107); SODIUM,NA 141 mmol/L (136-145)
== END 2019-05-12 13:39 | disposition home or self-care (01) ==
LOC: LL.ED 10:50
DX: G43.909 Migraine, unspecified, not intractable, without status migrainosus (principal); J44.9 Chronic obstructive pulmonary disease, unspecified; I10 Essential (primary) hypertension; E03.9 Hypothyroidism, unspecified; F41.9 Anxiety disorder, unspecified; F32.9 Major depressive disorder, single episode, unspecified; F17.210 Nicotine dependence, cigarettes, uncomplicated; Z79.890 Hormone replacement therapy; Z79.899 Other long term (current) drug therapy; Z88.2 Allergy status to sulfonamides; Z88.8 Allergy status to other drugs, medicaments and biological substances; Z91.041 Radiographic dye allergy status
CPT/HCPCS: 36415; 70450; 80053; 81001; 83735; 85025; 96361; 96374; 96375; 99284-25; A9270-GY; J1200; J2765; J7030

== ENCOUNTER 2020-03-13 12:17 | Emergency (ER) | payer BC ==
[2020-03-13] MEDS ORDERED: Sodium Chloride 0.9% 10 ML Syringe FLUSH PRN (12:22)
--- NOTE | 2020-03-13 12:22 | EDM.PDOC ---
ED HPI GENERAL MEDICAL PROBLEM - General Chief Complaint: General Stated Complaint: dizzyness, fall Time Seen by Provider: 03/13/20 12:20 Source of Information: Reports: Patient, EMS, Old Records ([facility] chart/EMR), Other ([facility] EMR reviewed on 11/12/2018.). Denies: EMS Notes Reviewed (Not available at time of dictation) History Limitations: Reports: No Limitations - History of Present Illness INITIAL COMMENTS - FREE TEXT/NARRATIVE: The patient was brought to the emergency room via ambulance with shade cutter accompaniment with IV placed and 4 mg of IV Zofran given secondary to her nausea. The patient complains of 10/10 right occipital headache associated with severe vertigo and dizziness with symptoms starting at about 11:15 AM this morning. No history of fall or injury. Note that the patient did take 0.25 mg of Xanax and 10 mg of Flexeril after she woke up at 8 AM this morning secondary to her chronic neck pain. No history of recent headaches, visual changes, diplopia, change in mental status, or other change in neurological status. The patient denies any chest pain/pressure, heart flutter, dizziness, orthostasis, orthopnea, diaphoresis, paresthesias, recent decreased exercise tolerance, or any other anginal-type symptoms. No recent history of abdominal pain, heartburn, emesis, diarrhea, melena, gross hematochezia, or any food into lerance, including fatty foods, etc.. She denies any gross hematuria, colic, or other UTI symptoms. The patient also denies any recent fever, cough, wheezing, dyspnea, etc.. Onset: Today, Sudden Onset Date: 03/13/20 Onset Time: 11:15 Duration: Constant, Getting Worse Location: Reports: Head. Denies: Face, Neck, Chest, Abdomen, Back, Upper Extremity, Left, Upper Extremity, Right, Radiates to Quality: Reports: Same as Previous Episode, Stabbing Improves with: Reports: None Worsens with: Reports: None Context: Reports: Other (As above). Denies: Sick Contact, Trauma Associated Symptoms: Reports: Headaches, Nausea/Vomiting (Without emesis). 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/IO, Other Medication(s) (As above) occipital headache Pain Score (Numeric/FACES): 10 - Related Data Allergies Allergy/AdvReac Type Severity Reaction Status Date / Time iodine Allergy Severe Anaphylactic Verified 03/13/20 12:23 Shock Sulfa (Sulfonamide Allergy Rash Verified 03/13/20 12:23 Antibiotics) sumatriptan [From Imitrex] Allergy Other Verified 03/13/20 12:23 contrast dye Allergy Difficulty Uncoded 03/13/20 12:23 Breathing Home Meds: Home Meds ALPRAZolam [Alprazolam] 0.25 mg PO QID PRN 12/28/18 [History] Levothyroxine Sodium [Synthroid] 100 mcg PO ACBREAKFAST 05/12/19 [History] Cyclobenzaprine [Flexeril] 10 mg PO TID PRN 03/13/20 [History] Past Medical History HEENT History: Reports: Allergic Rhinitis, Impaired Vision, Sinusitis, Other (See Below). Denies: Cataract, Glaucoma, Hard of Hearing, Macular Degeneration, Otitis Media, Retinal Detachment Other HEENT History: Patient wears reading glasses. Allergic rhinitis/sinusitis with recurrent sinusitis and eustachian tube dysfunction. Nasal septum deviation. Chronic laryngitis. Cardiovascular History: Reports: Aneurysm, Arrhythmia, High Cholesterol, Hypertension, Other (See Below). Denies: Afib, Blood Clots/VTE/DVT, CAD, Cardiomyopathy, Heart Failure, Heart Murmur, SC, PTCA, PVD, Syncope Other Cardiovascular History: Previous hyperlipidemia with no current medical therapy required. Note cerebral aneurysm as below. Bradycardia, repolarization changes versus incomplete right bundle branch block, and multiform PVCs at time of basilar artery leakage on 09/29/15. Symptomatic bradycardia with hypotension and Mobitz type I second-degree A-V block with low-dose beta elissa therapy in April 2018. Intermittent PSVT with previous diltiazem therapy. Respiratory History: Reports: Bronchitis, Recurrent, COPD, Intubation, Previous, Pneumonia, Recurrent, Pulmonary Fibrosis, Other (See Below). Denies: Asthma, Intubation, Difficult, PE, Pneumothorax, Sleep Apnea, TB Other Respiratory History: Benign right lower lobe pulmonary nodules x2 by serial CT scans as below. Gastrointestinal History: Reports: Celiac Disease, Chronic Diarrhea, Gastritis, GERD, Helicobacter Pylori, Inflammatory Bowel Disease, Irritable Bowel Syndrome, Other (See Below) Other Gastrointestinal History: Dx with Celiac disease on 03/18/19. H. pylori treated in about 2016. Nonspecific dysphagia in 2018. Genitourinary History: Reports: Renal Calculus, UTI, Recurrent, Other (See Below). Denies: Acute Renal Failure, Chronic Renal Insuffiency, Retention, Urinary, STD, Urinary Incontinence Other Genitourinary History: Bilateral urolithiasis by CT scan on 03/19/2019. MENTAL HEALTH TECHNICIAN History: Reports: . Denies: Dysfunctional Uterine Bleeding, Endometriosis, Fibroids, Spontaneous : 3 Para: 3 LMP (Approximate): Other (See Below) Other MENTAL HEALTH TECHNICIAN History: Surgical Menopause secondary to cervical cancer at age 29 as below. Full term without complications during pregnancies or deliveries. Musculoskeletal History: Reports: Arthritis, Back Pain, Chronic, Fracture, Neck Pain, Chronic, Osteoarthritis, Osteoporosis, Other (See Below). Denies: Gout, RA, SLE Other Musculoskeletal History: Nondisplaced left talar fracture on 08/24/16 with no surgery required. Note patient is currently being followed by pain clinic for chronic pain syndrome and headaches with history of spinal injections, etc. Neurological History: Reports: Cerebral Aneurysms, Headaches, Chronic, Migraines, Neuropathy, Peripheral, Vertigo. 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 Chronic vertigo and headaches. Psychiatric History: Reports: Addiction, Anxiety, Depression. Denies: Abuse, Victim of, ADD, ADHD, Psych Hospitalization(s), Psychosis, PTSD, Suicide Attempt, Suicidal Ideation Other Psychiatric History: Chronic narcotic and anxiolytic use in the past secondary to chronic pain syndrome, etc. Endocrine/Metabolic History: Reports: Hypomagnesemia, Hypothyroidism, Other (See Below). 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 Hypokalemia. Hypoalbuminemia. Hematologic History: Reports: None. Denies: Anemia, Blood Transfusion(s), Iron Deficiency Immunologic History: Reports: None. Denies: AIDS, HIV, SLE Oncologic (Cancer) History: Reports: Basal Cell Carcinoma, Cervix, Other (See Below). Denies: Brain, Breast, Colon, Hodgkin's Lymphoma, Leukemia, Lymphoma, Malignant Melanoma, Non-Hodgkin's Lymphoma, Ovarian, Squamous Cell Carcinoma, Uterine Other Oncologic History: Cervical cancer at age 29 with hysterectomy as below with no chemotherapy, etc. Basal cell carcinoma excised from the back region in about 2012. Dermatologic History: Reports: None. Denies: Eczema, Psoriasis - Infectious Disease History Infectious Disease History: Reports: Chicken Pox, Helicobacter Pylori, Influenza. Denies: C-Difficile, Measles, Meningitis, Mononucleosis, MRSA, Mumps, Pertussis (Whooping Cough), RSV, Scarlet Fever, Shingles, TB, VRE - Past Surgical History Head Surgeries/Procedures: Reports: Other (See Below) Other Head Surgeries/Procedures: Basilar artery coil placement with balloon embolization secondary to leaking basilar artery aneurysm on 10/26/2015. HEENT Surgical History: Reports: Oral Surgery, Other (See Below) Other HEENT Surgeries/Procedures: Teeth extractions including possible wisdom teeth in the . Cardiovascular Surgical History: Reports: Aneurysm, Vascular Surgery, Other (See Below). Denies: Varicose Other Cardiovascular Surgeries/Procedures: Cerebral aneurysm therapy as above Respiratory Surgical History: Reports: None. Denies: Thoracentesis GI Surgical History: Reports: EGD, Other (See Below). Denies: Appendectomy, Cholecystectomy, Colonoscopy, Hernia Repair/Other, Polypectomy Other GI Surgeries/Procedures: EGD with biopsies on 08/03/18. Female Surgical History: Reports: Breast Biopsy, Breast Implant, Hysterectomy, Salpingo-Oophorectomy, Other (See Below). Denies: D&C, Tubal Ligation Other Female Surgeries/Procedures: Bilateral breast implants at age 32 subsequent removal on 06/14/2019. Complete hysterectomy with bilateral salpingo- oophorectomy secondary to cervical cancer at age 29. Right breast biopsy for benign disease in about 2002. Endocrine Surgical History: Reports: None Neurological Surgical History: Reports: C-Spine, Discectomy, Intracranial, Spinal Fusion, Other (See Below). Denies: Laminectomy, Lumbar Spine, Thoracic Spine, Vertebroplasty Other Neurological Surgeries/Procedures: Discectomies and cervical spine fusion from C5 through C7 on 06/07/17. Intracranial surgery as above. Cervical steroid injection on 02/23/17. Musculoskeletal Surgical History: Reports: Other (See Below). Denies: Arthroscopic Procedure, Carpal Tunnel, Ganglion Cyst, Joint Replacement, ORIF, Shoulder Surgery Other Musculoskeletal Surgeries/Procedures:: Right-sided bunionectomy with additional surgery in the first and fifth metatarsals on 02/28/13 Oncologic Surgical History: Reports: Biopsy of Breast, Other (See Below) Other Oncologic Surgeries/Procedures: Breast biopsy for benign disease as above. Excision of basal cell carcinoma from the back region in 2012. Dermatological Surgical History: Reports: Other (See Below) Other Dermatological Surgeries/Procedures: Excision of basal cell carcinoma as above. - Past Imaging History Past Imaging History: Reports: Angiography (Negative heart catheterization on 06/26/18. Cerebral angiography on 09/25/17, 04/04/16, 10/22/15, 10/06/15, and 09/29/15.), Cardiac Echo (06/02/17 with ejection fraction of 60% with otherwise normal findings.), CAT Scan (CT of the chest on 09/04/2019, 05/02/2019, 08/08/2018, 02/20/13, 03/28/12, and 06/23/10. CT of the head on 05/12/2019, 10/23/2018, 06/25/2018, and 05/31/2018. CT of the cervical region/soft tissue on 05/19/2018. CT of the abdomen and pelvis on 03/19/2019 and 06/23/2010.), DEXA Scan (08/22/17.), Holter Monitor (May 2018 at [facility], however records not available?), Mammogram (Last mammogram on 11/20/17.), MRA (MRA of the head on 05/12/19, 03/31/18, 09/25/17, and 12/26/16.), MRI (MRI of the lumbar spine on 12/26/16. Probable MRI of the brain at the [facility] in 2017 with no records available. MRI of the C-spine on 09/10/18 and 02/02/18. MRI of the lumbar spine on 07/20/17 and 02/23/17.), Stress Testing (Positive Lexiscan Cardiolite stress test on 06/15/18 for mid to distal anterior wall cardiac ischemia with ejection fraction of 72% however negative heart catheterization in May 2018 as above.), Ultrasound (Chest soft tissue ultrasound on 01/08/2024 benign lipoma. Thyroid ultrasound on 01/25/18 and 01/26/16. Gallbladder ultrasound on 05/27/18.), Venous Doppler (Right leg on 09/29/17.). Denies: Carotid US Social & Family History - Family History HEENT: Reports: None. Denies: Glaucoma, Macular Degeneration, Retinal Detachment Cardiac: Reports: Aneurysm, Arrhythmia, Other (See Below). Denies: Afib, Blood Clots/VTE/DVT, Bypass, CAD, Heart Failure, High Cholesterol, Hypertension, SC, PVD/COD, Syncope Other Cardiac Family History: Sister with history of tachycardia of unknown type, hypotension, and cerebral aneurysm. Respiratory: Reports: COPD, Other (See Below). Denies: PE, Pneumothorax, Sleep Apnea Other Respiratory Family Hisory: Mother with history of COPD with history of tobacco use. GI: Reports: Celiac Disease, Cholelithiasis, Inflammatory Bowel Disease, Other (See Below). Denies: Colon Polyps, GERD, GI bleed, Irritable Bowel Syndrome, PUD Other GI Family History: Sister with history of Crohn's disease. Mother with cholelithiasis and celiac disease : Reports: None OBGYN: Reports: None. Denies: Dysfunctional uterine bleeding, Endometriosis Musculoskeletal: Reports: Arthritis, Osteoarthritis, Other (See Below). Denies: Gout, RA, SLE Other Musculoskeletal Family History: Mother with osteoarthritis. Neurological: Reports: Cerebral Aneurysms, CVA, Other (See Below). Denies: Alzheimers Disease, Dementia, Migraines, MS, Parkinson's, Seizure, TIA Other Neurological Family History: Maternal grandfather with embolic CVA in his 80s. Sister with cerebral aneurysm as above Psychiatric: Reports: None. Denies: Abuse, Victim of, ADD, Anxiety, Depression, Psych Hospitalization(s), Psychosis, PTSD, Suicide Attempt Endocrine/Metabolic: Reports: Hypothyroidism, Other (See Below). Denies: Diabetes, Gestational, Diabetes, Type I, Diabetes, type II, Diabetes Mellitus, Type 3c, IDDM Other Endocrine/Metabolic Family History: Hypothyroidism in mother and sisters 2 Hematologic: Reports: Anemia, Other (See Below) Other Hematologic Family History: Sister with iron deficiency anemia. Immunologic: Reports: None. Denies: AIDS, HIV Dermatologic: Reports: None. Denies: Eczema, Psoriasis Oncologic: Reports: Esophageal, Metastatic, Other (See Below). Denies: Brain, Breast, Cervix, Colon, Hodgkin's Lymphoma, Leukemia, Lymphoma, Non-Hodgkin's Lymphoma, Ovarian, Skin, Uterine Other Oncologic Family History: Paternal grandfather with fatal metastatic esophageal cancer in his 80s - Tobacco Use Tobacco Use Status *Q: Former Tobacco User Tobacco Use Within Last Twelve Months: Cigarettes Years of Tobacco use: 32 Packs/Tins Daily: 0.5 Packs/Tins Daily Comment: Started smoking at age 17 and stopped at age 49 with maximum use of 1 pack/day Used Tobacco, but Quit: Yes Smoking Cessation Information Provided To Patient: No Second Hand Smoke Exposure: No Second Hand Smoke Education Provided: No - Caffeine Use Caffeine Use: Reports: Coffee (1 cup/day), Soda (1 soda per day). Denies: Energy Drinks, Tea - Alcohol Use Alcohol Use History: No Days Per Week of Alcohol Use: 0 Number of Drinks Per Day: 0 Number of Drinks Per Day Comment: No previous DWIs, problems with alcohol abuse, etc. Total Drinks Per Week: 0 Alcohol Use in Last Twelve Months: No - Recreational Drug Use Recreational Drug Use: Yes Drug Use in Last 12 Months: No Recreational Drug Type: Reports: Marijuana/Hashish (Experimental at age 45.). Denies: Amphetamines (Speed), Cocaine, Heroin, Inhalants (Glues, Solvents, Aerosols), LSD (Acid), Methamphetamine, Morphine, Oxycodone - Sexual History Sexual History: Reports: Single Partner. Denies: Abuse - Living Situation & Occupation Living situation: Reports: (Second in 2007.), (First 2002 with 2 children from that relationship. 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 Patient has been unable to work since she had cervical radiculopathy.) ED ROS GENERAL - Review of Systems Review Of Systems: Comprehensive ROS is negative, except as noted in HPI. ED EXAM, GENERAL - Physical Exam Exam: See Below Exam Limited By: No Limitations General Appearance: Alert, WD/WN, No Apparent Distress, Anxious (Moderate to severe) Eye Exam: Bilateral Eye: EOMI, Normal Fundi, Normal Inspection (No nystagmus), PERRL Ears: Normal External Exam, Normal Canal, Hearing Grossly Normal, Normal TMs Nose: Normal Inspection, Normal Mucosa, No Blood Throat/Mouth: Normal Inspection, Normal Lips, Normal Teeth, Normal Gums, Normal Oropharynx, Normal Voice, No Airway Compromise. No: Dysphagia, Perioral Cyanosis Head: Atraumatic, Normocephalic. No: Facial Swelling, Facial Tenderness, Sinus Tenderness Neck: Normal Inspection, Supple, Non-Tender, Full Range of Motion. No: Carotid Bruit, Lymphadenopathy (L), Lymphadenopathy (R), Thyromegaly Respiratory/Chest: No Respiratory Distress, Lungs Clear, Normal Breath Sounds, No Accessory Muscle Use, Chest Non-Tender. No: Pleural Rub, Retractions Cardiovascular: Normal Peripheral Pulses, Regular Rate, Rhythm, No Edema, No Gallop, No JVD, No Murmur, No Rub. No: Gallop/S3, Gallop/S4, Friction Rub Peripheral Pulses: 2+: Radial (L), Radial (R), Dorsalis Pedis (L), Dorsalis Pedis (R) GI/Abdominal: Normal Bowel Sounds, Soft, Non-Tender, No Organomegaly, No Distention, No Abnormal Bruit, No Mass. No: Guarding (Female) Exam: Deferred Rectal (Female) Exam: Deferred Back Exam: Normal Inspection, Full Range of Motion. No: CVA Tenderness (L), CVA Tenderness (R), Muscle Spasm Extremities: Normal Inspection, Normal Range of Motion, Non-Tender, No Pedal Edema, Normal Capillary Refill. No: Bay's Sign Neurological: Alert, Oriented, CN II-XII Intact, Normal Cognition, Normal Gait, Normal Reflexes (Negative Babinski's, finger to nose, and pronator rotation tests. No evidence of facial paresis, tongue deviation, orthostasis, etc.. Excellent reverse thought processes.), No Motor/Sensory Deficits Psychiatric: Anxious (Moderate to severe), Depressed Mood (Moderate with adequate eye contact), Tearful Skin Exam: Warm, Dry, Intact, Normal Color, No Rash. No: Diaphoretic, Wound/Incision Lymphatic: No Adenopathy Course - Vital Signs Last Recorded V/S: Last Vital Signs Temp 36.7 C 03/13/20 12:45 Pulse 90 03/13/20 12:45 Resp 22 H 03/13/20 12:45 BP 106/66 03/13/20 12:45 Pulse Ox 97 03/13/20 12:45 Vital Signs - 24 hr 03/13/20 03/13/20 12:22 12:45 Temperature [ 36.7 C Temporal] Pulse, 90 Peripheral [ Right Pulse Oximetry] Respiratory 22 H Rate Blood Pressure 106/66 [Right Upper Arm] O2 Sat by Pulse 97 Oximetry O2 Sat by Pulse 97 Oximetry [Room Air] - Orders/Labs/Meds Orders: Active Orders 24 hr Category Date Time Status Cardiac Monitoring [RC] STAT Care 03/13/20 12:22 Active Communication Order [RC] PER UNIT ROUTINE Care 03/13/20 12:22 Active Oxygen Therapy, ED [RC] PRN Care 03/13/20 12:22 Active Peripheral IV Care [RC] . DIRECTED Care 03/13/20 12:22 Active Pulse Oximetry [RC] CONTINUOUS Care 03/13/20 12:22 Active Up With Assistance [RC] ASDIRECTED Care 03/13/20 12:22 Active Vital Signs [RC] PFP Care 03/13/20 12:22 Active Nothing per Oral Now Diet [DIET] Diet 03/13/20 Breakfast Active Head wo Cont [CT] Stat Exams 03/13/20 12:22 Taken Sodium Chloride 0.9% [Saline Flush] Med 03/13/20 12:22 Active 10 ml FLUSH ASDIRECTED PRN Obtain Past Medical Record [OM.PC] Stat Oth 03/13/20 12:22 Active Peripheral IV Insertion Adult [OM.PC] Stat Oth 03/13/20 12:22 Ordered Resuscitation Status Stat Resus Stat 03/13/20 12:22 Ordered Medication Orders Sodium Chloride (Saline Flush) 10 ml FLUSH ASDIRECTED PRN PRN Reason: Keep Vein Open Last Admin: 03/13/20 13:34 Dose: 10 ml Documented by: DOMINIK Labs: Laboratory Tests 03/13/20 03/13/20 03/13/20 Range/Units 12:55 12:55 12:55 WBC 6.2 (4.0-10.2) K/uL RBC 4.60 (3.77-5.09) M/uL Hgb 13.5 (11.7-15.5) g/dL Hct 41.3 (34.0-46.0) % MCV 89.8 (84.0-98.0) fL MCH 29.3 (28.2-33.3) pg MCHC 32.7 (31.7-36.0) g/dL RDW 14.4 H (11.2-14.1) % Plt Count 273 (150-350) K/uL Neut % (Auto) 50.6 (45.0-80.0) % Lymph % (Auto) 37.8 (10.0-50.0) % Mora % (Auto) 8.4 (2.0-14.0) % Eos % (Auto) 2.6 (0.0-5.0) % Baso % (Auto) 0.6 (0.0-2.0) % Neut # (Auto) 3.14 (1.40-7.00) K/uL Lymph # (Auto) 2.35 (0.50-3.50) K/uL Mora # (Auto) 0.52 (0.00-1.00) K/uL Eos # (Auto) 0.16 (0.00-0.50) K/uL Baso # (Auto) 0.04 (0.00-0.20) K/uL PT 9.9 (9.5-12.0) SEC INR 1.0 APTT 23.4 L (24.5-32.8) SEC D-Dimer, Quantitative < 100 (0-400) ng/mL Sodium (136-145) mmol/L Potassium (3.5-5.1) mmol/L Chloride (98-107) mmol/L Carbon Dioxide (21.0-32.0) mmol/L BUN (7-18) mg/dL Creatinine (0.51-1.17) mg/dL Est Cr Clr Drug Dosing mL/min Estimated GFR (MDRD) mL/min Glucose (74-106) mg/dL Lactic Acid (0.4-2.0) mmol/L Uric Acid (2.6-7.2) mg/dL Calcium (8.5-10.1) mg/dL Magnesium (1.8-2.4) mg/dL Total Bilirubin (0.2-1.0) mg/dL AST (15-37) U/L ALT (12-78) U/L Alkaline Phosphatase (46-116) IU/L Total Protein (6.4-8.2) g/dL Albumin (3.4-5.0) g/dL TSH, Ultra Sensitive (0.358-3.740) mIU/mL Urine Opiates Screen (NEGATIVE) Ur Buprenorphine Scrn (NEGATIVE) Ur Oxycodone Screen (NEGATIVE) Ur EDDP (Meth Metab) (NEGATIVE) Ur Barbiturates Screen (NEGATIVE) Ur Tricyclics Screen (NEGATIVE) Ur Amphetamine Screen (NEGATIVE) U Methamphetamines Scrn (NEGATIVE) Urine MDMA Screen (NEGATIVE) U Benzodiazepines Scrn (NEGATIVE) U Cocaine Metab Screen (NEGATIVE) U Marijuana (THC) Screen (NEGATIVE) Ethyl Alcohol (0.000-0.080) g/dL 03/13/20 03/13/20 03/13/20 Range/Units 12:55 12:55 13:05 WBC (4.0-10.2) K/uL RBC (3.77-5.09) M/uL Hgb (11.7-15.5) g/dL Hct (34.0-46.0) % MCV (84.0-98.0) fL MCH (28.2-33.3) pg MCHC (31.7-36.0) g/dL RDW (11.2-14.1) % Plt Count (150-350) K/uL Neut % (Auto) (45.0-80.0) % Lymph % (Auto) (10.0-50.0) % Mora % (Auto) (2.0-14.0) % Eos % (Auto) (0.0-5.0) % Baso % (Auto) (0.0-2.0) % Neut # (Auto) (1.40-7.00) K/uL Lymph # (Auto) (0.50-3.50) K/uL Mora # (Auto) (0.00-1.00) K/uL Eos # (Auto) (0.00-0.50) K/uL Baso # (Auto) (0.00-0.20) K/uL PT (9.5-12.0) SEC INR APTT (24.5-32.8) SEC D-Dimer, Quantitative (0-400) ng/mL Sodium 139 (136-145) mmol/L Potassium 4.2 (3.5-5.1) mmol/L Chloride 103 (98-107) mmol/L Carbon Dioxide 27.7 (21.0-32.0) mmol/L BUN 14 (7-18) mg/dL Creatinine 0.69 (0.51-1.17) mg/dL Est Cr Clr Drug Dosing 87.31 mL/min Estimated GFR (MDRD) > 60 mL/min Glucose 100 (74-106) mg/dL Lactic Acid 0.5 (0.4-2.0) mmol/L Uric Acid 2.3 L (2.6-7.2) mg/dL Calcium 9.0 (8.5-10.1) mg/dL Magnesium 2.1 (1.8-2.4) mg/dL Total Bilirubin 0.2 (0.2-1.0) mg/dL AST 18 (15-37) U/L ALT 24 (12-78) U/L Alkaline Phosphatase 80 (46-116) IU/L Total Protein 7.3 (6.4-8.2) g/dL Albumin 3.9 (3.4-5.0) g/dL TSH, Ultra Sensitive 1.574 (0.358-3.740) mIU/mL Urine Opiates Screen Negative (NEGATIVE) Ur Buprenorphine Scrn Negative (NEGATIVE) Ur Oxycodone Screen Negative (NEGATIVE) Ur EDDP (Meth Metab) Negative (NEGATIVE) Ur Barbiturates Screen Negative (NEGATIVE) Ur Tricyclics Screen Positive H (NEGATIVE) Ur Amphetamine Screen Negative (NEGATIVE) U Methamphetamines Scrn Negative (NEGATIVE) Urine MDMA Screen Negative (NEGATIVE) U Benzodiazepines Scrn Positive H (NEGATIVE) U Cocaine Metab Screen Negative (NEGATIVE) U Marijuana (THC) Screen Negative (NEGATIVE) Ethyl Alcohol 0.004 (0.000-0.080) g/dL Meds: Medications Generic Name Dose Route Start Last Admin Trade Name Freq PRN Reason Stop Dose Admin Sodium Chloride 10 ml 03/13/20 12:22 03/13/20 13:34 Saline Flush FLUSH 10 ml ASDIRECTED PRN Administration Keep Vein Open Discontinued Medications Generic Name Dose Route Start Last Admin Trade Name Freq PRN Reason Stop Dose Admin Diazepam 2.5 mg 03/13/20 13:17 03/13/20 13:35 Valium IVPUSH 03/13/20 13:18 2.5 mg ONETIME ONE Administration Diphenhydramine HCl 50 mg 03/13/20 13:16 03/13/20 13:35 Benadryl IVPUSH 03/13/20 13:17 50 mg ONETIME ONE Administration Metoclopramide HCl 10 mg 03/13/20 13:17 03/13/20 13:34 Reglan IVPUSH 03/13/20 13:18 10 mg ONETIME ONE Administration - Radiology Interpretation Free Text/Narrative:: CT of the head without contrast showed no evidence of acute changes including cerebral hemorrhage, CVA, etc. Note artifact secondary to previous basilar aneurysm coil. Departure - Departure Time of Disposition: 14:05 Disposition: Home, Self-Care 01 Condition: Good Clinical Impression: Mixed anxiety depressive disorder, Tension-type headache, Hypothyroidism COPD (chronic obstructive pulmonary disease) Qualifiers: COPD type: emphysema Emphysema type: panlobular Qualified Code(s): J43.1 - Panlobular emphysema Hypertension Qualifiers: Hypertension type: essential hypertension Qualified Code(s): I10 - Essential (primary) hypertension - Discharge Information *PRESCRIPTION DRUG MONITORING PROGRAM REVIEWED*: Not Applicable *COPY OF PRESCRIPTION DRUG MONITORING REPORT IN PATIENT TIEN: Not Applicable Instructions: Diphenhydramine injection, Metoclopramide injection, Migraine Headache, [id number], Diazepam injection Referrals: PCP,Unknown [Primary Care Provider] - Forms: ED Department Discharge Additional Instructions: 1. Follow up with your regular provider in 10-14 days as needed, if symptoms persist. Bring these discharge instructions with you to that visit.. 2. Tylenol 650 mg by mouth every 4 hours and/or OTC ibuprofen 2-3 tabs by mouth every 6 hours with food as directed./needed. You may stagger these medications for 48-72 hours only, which essentially means that you are receiving a pain medication about every 2 hours. 3. Ice packs to head and neck, dark and quiet room, etc. as directed until headache resolves. Ice packs to head and neck, dark and quiet room, etc. as directed until headache resolves. 4. Sedation precautions with no driving, etc. for 18 hours because of emergency room medications. 5. Congratulations about quitting smoking 6. Immediately after this visit verify that your cellular telephone's voicemail has been activated and is empty. Also verify that your home telephone's answering machine is operating properly and has space to receive messages. Note that it is sometimes necessary for us to be able to contact you at a later date to discuss your medical care. Please remember that we are ALWAYS here for you and want to answer any questions you may have. Feel free to call the hospital any time and we call you back ASHLEY. Sepsis Event Note (ED) - Focused Exam Vital Signs: Vital Signs Temp Pulse Resp BP Pulse Ox Pulse Ox 03/13/20 12:45 36.7 C 90 22 H 106/66 97 03/13/20 12:22 97 - Problem List & Annotations (1) Tension-type headache SNOMED Code(s): 283356198 Status: Acute Priority: High Current Visit: Yes Annotation/Comment:: Note CT scan of the head results as above. Stroke code was not called secondary to patient history, neurological findings, etc. with no evidence of acute CVA, etc.. Continue to observe closely through her regular provider, pain clinic, etc. Excellent results with treatment as above. Sedation precautions were given. (2) Mixed anxiety depressive disorder SNOMED Code(s): 342887149 Code(s): F41.8 - OTHER SPECIFIED ANXIETY DISORDERS Status: Chronic Priority: High Current Visit: Yes Annotation/Comment:: Moderately poor control based on today's evaluation. Continue close observation by her regular providers. Emotional support provided. (3) Hypothyroidism SNOMED Code(s): 46433424 Status: Chronic Priority: Medium Current Visit: Yes Annotation/Comment:: TSH normal today. She was previously evaluated for possible Whitney's disease by her paper machine backtender at [facility], however no definite conclusion. Continue close follow-up by her regular provider. (4) COPD (chronic obstructive pulmonary disease) SNOMED Code(s): 78852470 Status: Chronic Priority: Medium Current Visit: Yes Annotation/Comment:: No recent fever or bronchitic type symptoms. PFTs on an outpatient basis may still be of some benefit, however no current medical therapy. The patient was congratulated about her recent tobacco cessation on 06/14/19. Qualifiers: COPD type: emphysema Emphysema type: panlobular Qualified Code(s): J43.1 - Panlobular emphysema (5) Hypertension SNOMED Code(s): 68560936 Status: Chronic Priority: Medium Current Visit: Yes Annotation/Comment:: Blood pressures stable in the emergency room with previous history of hypotension and stable somewhat low blood pressures today. Qualifiers: Hypertension type: essential hypertension Qualified Code(s): I10 - Essential (primary) hypertension - Problem List Review Problem List Initiated/Reviewed/Updated: Yes - My Orders Last 24 Hours: My Active Orders 03/13/20 Breakfast Nothing per Oral Now Diet [DIET] 03/13/20 12:22 Cardiac Monitoring [RC] STAT Communication Order [RC] PER UNIT ROUTINE Oxygen Therapy, ED [RC] PRN Peripheral IV Care [RC] . DIRECTED Pulse Oximetry [RC] CONTINUOUS Up With Assistance [RC] ASDIRECTED Vital Signs [RC] PFP Head wo Cont [CT] Stat Sodium Chloride 0.9% [Saline Flush] 10 ml FLUSH ASDIRECTED PRN Obtain Past Medical Record [OM.PC] Stat Peripheral IV Insertion Adult [OM.PC] Stat Resuscitation Status Stat - Assessment/Plan Last 24 Hours: My Active Orders 03/13/20 Breakfast Nothing per Oral Now Diet [DIET] 03/13/20 12:22 Cardiac Monitoring [RC] STAT Communication Order [RC] PER UNIT ROUTINE Oxygen Therapy, ED [RC] PRN Peripheral IV Care [RC] . DIRECTED Pulse Oximetry [RC] CONTINUOUS Up With Assistance [RC] ASDIRECTED Vital Signs [RC] PFP Head wo Cont [CT] Stat Sodium Chloride 0.9% [Saline Flush] 10 ml FLUSH ASDIRECTED PRN Obtain Past Medical Record [OM.PC] Stat Peripheral IV Insertion Adult [OM.PC] Stat Resuscitation Status Stat Assessment:: As above. Plan: As above. Extensive precautions were given to the patient, who is in agreement with the treatment plan. See Patient Instructions for further treatment and plan.
[2020-03-13] MEDS ORDERED: diphenhydrAMINE 50 MG/ML SDV IVPUSH ONE (13:16)
[2020-03-13] MEDS ORDERED: Metoclopramide 10 MG/2 ML SDV IVPUSH ONE (13:17)
[2020-03-13 13:22] LABS: PTT,PARTIAL THROMBOPLSTIN TIME 23.4 SEC (24.5-32.8)
[2020-03-13 13:28] LABS: BARBITURATE SCREEN,URINE NEGATIVE (NEGATIVE); BENZODIAZEPINES SCREEN,URINE POSITIVE (NEGATIVE); EDDP,URINE SCREEN NEGATIVE (NEGATIVE); TCA SCREEN,URINE POSITIVE (NEGATIVE); THC SCREEN,URINE 50 NG/ML NEGATIVE (NEGATIVE)
[2020-03-13 13:34] LABS: CHLORIDE,CL 103 mmol/L (98-107); SODIUM,NA 139 mmol/L (136-145)
[2020-03-14 10:09] VITALS: BP 98/60; PULSE 76
== END 2020-03-13 14:05 | disposition home or self-care (01) ==
LOC: LL.ED 12:17
DX: J43.1 Panlobular emphysema (principal); I10 Essential (primary) hypertension; F41.8 Other specified anxiety disorders; G44.209 Tension-type headache, unspecified, not intractable; E03.9 Hypothyroidism, unspecified; Z88.2 Allergy status to sulfonamides; Z91.041 Radiographic dye allergy status; Z88.8 Allergy status to other drugs, medicaments and biological substances; Z87.891 Personal history of nicotine dependence
CPT/HCPCS: 36415; 70450; 80053; 80305; 80307; 83605; 83735; 84443; 84550; 85025; 85379; 85610; 85730; 96374; 96375; 99285; J1200; J2765; J3360; 99283

== ENCOUNTER 2022-09-14 20:43 | Emergency (ER) | payer BC ==
[2022-09-14] MEDS ORDERED: GI Cocktail Oral Solution 30 ML PO ONE (21:04)
[2022-09-14] MEDS ORDERED: Sodium Chloride 0.9% 1,000 ML IV ONE ×2 (21:04→22:24)
[2022-09-14] MEDS ORDERED: Sodium Chloride 0.9% 10 ML Syringe FLUSH PRN (21:06)
[2022-09-14] MEDS ORDERED: Ondansetron 4 MG/2 ML SDV IVPUSH ONE (21:07)
[2022-09-14 21:44] LABS: ANION GAP 7.8 meq/L (7-15); CHLORIDE,CL 103 mmol/L (98-107); ESTIMATED GFR 54 mL/min (>=60); SODIUM,NA 138 mmol/L (136-145)
[2022-09-14] MEDS ORDERED: diphenhydrAMINE 50 MG/ML SDV IVPUSH ONE (21:59)
[2022-09-14] MEDS ORDERED: Ketorolac 15 MG/ML SDV IVPUSH ONE (22:03)
[2022-09-14] MEDS ORDERED: Ketorolac 15 MG/ML SDV ONE (22:12)
[2022-09-14 22:20] LABS: CORONAVIRUS COVID-19 NAA NEGATIVE (NEGATIVE); RESPIRATORY SYNCYTIAL VIR NAA NEGATIVE (NEGATIVE)
[2022-09-14] MEDS ORDERED: GI Cocktail Oral Solution 30 ML ONE (22:28)
[2022-09-14] MEDS ORDERED: Pantoprazole 40 MG Vial IVPUSH ONE (23:22)
[2022-09-14 23:26] VITALS: BP 102/75; PULSE 74
== END 2022-09-14 23:45 | disposition home or self-care (01) ==
LOC: LL.ED 20:43
DX: R10.11 Right upper quadrant pain (principal); I10 Essential (primary) hypertension; J44.9 Chronic obstructive pulmonary disease, unspecified; E03.9 Hypothyroidism, unspecified; Z91.041 Radiographic dye allergy status; Z88.2 Allergy status to sulfonamides; Z88.8 Allergy status to other drugs, medicaments and biological substances; Z79.899 Other long term (current) drug therapy; Z20.822 Contact with and (suspected) exposure to COVID-19
CPT/HCPCS: 0241U; 36415; 74022; 74176; 80053; 81003; 82150; 83605; 83690; 83735; 84484; 85025; 93005; 93010; 96361; 96374; 96375; 99284-25; 99285; A9270-GY; C9113; J1885; J2405; J7030

== ENCOUNTER 2025-02-21 18:37 | Emergency (ER) | payer BC ==
[2025-02-21] MEDS: Ondansetron 4 MG Tab.DIS PO ONE (19:00)
[2025-02-21] MEDS: Take Home: Ondansetron 4 MG Tab.DIS, 5 Tab Pack PO ONE (19:53)
[2025-02-21 19:59] VITALS: BP 109/92; PULSE 82
== END 2025-02-21 19:56 | disposition home or self-care (01) ==
LOC: LL.ED 18:37
DX: S09.90XA Unspecified injury of head, initial encounter (principal); Z88.2 Allergy status to sulfonamides; Z88.8 Allergy status to other drugs, medicaments and biological substances; Z91.041 Radiographic dye allergy status; Z79.890 Hormone replacement therapy; W22.8XXA Striking against or struck by other objects, initial encounter
CPT/HCPCS: 70450; 99284; A9270-GY; Q0162